=== PATIENT | male | born 1970 | race Caucasian/White ===

== ENCOUNTER → 2017-10-04 16:20 | Outpatient (CLI) | payer OTHER, SELFPAY ==
[2017-10-04 18:02] LABS: Absolute Lymphocyte Count 2.43 X10^3/ul (0.83-4.51); Absolute Neutrophil Count 2.6 X10^3/uL (2.0-7.7); Basophil# 0.03 X10^3/uL; Basophil% 0.5 % (0-1); Eosinophil# 0.25 X10^3/uL; Eosinophils% 4.4 % (0-5); Hematocrit 44.6 % (40-54); Hemoglobin 14.9 g/dl (13.0-16.5); Lymphocyte # 2.43 X10^3/ul (4.0); Lymphocyte % 42.3 % (19-41); Mean Corp Hgb Conc 33.4 g/gl (32-36); Mean Corpuscular Hgb 30.1 pg (27.0-32.0); Mean Corpuscular Volume 90.1 fL (80-94); Monocyte# 0.41 X10^3/uL; Monocyte% 7.1 % (0-10); Neutrophil # 2.61 X10^3/uL (2.7-7.7); Neutrophil % 45.5 % (47-70); Platelet Count 311 K/mm3 (150-450); RBC Distribution Width CV 12.6 % (11.6-14.6); RBC Distribution Width SD 40.8 fl (35.1-43.9); Red Blood Count 4.95 M/mm3 (4.6-6.2); White Blood Count 5.7 K/mm3 (4.4-11.0)
[2017-10-04 18:05] LABS: POSITIVE COUNT NO; POSITIVE DIFFERENTIAL NO; POSITIVE MORPHOLOGY NO
[2017-10-04 18:18] LABS: Erythrocyte Sedimentation Rate 14 mm/hr (0-15)
[2017-10-04 18:33] LABS: AST(SGOT) 24 U/L (15-37); Alanine Aminotransfer ALT/SGPT 46 U/L (16-61); Albumin, Serum 4.1 g/dL (3.2-5.0); Alkaline Phosphatase 72 U/L (45-117); Anion Gap 9 (5-15); BUN 11 mg/dL (7-18); BUN/Creat Ratio 13.1 RATIO (10-20); Calcium,Total 8.7 mg/dL (8.5-10.1); Chloride 103 mmol/L (98-107); Creatinine, Serum 0.84 mg/dL (0.70-1.30); EST Glomerular Filtration Rate 104 mL/min (>60); Est Glom Filt Rate - Afr Amer 126 mL/min (>60); Globulin 4.1 g/dL (2.2-4.2); Glucose 105 mg/dL (74-106); Potassium 3.6 mmol/L (3.5-5.1); Protein, Total 8.2 g/dL (6.4-8.2); Sodium Level 138 mmol/L (136-145); T4 Free Direct 1.23 ng/dL (0.76-1.46); Thyroid Stim Hormone (TSH) 0.85 uIU/mL (0.358-3.74)
[2017-10-05 08:50] LABS: Vitamin D,25 Hydroxy 17.5 ng/mL (19.95-100.01)
[2017-10-06 16:11] LABS: Endomysial Antibody IgA Negative (Negative)
[2017-10-07 07:17] LABS: Deamidated Gliadin IgA 9 units (0-19); Deamidated Gliadin IgG 8 units (0-19); Immunoglobulin A 299 mg/dL (90-386); t-Transglutaminase IgA <2 U/mL (0-3)
== END ==
PROVIDERS: Family Provider Family Medicine; PCP Family Medicine; Visit Provider Family Medicine
DX: E03.9 Hypothyroidism, unspecified (principal); E55.9 Vitamin D deficiency, unspecified; K58.9 Irritable bowel syndrome, unspecified
CPT/HCPCS: 36415; 80053; 82306; 82784; 83516; 84439; 84443; 85025; 85652; 86255

== ENCOUNTER → 2018-05-08 16:55 | Outpatient (CLI) | payer OTHER, SELFPAY ==
[2018-05-08 18:23] LABS: Vitamin D,25 Hydroxy 37.7 ng/mL (29.95-100.01)
== END ==
PROVIDERS: Family Provider Family Medicine; PCP Family Medicine; Visit Provider Family Medicine
DX: E55.9 Vitamin D deficiency, unspecified (principal)
CPT/HCPCS: 36415; 82306

== ENCOUNTER → 2019-03-27 | Outpatient (CLI) | payer OTHER, SELFPAY ==
[2017-08-30 11:44] VITALS: BMI 27.2
[2019-03-27 14:11] LABS: Vitamin D,25 Hydroxy 18.3 ng/mL (29.95-100.01)
[2019-03-27 14:14] LABS: T4 Free Direct 1.18 ng/dL (0.76-1.46); Thyroid Stim Hormone (TSH) 3.43 uIU/mL (0.358-3.74)
== END | disposition home or self-care (01) ==
LOC: MTLAB 12:45
PROVIDERS: Family Provider Family Medicine; PCP Family Medicine; Referring Provider Family Medicine; Visit Provider Family Medicine
DX: E03.9 Hypothyroidism, unspecified (principal); E55.9 Vitamin D deficiency, unspecified
CPT/HCPCS: 36415; 82306; 84439; 84443

== ENCOUNTER → 2019-09-17 11:39 | Outpatient (CLI) | payer OTHER, SELFPAY ==
[2017-08-30 11:44] VITALS: BMI 27.2
[2019-09-17 14:21] LABS: Vitamin D,25 Hydroxy 31.9 ng/mL (29.95-100.01)
[2019-09-17 14:33] LABS: AST(SGOT) 25 U/L (15-37); Alanine Aminotransfer ALT/SGPT 53 U/L (16-61); Albumin, Serum 4.4 g/dL (3.2-5.0); Alkaline Phosphatase 72 U/L (45-117); Anion Gap 8 (5-15); BUN 11 mg/dL (7-18); BUN/Creat Ratio 10.8 RATIO (10-20); Calcium,Total 9.9 mg/dL (8.5-10.1); Chloride 105 mmol/L (98-107); Creatinine, Serum 1.02 mg/dL (0.70-1.30); EST Glomerular Filtration Rate 83 mL/min (>60); Est Glom Filt Rate - Afr Amer 100 mL/min (>60); Globulin 4.2 g/dL (2.2-4.2); Glucose 106 mg/dL (74-106); Magnesium 2.1 mg/dL (1.6-2.6); Potassium 3.9 mmol/L (3.5-5.1); Protein, Total 8.6 g/dL (6.4-8.2); Sodium Level 139 mmol/L (136-145); Thyroid Stim Hormone (TSH) 1.84 uIU/mL (0.358-3.74)
== END ==
PROVIDERS: PCP Family Medicine; Visit Provider Nurse Practitioner Family
DX: E55.9 Vitamin D deficiency, unspecified (principal); M62.838 Other muscle spasm
CPT/HCPCS: 36415; 80053; 82306; 83735; 84443

== ENCOUNTER → 2020-03-12 | Outpatient (CLI) | payer OTHER, SELFPAY ==
[2019-10-08 15:09] VITALS: BMI 27.2
[2020-03-12 10:32] LABS: Hemoglobin 15.5 g/dL (13.0-16.5); Mean Corpuscular Hgb 30.2 pg (27.0-32.0); Mean Corpuscular Volume 91.4 fL (80-94); Platelet Count 335 K/mm3 (150-450); RBC Distribution Width CV 11.8 % (11.6-14.6); RBC Distribution Width SD 39.4 fl (35.1-43.9); Red Blood Count 5.14 M/mm3 (4.6-6.2); White Blood Count 5.5 K/mm3 (4.4-11.0)
[2020-03-12 10:37] LABS: Erythrocyte Sedimentation Rate 14 mm/hr (0-15)
[2020-03-12 10:50] LABS: Anion Gap 6 (5-15); BUN 12 mg/dL (7-18); BUN/Creat Ratio 12.1 RATIO (10-20); CRP 3.21 mg/L (0.0-3.0); Calcium,Total 8.7 mg/dL (8.5-10.1); Chloride 106 mmol/L (98-107); Cholesterol 224 mg/dL (200); Creatinine, Serum 0.99 mg/dL (0.70-1.30); EST Glomerular Filtration Rate 86 mL/min (>60); Est Glom Filt Rate - Afr Amer 104 mL/min (>60); Glucose 96 mg/dL (74-106); High Density Lipoprotein 39 mg/dL; Iron 92 ug/dL (65-175); Potassium 3.9 mmol/L (3.5-5.1); Sodium Level 138 mmol/L (136-145); Thyroid Stim Hormone (TSH) 4.58 uIU/mL (0.358-3.74); Triglycerides 170 mg/dL; Very Low Density Lipoprotein 34 mg/dL (5-40)
[2020-03-12 11:10] LABS: Vitamin B12 537 pg/mL (211-911); Vitamin D,25 Hydroxy 33.4 ng/mL
[2020-03-13 20:07] LABS: Endomysial Antibody IgA Negative (Negative); Immunoglobulin A 322 mg/dL (90-386)
[2020-03-14 01:06] LABS: ANTINUCLEAR ANTIBODIES DIRECT Negative (Negative)
[2020-03-14 01:08] LABS: Deamidated Gliadin IgA 11 units (0-19); Deamidated Gliadin IgG 5 units (0-19); SAR-COV-2 IGG ANTIBODY Negative (Negative); t-Transglutaminase IgA <2 U/mL (0-3)
== END | disposition home or self-care (01) ==
LOC: MFPLAB 09:16
PROVIDERS: PCP Family Medicine; Visit Provider Family Medicine
DX: E03.9 Hypothyroidism, unspecified (principal); E55.9 Vitamin D deficiency, unspecified; R25.3 Fasciculation; Z13.1 Encounter for screening for diabetes mellitus; Z13.220 Encounter for screening for lipoid disorders; Z83.79 Family history of other diseases of the digestive system
CPT/HCPCS: 36415; 80048; 80061; 82306; 82607; 82784; 83516; 83540; 84443; 85027; 85652; 86038; 86140; 86255; 86769

== ENCOUNTER → 2020-08-04 14:57 | Outpatient (CLI) | payer OTHER, SELFPAY ==
[2019-10-08 15:09] VITALS: BMI 27.2
--- NOTE | 2020-08-04 15:04 | RAD_ITS ---
HISTORY: toe numbness lumbago ADDITIONAL HISTORY: None provided. EXAMINATION/TECHNIQUE: XR Spine Lumbar Min 4 Views Number of images including paperwork: 5 COMPARISON: None FINDINGS: VERTEBRAE: No acute fracture. VERTEBRAL ALIGNMENT: No traumatic subluxation. DISKS AND JOINTS: Moderate disc space narrowing at L5-S1. Mild discogenic degenerative changes elsewhere in the lumbar spine. Facet arthropathy. SOFT TISSUES: Unremarkable paraspinous soft tissues. RAD/L/S Spine Min 4 Views IMPRESSION: No acute findings. Lumbar spondylosis. at 0753 Reported and signed by: Karla Prakash MD Electronically Signed: Karla Prakash MD at 7:53 EST Tel , Service support ,
[2020-08-04 17:52] LABS: Absolute Lymphocyte Count 2.16 X10^3/uL (0.83-4.51); Absolute Neutrophil Count 2.6 X10^3/uL (2.0-7.7); Basophil# 0.03 X10^3/uL; Basophil% 0.5 % (0-1); Eosinophil# 0.11 X10^3/uL; Hematocrit 46.4 % (40-54); Hemoglobin 14.9 g/dL (13.0-16.5); Lymphocyte # 2.16 X10^3/ul (4.0); Lymphocyte % 39.3 % (19-41); Mean Corp Hgb Conc 32.1 g/dL (32-36); Mean Corpuscular Hgb 29.2 pg (27.0-32.0); Mean Platelet Vol. 10.1 fl (6.2-12.0); Monocyte# 0.62 X10^3/uL; Monocyte% 11.3 % (0-10); NRBC Flagged by Analyzer 0 % (0-5); Neutrophil # 2.56 X10^3/uL (2.7-7.7); Neutrophil % 46.7 % (47-70); Platelet Count 335 K/mm3 (150-450); RBC Distribution Width CV 11.9 % (11.6-14.6); RBC Distribution Width SD 39.7 fl (35.1-43.9); White Blood Count 5.5 K/mm3 (4.4-11.0)
[2020-08-04 18:45] LABS: Erythrocyte Sedimentation Rate 5 mm/hr (0-15)
[2020-08-04 19:00] LABS: ALB/GLOB Ratio 1.1 RATIO (0.9-2.4); AST(SGOT) 25 U/L (15-37); Alanine Aminotransfer ALT/SGPT 47 U/L (16-61); Albumin, Serum 4.1 g/dL (3.2-5.0); Alkaline Phosphatase 82 U/L (45-117); Anion Gap 6 (5-15); BUN 11 mg/dL (7-18); BUN/Creat Ratio 13.8 RATIO (10-20); CPK Total, Creatine Kinase 305 U/L (39-308); CRP < 2.90 mg/L (0.0-3.0); Calcium,Total 8.9 mg/dL (8.5-10.1); Chloride 103 mmol/L (98-107); EST Glomerular Filtration Rate 110 mL/min (>60); Est Glom Filt Rate - Afr Amer 133 mL/min (>60); Ferritin 139 ng/mL (26-388); Globulin 3.8 g/dL (2.2-4.2); Glucose 77 mg/dL (74-106); Magnesium 2.3 mg/dL (1.6-2.6); Potassium 3.4 mmol/L (3.5-5.1); Protein, Total 7.9 g/dL (6.4-8.2); Sodium Level 138 mmol/L (136-145); T4 Free Direct 1.56 ng/dL (0.76-1.46); Thyroid Stim Hormone (TSH) 0.02 uIU/mL (0.358-3.74)
[2020-08-05 12:51] LABS: Vitamin B12 588 pg/mL (211-911); Vitamin D,25 Hydroxy 29.1 ng/mL
[2020-08-06 15:24] LABS: ANTINUCLEAR ANTIBODIES DIRECT Negative (Negative)
[2020-08-06 15:25] LABS: Aldolase 4.7 U/L (3.3-10.3)
== END ==
PROVIDERS: PCP Family Medicine; Referring Provider Family Medicine; Visit Provider Family Medicine
DX: M54.5 Low back pain (principal); E03.9 Hypothyroidism, unspecified; M79.10 Myalgia, unspecified site
CPT/HCPCS: 36415; 72110; 80053; 82085; 82306; 82550; 82607; 82728; 83735; 84403; 84439; 84443; 85025; 85652; 86038; 86140

== ENCOUNTER 2020-10-10 07:30 | Outpatient (RCR) | payer OTHER, SELFPAY ==
[2019-10-08 15:09] VITALS: BMI 27.2
--- NOTE | 2020-09-08 17:43 | HP.PTEVAL_ITS ---
Patient's Visit Information MARIIA BELLA is a 50 year old M referred to Physical Therapy by Dr. Yunior Rodriguez MD with a diagnosis of L/S DDD. Date of Evaluation: 09/08/20 Physical Therapist: Cain Díaz, PT, ATC - Visit Plan Frequency: 2-3x /Week Duration: 4-6 Weeks Plan: Postural edu, L/S stab ex's, Nustep, and HEP - Subjective Pt reports he has had multiple LBP episodes over the past few years. Pt reports it has happened 4 times in one year. Pt notes he doesnt really have pain right now, but notes he is looking to become independent with a safe program to aid with preventing future episodes. Pt reports when his back goes out on him, he is not able to stand upright for the better part of 3 days. Pt reports he has had L LE radiculopathy in the past but notes none this date. No sleep difficulty at this time. 0/10 pain at this time, 10/10 pain at worst - Objective Neuro: B LE sensation is WNL to light touch. B patellar reflex= 2/3. ROM: Pt is minimally limited with L/S ext. All other motions are WNL. MMT: B LE's 5/5 throughout. Repeated movements: NA. Special tests: Pos trendelenburg - Goals Goal 1:: I with HEP of core strengthening Goal Time Frame: 4-6 Weeks Goal 2:: Pt will verbally and physically display proper posture to prevent future LBP apisodes Goal Time Frame: 4-6 Weeks Goal 3:: Pt will not experience an episode of LBP for 4-6 weeks Goal Time Frame: 4-6 Weeks - Rehabilitation Potential Physical Therapy Diagnosis: Pt has intermittent LBP and L LE radiculopathy secondary to DDD Rehabilitation Potential: Good - Anticipated Interventions Patient/Client Instruction: Educate patient on: Condition, Plan of Care For the Purpose of:: To improve self management Therapeutic Exercise to Include: Strength training, Endurance training, Body mechanics, Postural training, Flexibilty training, Dynamic Lumbar Stabilization, Sumanth Exercises For the Purpose of:: To decrease pain, To increase ROM, To improve muscle performance and motor function, To improve ability to perform ADL's Thank you for the opportunity to evaluate your patient. For Medicare and Medicare HMO plans, please review the plan of care and approve it. It will need to be FAXED BACK to us at [phone] for Medicare purposes. For Medicare only, by signing this I certify the plan of care. Please let me know if there are questions or concerns regarding this plan of care. Physician Signature: Date:
--- NOTE | 2020-10-10 08:02 | HP.PTREVAL ---
Dr. Yunior Rodriguez MD, It has been my pleasure to treat MARIIA BELLA over the last 4 visits for L/S DDD. Please see the progress note below for an update on the physical therapy plan of care! Subjective: My back is stiff today, but getting better Objective/Function: Pain is 0/10 today, but feels stiff. Pt has full ROM in L/S with exception of flexion which is minimally limited. Pt is I with HEP Plan Plan: Recheck in 4 weeks to advance HEP Goals Goal 1:: I with HEP of core strengthening Goal Time Frame: 4-6 Weeks Goal Progress: Goal Met Goal 2:: Pt will verbally and physically display proper posture to prevent future LBP apisodes Goal Time Frame: 4-6 Weeks Goal Progress: Goal Met Goal 3:: Pt will not experience an episode of LBP for 4-6 weeks Goal Time Frame: 4-6 Weeks Goal Progress: Progressing Anticipated Interventions Patient/Client Instruction: Educate patient on: Condition, Plan of Care For the Purpose of:: To improve self management Therapeutic Exercise to Include: Strength training, Endurance training, Body mechanics, Postural training, Flexibilty training, Dynamic Lumbar Stabilization, Sumanth Exercises For the Purpose of:: To decrease pain, To increase ROM, To improve muscle performance and motor function, To improve ability to perform ADL's Please do not hesitate to contact me at [phone] by phone or if you have questions or concerns regarding this new plan of care! Sincerely, Cain Díaz, PT, ATC
--- NOTE | 2020-11-27 10:50 | HP.PT.NRP ---
MARIIA BELLA was seen in my office for initial evaluation on 09/08/20. The following Plan of Care was established for this patient: Initial Frequency: 2-3x /Week Initial Duration: 4-6 Weeks Patient/Client Instruction: Educate patient on: Condition, Plan of Care For the Purpose of:: To improve self management Therapeutic Exercise to Include: Strength training, Endurance training, Body mechanics, Postural training, Flexibilty training, Dynamic Lumbar Stabilization, Sumanth Exercises For the Purpose of:: To decrease pain, To increase ROM, To improve muscle performance and motor function, To improve ability to perform ADL's This patient was last seen in our office . Pertinent comments regarding their Physical therapy will appear below: Pt was treated for 4 PT visits for LBP through the date of 10/10/20. Pt has not returned through todays date and is discontinued at this time. At this point I will be discontinuing this patient from physical therapy. I would be happy to see this patient again in the future if found appropriate by the physician. Thank you! Cain Díaz, PT, ATC
== END 2020-10-10 19:00 | disposition home or self-care (01) ==
LOC: PT 07:30
PROVIDERS: PCP Family Medicine; Referring Provider Family Medicine; Visit Provider Family Medicine
DX: M51.36 Other intervertebral disc degeneration, lumbar region (principal)
CPT/HCPCS: 97110; 97161; 97164

== ENCOUNTER → 2020-11-19 17:20 | Outpatient (CLI) | payer OTHER, SELFPAY ==
[2019-10-08 15:09] VITALS: BMI 27.2
[2020-11-19 18:10] LABS: Free T3 3.1 pg/mL (2.18-3.98); T4 Free Direct 1.31 ng/dL (0.76-1.46); Thyroid Stim Hormone (TSH) 0.28 uIU/mL (0.358-3.74)
== END ==
PROVIDERS: PCP Family Medicine; Visit Provider Family Medicine
DX: E03.9 Hypothyroidism, unspecified (principal)
CPT/HCPCS: 36415; 84439; 84443; 84481

== ENCOUNTER → 2020-12-03 15:49 | Outpatient (CLI) | payer OTHER, SELFPAY ==
[2019-10-08 15:09] VITALS: BMI 27.2
--- NOTE | 2020-12-03 15:51 | US_ITS ---
HISTORY: Hypothyroidism. Palpable lump. 86 images. Findings: The right lobe of the thyroid measures 4.2 x 1.3 x 1.3 cm. The right lobe of the thyroid gland is mildly heterogeneous. No clearly defined nodules. The thyroid isthmus is homogeneous and normal at 2 mm. The left lobe of the thyroid gland measures 3.7 x 1.1 x 0.9 cm. The left lobe of thyroid gland is mildly heterogeneous. Within the inferior pole of left lobe thyroid gland there is a 4 x 5 x 2 mm nodule. The nodule is solid or oral is completely solid. It is heterogeneous but mostly hypoechoic. It is taller than wide. Its margins are smooth. It has no associated calcifications. Blood flow is present within the margin anteriorly of the nodule. It has a TI-RADS score of 5. This is highly suspicious. US/Thyroid IMPRESSION: 4 x 5 x 2 mm inferior pole left lobe thyroid gland nodule with a TI-RADS score of 5 consistent with highly suspicious. This should be followed annually for 5 years to further assess for the possibility of neoplasia. at 2212 Reported and signed by: Tim Oconnell MD Electronically Signed: Tim Oconnell MD at 22:11 EDT Tel , Service support ,
== END ==
PROVIDERS: PCP Family Medicine; Referring Provider Family Medicine; Visit Provider Family Medicine
DX: E03.9 Hypothyroidism, unspecified (principal)
CPT/HCPCS: 76536

== ENCOUNTER → 2020-12-19 16:13 | Outpatient (CLI) | payer OTHER, SELFPAY ==
[2019-10-08 15:09] VITALS: BMI 27.2
[2020-12-19 18:12] LABS: T4 Free Direct 1.32 ng/dL (0.76-1.46)
== END ==
PROVIDERS: PCP Family Medicine; Visit Provider Family Medicine
DX: E03.9 Hypothyroidism, unspecified (principal)
CPT/HCPCS: 36415; 84439; 84443

== ENCOUNTER → 2021-02-04 11:15 | Outpatient (CLI) | payer OTHER, SELFPAY ==
[2019-10-08 15:09] VITALS: BMI 27.2
[2021-02-04 12:54] LABS: Vitamin D,25 Hydroxy 39.5 ng/mL
[2021-02-04 13:04] LABS: Thyroid Stim Hormone (TSH) 0.59 uIU/mL (0.358-3.74)
[2021-02-07 20:28] LABS: Vitamin B1, Thiamine 159.7 nmol/L (66.5-200.0)
== END ==
PROVIDERS: PCP Family Medicine; Referring Provider Family Medicine; Visit Provider Family Medicine
DX: E55.9 Vitamin D deficiency, unspecified (principal); E03.9 Hypothyroidism, unspecified
CPT/HCPCS: 36415; 82306; 84207; 84425; 84439; 84443; 84481

== ENCOUNTER → 2021-04-10 10:25 | Outpatient (CLI) | payer OTHER, SELFPAY ==
[2021-04-07 10:52] VITALS: BMI 29.3
[2021-04-10 13:22] LABS: ALB/GLOB Ratio 1.1 RATIO (0.9-2.4); AST(SGOT) 24 U/L (15-37); Alanine Aminotransfer ALT/SGPT 38 U/L (16-61); Albumin, Serum 4.2 g/dL (3.2-5.0); Alkaline Phosphatase 68 U/L (45-117); Anion Gap 5 (5-15); BUN 13 mg/dL (7-18); BUN/Creat Ratio 15.3 RATIO (10-20); Calcium,Total 9.1 mg/dL (8.5-10.1); Chloride 106 mmol/L (98-107); Creatinine, Serum 0.85 mg/dL (0.70-1.30); EST Glomerular Filtration Rate 102 mL/min (>60); Est Glom Filt Rate - Afr Amer 123 mL/min (>60); Globulin 3.8 g/dL (2.2-4.2); Glucose 83 mg/dL (74-106); Potassium 4.1 mmol/L (3.5-5.1); Sodium Level 137 mmol/L (136-145)
== END ==
PROVIDERS: PCP Family Medicine; Referring Provider Psychiatry & Neurology Neurology; Visit Provider Psychiatry & Neurology Neurology
DX: G62.9 Polyneuropathy, unspecified (principal)
CPT/HCPCS: 36415; 80053; 82746

== ENCOUNTER → 2021-05-11 10:00 | Outpatient (CLI) | payer OTHER, SELFPAY ==
[2021-04-07 10:52] VITALS: BMI 29.3
== END ==
PROVIDERS: PCP Family Medicine; Referring Provider Psychiatry & Neurology Neurology; Visit Provider Psychiatry & Neurology Neurology
DX: G47.30 Sleep apnea, unspecified (principal)
CPT/HCPCS: 95806

== ENCOUNTER → 2021-06-09 06:30 | Outpatient (CLI) | payer OTHER, SELFPAY | PROVIDERS: PCP Family Medicine; Visit Provider Psychiatry & Neurology Neurology | DX: Z46.89 Encounter for fitting and adjustment of other specified devices (principal) ==

== ENCOUNTER → 2021-06-10 12:15 | Outpatient (CLI) | payer OTHER, SELFPAY | PROVIDERS: PCP Family Medicine; Visit Provider Psychiatry & Neurology Neurology | DX: R69 Illness, unspecified (principal) ==

== ENCOUNTER → 2021-07-21 16:12 | Outpatient (CLI) | payer OTHER, SELFPAY ==
--- NOTE | 2021-07-21 16:18 | RAD_ITS ---
STUDY: X-RAY - PELVIS AND LEFT HIP REASON FOR EXAM: Male, 51 years old. Pain TECHNIQUE: 4 views of the pelvis and hip. COMPARISON: None. FINDINGS: There is a non-specific bowel gas pattern. Normal visualized soft tissue structures. Normal bilateral iliac wings, sacroiliac joints and visualized sacrum. Normal bilateral superior and inferior pubic rami. Normal pubic symphysis. Normal bilateral ischial tuberosities. Normal visualized femoral head. Normal acetabulum. Normal hip joint. RAD/HIP, UNI W/ Pelvis 2-3 Views IMPRESSION: Normal x-ray examination of the pelvis and hip. Electronically Signed: Denis Mixon MD at 17:22 EST , Service support ,
[2021-07-21 18:28] LABS: Free T3 2.9 pg/mL (2.18-3.98); T4 Free Direct 1.16 ng/dL (0.76-1.46); Thyroid Stim Hormone (TSH) 0.85 uIU/mL (0.358-3.74)
== END ==
PROVIDERS: PCP Family Medicine; Referring Provider Psychiatry & Neurology Neurology; Visit Provider Psychiatry & Neurology Neurology
DX: E03.9 Hypothyroidism, unspecified (principal); R52 Pain, unspecified
CPT/HCPCS: 36415; 73502; 84439; 84443; 84481

== ENCOUNTER 2021-09-19 07:01 | Outpatient (CLI) | payer OTHER, SELFPAY ==
[2021-09-19 08:53] LABS: Anion Gap 7 (5-15); BUN 13 mg/dL (7-18); BUN/Creat Ratio 15.1 RATIO (10-20); Calcium,Total 9.3 mg/dL (8.5-10.1); Chloride 104 mmol/L (98-107); Cholesterol 154 mg/dL (200); Creatinine, Serum 0.86 mg/dL (0.70-1.30); EST Glomerular Filtration Rate 100 mL/min (>60); Est Glom Filt Rate - Afr Amer 121 mL/min (>60); Free T3 2.7 pg/mL (2.18-3.98); Glucose 81 mg/dL (74-106); High Density Lipoprotein 53 mg/dL; Potassium 3.9 mmol/L (3.5-5.1); Sodium Level 140 mmol/L (136-145); T4 Free Direct 1.47 ng/dL (0.76-1.46); Thyroid Stim Hormone (TSH) 0.53 uIU/mL (0.358-3.74); Triglycerides 53 mg/dL; Very Low Density Lipoprotein 11 mg/dL (5-40)
[2021-09-21 08:45] LABS: Vitamin D,25 Hydroxy 41.3 ng/mL
== END 2021-09-19 23:59 | disposition home or self-care (01) ==
LOC: LAB 07:04
PROVIDERS: PCP Family Medicine; Visit Provider Family Medicine
DX: Z00.00 Encounter for general adult medical examination without abnormal findings (principal); E03.9 Hypothyroidism, unspecified; E55.9 Vitamin D deficiency, unspecified
CPT/HCPCS: 36415; 80048; 80061; 82306; 84439; 84443; 84481

== ENCOUNTER → 2021-12-28 | Outpatient (CLI) | payer OTHER, SELFPAY | END | disposition home or self-care (01) | LOC: LABSPEC 12-29 10:26 | PROVIDERS: PCP Family Medicine; Visit Provider Family Medicine | DX: R35.0 Frequency of micturition (principal) | CPT/HCPCS: 87086 ==

== ENCOUNTER → 2022-01-04 | Outpatient (CLI) | payer OTHER, SELFPAY ==
[2022-01-04 18:30] LABS: T4 Free Direct 1.13 ng/dL (0.76-1.46); Thyroid Stim Hormone (TSH) 0.94 uIU/mL (0.358-3.74)
== END | disposition home or self-care (01) ==
LOC: MTLAB 14:50
PROVIDERS: PCP Family Medicine; Referring Provider Family Medicine; Visit Provider Family Medicine
DX: E03.9 Hypothyroidism, unspecified (principal); R35.0 Frequency of micturition
CPT/HCPCS: 36415; 84153; 84439; 84443; 87086; G0103

== ENCOUNTER → 2022-01-05 | Outpatient (CLI) | payer OTHER, SELFPAY | END | disposition home or self-care (01) | LOC: SL 12:14 | PROVIDERS: PCP Family Medicine; Referring Provider Nurse Practitioner Acute Care; Visit Provider Nurse Practitioner Acute Care | DX: G47.33 Obstructive sleep apnea (adult) (pediatric) (principal) | CPT/HCPCS: 95806 ==

== ENCOUNTER → 2022-02-05 | Outpatient (CLI) | payer OTHER, SELFPAY ==
[2022-02-05 12:39] LABS: Hematocrit 43.9 % (40-54); Hemoglobin 14.7 g/dL (13.0-16.5); Mean Corp Hgb Conc 33.5 g/dL (32-36); Mean Corpuscular Hgb 30.9 pg (27.0-32.0); Mean Corpuscular Volume 92.4 fL (80-94); Mean Platelet Vol. 9.6 fl (6.2-12.0); Platelet Count 315 K/mm3 (150-450); RBC Distribution Width CV 12.7 % (11.6-14.6); RBC Distribution Width SD 43.4 fl (35.1-43.9); Red Blood Count 4.75 M/mm3 (4.6-6.2); White Blood Count 5.8 K/mm3 (4.4-11.0)
[2022-02-05 13:08] LABS: Anion Gap 4 (5-15); BUN 15 mg/dL (7-18); BUN/Creat Ratio 16.5 RATIO (10-20); Calcium,Total 9.4 mg/dL (8.5-10.1); Chloride 104 mmol/L (98-107); Creatinine, Serum 0.91 mg/dL (0.70-1.30); EST Glomerular Filtration Rate 94 mL/min (>60); Est Glom Filt Rate - Afr Amer 114 mL/min (>60); Glucose 86 mg/dL (74-106); Magnesium 1.9 mg/dL (1.6-2.6); Sodium Level 139 mmol/L (136-145); T4 Free Direct 1.05 ng/dL (0.76-1.46); Thyroid Stim Hormone (TSH) 1.27 uIU/mL (0.358-3.74)
== END | disposition home or self-care (01) ==
LOC: LAB 12:08
PROVIDERS: PCP Family Medicine; Referring Provider Family Medicine; Visit Provider Family Medicine
DX: I49.9 Cardiac arrhythmia, unspecified (principal)
CPT/HCPCS: 36415; 80048; 83735; 84439; 84443; 85027

== ENCOUNTER → 2022-03-04 | Outpatient (CLI) | payer OTHER, SELFPAY ==
--- NOTE | 2022-03-04 15:59 | EKG12_ITS ---
Test Reason : PRE OP Blood Pressure : / mmHG Vent. Rate : 079 BPM Atrial Rate : 079 BPM P-R Int : 166 ms QRS Dur : 080 ms QT Int : 348 ms P-R-T Axes : 068 009 053 degrees QTc Int : 399 ms Normal sinus rhythm Inferior infarct , age undetermined /CANNOT BE EXCLUDED Abnormal ECG Confirmed by DEMI MENCHACA, BRITTNEY ([id number]), assignment editor LUIS ANGEL PHILLIPS ([id number]) on 03/05/2022 9:34:08 AM Referred By: Yosef Ibrahim Confirmed By:BRITTNEY SIMMS MD
== END | disposition home or self-care (01) ==
LOC: PSN 15:57
PROVIDERS: PCP Family Medicine; Referring Provider Otolaryngology; Visit Provider Otolaryngology
DX: Z01.810 Encounter for preprocedural cardiovascular examination (principal)
CPT/HCPCS: 93005

== ENCOUNTER → 2022-03-08 | Outpatient (CLI) | payer OTHER, SELFPAY ==
--- NOTE | 2022-03-08 13:15 | SEP_PTH ---
PATIENT: MARIIA BELLA [facility] U#:[id number] AGE/SX: 52/M ROOM: RE03/08/[address]: Dr. Yosef Ibrahim MD : 1970 BED: DIS: 03/08/2022 SPEC #: [id number] RECD: 03/09/22 14:55 STATUS: JULI REJannette #: [id number] VALDO: 03/08/22 13:[address]: Yosef Ibrahim DEPT: SURGICAL PATHOLOGY RECD BY: Vicente Serna ENTERED: 03/10/22 09:35 SP TYPE: SEPTUM OTHR DR: Dr. Tee Rodriguez MD [facility] Tissues: Nasal septum, NOS Procedures: Decalcification bone/plaque Surgery Specimen Level III HEADER OPERATION: Septoplasty and bilateral submucosal resection of inferior turbinate PRE-OP DIAGNOSIS: Nasal congestion, hypertrophy of nasal turbinates, deviation of nasal turbinates TISSUE SUBMITTED: Nasal septum MICROSCOPIC DIAGNOSIS Nasal septum: Fragments of bone and cartilage, clinically deviated nasal septum. LEE ANN:risa 03/12/2022 MICROSCOPIC DESCRIPTION Slides are reviewed. GROSS DESCRIPTION Received in fixative is one container labeled with the patient's name and designated nasal septum. The specimen consists of multiple irregular fragments of bone and cartilage that in aggregate measure 4 x 3 x 0.4 cm. Large amount of gel-like material is also present in the container. Fragments of bone and cartilage are submitted in entirety after decalcification in two cassettes. / LEE ANN:risa 03/10/2022 TC:5 CPT: 71401, 99594
== END | disposition home or self-care (01) ==
LOC: LABSPEC 03-10 09:57
PROVIDERS: PCP Family Medicine; Visit Provider Otolaryngology
DX: J34.3 Hypertrophy of nasal turbinates (principal); J34.2 Deviated nasal septum
CPT/HCPCS: 88304; 88311

== ENCOUNTER → 2022-12-03 | Outpatient (CLI) | payer OTHER, SELFPAY ==
[2022-12-03 10:45] LABS: Anion Gap 5 (5-15); BUN 16 mg/dL (7-18); BUN/Creat Ratio 19.8 RATIO (10-20); Calcium,Total 9.2 mg/dL (8.5-10.1); Chloride 107 mmol/L (98-107); Cholesterol 226 mg/dL (200); Creatinine, Serum 0.81 mg/dL (0.70-1.30); EST Glomerular Filtration Rate 107 mL/min (>60); Est Glom Filt Rate - Afr Amer 130 mL/min (>60); Free T3 2.7 pg/mL (2.18-3.98); Glucose 90 mg/dL (74-106); High Density Lipoprotein 47 mg/dL; PSA,Total - Annual Screen 0.47 ng/mL (0.00-4.00); Potassium 3.9 mmol/L (3.5-5.1); Sodium Level 140 mmol/L (136-145); T4 Free Direct 1.08 ng/dL (0.76-1.46); Thyroid Stim Hormone (TSH) 1.95 uIU/mL (0.358-3.74); Triglycerides 185 mg/dL; Very Low Density Lipoprotein 37 mg/dL (5-40)
== END | disposition home or self-care (01) ==
LOC: MFPLAB 08:39
PROVIDERS: PCP Family Medicine; Referring Provider Family Medicine; Visit Provider Family Medicine
DX: I49.9 Cardiac arrhythmia, unspecified (principal); E03.9 Hypothyroidism, unspecified; Z13.220 Encounter for screening for lipoid disorders; Z12.5 Encounter for screening for malignant neoplasm of prostate
CPT/HCPCS: 36415; 80048; 80061; 84153; 84439; 84443; 84481; G0103

== ENCOUNTER → 2023-01-11 | Outpatient (CLI) | payer OTHER, SELFPAY | END | disposition home or self-care (01) | PROVIDERS: PCP Family Medicine; Referring Provider Internal Medicine Critical Care Medicine; Visit Provider Internal Medicine Critical Care Medicine | DX: G47.33 Obstructive sleep apnea (adult) (pediatric) (principal) | CPT/HCPCS: 95806 ==

== ENCOUNTER → 2023-01-21 | Outpatient (CLI) | payer OTHER, SELFPAY ==
[2023-01-21 18:11] LABS: T4 Free Direct 0.71 ng/dL (0.76-1.46)
== END | disposition home or self-care (01) ==
LOC: MFPLAB 15:12
PROVIDERS: PCP Family Medicine; Visit Provider Family Medicine
DX: E03.9 Hypothyroidism, unspecified (principal)
CPT/HCPCS: 36415; 84439; 84443; 84481

== ENCOUNTER 2023-02-09 15:00 | Outpatient (RCR) | payer OTHER, SELFPAY ==
--- NOTE | 2023-02-03 07:48 | HP.OTEVAL ---
Patient's Visit Information MARIIA BELLA is a 52 year old M, referred to Occupational Therapy by Dr. Yunior Rodriguez MD, with a diagnosis of left thumb pain. Date of Evaluation: 02/02/23 Occupational Therapist: Carley Flores, OTR/Selene, CHT - Subjective This 52 year old male was seen for OT eval with dx of left thumb pain. pt states about a year ago he went to stop a bundle of mail from falling, trying to catch it with right left hand and noted thumb pain following. pt states he went next day to a quick clinic had x rays and was told no fx was found. pt states he has noticed increase soreness and limited ROM of left thumb. pt would like to have more ROM and return to his PLOF. - Pain left thumb 2 Pain Intensity Range: 2, 3 - ROM CMC: left 5* left 5* MP: left 50* left 65 IP: left 60 left 70* Radial Abduction: left 45 right 35 Opposition: Kapandji opposition scale right 10+ left 8 ROM Comments: left thumb demo with a decrease in ROM - Strength Military Equipment Specialist: left 85# left 110# Lateral Pinch: left 18# right 22# Tripod Pinch: left 18# right 18# Strength Comments: pt demo with a decrease in left hospital secretary strength - Sensation Sensation Comments: denies - Quick DASH-Disab of Arm,Shoulder& Hand Quick DASH Score: 11.6650 - Goals Goal:ROM equal to unaffected hand: Yes Goal:Military Equipment Specialist/Pinch strength at least 75% of unaffected hand: Yes Goal:No pain with affected hand use: Yes Goal:Full use of affected hand in daily activities including: Yes - Rehabilitation General Assessment: pt is demo with a decrease in left thumb ROM since injury. this limits pt with his IND with ADLs and IADls. also demo with a decrease in left hospital secretary and pinch strength. pt would benefit from skilled OT services 2-3 visits to ensure understanding of a good HEP for ROM and thumb instability. Rehabilitation Potential: Good - Anticipated Interventions A/AAROM/PROM, Strengthening, Modalities, Joint Protection/Energy Conservation, Ergonomic Education, Education re Diagnosis, Manual Lymph Drainage, Home Program - Visit Plan TEXT: Thank you for the opportunity to evaluate your patient. For Medicare and Medicare HMO plans, please review the plan of care and approve it. It will need to be FAXED BACK to us at [phone] for Medicare purposes. Please let me know if there are questions or concerns regarding this plan of care. Physician Signature: Date:
--- NOTE | 2023-04-21 10:28 | HP.OT.NRP ---
Patient Information Patient Information: MARIIA BELLA was seen in my office for initial evaluation on 02/02/23. The following Plan of Care was established for this patient: POC Established Plan: pt to call if he needs more therapy Anticipated Interventions Anticipated Interventions: A/AAROM/PROM, Strengthening, Modalities, Joint Protection/Energy Conservation, Ergonomic Education, Education re Diagnosis, Manual Lymph Drainage and Home Program Last Seen Last Seen: This patient was last seen in our office 02/09/23. Pertinent comments regarding their Occupational therapy will appear below: pt was seen for 2 OT session at last apt pt made great gains in ROM. pt was given HEP and was to call in two weeks if he felt he needed to return to therapy- At this time no further apts. are schedule. Pt is d/c. At this point I will be discontinuing this patient from occupational therapy. I would be happy to see this patient again in the future if found appropriate by the physician. Thank you! Carley Flores, OTR/L, CHT
== END 2023-02-09 19:00 | disposition home or self-care (01) ==
LOC: OT 15:00
PROVIDERS: PCP Family Medicine; Referring Provider Family Medicine; Visit Provider Family Medicine
DX: M79.645 Pain in left finger(s) (principal)
CPT/HCPCS: 97140; 97165; 97166

== ENCOUNTER → 2023-03-30 | Outpatient (CLI) | payer OTHER, SELFPAY ==
[2023-03-30 15:48] LABS: Free T3 2.3 pg/mL (2.18-3.98); T4 Free Direct 0.96 ng/dL (0.76-1.46)
== END | disposition home or self-care (01) ==
LOC: MFPLAB 14:00
PROVIDERS: PCP Family Medicine; Visit Provider Family Medicine
DX: E03.9 Hypothyroidism, unspecified (principal)
CPT/HCPCS: 36415; 84439; 84443; 84481

== ENCOUNTER → 2023-04-07 | Outpatient (CLI) | payer OTHER, SELFPAY ==
[2023-04-07 17:55] LABS: Absolute Lymphocyte Count 2.33 X10^3/uL (0.83-4.51); Absolute Neutrophil Count 3.6 X10^3/uL (2.0-7.7); Basophil# 0.05 X10^3/uL; Basophil% 0.8 % (0-1); Hematocrit 44.8 % (40-54); Hemoglobin 14.6 g/dL (13.0-16.5); Lymphocyte # 2.33 X10^3/ul (0.83-4.51); Mean Corp Hgb Conc 32.6 g/dL (32-36); Mean Corpuscular Hgb 30.7 pg (27.0-32.0); Mean Corpuscular Volume 94.1 fL (80-94); Mean Platelet Vol. 10.3 fl (6.2-12.0); Monocyte# 0.51 X10^3/uL; Monocyte% 7.7 % (0-10); NRBC Flagged by Analyzer 0 % (0-5); Neutrophil # 3.55 X10^3/uL (2.7-7.7); Neutrophil % 53.2 % (47-70); Platelet Count 326 K/mm3 (150-450); RBC Distribution Width CV 12.4 % (11.6-14.6); RBC Distribution Width SD 43.5 fl (35.1-43.9); Red Blood Count 4.76 M/mm3 (4.6-6.2); White Blood Count 6.7 K/mm3 (4.4-11.0)
[2023-04-07 18:07] LABS: AST(SGOT) 21 U/L (15-37); Alanine Aminotransfer ALT/SGPT 30 U/L (16-61); Albumin, Serum 3.9 g/dL (3.2-5.0); Alkaline Phosphatase 62 U/L (45-117); Anion Gap 7 (5-15); BUN 15 mg/dL (7-18); BUN/Creat Ratio 15.7 RATIO (10-20); CRP < 2.90 mg/L (0.0-3.0); Calcium,Total 8.8 mg/dL (8.5-10.1); Chloride 106 mmol/L (98-107); Creatinine, Serum 0.96 mg/dL (0.70-1.30); EST Glomerular Filtration Rate 88 mL/min (>60); Est Glom Filt Rate - Afr Amer 106 mL/min (>60); Ferritin 86 ng/mL (26-388); Globulin 3.8 g/dL (2.2-4.2); Glucose 95 mg/dL (74-106); Iron 93 ug/dL (65-175); Potassium 3.8 mmol/L (3.5-5.1); Protein, Total 7.7 g/dL (6.4-8.2); Rheumatoid Factor < 10.0 IU/mL (<15); Sodium Level 140 mmol/L (136-145)
[2023-04-07 18:15] LABS: Vitamin B12 742 pg/mL (211-911); Vitamin D,25 Hydroxy 40.4 ng/mL
[2023-04-07 18:22] LABS: Erythrocyte Sedimentation Rate 7 mm/hr (0-20)
[2023-04-09 08:12] LABS: Lyme Scn Total Ab w/Rflx Negative (Negative); Thyroid Peroxidase AB 24 IU/mL (0-34)
[2023-04-11 14:08] LABS: ANTINUCLEAR ANTIBODIES DIRECT Negative (Negative)
== END | disposition home or self-care (01) ==
LOC: MFPLAB 16:08
PROVIDERS: PCP Family Medicine; Visit Provider Family Medicine
DX: M25.50 Pain in unspecified joint (principal); R53.83 Other fatigue
CPT/HCPCS: 80053; 82306; 82607; 82728; 83540; 84403; 84550; 85025; 85652; 86038; 86140; 86376; 86431; 86618

== ENCOUNTER → 2023-06-27 | Outpatient (CLI) | payer OTHER, SELFPAY ==
[2023-06-27 17:06] LABS: Free T3 3.1 pg/mL (2.18-3.98); T4 Free Direct 1.31 ng/dL (0.76-1.46)
== END | disposition home or self-care (01) ==
LOC: MFPLAB 11:23
PROVIDERS: PCP Family Medicine; Visit Provider Family Medicine
DX: E03.9 Hypothyroidism, unspecified (principal)
CPT/HCPCS: 36415; 84439; 84443; 84481

== ENCOUNTER → 2024-01-31 | Outpatient (CLI) | payer OTHER, SELFPAY ==
[2024-01-31 12:38] LABS: AST(SGOT) 22 U/L (15-37); Alanine Aminotransfer ALT/SGPT 35 U/L (16-61); Alkaline Phosphatase 71 U/L (45-117); Anion Gap 5 (5-15); BUN 15 mg/dL (7-18); BUN/Creat Ratio 16.5 RATIO (10-20); Calcium,Total 9.3 mg/dL (8.5-10.1); Chloride 107 mmol/L (98-107); Cholesterol 235 mg/dL (200); Creatinine, Serum 0.91 mg/dL (0.70-1.30); EST Glomerular Filtration Rate 93 mL/min (>60); Est Glom Filt Rate - Afr Amer 113 mL/min (>60); Glucose 95 mg/dL (74-106); High Density Lipoprotein 46 mg/dL; PSA,Total - Annual Screen 0.57 ng/mL (0.00-4.00); Potassium 4.3 mmol/L (3.5-5.1); Sodium Level 138 mmol/L (136-145); T4 Free Direct 1.15 ng/dL (0.76-1.46); Thyroid Stim Hormone (TSH) 0.16 uIU/mL (0.358-3.74); Triglycerides 151 mg/dL; Very Low Density Lipoprotein 30 mg/dL (5-40)
== END | disposition home or self-care (01) ==
LOC: LAB.FUTURE 09:58
PROVIDERS: PCP Family Medicine; Visit Provider Family Medicine
DX: Z12.5 Encounter for screening for malignant neoplasm of prostate (principal); E78.2 Mixed hyperlipidemia; E03.9 Hypothyroidism, unspecified
CPT/HCPCS: 36415; 80053; 80061; 84153; 84439; 84443; G0103

== ENCOUNTER → 2024-03-27 | Outpatient (CLI) | payer OTHER, SELFPAY ==
[2024-03-27 13:07] LABS: T4 Free Direct 1.34 ng/dL (0.76-1.46)
[2024-03-28 08:12] LABS: Thyroid Peroxidase AB 18 IU/mL (0-34)
== END | disposition home or self-care (01) ==
LOC: MFPLAB 10:38
PROVIDERS: PCP Family Medicine; Visit Provider Family Medicine
DX: E03.9 Hypothyroidism, unspecified (principal)
CPT/HCPCS: 36415; 84439; 84443; 84481; 86376

== ENCOUNTER → 2024-07-10 | Outpatient (CLI) | payer OTHER, SELFPAY ==
[2024-07-10 18:13] LABS: T4 Free Direct 1.16 ng/dL (0.76-1.46); Thyroid Stim Hormone (TSH) 0.195 uIU/mL (0.358-3.740)
== END | disposition home or self-care (01) ==
PROVIDERS: PCP Family Medicine; Visit Provider Family Medicine
DX: E03.9 Hypothyroidism, unspecified (principal)
CPT/HCPCS: 36415; 84439; 84443

== ENCOUNTER → 2024-08-06 | Outpatient (CLI) | payer OTHER, SELFPAY ==
[2024-08-06 19:06] LABS: Free T3 2.4 pg/mL (2.18-3.98); T4 Free Direct 0.98 ng/dL (0.76-1.46); T4 Total, Thyroxin 9.6 ug/dL (4.5-12.1); Thyroid Stim Hormone (TSH) 0.617 uIU/mL (0.358-3.740)
== END | disposition home or self-care (01) ==
LOC: MTLAB 16:07
PROVIDERS: PCP Family Medicine; Referring Provider Family Medicine; Visit Provider Family Medicine
DX: E03.9 Hypothyroidism, unspecified (principal)
CPT/HCPCS: 36415; 84436; 84439; 84443; 84481

== ENCOUNTER → 2024-09-19 | Outpatient (CLI) | payer OTHER, SELFPAY | END | disposition home or self-care (01) | LOC: MTLAB 09:48 | PROVIDERS: PCP Family Medicine; Referring Provider Physician Assistant; Visit Provider Physician Assistant | DX: E03.8 Other specified hypothyroidism (principal) | CPT/HCPCS: 36415; 84443 ==

== ENCOUNTER → 2024-11-07 | Outpatient (CLI) | payer OTHER, SELFPAY | END | disposition home or self-care (01) | LOC: MTLAB 10:15 | PROVIDERS: PCP Family Medicine; Referring Provider Physician Assistant; Visit Provider Physician Assistant | DX: E03.8 Other specified hypothyroidism (principal) | CPT/HCPCS: 36415; 84443 ==

== ENCOUNTER → 2025-02-28 | Outpatient (CLI) | payer OTHER, SELFPAY ==
[2025-02-28 15:39] LABS: Hematocrit 46.5 % (40-54); Hemoglobin 15.4 g/dL (13.0-16.5); Mean Corp Hgb Conc 33.1 g/dL (32-36); Mean Corpuscular Volume 92.3 fL (80-94); Mean Platelet Vol. 9.9 fl (6.2-12.0); Platelet Count 379 K/mm3 (150-450); RBC Distribution Width CV 12.3 % (11.6-14.6); RBC Distribution Width SD 41.6 fl (35.1-43.9); Red Blood Count 5.04 M/mm3 (4.6-6.2); White Blood Count 5.2 K/mm3 (4.4-11.0)
[2025-02-28 16:30] LABS: AST(SGOT) 24 U/L (<=37); Alanine Aminotransfer ALT/SGPT 20 U/L (<=46); Albumin, Serum 4.5 g/dL (3.5-5.0); Alkaline Phosphatase 72 U/L (40-129); Anion Gap 11 (5-15); BUN 12 mg/dL (4-19); BUN/Creat Ratio 13.1 RATIO (10-20); Calcium,Total 9.5 mg/dL (7.6-11.0); Carbon Dioxide 24.9 mmol/L (21.0-32.0); Chloride 104 mmol/L (98-108); Cholesterol 218 mg/dL (<=200); Globulin 3.1 g/dL (2.2-4.2); Glucose 95 mg/dL (70-99); Low Density Lipoprotein Calc. 149 mg/dL; Potassium 4.4 mmol/L (3.3-5.1); Triglycerides 108 mg/dL; Very Low Density Lipoprotein 22 mg/dL (5-40); cholesterol:hdl ratio screen 4.61
[2025-02-28 16:32] LABS: PSA,Total - Annual Screen 0.49 ng/mL (0.02-4.00); Vitamin D,25 Hydroxy 35.2 ng/mL (30-100)
== END | disposition home or self-care (01) ==
LOC: MTLAB 11:26
PROVIDERS: PCP Family Medicine; Referring Provider Family Medicine; Visit Provider Family Medicine
DX: Z00.00 Encounter for general adult medical examination without abnormal findings (principal); Z13.1 Encounter for screening for diabetes mellitus; E03.9 Hypothyroidism, unspecified; G47.33 Obstructive sleep apnea (adult) (pediatric); Z12.5 Encounter for screening for malignant neoplasm of prostate
CPT/HCPCS: 36415; 80053; 80061; 82306; 84153; 84439; 84443; 85027; G0103

== ENCOUNTER → 2025-03-25 | Outpatient (CLI) | payer OTHER, SELFPAY ==
[2025-03-25 16:14] LABS: AST(SGOT) 31 U/L (<=37); Alanine Aminotransfer ALT/SGPT 25 U/L (<=46); Albumin, Serum 4.6 g/dL (3.5-5.0); Alkaline Phosphatase 72 U/L (40-129); Anion Gap 10 (5-15); BUN 12 mg/dL (4-19); BUN/Creat Ratio 13.4 RATIO (10-20); Calcium,Total 9.7 mg/dL (7.6-11.0); Carbon Dioxide 27.6 mmol/L (21.0-32.0); Chloride 103 mmol/L (98-108); Globulin 2.9 g/dL (2.2-4.2); Glucose 93 mg/dL (70-99); Potassium 4.4 mmol/L (3.3-5.1)
== END | disposition home or self-care (01) ==
LOC: MTLAB 11:35
PROVIDERS: PCP Family Medicine; Referring Provider Physician Assistant; Visit Provider Physician Assistant
DX: E03.8 Other specified hypothyroidism (principal); E04.1 Nontoxic single thyroid nodule
CPT/HCPCS: 36415; 80053; 84443

== ENCOUNTER → 2025-03-26 | Outpatient (CLI) | payer SELFPAY ==
--- NOTE | 2025-03-26 14:48 | CT_ITS ---
PROCEDURE: LIMITED CHEST CT CARDIAC ONLY 03/26/2025 REASON FOR EXAM: HIGH LIPID PANEL TECHNIQUE: LIMITED CHEST CT CARDIAC ONLY CONTRAST: None One or more dose reduction techniques were used (e.g., Automated exposure control, adjustment of the mA and/or kV according to patient size, use of iterative reconstruction technique). RADIATION DOSE SUMMARY: CTDlvol: 12.19 mGy DLP: 243.79 mGycm COMPARISON: None FINDINGS: No coronary artery calcification. The lungs are clear. The heart is nonenlarged. CT/Limited Chest CT Cardiac Only IMPRESSION: No coronary artery calcification. Reading Location: [id number]
--- NOTE | 2025-03-27 07:23 | CA.SCORE ---
Calcium Scoring Date of Study:: 03/26/25 Indications Indications: Hyperlipidemia Coronary Calcium Scoring: High-resolution Computed Tomographic imaging of the chest was performed on [03/26/2025], with particular attention paid to the coronary arteries. Images from the examination were analyzed for the presence and extent of coronary artery calcification , using coronary calcium quantification software. The patient tolerated the procedure well and there were no complications. The results of the coronary calcification analysis are provided below. Findings Coronary Artery Left Main (LM): 0 Left Anterior Descending (LAD): 0 Left Circumflex (LCX): 0 Right Coronary Artery (RCA): 0 Total Agatston Score: 0 Percentile Rankin percentile Calcium Scoring Interpretation: Different methods to categorize the overall amount of coronary plaque. Overall amount CAC SIS Visual of coronary plaque P1 Mild -100 <2 1-2 vessels with mild amount of plaque P2 Moderate 101-300 3-4 1-2 vessels with moderate amount, 3 vessels with mild amount of plaque P3 Severe 301-999 5-7 3 vessels with moderate amount, 1 vessel with severe amount of plaque P4 Extensive >1000 >8 2-3 vessels with severe amount of plaque Conclusion: No atherosclerotic plaquing noted
== END | disposition home or self-care (01) ==
LOC: CT 14:47
PROVIDERS: PCP Family Medicine; Referring Provider Family Medicine; Visit Provider Family Medicine
DX: E78.2 Mixed hyperlipidemia (principal)
CPT/HCPCS: 75571; 76380

== ENCOUNTER → 2025-04-04 | Outpatient (CLI) | payer OTHER, SELFPAY ==
--- NOTE | 2025-04-04 09:41 | RAD_ITS ---
PROCEDURE: ABD INC DECUB AND/OR ERECT 04/04/2025 REASON FOR EXAM: ABD PAIN TECHNIQUE: ABD INC DECUB AND/OR ERECT COMPARISON: None. FINDINGS: Moderate amount of fecal residue in the large bowels. Normal visualized lung bases. There is an unremarkable bowel gas pattern. There is no demonstrated free abdominal air. Normal visualized liver. Normal visualized spleen. Normal visualized kidneys. The soft tissue structures of the pelvis are unremarkable. Normal visualized osseous structures. RAD/Abd Inc Decub and/or Erect IMPRESSION: Moderate amount of fecal residue in the large bowels. Reading [facility]
--- NOTE | 2025-04-04 09:41 | RAD_ITS ---
PROCEDURE: ABD INC DECUB AND/OR ERECT 04/04/2025 REASON FOR EXAM: ABD PAIN TECHNIQUE: ABD INC DECUB AND/OR ERECT COMPARISON: None. FINDINGS: Moderate amount of fecal residue in the large bowels. Normal visualized lung bases. There is an unremarkable bowel gas pattern. There is no demonstrated free abdominal air. Normal visualized liver. Normal visualized spleen. Normal visualized kidneys. The soft tissue structures of the pelvis are unremarkable. Normal visualized osseous structures. RAD/Abd Inc Decub and/or Erect IMPRESSION: Moderate amount of fecal residue in the large bowels. Reading Location[facility]
--- OUTSIDE RECORDS SUMMARY | 2025-04-04 11:13 | XMS RPT_ITS | CCD ---
Author Organization [facility] Care Team Providers Care Head Animal Trainer Name Role Phone Dossi BRYCECaro Elise Unavailable Dr. Yunior Rodriguez Primary Care Provider Dr. Yunior Rodriguez Referring Provider Dr. Jamel Guzman Attending Provider Dr. Bubba Moreira Attending Provider Dami IZQUIERDO NP-C Mayela Attending Provider Dr. Yunior Rodriguez Primary Care Provider Dr. Yunior Rodriguez Referring Provider Dr. Yunior Rodriguez Primary Care Provider Dr. Yunior Rodriguez Referring Provider Dr. Yunior Rodriguez Primary Care Provider [phone] Dr. Yunior Rodriguez Referring Provider Dr. Bubba Moreira Attending Provider Dami IZQUIERDO RESEARCH PROGRAMMER-C Mayela Attending Provider [phone] Dr. Yunior Rodriguez Primary Care Provider Dr. Yunior Rodriguez Referring Provider Dr. Yunior Rodriguez Referring Provider Dami IZQUIERDO RESEARCH PROGRAMMER-C Mayela Attending Provider Dr. Tee Rodriguez MD Primary Care Provider Dr. Tee Rodriguez MD Attending Provider [phone] Dr. Tee Rodriguez MD Referring Provider Karen Torres Attending Provider Juan Antonio PA, Karen Referring Provider [phone] Jennifer MENCHACA, Dr. Oliveira Primary Care Provider Karen Torres Attending Provider Juan Antonio PA, Karen Referring Provider Jennifer MENCHACA, Dr. Oliveira Attending Provider [phone] Jennifer MENCHACA, Dr. Oliveira Referring Provider Jennifer MENCHACA, Dr. Oliveira Primary Care Provider Dami RESEARCH PROGRAMMER-C, Mayela Attending Provider Juan Antonio LOZANO, Karen Attending Provider Juan Antonio LOZANO, Karen Referring Provider Jennifer MENCHACA, Dr. Oliveira Other Provider Tyree MENCHACA, Dr. Craft Attending Provider Tee Rodriguez Referring Unavailable Ranney, Christopher Primary Care Unavailable Mayela Lomax Attending Unavailable Ranney, Christopher Primary Care Unavailable Ranney, Christopher Referring Unavailable Ranney, Christopher Consulting Unavailable Venancio Clements Attending Unavailable Romano, Karen Attending Unavailable Ranney, Christopher Primary Care Unavailable Romano, Karen Referring Unavailable Ranney, Christopher Referring Unavailable Ranney, Christopher Attending Unavailable Ranney, Christopher Primary Care Unavailable Romano, Karen Attending Unavailable Ranney, Christopher Primary Care Unavailable Romano, Karen Referring Unavailable Ranney, Christopher Referring Unavailable Ranney, Christopher Attending Unavailable Ranney, Christopher Primary Care Unavailable Ranney, Christopher Primary Care Unavailable Mickey Pond Attending Unavailable Romano, Karen Referring Unavailable Romano, Karen Attending Unavailable Ranney, Christopher Primary Care Unavailable Ranney, Christopher Referring Unavailable Ranney, Christopher Attending Unavailable Ranney, Christopher Primary Care Unavailable Allergies Allergy Classification Reported Allergen(s) Allergy Type Date of Onset Reaction(s) Facility (2 sources) AMOXICILLAN drug allergy 06-28-2016 Rash [facility] Work Phone: (15 sources) Amoxicillin Drug Allergy 10-08-2021 Rash [facility] (1 source) Amoxicillin Drug Allergy 03-22-2025 [facility] Repository Medications Current Medications Medication Drug Class(es) Dates Sig (Normalized) Sig (Original) Bilateral wrist splints for carpal tunnel syndrome (15 sources) Start: 07-21-2021 Bilateral wrist splints for carpal tunnel syndrome Active 0 .Route .MEDSUPPLY 2 July 21, 2021 4:47pm As directed Start: 07-21-2021 Bilateral wris t splints for carpal tunnel syndrome Active 0 .Route .MEDSUPPLY 2 0 July 21, 2021 1:00am bilateral carpal tunnel syndrome As directed Start: 07-21-2021 Bilateral wris t splints for carpal tunnel syndrome Active 0 .Route .MEDSUPPLY 2 July 21, 2021 1:00am As directed cholecalciferol 0.05 mg oral capsule (20 sources) Vitamin D Start: 04-07-2021 take 1 capsule by mouth once daily Cholecalciferol (Vitamin D3) 50 mcg (2,000 unit) capsule Active 2000 U PO DAILY April 07, 2021 12:00am Start: 10-08-2019 End: 04-07-2021 take 1 capsule by mouth once daily cholecalciferol (vitamin D3) 4,000 unit capsule Discontinued 4000 UNIT PO DAILY October 08, 2019 4:08pm April 07, 2021 10:54am Oral appliance (15 sources) Start: 07-15-2021 Oral appliance Active 0 .ROUTE .MEDSUPPLY 1 July 15, 2021 3:53pm As directed Start: 07-15-2021 Oral appliance Active 0 .ROUTE .MEDSUPPLY 1 0 July 15, 2021 1:00am Obstructive sleep apnea syndrome Obstructive sleep apnea (adult) (pediatric) As directed Start: 07-15-2021 Oral appliance Active 0 .ROUTE .MEDSUPPLY 1 July 15, 2021 1:00am As directed levothyroxine sodium 0.137 mg oral tablet (20 sources) l-Thyroxine Start: 04-07-2021 take 1 tablet by mouth once daily Levothyroxine 137 mcg tablet Active 137 ug PO DAILY April 07, 2021 12:00am Start: 10-08-2019 End: 04-07-2021 take 1 capsule by mouth once daily Levothyroxine 50 mcg capsule Discontinued 50 ug PO DAILY October 08, 2019 1:00am April 07, 2021 10:54am Start: 06-28-2016 SYNTHROID 175 MG 1 every day SYNTHROID 175 MG Caro Snider DC Completed/Discontinued Medications Medication Drug Class(es) Dates Sig (Normalized) Sig (Original) azelastine hydrochloride 0.137 mg/actuat / fluticasone propionate 0.05 mg/actuat metered dose nasal spray (15 sources) Corticosteroid, Histamine-1 Receptor Antagonist Start: 11-20-2021 End: 03-24-2022 Azelastine-Fluticas one 137-50 mcg/spray spray,non-aerosol Discontinued 1 NMA INTRANASAL TWICE A DAY 18 02November 20, 2021 12:00am March 24, 2022 8:14am Sleep apnea Obstructive sleep apnea (adult) (pediatric) administer into each nostril Start: 11-20-2021 End: 03-24-2022 take 1 spray(s) nasal route twice daily Azelastine-Fluticasone Discontinued 1 SPRAY INTRANASAL TWICE A DAY November 20, 2021 12:00am March 24, 2022 8:14am administer into each nostril benzonatate 200 mg oral capsule (19 sources) Non-narcotic Antitussive Start: 09-19-2023 End: 12-01-2023 take 1 capsule by mouth three times daily as needed for cough Benzonatate 200 mg capsule Discontinued 200 mg PO THREE TIMES A DAY as needed for cough 20 0 September 19, 2023 1:00am December 01, 2023 12:57pm Start: 10-08-2019 End: 04-07-2021 take 1 capsule by mouth three times daily as needed for cough Benzonatate 200 mg capsule Discontinued 200 mg PO THREE TIMES A DAY as needed for cough 20 0 October 08, 2019 1:00am April 07, 2021 10:54am cholecalciferol (vitamin D3) 4,000 unit capsule (5 sources) Start: 10-08-2019 End: 04-07-2021 take 1 capsule by mouth once daily cholecalciferol (vitamin D3) 4,000 unit capsule Discontinued 4000 UNIT PO DAILY October 08, 2019 1:00am April 07, 2021 10:54am Cholecalciferol (Vitamin D3) 4,000 unit capsule (4 sources) Start: 10-08-2019 End: 04-07-2021 take 1 capsule by mouth once daily Cholecalciferol (Vitamin D3) 4,000 unit capsule Discontinued 4000 U PO DAILY October 08, 2019 1:00am April 07, 2021 10:54am dexamethasone 6 mg oral tablet (9 sources) Corticosteroid Start: 07-08-2022 End: 02-04-2023 take 1 tablet by mouth once daily Dexamethasone 6 mg tablet Discontinued 6 mg PO DAILY 5 July 08, 2022 1:00am February 04, 2023 10:04am flurbiprofen 100 mg oral tablet (15 sources) Nonsteroidal Anti-inflammatory Drug Start: 07-21-2021 End: 02-04-2023 take 1 tablet by mouth three times daily as needed for pain Flurbiprofen 100 mg tablet Discontinued 100 mg PO THREE TIMES A DAY as needed for pain 90 3 July 21, 2021 1:00am February 04, 2023 10:04am methylPREDNISolone 4 mg oral tablet (4 sources) Corticosteroid Start: 09-19-2023 End: 12-01-2023 take 1 tablet by mouth once Methylprednisolone (Medrol (Bunny)) 4 mg tablets,dose pack Discontinued 0 PO per package directions September 19, 2023 1:00am December 01, 2023 12:57pm PO PER PKG DIR Problems Active Problems Problem Classification Problem Date Documented Da te Episodic/Chronic Disorders of lipid metabolism (1 source) Mixed hyperlipidemia; Translations: [Mixed hyperlipidemia] Onset: 03-27-2025 Chronic Immunizations and screening for infectious disease (9 sources) Contact with and (suspected) exposure to other viral communicable diseases; Translations: [Contact with or suspected exposure to other viral communicable disease] 11-24-2022 Episodic Malaise and fatigue (15 sources) Fatigue; Translations: [Other fatigue] 07-21-2021 Episodic Other bone disease and musculoskeletal deformities (20 sources) Segmental and somatic dysfunction; Translations: [Segmental and somatic dysfunction of lumbar region] Onset: 06-28-2016 06-28-2016 Episodic Other connective tissue disease (15 sources) Hand pain; Translations: [Pain in right hand] 07-21-2021 Episodic Other nervous system disorders (15 sources) Polyneuropathy; Translations: [Polyneuropathy, unspecified] 04-07-2021 Chronic Other nervous system disorders (4 sources) Polyneuropathy, unspecified; Translations: [Unspecified hereditary and idiopathic peripheral neuropathy] Chronic Other non-traumatic joint disorders (15 sources) Hip pain; Translations: [Pain in left hip] 07-21-2021 Episodic Other screening for suspected conditions (not mental disorders or infectious disease) (1 source) Encounter for screening for diabetes mellitus; Translations: [Encounter for screening for diabetes mellitus] Onset: 03-06-2025 Episodic Other upper respiratory disease (15 sources) Rhinitis medicamentosa; Translations: [Chronic rhinitis] 11-24-2022 Chronic Other upper respiratory disease (11 sources) Chronic rhinitis; Translations: [Chronic rhinitis] Chronic Other upper respiratory disease (15 sources) Deviated nasal septum; Translations: [Deviated nasal septum] 11-24-2022 Episodic Comment on above: Repaired February 2022 Other upper respiratory disease (6 sources) Deviated nasal septum; Translations: [Deviated nasal septum] Episodic Other upper respiratory infections (10 sources) Upper respiratory infection; Translations: [Acute upper respiratory infection, unspecified] 12-01-2023 Episodic Residual codes; unclassified (16 sources) Sleep apnea; Translations: [Sleep apnea, unspecified] 07-16-2021 Chronic Residual codes; unclassified (19 sources) Sleep apnea, unspecified; Translations: [Unspecified sleep apnea] Chronic Thyroid disorders (2 sources) Other specified hypothyroidism; Translations: [Hypothyroidism, unspecified] Onset: 09-07-2024 Chronic Viral infection (15 sources) Disease caused by 2019-nCoV; Translations: [COVID-19] 11-24-2022 Episodic Past or Other Problems Problem Classification Problem Date Documented Da te Episodic/Chronic Other bone disease and musculoskeletal deformities (3 sources) Pelvic somatic dysfunction; Translations: [Segmental and somatic dysfunction] Onset: 06-28-2016 06-28-2016 Episodic Results Test Name Value Interpretation Reference Range Facility Coronary Angiography CTon Coronary Angiography CT [facility] Imaging Services [address] [place] [address] 03/27/25 0723 MR#: [id number] Acct: [id number] Name: ROGERGONZALESMARIIA RASHAWN Rep #: [id number] : 1970 55 From: Venancio Clements MD PCP: Dr. Tee Rodriguez MD Status:REG CLI Y Location: CT Calcium Scoring Date of Study:: 03/26/25 Indications Indications: Hyperlipidemia Coronary Calcium Scoring: High-resolution Computed Tomographic imaging of the chest was performed on [03/26/2025], with particular attention paid to the coronary arteries. Images from the examination were analyzed for the presence and extent of coronary artery calcification , using coronary calcium quantification software. The patient tolerated the procedure well and there were no complications. The results of the coronary calcification analysis are provided below. Findings Coronary Artery Left Main (LM): 0 Left Anterior Descending (LAD): 0 Left Circumflex (LCX): 0 Right Coronary Artery (RCA): 0 Total Agatston Score: 0 Percentile Rankin percentile Calcium Scoring Interpretation: Different methods to categorize the overall amount of coronary plaque. Overall amount CAC SIS Visual of coronary plaque P1 Mild -100 <2 1-2 vessels with mild amount of plaque P2 Moderate 101-300 3-4 1-2 vessels with moderate amount, 3 vessels with mild amount of plaque P3 Severe 301-999 5-7 3 vessels with moderate amount, 1 vessel with severe amount of plaque P4 Extensive >1000 >8 2-3 vessels with severe amount of plaque Conclusion: No atherosclerotic plaquing noted 03/27/25 0724 Date Venancio Clements MD Cosigner Signature (if applicable): Date CC: Dr. Tee Rodriguez MD; Dr. Venancio Clements MD Signed Normal [facility] Limited Chest CT Cardiac Onl yon 03-26-[address] Cardiac Only [facility] Imaging Services [address] [place] [id number] Cardiac Only MR#: [id number] Acct: [id number] Name: MARIIA LEVINE Rep #: [id number] : 1970 M 55 From: Nirmal small MD PCP: Dr. Tee Rodriguez MD Status: REG CLI Study: Limited Chest CT Cardiac Only Date of Exam: Exam# [id number] Ordering Dr: Tee Rodriguez PROCEDURE: LIMITED CHEST CT CARDIAC ONLY 03/26/2025 REASON FOR EXAM: HIGH LIPID PANEL TECHNIQUE: LIMITED CHEST CT CARDIAC ONLY CONTRAST: None One or more dose reduction techniques were used (e.g., Automated exposure control, adjustment of the mA and/or kV according to patient size, use of iterative reconstruction technique). RADIATION DOSE SUMMARY: CTDlvol: 12.19 mGy DLP: 243.79 mGycm COMPARISON: None FINDINGS: No coronary artery calcification. The lungs are clear. The heart is nonenlarged. CT/Limited Chest CT Cardiac Only IMPRESSION: No coronary artery calcification. Reading Location: [id number] CC: Dr. Tee Rodriguez MD [employer] Cutter: Signed Normal [facility] Anion gap in Serum or Plasma Ordered By: Karen Romano on 03-25-2025 Anion gap [Moles/Vol] 10 mmol/L 5-15 [facility] BUN/creatinine ratioOrdered By: Karen Romano on 03-25-2025 Urea nitrogen/Creatinine [Mass ratio] 13.4 mg/mg 10-20 [facility] Bilirubin, totalOrdered By: Karen Romano on 03-25-2025 Bilirubin [Mass/Vol] 0.51 mg/dL 0.00-1.30 [facility] Carbon dioxide, total [Moles /volume] in Central venous bloodOrdered By: Karen Romano on 03-25-2025 CO2 [Moles/Vol] 27.6 mmol/L 21.0-32.0 [facility] Chloride assayOrdered By: Rafy Romano on 03-25-2025 Chloride [Moles/Vol] 103 mmol/L 98-108 [facility] Comprehensive Metabolic Prof ilon 03-25-2025 Albumin [Mass/Vol] 4.6 g/dL Normal 3.5-5.0 [facility] Comment on above: Performed By: #### L 506.0400, L500.4100, L500.4050, L501.9910, L501.9520 #### [facility] [address] [place], [address] Albumin/Globulin [Mass ratio] 1.6 {ratio} Normal 0.9-2.4 [facility] Comment on above: Performed By: #### L 506.0400, L500.4100, L500.4050, L501.9910, L501.9520 #### [facility] [address] [place], [address] ALK PHOS 72 U/L Normal 40-129 [facility] Comment on above: Performed By: #### L 506.0400, L500.4100, L500.4050, L501.9910, L501.9520 #### [facility] [address] [place], [address] ALT [Catalytic activity/Vol] 25 U/L Normal <=46 [facility] Comment on above: Performed By: #### L 506.0400, L500.4100, L500.4050, L501.9910, L501.9520 #### [facility] [address] [place], [address] AST [Catalytic activity/Vol] 31 U/L Normal <=37 [facility] Comment on above: Performed By: #### L 506.0400, L500.4100, L500.4050, L501.9910, L501.9520 #### [facility] [address] [place], [address] Bilirubin [Mass/Vol] 0.51 mg/dL Normal 0.00-1.30 [facility] Comment on above: Performed By: #### L 506.0400, L500.4100, L500.4050, L501.9910, L501.9520 #### [facility] [address] [place], [address] BUN/CRE 13.4 RATIO Normal 10-20 [facility] Comment on above: Performed By: #### L 506.0400, L500.4100, L500.4050, L501.9910, L501.9520 #### [facility] [address] [place], [address] Calcium [Mass/Vol] 9.7 mg/dL Normal 7.6-11.0 [facility] Comment on above: Performed By: #### L 506.0400, L500.4100, L500.4050, L501.9910, L501.9520 #### [facility] [address] [place], [address] Chloride [Moles/Vol] 103 mmol/L Normal 98-108 [facility] Comment on above: Performed By: #### L 506.0400, L500.4100, L500.4050, L501.9910, L501.9520 #### [facility] [address] [place], [address] CO2 [Moles/Vol] 27.6 mmol/L Normal 21.0-32.0 [facility] Comment on above: Performed By: #### L 506.0400, L500.4100, L500.4050, L501.9910, L501.9520 #### [facility] [address] [place], [address] Creatinine [Mass/Vol] 0.92 mg/dL Normal 0.70-1.20 [facility] Comment on above: Performed By: #### L 506.0400, L500.4100, L500.4050, L501.9910, L501.9520 #### [facility] [address] [place], [address] GAP 10 Normal 5-15 [facility] Comment on above: Performed By: #### L 506.0400, L500.4100, L500.4050, L501.9910, L501.9520 #### [facility] [address] [place], [address] GFR/1.73 sq M.predicted among non-blacks MDRD (S/P/Bld) [Vol rate/Area] 99 mL/min/{1.73_m2} Normal >60 [facility] Comment on above: Result Comment: mL/m in/1.73m2 CKD-EPI Creatinine Equation (2020) Performed By: #### L 506.0400, L500.4100, L500.4050, L501.9910, L501.9520 #### [facility] [address] [place], [address] Globulin (S) [Mass/Vol] 2.9 g/dL Normal 2.2-4.2 [facility] Comment on above: Performed By: #### L 506.0400, L500.4100, L500.4050, L501.9910, L501.9520 #### [facility] [address] [place], [address] Glucose [Mass/Vol] 93 mg/dL Normal 70-99 [facility] Comment on above: Performed By: #### L 506.0400, L500.4100, L500.4050, L501.9910, L501.9520 #### [facility] [address] [place], [address] Potassium [Moles/Vol] 4.4 mmol/L Normal 3.3-5.1 [facility] Comment on above: Performed By: #### L 506.0400, L500.4100, L500.4050, L501.9910, L501.9520 #### [facility] [address] [place], [address] Sodium [Moles/Vol] 140 mmol/L Normal 133-145 [facility] Comment on above: Performed By: #### L 506.0400, L500.4100, L500.4050, L501.9910, L501.9520 #### [facility] [address] [place], [address] T PROT 7.5 g/dL Normal 5.9-8.4 [facility] Comment on above: Performed By: #### L 506.0400, L500.4100, L500.4050, L501.9910, L501.9520 #### [facility] [address] [place], [address] Urea nitrogen [Mass/Vol] 12 mg/dL Normal 4-19 [facility] Comment on above: Performed By: #### L 506.0400, L500.4100, L500.4050, L501.9910, L501.9520 #### [facility] [address] [place], [address] Glomerular filtration rate ( GFR) estimation/1.73 sq m using serum, plasma, or whole bOrdered By: Karen Romano on 03-25-2025 GFR/1.73 sq M.predicted among non-blacks MDRD (S/P/Bld) [Vol rate/Area] 99 mL/min/{1.73_m2} >60 [facility] Comment on above: mL/min/1.73m2 CKD-EP I Creatinine Equation (2020) Laboratory - Chemistry and C hemistry - challengeOrdered By: Karen Romano on 03-25-2025 AST [Catalytic activity/Vol] 31 U/L <38 [facility] Potassium measurement (mass/ volume)Ordered By: Karen Romano on 03-25-2025 Potassium (Unsp spec) [Mass/Vol] 4.4 mmol/L 3.3-5.1 [facility] Serum creatinine measurement (mass/volume)Ordered By: Karen Romano on 03-25-2025 Creatinine [Mass/Vol] 0.92 mg/dL 0.70-1.20 [facility] Serum globulin measurementOr dered By: Karen Romano on 03-25-2025 Globulin (S) [Mass/Vol] 2.9 g/dL 2.2-4.2 [facility] Serum glucose measurement (m ass/volume)Ordered By: Karen Romano on 03-25-2025 Glucose [Mass/Vol] 93 mg/dL 70-99 [facility] Serum or plasma alanine mccracken otransferase (ALT) measurementOrdered By: Karen Romano on 03-25-2025 ALT [Catalytic activity/Vol] 25 U/L <47 [facility] Serum or plasma albumin beatriz urement (mass/volume)Ordered By: Karen Romano on 03-25-2025 Albumin [Mass/Vol] 4.6 g/dL 3.5-5.0 [facility] Serum or plasma albumin/glob ulin mass ratioOrdered By: Karen Romano on 03-25-2025 Albumin/Globulin [Mass ratio] 1.6 {ratio} 0.9-2.4 [facility] Serum or plasma alkaline naya sphatase measurementOrdered By: Karen Romano on 03-25-2025 ALP [Catalytic activity/Vol] 72 U/L 40-129 [facility] Serum or plasma calcium beatriz urement (mass/volume)Ordered By: Karen Romano on 03-25-2025 Calcium [Mass/Vol] 9.7 mg/dL 7.6-11.0 [facility] Serum or plasma urea nitroge n measurement (mass/volume)Ordered By: Karen Romano on 03-25-2025 Urea nitrogen [Mass/Vol] 12 mg/dL 4-19 [facility] Sodium levelOrdered By: Karen Romano on 03-25-2025 Sodium [Moles/Vol] 140 mmol/L 133-145 [facility] TSH DL <= 0.005 mIU/L QnOrde red By: Karen Romano on 03-25-2025 TSH Qn 4.650 uIU/mL High 0.300-4.200 [facility] Thyroid Stim Hormone (TSH)on 03-25-2025 TSH 4.650 uIU/mL High 0.300-4.200 [facility] Comment on above: Performed By: #### L 506.1070, L500.4150, L500.4050, L501.9910, L501.9520 #### [facility] [address] [place], [address] Total proteinOrdered By: Oliver Romano on 03-25-2025 Protein [Mass/Vol] 7.5 g/dL 5.9-8.4 [facility] Pulmonary Visit Reporton Pulmonary Visit Report [facility] [place] [address] [place] [address] OFFICE VISIT Date of Service: 03/22/25 MR#: [id number] Acct: [id number] Name: MARIIA LEVINE Rep #: [id number] : 1970 Provider: NICOLASA Lomax Age/Sex: 55/M Location: [facility] Status: Signed Assessment and Plan Assessment and Plan (1) Sleep apnea: Status: Chronic Qualifiers: Sleep apnea type: obstructive Qualified Code(s): G47.33 - Obstructive sleep apnea (adult) (pediatric) Plan: He is using and benefiting from Pap therapy. Encourage better compliance. No indication for titration study at this time. Contact the office for any new or worsening symptoms in the meantime. Follow-up in 1 year. Plan Details Additional Comments: This note was generated with Joy[employer] dictation software. It may contain incorrect words, spelling, and punctuation that were not noted in checking the note before signing. Follow Up: 1 Year HPI 1 Y FU Chief Complaint: Routine follow-up HPI Comments Details: This patient presents to the office today for routine follow-up of his obstructive sleep apnea. He is ambulatory. He is recently been seen in the ED or urgent care for any respiratory illness. Has not required any antibiotics or prednisone for any breathing. He denies any difficulty with shortness of breath. He denies any cough, sputum production or hemoptysis. He denies any wheezing, chest tightness, chest pain or palpitations. He denies any fever, chills or body aches. He wakes up feeling rested refreshed. He is not requiring naps. He does not nod off to sleep unintentionally. He is not having excessive nocturia. His nasal congestion prevents him from being compliant some nights. He is being treated for allergies by ENT. Compliance report for the past 30 days shows 83% compliance with average use of 5 hours and 39 minutes per night. Current setting is AutoPap 5-15 cmH2O pressure typically being utilized at 5.7- 8.2 cm of water. Residual AHI of 0.5 events per hour. Leaks do not appear to be problematic. Intake Vital Signs 03/22/24 07:41 03/22/25 09:07 Height 6 ft 4 in 6 ft 4 in Weight: 242 lb BMI 29.4 BP 110/78 Blood Pressure Location Lt brachial Position Sitting Respiration 18 Pulse 78 Pulse Source Monitor Temp 97.6 F L Temperature Source Temporal Artery Pulse Oximetry (%) 95 Oxygen Delivery Method room air Intake Visit Reasons: 1 Y FU Chief Complaint: BA, ST, fatigue, chest congestion Bead Supervisor Required: No DME Vendor: [employer] Accompanied by: Self Allergies amoxicillin Allergy (Mild, Verified 03/22/25 13:11) Rash Medications ???Medication ???Instructions ???Recorded ???Confirmed ???Type cholecalciferol (vitamin D3) 50 2,000 unit PO DAILY 04/07/2103/22 History mcg (2,000 unit) capsule levothyroxine 137 mcg tablet 137 mcg PO DAILY 04/07/21 03/22/25 History Oral appliance #1 ea 07/15/21 03/22/25 Rx Bilateral wrist splints for carpal #2 ea 07/21/21 03/22/25 Rx tunnel syndrome PFSH Medical History Contact with and (suspected) exposure to other viral communicable diseases Rhinitis medicamentosa Neuropathy Back pain Neck pain Hypothyroid Hay fever Surgical History Deviated septum Family History Grandfather Colon cancer Grandfather Myocardial infarction Mother Thyroid disorder Autoimmune disorder Sister Thyroid disorder Autoimmune disorder Social History Smoking Status: Never smoker alcohol intake: never substance use type: does not use what type of physical activity do you participate in: running Review of Systems Resp Respiratory: Yes as per HPI Exam Const Constitutional: Positive conversant, cooperative, in no acute respiratory distress, healthy appearing, well developed, well nourished and good hygiene Head Head: Yes normocephalic, Yes atraumatic and No cyanosis of lips/distal nose Eyes Eye: Positive clear conjunctiva; Negative nystagmus Ears Ear: Positive hearing normal and external ears normal Nose Nose: Yes external nose normal Mouth Mouth: Positive oral mucosae normal Neck Neck: Positive normal visual inspection, full ROM and trachea midline Chest Wall Chest: Positive normal inspection of the chest and symmetric chest movement; Negative increased A/P diameter Resp lung sounds: Positive clear to auscultation, good air exchange, normal expiratory time and normal respiratory effort; Negative diminished lung sounds, wheezes, rhonchi or rales Cardio Cardiac: Positive regular rat (more content not included)... Normal [facility] Anion gap in Serum or Plasma Ordered By: Tee Rodriguez on 02-28-2025 Anion gap [Moles/Vol] 11 mmol/L 5-15 [facility] BUN/creatinine ratioOrdered By: Tee Rodriguez on 02-28-2025 Urea nitrogen/Creatinine [Mass ratio] 13.1 mg/mg 10-20 [facility] Bilirubin, totalOrdered By: Tee Rodriguez on 02-28-2025 Bilirubin [Mass/Vol] 0.50 mg/dL 0.00-1.30 [facility] CBC-Complete Blood Cnt No Di ffon 02-28-2025 Erythrocyte distribution width (RBC) [Ratio] 12.3 % Normal 11.6-14.6 [facility] Comment on above: Order Comment: PER I NTERFAUTE COMMENT-GLU Order Date: 02/28/25 Order Info: 0786-1 - CMP Order Info: [id number] - LIPID Order Info: 3016-3 - TSH Order Info: 2857-1 - PSA Order Info: 3024-7 - T4F Performed By: #### L 506.0400, L500.4100, L500.4050, L501.9910, L501.9520 #### [facility] [place], [address] Hematocrit (Bld) [Volume fraction] 46.5 % Normal 40-54 [facility] Comment on above: Order Comment: PER I NTERALLEN COMMENT-GLU Order Date: 02/28/25 Order Info: 785- - CMP Order Info: [id number] - LIPID Order Info: 3015-10 - TSH Order Info: 2856-08 - PSA Order Info: 7 - T4F Performed By: #### L 506.0400, L500.4100, L500.4050, L501.9910, L501.9520 #### [facility] [address] [place], [address] Hemoglobin (Bld) [Mass/Vol] 15.4 g/dL Normal 13.0-16.5 [facility] Comment on above: Order Comment: PER I NTERFAUTE COMMENT-GLU Order Date: 02/28/25 Order Info: 785-08 - CMP Order Info: - LIPID Order Info: 3015-10 - TSH Order Info: 2856-08 - PSA Order Info: 7 - T4F Performed By: #### L 506.0400, L500.4100, L500.4050, L501.9910, L501.9520 #### [facility] [address] [place], [address] MCH (RBC) [Entitic mass] 30.6 pg Normal 27.0-32.0 [facility] Comment on above: Order Comment: PER I NTERALLEN COMMENT-GLU Order Date: 02/28/25 Order Info: 785-08 - CMP Order Info: - LIPID Order Info: 3015-10 - TSH Order Info: 2856-08 - PSA Order Info: 3027 - T4F Performed By: #### L 506.0400, L500.4100, L500.4050, L501.9910, L501.9520 #### [facility] [address] [place], [address] MCHC (RBC) [Mass/Vol] 33.1 g/dL Normal 32-36 [facility] Comment on above: Order Comment: PER Noman RUSSO COMMENT-GLU Order Date: 02/28/25 Order Info: 785- - CMP Order Info: - LIPID Order Info: 3015-10 - TSH Order Info: 1 - PSA Order Info: 3024-7 - T4F Performed By: #### L 506.0400, L500.4100, L500.4050, L501.9910, L501.9520 #### [facility] [address] [place], [address] MCV (RBC) [Entitic vol] 92.3 fL Normal 80-94 [facility] Comment on above: Order Comment: CHAITANYA RUSSO COMMENT-GLU Order Date: 02/28/25 Order Info: 785-08 - CMP Order Info: - LIPID Order Info: 3015-10 - TSH Order Info: 2856-08 - PSA Order Info: 3024-7 - T4F Performed By: #### L 506.0400, L500.4100, L500.4050, L501.9910, L501.9520 #### [facility] [address] [place], [address] Platelet mean volume (Bld) [Entitic vol] 9.9 fL Normal 6.2-12.0 [facility] Comment on above: Order Comment: CHAITANYA RUSSO COMMENT-GLU Order Date: 02/28/25 Order Info: 785-08 - CMP Order Info: - LIPID Order Info: 3015-10 - TSH Order Info: 1 - PSA Order Info: 3024-7 - T4F Performed By: #### L 506.0400, L500.4100, L500.4050, L501.9910, L501.9520 #### [facility] [address] [place], [address] Platelets (Bld) [#/Vol] 379 10*3/uL Normal 150-450 [facility] Comment on above: Order Comment: PER I HOLLYERALLEN COMMENT-GLU Order Date: 02/28/25 Order Info: 785-08 - CMP Order Info: - LIPID Order Info: 3 - TSH Order Info: 1 - PSA Order Info: 3024-7 - T4F Performed By: #### L 506.0400, L500.4100, L500.4050, L501.9910, L501.9520 #### [facility] [address] [place], [address] RBC (Bld) [#/Vol] 5.04 10*6/uL Normal 4.6-6.2 [facility] Comment on above: Order Comment: PER I HOLLYERALLEN COMMENT-GLU Order Date: 02/28/25 Order Info: 785-08 - CMP Order Info: - LIPID Order Info: 3015-10 - TSH Order Info: 2856-08 - PSA Order Info: 3024-7 - T4F Performed By: #### L 506.0400, L500.4100, L500.4050, L501.9910, L501.9520 #### [facility] [address] [place], [address] RDW SD 41.6 fl Normal 35.1-43.9 [facility] Comment on above: Order Comment: PER I HOLLYERALLEN COMMENT-GLU Order Date: 02/28/25 Order Info: 785-08 - CMP Order Info: - LIPID Order Info: 3 - TSH Order Info: 1 - PSA Order Info: 3024-7 - T4F Performed By: #### L 506.0400, L500.4100, L500.4050, L501.9910, L501.9520 #### [facility] [address] [place], [address] WBC (Bld) [#/Vol] 5.2 10*3/uL Normal 4.4-11.0 [facility] Comment on above: Order Comment: PER I NTERFACE COMMENT-GLU Order Date: 02/28/25 Order Info: 0786 - CMP Order Info: [id number] - LIPID Order Info: 3015-10 - TSH Order Info: 2856-08 - PSA Order Info: 7 - T4F Performed By: #### L 506.0400, L500.4100, L500.4050, L501.9910, L501.9520 #### [facility] [address] [place], [address] Calculated very low density lipoprotein (VLDL) cholesterol measurementOrdered By: Tee Rodriguez on 02-28-2025 Calculated very low density lipoprotein (VLDL) cholesterol measurement 22 mg/dL 5-40 [facility] Carbon dioxide, total [Moles /volume] in Central venous bloodOrdered By: Tee Rodriguez on 02-28-2025 CO2 [Moles/Vol] 24.9 mmol/L 21.0-32.0 [facility] Chloride assayOrdered By: Dar Rodriguez on 02-28-2025 Chloride [Moles/Vol] 104 mmol/L 98-108 [facility] Comprehensive Metabolic Prof ilon 02-28-2025 Albumin [Mass/Vol] 4.5 g/dL Normal 3.5-5.0 [facility] Comment on above: Order Comment: CHAITANYA RUSSO COMMENT-GLU Order Date: 02/28/25 Order Info: 0786- - CMP Order Info: 93497-2 - LIPID Order Info: 3015-10 - TSH Order Info: 2856-08 - PSA Order Info: 3024-02 - T4F Performed By: #### L 506.0400, L500.4100, L500.4050, L501.9910, L501.9520 #### [facility] [address] [place], [address] Albumin/Globulin [Mass ratio] 1.4 {ratio} Normal 0.9-2.4 [facility] Comment on above: Order Comment: PER Noman BARRERAERALLEN COMMENT-GLU Order Date: 02/28/25 Order Info: 07 - CMP Order Info: - LIPID Order Info: 3015-10 - TSH Order Info: 2856-08 - PSA Order Info: 7 - T4F Performed By: #### L 506.0400, L500.4100, L500.4050, L501.9910, L501.9520 #### [facility] [address] [place], [address] ALK PHOS 72 U/L Normal 40-129 [facility] Comment on above: Order Comment: PER I HOLLYERALLEN COMMENT-GLU Order Date: 02/28/25 Order Info: 785-08 - CMP Order Info: - LIPID Order Info: 3015-10 - TSH Order Info: 2856-08 - PSA Order Info: 7 - T4F Performed By: #### L 506.0400, L500.4100, L500.4050, L501.9910, L501.9520 #### [facility] [address] [place], [address] ALT [Catalytic activity/Vol] 20 U/L Normal <=46 [facility] Comment on above: Order Comment: PER Noman RUSSO COMMENT-GLU Order Date: 02/28/25 Order Info: 785-08 - CMP Order Info: - LIPID Order Info: 3015-10 - TSH Order Info: 2856-08 - PSA Order Info: 7 - T4F Performed By: #### L 506.0400, L500.4100, L500.4050, L501.9910, L501.9520 #### [facility] [address] [place], [address] AST [Catalytic activity/Vol] 24 U/L Normal <=37 [facility] Comment on above: Order Comment: PER Noman BARRERAERALLEN COMMENT-GLU Order Date: 02/28/25 Order Info: 785-08 - CMP Order Info: - LIPID Order Info: 3015-10 - TSH Order Info: 2856-08 - PSA Order Info: 3024-7 - T4F Performed By: #### L 506.0400, L500.4100, L500.4050, L501.9910, L501.9520 #### [facility] [address] [place], [place], [address] Bilirubin [Mass/Vol] 0.50 mg/dL Normal 0.00-1.30 [facility] Comment on above: Order Comment: PER I HOLLYERALLEN COMMENT-GLU Order Date: 02/28/25 Order Info: 785-1 - CMP Order Info: - LIPID Order Info: 3 - TSH Order Info: 2856-08 - PSA Order Info: 7 - T4F Performed By: #### L 506.0400, L500.4100, L500.4050, L501.9910, L501.9520 #### [facility] [address] [place], [place], [id number] BUN/CRE 13.1 RATIO Normal 10-20 [facility] Comment on above: Order Comment: PER I HOLLYERALLEN COMMENT-GLU Order Date: 02/28/25 Order Info: 785-08 - CMP Order Info: - LIPID Order Info: 3015-10 - TSH Order Info: 2856-08 - PSA Order Info: 7 - T4F Performed By: #### L 506.0400, L500.4100, L500.4050, L501.9910, L501.9520 #### [facility] [address] [place], [place], [address] Calcium [Mass/Vol] 9.5 mg/dL Normal 7.6-11.0 [facility] Comment on above: Order Comment: PER I HOLLYERALLEN COMMENT-GLU Order Date: 02/28/25 Order Info: 785-08 - CMP Order Info: 94317-0 - LIPID Order Info: 3 - TSH Order Info: 2856-08 - PSA Order Info: 30247 - T4F Performed By: #### L 506.0400, L500.4100, L500.4050, L501.9910, L501.9520 #### [facility] [address] [place], [address] Chloride [Moles/Vol] 104 mmol/L Normal 98-108 [facility] Comment on above: Order Comment: PER I HOLLYERALLEN COMMENT-GLU Order Date: 02/28/25 Order Info: 785-1 - CMP Order Info: 71256-0 - LIPID Order Info: 301-3 - TSH Order Info: 28502-26 - PSA Order Info: 3024-7 - T4F Performed By: #### L 506.0400, L500.4100, L500.4050, L501.9910, L501.9520 #### [facility] [address] [place], [place], [id number] [phone] CO2 [Moles/Vol] 24.9 mmol/L Normal 21.0-32.0 [facility] Comment on above: Order Comment: PER Noman RUSSO COMMENT-GLU Order Date: 02/28/25 Order Info: 785-08 - CMP Order Info: 88535-5 - LIPID Order Info: 3 - TSH Order Info: 2856-08 - PSA Order Info: 3024-7 - T4F Performed By: #### L 506.0400, L500.4100, L500.4050, L501.9910, L501.9520 #### [facility] [address] [place], [place], [id number] [phone] Creatinine [Mass/Vol] 0.88 mg/dL Normal 0.70-1.20 [facility] Comment on above: Order Comment: PER I NTERALLEN COMMENT-GLU Order Date: 02/28/25 Order Info: 785- - CMP Order Info: 04017-9 - LIPID Order Info: 3 - TSH Order Info: 28571 - PSA Order Info: 3024-7 - T4F Performed By: #### L 506.0400, L500.4100, L500.4050, L501.9910, L501.9520 #### [facility] [address] [place], [place], [id number] GAP 11 Normal 5-15 [facility] Comment on above: Order Comment: CHAITANYA RUSSO COMMENT-GLU Order Date: 02/28/25 Order Info: 785-08 - CMP Order Info: - LIPID Order Info: 3015-10 - TSH Order Info: 2856-08 - PSA Order Info: 3024-02 - T4F Performed By: #### L 506.0400, L500.4100, L500.4050, L501.9910, L501.9520 #### [facility] [address] [place], [address] GFR/1.73 sq M.predicted among non-blacks MDRD (S/P/Bld) [Vol rate/Area] 103 mL/min/{1.73_m2} Normal >60 [facility] Comment on above: Order Comment: CHAITANYA RUSSO COMMENT-GLU Order Date: 02/28/25 Order Info: 785-08 - CMP Order Info: - LIPID Order Info: 3015-10 - TSH Order Info: 2856-08 - PSA Order Info: 3024-02 - T4F Result Comment: mL/m in/1.73m2 CKD-EPI Creatinine Equation (2020) Performed By: #### L 506.0400, L500.4100, L500.4050, L501.9910, L501.9520 #### [facility] [address] [place], [place], [id number] Globulin (S) [Mass/Vol] 3.1 g/dL Normal 2.2-4.2 [facility] Comment on above: Order Comment: CHAITANYA RUSSO COMMENT-GLU Order Date: 02/28/25 Order Info: 785-08 - CMP Order Info: - LIPID Order Info: 3015-10 - TSH Order Info: 2856-08 - PSA Order Info: 3024-02 - T4F Performed By: #### L 506.0400, L500.4100, L500.4050, L501.9910, L501.9520 #### [facility] [address] [place], [address] Glucose [Mass/Vol] 95 mg/dL Normal 70-99 [facility] Comment on above: Order Comment: PER I HOLLYERALLEN COMMENT-GLU Order Date: 02/28/25 Order Info: 785-1 - CMP Order Info: 26611-4 - LIPID Order Info: 3015-3 - TSH Order Info: 2856-08 - PSA Order Info: 3024-7 - T4F Performed By: #### L 506.0400, L500.4100, L500.4050, L501.9910, L501.9520 #### [facility] [address] [place], [address] Potassium [Moles/Vol] 4.4 mmol/L Normal 3.3-5.1 [facility] Comment on above: Order Comment: PER Noman RUSSO COMMENT-GLU Order Date: 02/28/25 Order Info: 785-08 - CMP Order Info: - LIPID Order Info: 3 - TSH Order Info: 2856-08 - PSA Order Info: 3024-7 - T4F Performed By: #### L 506.0400, L500.4100, L500.4050, L501.9910, L501.9520 #### [facility] [address] [place], [address] Sodium [Moles/Vol] 140 mmol/L Normal 133-145 [facility] Comment on above: Order Comment: PER Noman BARRERAERALLEN COMMENT-GLU Order Date: 02/28/25 Order Info: 785-08 - CMP Order Info: [id number] - LIPID Order Info: 3 - TSH Order Info: 2851 - PSA Order Info: 3024-7 - T4F Performed By: #### L 506.0400, L500.4100, L500.4050, L501.9910, L501.9520 #### [facility] [address] [place], [place], [id number] T PROT 7.6 g/dL Normal 5.9-8.4 [facility] Comment on above: Order Comment: PER Noman BARRERAERALLEN COMMENT-GLU Order Date: 02/28/25 Order Info: 0786-1 - CMP Order Info: 34625-4 - LIPID Order Info: 3 - TSH Order Info: 2856-08 - PSA Order Info: 3023-7 - T4F Performed By: #### L 506.0400, L500.4100, L500.4050, L501.9910, L501.9520 #### [facility] [address] [place], [address] Urea nitrogen [Mass/Vol] 12 mg/dL Normal 4-19 [facility] Comment on above: Order Comment: CHAITANYA RUSSO COMMENT-GLU Order Date: 02/28/25 Order Info: 0786 - CMP Order Info: 73427-9 - LIPID Order Info: 3015-10 - TSH Order Info: 2856-08 - PSA Order Info: 7 - T4F Performed By: #### L 506.0400, L500.4100, L500.4050, L501.9910, L501.9520 #### [facility] [address] [place], [place], [id number] Erythrocyte distribution wid th ratioOrdered By: Tee Rodriguez on 02-28-2025 Erythrocyte distribution width (RBC) [Ratio] 12.3 % 11.6-14.6 [facility] Erythrocyte distribution wid th standard deviationOrdered By: Tee Rodriguez on 02-28-2025 Erythrocyte distribution width (RBC) [Ratio] 41.6 fl 35.1-43.9 [facility] Glomerular filtration rate ( GFR) estimation/1.73 sq m using serum, plasma, or whole bOrdered By: Tee Rodriguez on 02-28-2025 GFR/1.73 sq M.predicted among non-blacks MDRD (S/P/Bld) [Vol rate/Area] 103 mL/min/{1.73_m2} >60 [facility] Comment on above: mL/min/1.73m2 CKD-EP I Creatinine Equation (2020) Hematocrit Auto (Bld) [Volum e fraction]Ordered By: Tee Rodriguez on 02-28-2025 Hematocrit (Bld) [Volume fraction] 46.5 % 40-54 [facility] Hemoglobin measurementOrdere d By: Tee Rodriguez on 02-28-2025 Hemoglobin (Bld) [Mass/Vol] 15.4 g/dL 13.0-16.5 [facility] LDL calc ser/plasOrdered By: Tee Rodriguez on 02-28-2025 Cholesterol in LDL [Mass/Vol] 149 mg/dL [facility] Comment on above: Eeslqftpgu=806-179 m g/dL & Higher Anin=415 mg/dL or greater Laboratory - Chemistry and C hemistry - challengeOrdered By: Tee Rodriguez on 02-28-2025 AST [Catalytic activity/Vol] 24 U/L <38 [facility] Lipid Profileon 02-28-2025 CHOL:HDL 4.61 Normal [facility] Comment on above: Order Comment: CHAITANYA RUSSO COMMENT-GLU Order Date: 02/28/25 Order Info: 0786-1 - CMP Order Info: 63073-6 - LIPID Order Info: 3015-10 - TSH Order Info: 28502-26 - PSA Order Info: 302-7 - T4F Performed By: #### L 506.0400, L500.4100, L500.4050, L501.9910, L501.9520 #### [facility] [address] [place] [address], [id number] Cholesterol [Mass/Vol] 218 mg/dL High <=200 [facility] Comment on above: Order Comment: PER I NTERFACE COMMENT-GLU Order Date: 02/28/25 Order Info: 0786-1 - CMP Order Info: 31875-2 - LIPID Order Info: 3013 - TSH Order Info: 2851 - PSA Order Info: 3023-7 - T4F Result Comment: Chol esterol level, Desirable <200 mg/dL Borderline high cholesterol 200-239 mg/dL High cholesterol >=240 mg/dL Recommendations of the NCEP Adult Treatment Panel for the following risk-cutoff thresholds for the [place] population. Performed By: #### L 506.0400, L500.4100, L500.4050, L501.9910, L501.9520 #### [facility] [address] [place], [address] Cholesterol in HDL [Mass/Vol] 47 mg/dL Normal [facility] Comment on above: Order Comment: PER Noman RUSSO COMMENT-GLU Order Date: 02/28/25 Order Info: 0786 - CMP Order Info: - LIPID Order Info: 3015-10 - TSH Order Info: 2856-08 - PSA Order Info: 3024-02 T4 Result Comment: Chloé onal Cholesterol Education Program (NCEP) guidelines: <40 mg/dL: Low HDL-cholesterol (major risk factor for CHD) >= 60 mg/dL: High HDL-cholesterol (negative risk factor for CHD) HDL-cholesterol is affected by a number of factors, e.g. smoking, exercise, hormones, sex and age. Performed By: #### L 506.0400, L500.4100, L500.4050, L501.9910, L501.9520 #### [facility] [address] [place], [address] Cholesterol in LDL [Mass/Vol] 149 mg/dL Normal [facility] Comment on above: Order Comment: CHAITANYA RUSSO COMMENT-GLU Order Date: 02/28/25 Order Info: 0786 - CMP Order Info: - LIPID Order Info: 3 - TSH Order Info: 2856-08 - PSA Order Info: 3024-02 T4F Result Comment: Bord pjdymx=123-991 mg/dL Higher Tkte=429 mg/dL or greater Performed By: #### L 506.0400, L500.4100, L500.4050, L501.9910, L501.9520 #### [facility] [address] [place], [address] Cholesterol in VLDL [Mass/Vol] 22 mg/dL Normal 5-40 [facility] Comment on above: Order Comment: CHAITANYA RUSSO COMMENT-GLU Order Date: 02/28/25 Order Info: 785-08 - CMP Order Info: - LIPID Order Info: 3015-10 - TSH Order Info: 2856-08 - PSA Order Info: 7 - T4F Performed By: #### L 506.0400, L500.4100, L500.4050, L501.9910, L501.9520 #### [facility] [address] [place], [address] Triglyceride [Mass/Vol] 108 mg/dL Normal [facility] Comment on above: Order Comment: CHAITANYA RUSSO COMMENT-GLU Order Date: 02/28/25 Order Info: 785-08 - CMP Order Info: - LIPID Order Info: 3015-10 - TSH Order Info: 2856-08 - PSA Order Info: 7 - T4F Result Comment: The drugs N-Acetylcysteine and Metamizole may falsely depress this assay. Normal range: <150 mg/dL Borderline High: 150-199 mg/dL High: 200-499 mg/dL Very High: >500 mg/dL Performed By: #### L 506.0400, L500.4100, L500.4050, L501.9910, L501.9520 #### [facility] [address] [place], [place], [id number] MCV (mean corpuscular volume ) determinationOrdered By: Tee Rodriguez on 02-28-2025 MCV (RBC) [Entitic vol] 92.3 fL 80-94 [facility] Mean corpuscular hemoglobin (MCH) determinationOrdered By: Tee Rodriguez on 02-28-2025 MCH (RBC) [Entitic mass] 30.6 pg 27.0-32.0 [facility] Mean corpuscular hemoglobin concentration (MCHC) determinationOrdered By: Tee Rodriguez on 02-28-2025 MCHC (RBC) [Mass/Vol] 33.1 g/dL 32-36 [facility] Mean platelet volume determi nationOrdered By: Tee Rodriguez on 02-28-2025 Platelet mean volume (Bld) [Entitic vol] 9.9 fL 6.2-12.0 [facility] PSA,Total - Annual Screenon 02-28-2025 PSA,TOT SCREEN 0.49 ng/mL Normal 0.02-4.00 [facility] Comment on above: Order Comment: PER I NTERFACE COMMENT-GLU Order Date: 02/28/25 Order Info: 0786-1 - CMP Order Info: 70162-5 - LIPID Order Info: 3016-3 - TSH Order Info: 2857-1 - PSA Order Info: 3024-7 - T4F Result Comment: This test was performed using the [employer] tPSA method. Measured values of a patient??sample can vary depending on the testing procedure used. PSA values determined on patient samples by different testing procedures cannot be used interchangeably. If there is a change in PSA assays while monitoring therapy, sequential testing should be performed to confirm baseline values. Performed By: #### L 506.0400, L500.4100, L500.4050, L501.9910, L501.9520 #### [facility] [address] [place], [address] Platelet countOrdered By: Dar Rodriguez on 02-28-2025 Platelets (Bld) [#/Vol] 379 10*3/uL 150-450 [facility] Potassium measurement (mass/ volume)Ordered By: Tee Rodriguez on 02-28-2025 Potassium (Unsp spec) [Mass/Vol] 4.4 mmol/L 3.3-5.1 [facility] RBC Auto (Bld) [#/Vol]Ordere d By: Tee Rodriguez on 02-28-2025 RBC (Bld) [#/Vol] 5.04 10*6/uL 4.6-6.2 [facility] Screening total cholesterol/ high density lipoprotein (HDL) cholesterol ratioOrdered By: Tee Rodriguez on 02-28-2025 Cholesterol.total/Mary sterol in HDL [Mass ratio] 4.61 {ratio} [facility] Serum creatinine measurement (mass/volume)Ordered By: Tee Rodriguez on 02-28-2025 Creatinine [Mass/Vol] 0.88 mg/dL 0.70-1.20 [facility] Serum globulin measurementOr dered By: Tee Rodriguez on 02-28-2025 Globulin (S) [Mass/Vol] 3.1 g/dL 2.2-4.2 [facility] Serum glucose measurement (m ass/volume)Ordered By: Tee Rodriguez on 02-28-2025 Glucose [Mass/Vol] 95 mg/dL 70-99 [facility] Serum or plasma alanine mccracken otransferase (ALT) measurementOrdered By: Tee Rodriguez on 02-28-2025 ALT [Catalytic activity/Vol] 20 U/L <47 [facility] Serum or plasma albumin beatriz urement (mass/volume)Ordered By: Tee Rodriguez on 02-28-2025 Albumin [Mass/Vol] 4.5 g/dL 3.5-5.0 [facility] Serum or plasma albumin/glob ulin mass ratioOrdered By: Tee Rodriguez on 02-28-2025 Albumin/Globulin [Mass ratio] 1.4 {ratio} 0.9-2.4 [facility] Serum or plasma alkaline naya sphatase measurementOrdered By: Tee Rodriguez on 02-28-2025 ALP [Catalytic activity/Vol] 72 U/L 40-129 [facility] Serum or plasma calcium beatriz urement (mass/volume)Ordered By: Tee Rodriguez on 02-28-2025 Calcium [Mass/Vol] 9.5 mg/dL 7.6-11.0 [facility] Serum or plasma cholesterol in HDL measurement (mass/volume)Ordered By: Tee Rodriguez on 02-28-2025 Cholesterol in HDL [Mass/Vol] 47 mg/dL >40 [facility] Comment on above: National Cholesterol Education Program (NCEP) guidelines:<40 mg/dL: Low HDL-cholesterol (major risk factor for CHD)>= 60 mg/dL: High HDL-cholesterol (negative risk factor for CHD)HDL-cholesterol is affected by a number of factors, e.g. smoking, exercise, hormones, sex and age. Serum or plasma cholesterol measurement (mass/volume)Ordered By: Tee Rodriguez on 02-28-2025 Cholesterol [Mass/Vol] 218 mg/dL High <201 [facility] Comment on above: Cholesterol level, D esirable <200 mg/dLBorderline high cholesterol 200-239 mg/dLHigh cholesterol >=240 mg/dLRecommendations of the NCEP Adult Treatment Panel for the following risk-cutoff thresholds for the [place] population. Serum or plasma urea nitroge n measurement (mass/volume)Ordered By: Tee Rodriguez on 02-28-2025 Urea nitrogen [Mass/Vol] 12 mg/dL 4-19 [facility] Sodium levelOrdered By: Jose G Rodriguez on 02-28-2025 Sodium [Moles/Vol] 140 mmol/L 133-145 [facility] T4 Free Directon 02-28-2025 T4 FREE DIRECT 1.30 ng/dL Normal 0.76-1.46 [facility] Comment on above: Order Comment: CHAITANYA RUSSO COMMENT-GLU Order Date: 02/28/25 Order Info: [id number] - CMP Order Info: [id number] - LIPID Order Info: [id number] - TSH Order Info: [id number] - PSA Order Info: [id number] - T4F Performed By: #### L 506.0400, L500.4100, L500.4050, L501.9910, L501.9520 #### [facility] [place], [address] T4 freeOrdered By: Danny Rodriguez on 02-28-2025 Free T4 [Mass/Vol] 1.30 ng/dL 0.76-1.46 [facility] TSH DL <= 0.005 mIU/L QnOrde red By: Tee Rodriguez on 02-28-2025 TSH Qn 1.960 uIU/mL 0.300-4.200 [facility] Thyroid Stim Hormone (TSH)on 02-28-2025 TSH 1.960 uIU/mL Normal 0.300-4.200 [facility] Comment on above: Order Comment: CHAITANYA RUSSO COMMENT-GLU Order Date: 02/28/25 Order Info: [id number] - CMP Order Info: [id number] - LIPID Order Info: [id number] - TSH Order Info: [id number] - PSA Order Info: [id number] - T4F Performed By: #### L 506.0400, L500.4100, L500.4050, L501.9910, L501.9520 #### [facility] [address] [place], [address] Total proteinOrdered By: Maricruz Rodriguez on 02-28-2025 Protein [Mass/Vol] 7.6 g/dL 5.9-8.4 [facility] Triglycerides measurementOrd ered By: Tee Rodriguez on 02-28-2025 Triglyceride [Mass/Vol] 108 mg/dL <199 [facility] Comment on above: The drugs N-Acetylcy steine and Metamizole may falsely depress this assay. Normal range: <150 mg/dLBorderline High: 150-199 mg/dLHigh: 200-499 mg/dLVery High: >500 mg/dL Vitamin D,25 Hydroxyon 02-28 Vitamin D 25-OH 35.2 ng/mL Normal 30-100 [facility] Comment on above: Order Comment: CHAITANYA RUSSO COMMENT-GLU Order Date: 02/28/25 Order Info: 07 - CMP Order Info: [id number] - LIPID Order Info: [id number] - TSH Order Info: [id number] - PSA Order Info: [id number] - T4F Result Comment: Isabel min D Status Deficiency: <20 ng/mL (50nmol/L) Insufficiency: 20-30 ng/mL (50-75 nmol/L) Sufficiency: 30-100 ng/mL (75-250 nmol/L) Toxicity: >100 ng/mL (>250 nmol/L) Performed By: #### L 506.1001 #### [facility] [address] [place], [address] White blood cell (WBC) count Ordered By: Tee Rodriguez on 02-28-2025 WBC (Bld) [#/Vol] 5.2 10*3/uL 4.4-11.0 [facility] TSH DL <= 0.005 mIU/L QnOrde red By: Karen Romano on 11-07-2024 Thyroid Stimulating Hormone (TSH) 2.440 uIU/mL 0.300-4.200 [facility] TSH Qn 2.440 uIU/mL 0.300-4.200 [facility] Thyroid Stim Hormone (TSH)on 11-07-2024 TSH 2.440 uIU/mL Normal 0.300-4.200 [facility] Comment on above: Performed By: #### L 501.9520 #### [facility] [address] [place], [address] TSH QnOrdered By: Karen weaver on 09-19-2024 Thyroid Stimulating Hormone (TSH) 1.640 uIU/mL 0.358-3.740 [facility] Thyroid Stim Hormone (TSH)on 09-19-2024 TSH 1.640 uIU/mL Normal 0.358-3.740 [facility] Comment on above: Performed By: #### L 506.0400, L500.4100, L500.4050, L501.9910, L501.9520 #### [facility] [address] [place], [place], [id number] Direct serum free thyroxine (FT4) measurementOrdered By: Tee Rodriguez on 08-06-2024 Free T4 [Mass/Vol] 0.98 ng/dL 0.76-1.46 [facility] Free T3on 08-06-2024 Free T3 [Mass/Vol] 2.4 pg/mL Normal 2.18-3.98 [facility] Comment on above: Order Comment: CHAITANYA RUSSO COMMENT-GLU Order Date: 02/28/25 Order Info: [id number] - CMP Order Info: [id number] - LIPID Order Info: [id number] - TSH Order Info: [id number] - PSA Order Info: [id number] - T4F Performed By: #### L 506.0400, L500.4100, L500.4050, L501.9910, L501.9520 #### [facility] [address] [place], [place], [id number] Free M8Pamydxn By: Danny Rodriguez on 08-06-2024 Free Triiodothyronine (T3) pg/dL 2.4 pg/mL 2.18-3.98 [facility] Serum or plasma thyroxine (T 4) measurement (mass/volume)Ordered By: Tee Rodriguez on 08-06-2024 T4 [Mass/Vol] 9.6 ug/dL 4.5-12.1 [facility] T4 Free Directon 08-06-2024 T4 FREE DIRECT 0.98 ng/dL Normal 0.76-1.46 [facility] Comment on above: Order Comment: CHAITANYA RUSSO COMMENT-GLU Order Date: 02/28/25 Order Info: [id number] - CMP Order Info: [id number] - LIPID Order Info: [id number] - TSH Order Info: [id number] - PSA Order Info: 7 - T4F Performed By: #### L 506.0400, L500.4100, L500.4050, L501.9910, L501.9520 #### [facility] [address] [place], [place], [id number] T4 Total, Thyroxinon 024 T4 [Mass/Vol] 9.6 ug/dL Normal 4.5-12.1 [facility] Comment on above: Order Comment: CHAITANYA RUSSO COMMENT-GLU Order Date: 02/28/25 Order Info: [id number] - CMP Order Info: [id number] - LIPID Order Info: [id number] - TSH Order Info: 1 - PSA Order Info: [id number] - T4F Performed By: #### L 506.0400, L500.4100, L500.4050, L501.9910, L501.9520 #### [facility] [address] [place], [address] TSH QnOrdered By: Yunior Rodriguez on 08-06-2024 Thyroid Stimulating Hormone (TSH) 0.617 uIU/mL 0.358-3.740 [facility] Thyroid Stim Hormone (TSH)on 08-06-2024 TSH 0.617 uIU/mL Normal 0.358-3.740 [facility] Comment on above: Order Comment: PER Noman BARRERAERALLEN COMMENT-GLU Order Date: 02/28/25 Order Info: [id number] - CMP Order Info: - LIPID Order Info: 3 - TSH Order Info: [id number] - PSA Order Info: [id number] - T4F Performed By: #### L 506.0400, [id number], L500.4050, L501.9910, L501.9520 #### [facility] [address] [facility] [place], [place], [id number] T4 Free Directon 07-10-2024 T4 FREE DIRECT 1.16 ng/dL Normal 0.76-1.46 [facility] Comment on above: Order Comment: PER Noman RUSSO COMMENT-GLU Order Date: 02/28/25 Order Info: [id number] - CMP Order Info: - LIPID Order Info: 3 - TSH Order Info: [id number] - PSA Order Info: [id number] - T4F Performed By: #### L 506.0400, L500.4100, L500.4050, L501.9910, L501.9520 #### [facility] [address] [facility] [place], [place], [id number] Thyroid Stim Hormone (TSH)on 07-10-2024 TSH 0.195 uIU/mL Low 0.358-3.740 [facility] Comment on above: Order Comment: PER Noman RUSSO COMMENT-GLU Order Date: 02/28/25 Order Info: [id number] - CMP Order Info: - LIPID Order Info: [id number] - TSH Order Info: [id number] - PSA Order Info: [id number] - T4F Performed By: #### L 506.0400, L500.4100, L500.4050, L501.9910, L501.9520 #### [facility] [address] [place], [address] Laboratory - Chemistry and C hemistry - challengeOrdered By: Yunior Rodriguez on 06-27-2023 Free T4 [Mass/Vol] 1.31 ng/dL 0.76-1.46 [facility] No Panel InformationOrdered By: Yunior Rodriguez on 06-27-2023 Free Triiodothyronine (T3) pg/dL 3.1 pg/mL 2.18-3.98 [facility] Thyroid Stimulating Hormone (TSH) 0.60 uIU/mL 0.358-3.74 [facility] Absolute lymphocyte countOrd ered By: Yunior Rodriguez on 04-07-2023 Lymphocytes Auto (Unsp spec) [#/Vol] 2.33 10*3/uL 0.83-4.51 [facility] Basophil percentageOrdered B y: Yunior Rodriguez on 04-07-2023 Basophils/100 WBC (Bld) 0.8 % 0-1 [facility] Bilirubin [Mass/Vol] 0.50 mg/dL 0.20-1.00 [facility] Comment on above: For patients on eltr ombopag therapy, use of Dimension [place] TBIL is not recommended. Chloride [Moles/Vol] 106 mmol/L 98-107 [facility] Eosinophils/100 WBC (Bld) 3.0 % 0-5 [facility] Glucose [Mass/Vol] 95 mg/dL 74-106 [facility] Neutrophils (Bld) [#/Vol] 3.6 10*3/uL 2.0-7.7 [facility] Neutrophils/100 WBC (Bld) 53.2 % 47-70 [facility] Potassium [Moles/Vol] 3.8 mmol/L 3.5-5.1 [facility] Protein [Mass/Vol] 7.7 g/dL 6.4-8.2 [facility] Sodium [Moles/Vol] 140 mmol/L 136-145 [facility] Testosterone [Mass/Vol] 285.14 ng/dL [facility] Comment on above: CENTRAL 90% REFERENC E RANGES MALE AGE <50 197.44 - 669.58 ng/dL MALE AGE > or = 50 187.72 - 684.19 ng/dL FEMALE AGE <50 8.38 - 35.01 ng/dL FEMALE AGE > or = 50 <7.00 - 35.92 ng/dL Effective as of 03/24/21 WBC (Bld) [#/Vol] 6.7 10*3/uL 4.4-11.0 [facility] Blood erythrocytes count (nu mber/volume)Ordered By: Yunior Rodriguez on 04-07-2023 RBC (Bld) [#/Vol] 4.76 10*6/uL 4.6-6.2 [facility] Blood hemoglobin measurement (mass/volume)Ordered By: Yunior Rodriguez on 04-07-2023 Hemoglobin (Bld) [Mass/Vol] 14.6 g/dL 13.0-16.5 [facility] Blood lymphocytes/100 leukoc ytesOrdered By: Yunior Rodriguez on 04-07-2023 Lymphocytes/100 WBC (Bld) 35.0 % 19-41 [facility] Blood monocytes/100 leukocyt esOrdered By: Yunior Rodriguez on 04-07-2023 Monocytes/100 WBC (Bld) 7.7 % 0-10 [facility] Blood platelet mean volumeOr dered By: Yunior Rodriguez on 04-07-2023 Platelet mean volume (Bld) [Entitic vol] 10.3 fL 6.2-12.0 [facility] Determination of erythrocyte mean corpuscular volume (MCV)Ordered By: Yunior Rodriguez on 04-07-2023 MCV (RBC) [Entitic vol] 94.1 fL 80-94 [facility] Erythrocyte sedimentation ra teOrdered By: Yunior Rodriguez on 04-07-2023 ESR (Bld) [Velocity] 7 mm/h 0-20 [facility] Hematocrit Auto (Bld) [Volum e fraction]Ordered By: Yunior Rodriguez on 04-07-2023 Hematocrit (Bld) [Volume fraction] 44.8 % 40-54 [facility] Iron measurement (mass/mass) Ordered By: Yunior Rodriguez on 08-10-2023 Iron (Unsp spec) [Mass/Mass] 93 ug/dL 65-175 [facility] - Chemistry and C hemistry - challengeOrdered By: Yunior Rodriguez on 04-07-2023 ALP [Catalytic activity/Vol] 62 U/L 45-117 [facility] ALT [Catalytic activity/Vol] 30 U/L 16-61 [facility] CO2 [Moles/Vol] 27.0 mmol/L 21.0-32.0 [facility] Cobalamin (Vitamin B12) [Mass/Vol] 742 pg/mL 211-911 [facility] Globulin (S) [Mass/Vol] 3.8 g/dL 2.2-4.2 [facility] Urea nitrogen/Creatinine [Mass ratio] 15.7 mg/mg 10-20 [facility] - Hematology and Cell countsOrdered By: Yunior Rodriguez on 04-07-2023 Erythrocyte distribution width (RBC) [Entitic vol] 43.5 fL 35.1-43.9 [facility] Erythrocyte distribution width (RBC) [Ratio] 12.4 % 11.6-14.6 [facility] Immature granulocytes/100 WBC (Bld) 0.300 % 0.0-0.9 [facility] Comment on above: IG% - Immature Granu locytes (promyelocytes, myelocytes and metamyelocytes) > 1% indicates that a LEFT SHIFT is Present. MCH (RBC) [Entitic mass] 30.7 pg 27.0-32.0 [facility] Nucleated RBC/100 WBC (Bld) [Ratio] 0 % 0-5 [facility] MCHC Auto (RBC) [Mass/Vol]Or dered By: Yunior Rodriguez on 04-07-2023 MCHC (RBC) [Mass/Vol] 32.6 g/dL 32-36 [facility] No Panel InformationOrdered By: Yunior Rodriguez on 04-07-2023 Anti-Nuclear Antibody Screen Negative Negative [facility] Comment on above: Performed at: [address] [id number] Director: Isaac Rubin PhD, Phone: [phone] Estimated GFR (MDRD) Amer 106 mL/min >60 [facility] Comment on above: GFR Calc Estimated GFR (MDRD) Non-Af Amer 88 mL/min >60 [facility] Comment on above: Non- GFR Calc Vitamin D 25-Hydroxy 40.4 ng/mL [facility] Comment on above: Vitamin D 25(OH) Sta tus Range Deficiency <20 ng/mL (50nmol/L) Insufficiency 20 - 30 ng/mL (50 - 75 nmol/L) Sufficiency 30 - 100 ng/mL (75 - 250 nmol/L) Toxicity >100 ng/mL (>250 nmol/L) Platelets bldOrdered By: Maricruz mannmazin Jennifer on 04-07-2023 Platelets (Bld) [#/Vol] 326 10*3/uL 150-450 [facility] Serum or plasma C reactive p rotein measurement (mass/volume)Ordered By: Yunior Rodriguez on 04-07-2023 CRP [Mass/Vol] mg/L 0.0-3.0 [facility] Comment on above: C-Reactive Protein ( CRP) provides useful information for thediagnosis, therapy and monitoring of inflammatory processesand associated diseases. For the evaluation of Relative Riskfor Cardiovascular Disease, a High Sensitivity CRP (HSCRP)should be ordered. Serum or plasma albumin beatriz urement (mass/volume)Ordered By: Yunior Rodriguez on 04-07-2023 Albumin [Mass/Vol] 3.9 g/dL 3.2-5.0 [facility] Serum or plasma albumin/glob ulin mass ratioOrdered By: Yunior Rodriguez on 04-07-2023 Albumin/Globulin [Mass ratio] 1.0 {ratio} 0.9-2.4 [facility] Serum or plasma calcium beatriz urement (mass/volume)Ordered By: Yunior Rodriguez on 04-07-2023 Calcium [Mass/Vol] 8.8 mg/dL 8.5-10.1 [facility] Serum or plasma creatinine m easurement (mass/volume)Ordered By: Yunior Rodriguez on 04-07-2023 Creatinine [Mass/Vol] 0.96 mg/dL 0.70-1.30 [facility] Comment on above: The validity of the calculated GFR & GFRAA in patients over 70 years has not been determined. Clinical correlation is essential. Serum or plasma ferritin tamara surement (mass/volume)Ordered By: Yunior Rodriguez on 04-07-2023 Ferritin [Mass/Vol] 86 ng/mL 26-388 [facility] Serum or plasma thyroperoxid ase antibody assay (units/volume)Ordered By: Yunior Rodriguez on 04-07-2023 TPO Ab Qn 24 [IU]/mL 0-34 [facility] Comment on above: Performed at: [place] [id number] Director: Isaac Rubin PhD, Phone: [phone] Serum or plasma urea nitroge n measurement (mass/volume)Ordered By: Yunior Rodriguez on 04-07-2023 Urea nitrogen [Mass/Vol] 15 mg/dL 7-18 [facility] Serum or plasma uric acid me asurement (mass/volume)Ordered By: Yunior Rodriguez on 04-07-2023 Urate [Mass/Vol] 6.0 mg/dL 3.5-7.2 [facility] Comment on above: The drugs N-Acetylcy steine and Metamizole may falsely depress this assay. Serum rheumatoid factor dete ctionOrdered By: Yunior Rodriguez on 04-07-2023 Rheumatoid factor Ql (S) < 10.0 IU/mL <15 [facility] Thin prep Papanicolaou smear with manual screeningOrdered By: Yunior Rodriguez on 04-07-2023 Thin prep Papanicolaou smear with manual screening 21 U/L 15-37 [facility] Thin prep Papanicolaou smear with manual screening 7 5-15 [facility] Thin prep Papanicolaou smear with manual screening Negative Negative [facility] Comment on above: Lyme antibodies not detected. Reflex testing is notindicated.No laboratory evidence of infection with B. burgdorferi(Lyme disease). Negative results may occur in patientsrecently infected (less than or equal to 14 days) with B.burgdorferi. If recent infection is suspected, repeattesting on a new sample collected in 7 to 14 days isrecommended. Laboratory - Chemistry and C hemistry - challengeOrdered By: Yunior Rodriguez on 03-30-2023 Free T4 [Mass/Vol] 0.96 ng/dL 0.76-1.46 [facility] No Panel InformationOrdered By: Yunior Rodriguez on 03-30-2023 Free Triiodothyronine (T3) pg/dL 2.3 pg/mL 2.18-3.98 [facility] Thyroid Stimulating Hormone (TSH) 21.30 uIU/mL 0.358-3.74 [facility] - Chemistry and C hemistry - challengeOrdered By: Yunior Rodriguez on 01-21-2023 Free T4 [Mass/Vol] 0.71 ng/dL 0.76-1.46 [facility] No Panel InformationOrdered By: Yunior Rodriguez on 01-21-2023 Free Triiodothyronine (T3) pg/dL 2.0 pg/mL 2.18-3.98 [facility] Thyroid Stimulating Hormone (TSH) 34.20 uIU/mL 0.358-3.74 [facility] Basophil percentageOrdered B y: Dr. Rodriguez on 12-03-2022 Chloride [Moles/Vol] 107 mmol/L 98-107 [facility] Cholesterol [Mass/Vol] 226 mg/dL <200 [facility] Comment on above: <200 mg/dL Desirable 200-240 mg/dL Borderline >240 mg/dL High Risk Glucose [Mass/Vol] 90 mg/dL 74-106 [facility] Potassium [Moles/Vol] 3.9 mmol/L 3.5-5.1 [facility] Sodium [Moles/Vol] 140 mmol/L 136-145 [facility] Triglyceride [Mass/Vol] 185 mg/dL <199 [facility] Comment on above: The drugs N-Acetylcy steine and Metamizole may falsely depress this assay.Serum Triglycerides Reference Interval Normal <150 mg/dL Borderline high 150 - 199 mg/dL High 200 - 499 mg/dL Very High > or = 500 mg/dL Laboratory - Chemistry and C hemistry - challengeOrdered By: Dr. Rodriguez on 12-03-2022 CO2 [Moles/Vol] 28.0 mmol/L 21.0-32.0 [facility] Free T4 [Mass/Vol] 1.08 ng/dL 0.76-1.46 [facility] Urea nitrogen/Creatinine [Mass ratio] 19.8 mg/mg 10-20 [facility] No Panel InformationOrdered By: Dr. Rodriguez on 12-03-2022 Estimated GFR (MDRD) Amer 130 mL/min >60 [facility] Comment on above: GFR Calc Estimated GFR (MDRD) Non-Af Amer 107 mL/min >60 [facility] Comment on above: Non- GFR Calc Free Triiodothyronine (T3) pg/dL 2.7 pg/mL 2.18-3.98 [facility] Prostate Specific Antigen Screen 0.47 ng/mL 0.00-4.00 [facility] Comment on above: This test was perfor med using the TPSA assay method for [employer] chemistry system. Values obtained with differentassay methods cannot be used interchangably.When changing PSA assays in the course of monitoring apatient, additional sequential testing should be carriedout to confirm baseline values. Thyroid Stimulating Hormone (TSH) 1.95 uIU/mL 0.358-3.74 [facility] Serum or plasma calcium beatriz urement (mass/volume)Ordered By: Dr. Rodriguez on 12-03-2022 Calcium [Mass/Vol] 9.2 mg/dL 8.5-10.1 [facility] Serum or plasma cholesterol in HDL measurement (mass/volume)Ordered By: Dr. Rodriguez on 12-03-2022 Cholesterol in HDL [Mass/Vol] 47 mg/dL >40 [facility] Comment on above: The drugs N-Acetylcy steine and Metamizole may falsely depress this assay. Reference Range HDL <40 mg/dL Low HDL Cholesterol HDL >or= 60 mg/dL High HDL Cholesterol Serum or plasma cholesterol in VLDL measurement (mass/volume)Ordered By: Dr. Rodriguez on 12-03-2022 Cholesterol in VLDL [Mass/Vol] 37 mg/dL 5-40 [facility] Serum or plasma creatinine m easurement (mass/volume)Ordered By: Dr. Rodriguez on 12-03-2022 Creatinine [Mass/Vol] 0.81 mg/dL 0.70-1.30 [facility] Comment on above: The validity of the calculated GFR & GFRAA in patients over 70 years has not been determined. Clinical correlation is essential. Serum or plasma low density lipoprotein (LDL) cholesterol measurement (mass/volume)Ordered By: Dr. Rodriguez on 12-03-2022 Cholesterol in LDL [Mass/Vol] 142 mg/dL 0-130 [facility] Serum or plasma urea nitroge n measurement (mass/volume)Ordered By: Dr. Rodriguez on 12-03-2022 Urea nitrogen [Mass/Vol] 16 mg/dL 7-18 [facility] Thin prep Papanicolaou smear with manual screeningOrdered By: Dr. Rodriguez on 12-03-2022 Thin prep Papanicolaou smear with manual screening 5 5-15 [facility] Basophil percentageon 2021 Chloride [Moles/Vol] 104 mmol/L 98-107 [facility] Work Phone: Glucose [Mass/Vol] 86 mg/dL 74-106 [facility] Work Phone: Potassium [Moles/Vol] 4.0 mmol/L 3.5-5.1 [facility] Work Phone: Sodium [Moles/Vol] 139 mmol/L 136-145 [facility] Work Phone: WBC (Bld) [#/Vol] 5.8 10*3/uL 4.4-11.0 [facility] Work Phone: Blood erythrocytes count (nu mber/volume)on 02-05-2022 RBC (Bld) [#/Vol] 4.75 10*6/uL 4.6-6.2 [facility] Work Phone: Blood hemoglobin measurement (mass/volume)on 02-05-2022 Hemoglobin (Bld) [Mass/Vol] 14.7 g/dL 13.0-16.5 [facility] Work Phone: Blood platelet mean volumeon 02-05-2022 Platelet mean volume (Bld) [Entitic vol] 9.6 fL 6.2-12.0 [facility] Work Phone: Determination of erythrocyte mean corpuscular volume (MCV)on 02-05-2022 MCV (RBC) [Entitic vol] 92.4 fL 80-94 [facility] Work Phone: Hematocrit Auto (Bld) [Volum e fraction]on 02-05-2022 Hematocrit (Bld) [Volume fraction] 43.9 % 40-54 [facility] Work Phone: Laboratory - Chemistry and C hemistry - challengeon 02-05-2022 CO2 [Moles/Vol] 31.0 mmol/L 21.0-32.0 [facility] Work Phone: Free T4 [Mass/Vol] 1.05 ng/dL 0.76-1.46 [facility] Work Phone: Magnesium [Mass/Vol] 1.9 mg/dL 1.6-2.[address] [facility] [address] [facility] Work Phone: Urea nitrogen/Creatinine [Mass ratio] 16.5 mg/mg 10-20 [facility] Work Phone: Laboratory - Hematology and Cell countson 02-05-2022 Erythrocyte distribution width (RBC) [Entitic vol] 43.4 fL 35.1-43.9 [facility] Work Phone: Erythrocyte distribution width (RBC) [Ratio] 12.7 % 11.6-14.6 [facility] Work Phone: MCH (RBC) [Entitic mass] 30.9 pg 27.0-32.0 [facility] Work Phone: MCHC Auto (RBC) [Mass/Vol]on 02-05-2022 MCHC (RBC) [Mass/Vol] 33.5 g/dL 32-36 [facility] Work Phone: No Panel Informationon 02-05 Estimated GFR (MDRD) Amer 114 mL/min >60 [facility] Work Phone: Comment on above: GFR Calc Estimated GFR (MDRD) Non-Af Amer 94 mL/min >60 [facility] Work Phone: Comment on above: Non- GFR Calc Thyroid Stimulating Hormone (TSH) 1.27 uIU/mL 0.358-3.74 [facility] Work Phone: Platelets bldon 02-05-2022 Platelets (Bld) [#/Vol] 315 10*3/uL 150-450 [facility] Work Phone: Serum or plasma calcium beatriz urement (mass/volume)on 02-05-2022 Calcium [Mass/Vol] 9.4 mg/dL 8.5-10.1 [facility] Work Phone: Serum or plasma creatinine m easurement (mass/volume)on 02-05-2022 Creatinine [Mass/Vol] 0.91 mg/dL 0.70-1.30 [facility] Work Phone: Comment on above: The validity of the calculated GFR & GFRAA in patients over 70 years has not been determined. Clinical correlation is essential. Serum or plasma urea nitroge n measurement (mass/volume)on 02-05-2022 Urea nitrogen [Mass/Vol] 15 mg/dL 7-18 [facility] Work Phone: Thin prep Papanicolaou smear with manual screeningon 02-05-2022 Thin prep Papanicolaou smear with manual screening 4 5-15 [facility] Work Phone: Culture, urineon 01-04-2022 Bacteria identified Cx Nom (U) Culture exhibits no growth. [facility] Work Phone: Laboratory - Chemistry and C hemistry - challengeon 01-04-2022 Free T4 [Mass/Vol] 1.13 ng/dL 0.76-1.46 [facility] Work Phone: No Panel Informationon 01-04 Prostate Specific Antigen Screen 0.40 ng/mL 0.00-4.00 [facility] Work Phone: Comment on above: This test was perfor med using the TPSA assay method for [facility]. Values obtained with differentassay methods cannot be used interchangably.When changing PSA assays in the course of monitoring apatient, additional sequential testing should be carriedout to confirm baseline values. Thyroid Stimulating Hormone (TSH) 0.94 uIU/mL 0.358-3.74 [facility] Work Phone: Culture, urineon 12-28-2021 Bacteria identified Cx Nom (U) Culture exhibits no growth. [facility] Work Phone: Basophil percentageon 2021 Chloride [Moles/Vol] 104 mmol/L 98-107 [facility] Work Phone: Cholesterol [Mass/Vol] 154 mg/dL <200 [facility] Work Phone: Comment on above: <200 mg/dL Desirable 200-240 mg/dL Borderline >240 mg/dL High Risk Glucose [Mass/Vol] 81 mg/dL 74-106 [facility] Work Phone: Potassium [Moles/Vol] 3.9 mmol/L 3.5-5.1 [facility] Work Phone: Sodium [Moles/Vol] 140 mmol/L 136-145 [facility] Work Phone: Triglyceride [Mass/Vol] 53 mg/dL [facility] Work Phone: Comment on above: The drugs N-Acetylcy steine and Metamizole may falsely depress this assay.Serum Triglycerides Reference Interval Normal <150 mg/dL Borderline high 150 - 199 mg/dL High 200 - 499 mg/dL Very High > or = 500 mg/dL Laboratory - Chemistry and C hemistry - challengeon 09-19-2021 CO2 [Moles/Vol] 29.0 mmol/L 21.0-32.0 [facility] Work Phone: Free T4 [Mass/Vol] 1.47 ng/dL 0.76-1.46 [facility] Work Phone: Urea nitrogen/Creatinine [Mass ratio] 15.1 mg/mg 10-20 [facility] Work Phone: No Panel Informationon 09-19 Estimated GFR (MDRD) Amer 121 mL/min >60 [facility] Work Phone: Comment on above: GFR Calc Estimated GFR (MDRD) Non-Af Amer 100 mL/min >60 [facility] Work Phone: Comment on above: Non- GFR Calc Free Triiodothyronine (T3) pg/dL 2.7 pg/mL 2.18-3.98 [facility] Work Phone: Thyroid Stimulating Hormone (TSH) 0.53 uIU/mL 0.358-3.74 [facility] Work Phone: Vitamin D 25-Hydroxy 41.3 ng/mL [facility] Work Phone: Comment on above: Vitamin D 25(OH) Sta tus Range Deficiency <20 ng/mL (50nmol/L) Insufficiency 20 - 30 ng/mL (50 - 75 nmol/L) Sufficiency 30 - 100 ng/mL (75 - 250 nmol/L) Toxicity >100 ng/mL (>250 nmol/L) Serum or plasma calcium beatriz urement (mass/volume)on 09-19-2021 Calcium [Mass/Vol] 9.3 mg/dL 8.5-10.1 [facility] Work Phone: Serum or plasma cholesterol in HDL measurement (mass/volume)on 09-19-2021 Cholesterol in HDL [Mass/Vol] 53 mg/dL [facility] Work Phone: Comment on above: The drugs N-Acetylcy steine and Metamizole may falsely depress this assay. Reference Range HDL <40 mg/dL Low HDL Cholesterol HDL >or= 60 mg/dL High HDL Cholesterol Serum or plasma cholesterol in VLDL measurement (mass/volume)on 09-19-2021 Cholesterol in VLDL [Mass/Vol] 11 mg/dL 5-40 [facility] Work Phone: Serum or plasma creatinine m easurement (mass/volume)on 09-19-2021 Creatinine [Mass/Vol] 0.86 mg/dL 0.70-1.30 [facility] Work Phone: Comment on above: The validity of the calculated GFR & GFRAA in patients over 70 years has not been determined. Clinical correlation is essential. Serum or plasma low density lipoprotein (LDL) cholesterol measurement (mass/volume)on 09-19-2021 Cholesterol in LDL [Mass/Vol] 90 mg/dL 0-130 [facility] Work Phone: Serum or plasma urea nitroge n measurement (mass/volume)on 09-19-2021 Urea nitrogen [Mass/Vol] 13 mg/dL 7-18 [facility] Work Phone: Thin prep Papanicolaou smear with manual screeningon 09-19-2021 Thin prep Papanicolaou smear with manual screening 7 5-15 [facility] Work Phone: CNOVon 2021 CNOV Office Visit (NENMMN ) KEYANA LEVINE ([id number]) 1970 M Date Time Provider Department 02/12/21 1:00 PM FERNANDA MCLAUGHLIN NENMMN During your visit today, we recorded the following information about you: Pulse Blood pressure Weight Height 80/minute 124/90 108 kg 1.93 m Fernanda Mclaughlin MD 02/22/2021 6:10 PM Signed [facility] New Patient Visit Note Consultation requested by Darwin Pond MD for an opinion regarding numbness affecting hands and feet. My final recommendations will be communicated back to the requesting physician by way of shared Medical record or letter to requesting physician via US mail. History of Present Illness: Mr. Levine is a pleasant 51 year old right-handed male with a history of hypothyroidism (Ap's autoimmune), vitamin D deficiency, chronic intermittent low back pain presenting for evaluation of symptoms including numbness of the bilateral 5th digits and well as 5th digits of both feet. August 2019: started having leg twitches described as feeling of something moving intermittently underneath the skin in his legs (proximally and distally). No jerking or visualization of anything twitching/ moving by himself or his spouse, however. He saw his PCP for this issue who thought it might have been related to his thyroid. Patient also recalls that he was drinking 3-4 energy drinks daily at that time. He stopped drinking caffeine, had change in dose of levothyroxine from 150mcg to 137mcg. Twitching then went away in Sep 2019. He notes that he was in his usual state of health between Sep and 6 months ago when he started noticing numbness affecting the lateral aspect of the 5th digits in both feet. He also recalls one night of burning pain localized to this area that kept him awake all night. Within the last couple months he has noticed intermittent numbness affecting both pinky fingers. He reports that in the past year was found to have degenerative disc in his lumbar spine via X-Ray lumbar spine imaging as ordered through his PCP (?L5-S1 level) He reports low back pain X 10 years. No radicular symptoms. Frequency of pain has increased over time. (now once every couple months - lasts a couple days then self-resolves. Had X-ray imaging locally that reportedly showed degenerative disc. He states that he had a bout of PT following an episode of back pain triggered after lifting a heavy trash can in October of 2020. Family: Celiac's on maternal side. Mother with Ap's. No known family history of neuropathy. The patient denies noticing any recent muscle bulk loss. There is no muscle pain, no cramps or muscle twitching. A history suggestive of myotonia/difficulty with muscle relaxation after contraction is not present. There is no clear fatigable weakness- the patient does not believe that weakness is generally worse at the end of the day. The patient is able to brush his hair and teeth without difficulty. He is easily able to button shirts and use zips. There is no apparent hand clumsiness/ dropping of grasped objects. He is able to arise from the seated position without the use of his arms. The patient is able to go up steps in a staircase without difficulty. He does not need the use of an assistive device for gait. Imbalance/unsteadines s is not present. Falls are nonexistent He denies symptoms suggestive of oculobulbar weakness including diplopia, ptosis, dysarthria/dysphonia, impaired mastication, facial weakness/droop. There are no neuromuscular respiratory weakness symptoms. He endorses occasionally choking on food, perhaps once per week usually when rushing or attempting to talk while eating. This has been an issue for a couple years now, not worsening / progressing recently The patient does not report symptoms referable to autonomic dysfunction including impaired sweating, heat or cold intolerance, excessive mucosal dryness, gastroparetic early satiety, postprandial abdominal bloating, constipation, bowel or bladder dyscontrol, or syncope/presyncope/or thostatic intolerance. The patient does not report any other symptoms referrable to neurological focality or neuromuscular deficits. The patient has not noticed any recent skin rashes nor does he report any constitutional symptoms like fever, night sweats, anorexia or unintentional weight loss. PAST MEDICAL HISTORY: Hypothyroidism (Ap's autoimmune), vitamin D deficiency, chronic intermittent low back pain PAST SURGICAL HISTORY: Denies any past surgeries Medications: Current Outpatient Medications Medication Sig - SYNTHROID 137 mcg tablet Take 1 tablet by mouth once daily. - Cholecalciferol, Vitamin D3, 50 mcg (2,000 unit) cap Take 1 capsule by mouth once daily. No current facility-administered medications fo (more content not included)... Normal [facility] Celiac Scr w Reflexon 2020 IgA [Mass/Vol] 306 mg/dL Normal 70-400 [facility] Comment on above: Performed By: #### H BA1C, IFESC, MMA, B12, KLFRS, CELSCR, EVIT, B1WB, HREMOP #### [facility] [address] [address] #### VITB6 #### [facility] [address] [place], [place] [id number] Interpretation No serologic evidenc e of celiac disease. Normal No serologic evidence of celiac disease. [facility] Comment on above: Performed By: #### H BA1C, IFESC, MMA, B12, KLFRS, CELSCR, EVIT, B1WB, HREMOP #### [facility] [address] [address] #### VITB6 #### [facility] [address] [place] [address] Transglutaminase IgA 14 Units Normal <20 [facility] Comment on above: Result Comment: Nega tive : < 20 Units Weak Positive : 20 - 30 Units Moderate Pos to Strong Pos: >30 Units The following results were obtained with the [employer] Lite h-tTG IgA KATELYN. h-tTG IgA values obtained with different manufacturers' assay methods may not be used interchangeably. The magnitude of the reported IgA levels cannot be correlated to an endpoint titer. Performed By: #### H BA1C, IFESC, MMA, B12, KLFRS, CELSCR, EVIT, B1WB, HREMOP #### [place] [phone] #### VITB6 #### [address] [address] Hemoglobin A1con 2021 Glucose [Mass/Vol] 114 mg/dL Normal [facility] Comment on above: Result Comment: eAG: (Estimated average glucose) is a calculated value from HgbA1c and is security systems sales representative of the average blood glucose level in the last 2-3 month period. Performed By: #### H BA1C, IFESC, MMA, B12, KLFRS, CELSCR, EVIT, B1WB, HREMOP #### [place] [phone] #### VITB6 #### [address] [address] HbA1c (Bld) [Mass fraction] 5.6 % Normal 4.3-5.6 [facility] Comment on above: Result Comment: Amer ican Diabetes Association guidelines indicate that patients with HgbA1c in the range 5.7-6.4% are at increased risk for development of diabetes, and intervention by lifestyle modification may be beneficial. HgbA1c greater or equal to 6.5% is considered diagnostic of diabetes. Performed By: #### H BA1C, IFESC, MMA, B12, KLFRS, CELSCR, EVIT, B1WB, HREMOP #### [place] [address] #### VITB6 #### [facility] [address] [place] [address] Hepatitis Remote Panelon HBsAg Negative Normal Negative [facility] Comment on above: Performed By: #### H BA1C, IFESC, MMA, B12, KLFRS, CELSCR, EVIT, B1WB, HREMOP #### [place] [phone] #### VITB6 #### [facility] [place] [phone] Hep B Core Ab,Total Negative Normal Negative [facility] Comment on above: Performed By: #### H BA1C, IFESC, MMA, B12, KLFRS, CELSCR, EVIT, B1WB, HREMOP #### [place] [phone] #### VITB6 #### [facility] [place] [phone] Hepatitis C Ab IA Negative Normal Negative [facility] Comment on above: Performed By: #### H BA1C, IFESC, MMA, B12, KLFRS, CELSCR, EVIT, B1WB, HREMOP #### [place] [phone] #### VITB6 #### [facility] [address] [phone] HepB Surface Ab,Qual Positive Critically abnormal Negative [facility] Comment on above: Result Comment: Thes e results are consistent with previous exposure and/or immunity to the hepatitis B virus antigen. Performed By: #### H BA1C, IFESC, MMA, B12, KLFRS, CELSCR, EVIT, B1WB, HREMOP #### [place] [phone] #### VITB6 #### [address] [address] AYLA Screen, Serumon 02-13-20 21 MPA Result No M protein is identified. Normal No M protein is identified. [facility] Comment on above: Performed By: #### H BA1C, IFESC, MMA, B12, KLFRS, CELSCR, EVIT, B1WB, HREMOP #### [place] [phone] #### VITB6 #### [address] [address] Staff Review Reviewed by Sam Harding MD PhD ([id number]) Normal [facility] Comment on above: Performed By: #### H BA1C, IFESC, MMA, B12, KLFRS, CELSCR, EVIT, B1WB, HREMOP #### [place] [phone] #### VITB6 #### [address] [address] [place],Free,Seron 2020 K/L Ratio, Serum 0.99 Normal 0.26-1.65 [facility] Comment on above: Performed By: #### H BA1C, IFESC, MMA, B12, KLFRS, CELSCR, EVIT, B1WB, HREMOP #### [place] [phone] #### VITB6 #### [address] [address] [place], Free, Serum 13.5 mg/L Normal 3.30-19.40 [facility] Comment on above: Result Comment: Test performed by an immunoturbidimetric assay on [employer] instrument from [facility]. Immunoglobulin free light chain assay results should be interpreted in conjunction with other tests and in correlation with clinical picture. Performed By: #### H BA1C, IFESC, MMA, B12, KLFRS, CELSCR, EVIT, B1WB, HREMOP #### [facility] [address] [address] #### VITB6 #### [facility] [address] [place] [address] Lambda, Free, Serum 13.7 mg/L Normal 5.7-26.3 [facility] Comment on above: Result Comment: Test performed by an immunoturbidimetric assay on [employer] instrument from [facility]. Immunoglobulin free light chain assay results should be interpreted in conjunction with other tests and in correlation with clinical picture. Performed By: #### H BA1C, IFESC, MMA, B12, KLFRS, CELSCR, EVIT, B1WB, HREMOP #### [facility] [address] [address] #### VITB6 #### [facility] [address] [place] [address] Methylmalonic Acidon 021 Methylmalonic Acid 206 nmol/L Normal 79-376 [facility] Comment on above: Result Comment: This test was developed and its performance characteristics determined by [facility] [place] ([facility]). It has not been cleared or approved by the FDA. [facility] is regulated under CLIA as qualified to perform high complexity testing. This test is used for clinical purposes. It should not be regarded as investigational or for research. Performed By: #### H BA1C, IFESC, MMA, B12, KLFRS, CELSCR, EVIT, B1WB, HREMOP ####[facility] [address] [place], [place] [phone]#### VITB6 ####[facility] [address] [place], [place] [phone] Vitamin B1, Whole Blon 02-12 Vitamin B1 (TDP), WB 225.6 nmol/L High 84.0-213.0 [facility] Comment on above: Result Comment: This assay measures the concentration of thiamine diphosphate (TDP), the primary active form of vitamin B1. Approximately 90 percent of vitamin B1 present in whole blood is TDP. Thiamine and thiamine monophosphate, which comprise the remaining 10 percent, are not measured. This test was developed and its performance characteristics determined by [facility] [place] ([facility]). It has not been cleared or approved by the FDA. [facility] is regulated under CLIA as qualified to perform high complexity testing. This test is used for clinical purposes. It should not be regarded as investigational or for research. Performed By: #### H BA1C, IFESC, MMA, B12, KLFRS, CELSCR, EVIT, B1WB, HREMOP #### [place] [phone] #### VITB6 #### [address] [address] Vitamin B12on 2021 Cobalamin (Vitamin B12) [Mass/Vol] 791 pg/mL Normal 232-1245 [facility] Comment on above: Performed By: #### H BA1C, IFESC, MMA, B12, KLFRS, CELSCR, EVIT, B1WB, HREMOP #### [place] [phone] #### VITB6 #### [address] [address] Vitamin B6 Plasmaon 02-13-20 21 Vitamin B6 Plasma 445.8 nmol/L High 20.0-125.0 [facility] Comment on above: Result Comment: (NOT E) INTERPRETIVE INFORMATION: Vitamin B6 (Pyridoxal 5-Phosphate) Pyridoxal 5'-phosphate measured in a specimen collected following an 8-hour or overnight fast accurately indicates vitamin B6 nutritional status. Non-fasting specimen concentration reflects recent vitamin intake. This test was developed and its performance characteristics determined by [employer]. It has not been cleared or approved by the US Food and Drug Administration. This test was performed in a CLIA certified laboratory and is intended for clinical purposes. Performed By: [facility] [address] [place] [address] Barrel Burner: Zhanna Mcnair MD Performed By: #### H BA1C, IFESC, MMA, B12, KLFRS, CELSCR, EVIT, B1WB, HREMOP ####[facility] [address] [place], [place] [phone]#### VITB6 ####[facility] [address] [place], [place] [phone] Vitamin Felix 2021 Vitamin E-alpha 12.1 mg/L Normal 6.0-23.0 [facility] Comment on above: Performed By: #### H BA1C, IFESC, MMA, B12, KLFRS, CELSCR, EVIT, B1WB, HREMOP #### [facility] [address] [phone] #### VITB6 #### [address] [address] Vitamin E-gamma 1.5 mg/L Normal 0.3-3.2 [facility] Comment on above: Result Comment: This test was developed and its performance characteristics determined by [facility] [place] ( [facility]). It has not been cleared or approved by the FDA. [facility] is regulated under CLIA as qualified to perform high complexity testing. This test is used for clinical purposes. It should not be regarded as investigational or for research. Performed By: #### H BA1C, IFESC, MMA, B12, KLFRS, CELSCR, EVIT, B1WB, HREMOP #### [facility] [address] [address] #### VITB6 #### [facility] [address] [place] [address] Office Visit: Spine Visit- R sided low back liliana non 03-28-2017 Documentation of current medications (procedure) Done Invalid Interpretation Code [facility] Work Phone: Protein mass conc Done [facility] Work Phone: Office Visit: Spine Visiton 06-28-2016 Tobacco smoking status NHIS Never [facility] Work Phone: Tobacco smoking status NHIS Never smoker [facility] Work Phone: Tobacco use [facility] Never smoker Invalid Interpretation Code [facility] Work Phone: Culture, urine Bacteria identified Cx Nom (U) Culture exhibits no growth. [facility] Work Phone: Vital Signs Date Time Vital Sign Value Performing Clinician Faci lity 03-22-2025 09:07-0400 Body mass index (BMI) [Ratio] 29.4 kg/m2 Dr. Tee Rodriguez MD Work Phone: [facility] 03-22-2025 09:07-0400 Body temperature 97.6 [degF] Dr. Tee Rodriguez MD Work Phone: [facility] 03-22-2025 09:07-0400 Body weight 109.[address] Tee Rodriguez MD Work Phone: [facility] 03-22-2025 09:07-0400 Diastolic blood pressure 78 mm[Hg] Dr. Tee Rodriguez MD Work Phone: [facility] 03-22-2025 09:07-0400 Heart rate 78 /min Dr. Tee Rodriguez MD Work Phone: [facility] 03-22-2025 09:07-0400 Respiratory rate 18 /min Dr. Tee Rodriguez MD Work Phone: [facility] 03-22-2025 09:07-0400 SaO2% (BldA) [Mass fraction] 95 % Dr. Tee Rodriguez MD Work Phone: [facility] 03-22-2025 09:07-0400 Systolic blood pressure 110 mm[Hg] Dr. Tee Rodriguez MD Work Phone: [facility] 03-17-2023 07:51-0400 Body height 193.[address] Yunior Rodriguez Work Phone: 3(494)[phone] [place] [address] 03-17-2023 07:51-0400 Body mass index (BMI) [Ratio] 27 kg/m2 Dr. Yunior Rodriguez Work Phone: 2(858)287-457062 [place] [address] 03-17-2023 07:51-0400 Body temperature 97.5 [degF] Dr. Yunior Rodriguez Work Phone: 8(756)[phone] [place] [address] 03-17-2023 07:51-0400 Body weight 100.[address] Yunior Rodriguez Work Phone: 2(768)562-834962 [place] [address] 03-17-2023 07:51-0400 Diastolic blood pressure 83 mm[Hg] Dr. Yunior Rodriguez Work Phone: 8(928)825-184462 [place] [address] 03-17-2023 07:51-0400 Heart rate 70 /min Dr. Yunior Rodriguez Work Phone: 3(747)009-355462 [place] [address] 03-17-2023 07:51-0400 Respiratory rate 18 /min Dr. Yunior Rodriguez Work Phone: 6(455)026-537462 [place] [address] 03-17-2023 07:51-0400 SaO2% (BldA) [Mass fraction] 98 % Dr. Yunior Rodriguez Work Phone: 6(275)374-737862 [place] [address] 03-17-2023 07:51-0400 Systolic blood pressure 117 mm[Hg] Dr. Yunior Rodriguez Work Phone: 6(938)819-512162 [place] [address] 02-04-2023 09:26-0400 Body height 193.[address] Yunior Rodriguez Work Phone: 1(374)052-734462 [place] [address] 02-04-2023 09:26-0400 Body mass index (BMI) [Ratio] 27.3 kg/m2 Dr. Yunior Rodriguez Work Phone: 7(978)050-350862 [place] [address] 02-04-2023 09:26-0400 Body temperature 98.4 [degF] Dr. Yunior Rodriguez Work Phone: [facility] 02-04-2023 09:26-0400 Body weight 102.[address] Yunior Rodriguez Work Phone: [facility] 02-04-2023 09:26-0400 Diastolic blood pressure 80 mm[Hg] Dr. Yunior Rodriguez Work Phone: [facility] 02-04-2023 09:26-0400 Heart rate 69 /min Dr. Yunior Rodriguez Work Phone: [facility] 02-04-2023 09:26-0400 Respiratory rate 18 /min Dr. Yunior Rodriguez Work Phone: [facility] 02-04-2023 09:26-0400 SaO2% (BldA) [Mass fraction] 96 % Dr. Yunior Rodriguez Work Phone: [facility] 02-04-2023 09:26-0400 Systolic blood pressure 122 mm[Hg] Dr. Yunior Rodriguez Work Phone: [facility] 11-24-2022 10:47-0400 Body height 193.[address] Yunior Rodriguez Work Phone: [facility] 11-24-2022 10:40-0400 Body mass index (BMI) [Ratio] 27.2 kg/m2 Dr. Yunior Rodriguez Work Phone: [facility] 11-24-2022 10:40-0400 Body temperature 97.6 [degF] Dr. Yunior Rodriguez Work Phone: [facility] 11-24-2022 10:40-0400 Body weight 101.[address] Yunior Rodriguez Work Phone: [facility] 11-24-2022 10:40-0400 Diastolic blood pressure 87 mm[Hg] Dr. Yunior Rodriguez Work Phone: [facility] 11-24-2022 10:40-0400 Heart rate 80 /min Dr. Yunior Rodriguez Work Phone: [facility] 11-24-2022 10:40-0400 Respiratory rate 18 /min Dr. Yunior Rodriguez Work Phone: [facility] 11-24-2022 10:40-0400 SaO2% (BldA) [Mass fraction] 98 % Dr. Yunior Rodriguez Work Phone: [facility] 11-24-2022 10:40-0400 Systolic blood pressure 133 mm[Hg] Dr. Yunior Rodriguez Work Phone: [facility] 11-20-2021 14:13-0400 Body height 193.[address] Yunior Rodriguez Work Phone: [facility] Work Phone: 11-20-2021 14:13-0400 Body mass index (BMI) [Ratio] 25.7 kg/m2 Dr. Yunior Rodriguez Work Phone: [facility] Work Phone: 11-20-2021 14:13-0400 Body temperature 97.7 [degF] Dr. Yunior Rodriguez Work Phone: [facility] Work Phone: 11-20-2021 14:13-0400 Body weight 95.[address] Yunior Rodriguez Work Phone: [facility] Work Phone: 11-20-2021 14:13-0400 Diastolic blood pressure 79 mm[Hg] Dr. Yunior Rodriguez Work Phone: [facility] Work Phone: 11-20-2021 14:13-0400 Heart rate 65 /min Dr. Yunior Rodriguez Work Phone: [facility] Work Phone: 11-20-2021 14:13-0400 Respiratory rate 18 /min Dr. Yunior Rodriguez Work Phone: [facility] Work Phone: 11-20-2021 14:13-0400 SaO2% (BldA) [Mass fraction] 97 % Dr. Yunior Rodriguez Work Phone: [facility] Work Phone: 11-20-2021 14:13-0400 Systolic blood pressure 108 mm[Hg] Dr. Yunior Rodriguez Work Phone: [facility] Work Phone: 11-20-2021 14:13-0400 Body height 193.[address] Yunior Rodriguez Work Phone: [facility] Work Phone: 11-20-2021 14:13-0400 Body mass index (BMI) [Ratio] 25.7 kg/m2 Dr. Yunior Rodriguez Work Phone: [facility] Work Phone: 11-20-2021 14:13-0400 Body temperature 97.7 [degF] Dr. Yunior Rodriguez Work Phone: [facility] Work Phone: 11-20-2021 14:13-0400 Body weight 95.[address] Yunior Rodriguez Work Phone: [facility] Work Phone: 11-20-2021 14:13-0400 Diastolic blood pressure 79 mm[Hg] Dr. Yunior Rodriguez Work Phone: [facility] Work Phone: 11-20-2021 14:13-0400 Heart rate 65 /min Dr. Yunior Rodriguez Work Phone: [facility] Work Phone: 11-20-2021 14:13-0400 Respiratory rate 18 /min Dr. Yunior Rodriguez Work Phone: [facility] Work Phone: 11-20-2021 14:13-0400 SaO2% (BldA) [Mass fraction] 97 % Dr. Yunior Rodriguez Work Phone: [facility] Work Phone: 11-20-2021 14:13-0400 Systolic blood pressure 108 mm[Hg] Dr. Yunior Rodriguez Work Phone: [facility] Work Phone: 10-20-2021 12:54-0500 Body mass index (BMI) [Ratio] 26.2 kg/m2 Dr. Yunior Rodriguez Work Phone: [facility] Work Phone: 10-20-2021 12:54-0500 Body temperature 97.3 [degF] Dr. Yunior Rodriguez Work Phone: [facility] Work Phone: 10-20-2021 12:54-0500 Body weight 97.[address] Yunior Rodriguez Work Phone: [facility] Work Phone: 10-20-2021 12:54-0500 Diastolic blood pressure 81 mm[Hg] Dr. Yunior Rodriguez Work Phone: [facility] Work Phone: 10-20-2021 12:54-0500 Heart rate 76 /min Dr. Yunior Rodriguez Work Phone: [facility] Work Phone: 10-20-2021 12:54-0500 Respiratory rate 16 /min Dr. Yunior Rodriguez Work Phone: [facility] Work Phone: 10-20-2021 12:54-0500 SaO2% (BldA) [Mass fraction] 98 % Dr. Ynuior Rodriguez Work Phone: [facility] Work Phone: 10-20-2021 12:54-0500 Systolic blood pressure 113 mm[Hg] Dr. Yunior Rodriguez Work Phone: [facility] Work Phone: 10-08-2021 14:04-0500 Diastolic blood pressure 86 mm[Hg] Dr. Yunior Rodriguez Work Phone: [facility] Work Phone: 10-08-2021 14:04-0500 Heart rate 84 /min Dr. Yunior Rodriguez Work Phone: [facility] Work Phone: 10-08-2021 14:04-0500 SaO2% (BldA) [Mass fraction] 95 % Dr. Yunior Rodriguez Work Phone: [facility] Work Phone: 10-08-2021 14:04-0500 Systolic blood pressure 128 mm[Hg] Dr. Yunior Rodriguez Work Phone: [facility] Work Phone: 10-08-2019 14:09-0500 Body mass index (BMI) [Ratio] 27.2 kg/m2 Dr. Yunior Rodriguez Work Phone: [facility] Work Phone: 06-28-2016 16:24-0400 BMI (Body Mass Index) 28.74 kg/m2 Caroaron Snider DC [facility] Work Phone: 06-28-2016 16:24-0400 BP Diastolic 45 mm[Hg] Caro Dossi DC [facility] Work Phone: 06-28-2016 16:24-0400 BP Systolic 125 mm[Hg] Caro Dossi DC [facility] Work Phone: 06-28-2016 16:24-0400 Weight 104.33 kg Caro Dossi DC [facility] Work Phone: 06-28-2016 16:19-0400 Height 190.5 cm Caro Dossi DC [facility] Work Phone: Encounters Encounter Date Encounter Type Care Provider Facility Start: 03-27-2025 ambulatory Tee Young lity:[facility] Start: 03-27-2025 Non-patient / Non-visit Dr. Venancio Clements MD -[facility] Start: 03-26-[address] Tee Rodriguez MD -[facility] Work Phone: Start: 03-26-2025 ambulatory Tee Young lity:[facility] Start: 03-25-2025 End: 03-25-[address] Tee Rodriguez MD Work Phone: -[facility] Start: 03-25-2025 End: 03-25-2025 Patient encounter procedure Karen LOZANO -[facility] Work Phone: Start: 03-25-2025 End: 03-25-2025 ambulatory Karen Romano Facility:[facility] Start: 03-22-2025 End: 03-22-2025 Patient encounter procedure Mayela BALDWIN -[facility] Work Phone: Start: 03-22-2025 End: 03-22-[address] Tee Rodriguez MD Work Phone: -[facility] Start: 02-28-2025 End: 02-28-[address] Tee Rodriguez MD Work Phone: -[facility] Start: 02-28-2025 End: 02-28-[address] Tee Rodriguez MD -[facility] Work Phone: Start: 02-28-2025 End: 02-28-2025 ambulatory Tee Rodriguez Facility:[facility] Start: 11-07-2024 End: 11-07-[address] Tee Rodriguez MD Work Phone: [facility] Work Phone: Start: 11-07-2024 End: 11-07-2024 Patient encounter procedure Karen LOZANO -[facility], [facility] Work Phone: Start: 11-07-2024 End: 11-07-2024 ambulatory Karen Romano Facility:[facility] Start: 09-19-2024 End: 09-19-2024 Patient encounter procedure Karen Romano [place] -[place] Work Phone: Start: 09-19-2024 End: 09-19-2024 ambulatory Karen Romano Facility:[facility] Start: 08-06-2024 End: 08-06-[address] Tee Rodriguez MD -[place] Work Phone: Start: 08-06-2024 End: 08-06-2024 ambulatory Tee Rodriguez Facility:[facility] Start: 07-10-2024 End: 07-10-2024 ambulatory Tee Rodriguez Facility:[facility] Start: 06-27-2023 End: 06-27-[address] Yunior Rodriguez Work Phone: [facility] Work Phone: Start: 06-27-2023 End: 06-27-[address] Yunior Rodriguez Work Phone: [facility] Start: 04-07-2023 End: 04-07-[address] Yunior Rodriguez Work Phone: [facility] Work Phone: Start: 04-07-2023 End: 04-07-[address] Yunior Rodriguez Work Phone: [facility] Start: 03-30-2023 End: 03-30-[address] Yunior Rodriguez Work Phone: [facility] Work Phone: Start: 03-30-2023 End: 03-30-[address] Yunior Rodriguez Work Phone: [facility] Start: 03-17-2023 End: 03-17-[address] [facility] Work Phone: Start: 02-09-[address] Mayco Rodriguez Work Phone: [facility] Work Phone: Start: 02-04-2023 End: 02-04-[address] [facility] Work Phone: Start: 01-21-2023 End: 01-21-[address] Yunior Rodriguez Work Phone: [facility] Work Phone: Start: 01-21-2023 End: 01-21-[address] Yunior Rodriguez Work Phone: [facility] Start: 01-11-2023 End: 01-11-[address] Yunior Rodriguez Work Phone: [facility] Work Phone: Start: 12-03-2022 End: 12-03-[address] Yunior Rodriguez Work Phone: [facility] Work Phone: Start: 12-03-2022 End: 12-03-[address] Yunior Rodriguez Work Phone: [facility] Start: 11-24-2022 End: 11-24-[address] [facility] Start: 03-04-2022 End: 03-04-[address] Yunior Rodriguez Work Phone: [facility]/Neurology Start: 02-05-2022 End: 02-05-[address] Yunior Rodriguez Work Phone: [facility] Start: 01-05-2022 End: 01-05-[address] Yunior Rodriguez Work Phone: [facility] Start: 01-04-2022 End: 01-04-[address] [facility] Start: 12-28-2021 End: 12-28-[address] [facility] Start: 11-20-2021 End: 11-20-[address] [facility] Start: 10-20-2021 End: 10-20-[address] [facility] Start: 10-08-2021 End: 10-08-[address] Yunior Rodriguez Work Phone: [facility] Neurology Start: 09-30-2021 End: 09-30-[address] Yunior Rodriguez Work Phone: [facility], [facility] Start: 09-19-2021 End: 09-19-[address] Yunior Rodriguez Work Phone: [facility] Procedures Date Procedure Procedure Detail Performing Clinician Start: 03-26-2025 CT angiography of coronary arteries Dr. Tee Rodriguez MD Work Phone: Start: 02-28-2025 Prostate specific an tigen measurement Dr. Tee Rodriguez MD Work Phone: Comment on above: This test was perfor med using the [employer] tPSA method. Measured values of a patient sample can vary depending on the testing procedure used. PSA values determined on patient samples by different testing procedures cannot be used interchangeably. If there is a change in PSA assays while monitoring therapy, sequential testing should be performed to confirm baseline values. Start: 02-28-2025 Vitamin D, 25-hydrox y measurement Dr. Tee Rodriguez MD Work Phone: Comment on above: Vitamin D StatusDefi ciency: <20 ng/mL (50nmol/L)Insufficiency: 20-30 ng/mL (50-75 nmol/L)Sufficiency: 30-100 ng/mL (75-250 nmol/L)Toxicity: >100 ng/mL (>250 nmol/L) Start: 01-04-[address] Mayco Rodriguez Work Phone: Start: 12-28-[address] Mayco Rodriguez Work Phone: Start: 03-28-2017 End: 03-28-2017 Chiropract manj 1-2 regions Caro Olivares Dossi DC Work Phone: Start: 03-28-2017 End: 03-28-2017 Mechanical traction therapy Caro Olivares Dossi DC Work Phone: Start: 06-28-2016 End: 06-28-2016 Chiropract manj 1-2 regions Caro Olivares Dossi DC Work Phone: Urine culture Dr. Yunior Rodriguez Work Phone: Plan of Treatment Date Care Activity Detail Author Start: 11-20-2021 Patient referral [facility] Work Phone: Start: 03-28-2017 End: 03-28-2017 Appointment [facility] Work Phone: Patient referral [facility] Work Phone: Polysomnography [facility] Payers Date Payer Category Payer Self-pay 0 2024 Self-pay [id number] 2013 Unknown [id number] Unknown [id number] 2.16.8 [id number] Unknown [id number] 2.16.8 [id number] Unknown [id number] 2.16.8 [id number] Unknown [id number] 2.16.8 [id number] Unknown [id number] 2.16.8 [id number] Unknown [id number] 2.16.8 [id number] Unknown [id number] 2.16.8 [id number] Unknown [id number] 2.16.8 [id number] Unknown [id number] 2.16.8 [id number] Social History Date Type Detail Facility Start: 11-20-2021 End: 03-17-2023 Tobacco smoking status NHIS Unknown if ever smoked [facility] Start: 1970 Sex Assigned At Male [facility] Start: 12-01-2023 Tobacco smoking stat us MIIS Never smoked tobacco (finding) [facility] Start: 11-16-2024 Sex Male (finding) [facility] Goals Date Patient Goal Desired Activity /State Clinical Notes 2021 to 03-22-2025 Note Date & Type Note Facility 03-22-2025 Evaluation note Diagnosis Onset Date Resolution Sleep apnea chronic March 22 1:03pm [facility] Work Phone: 1(648) 679-637210-22-2021 NoteHNO ID: [id number] Author: Fernanda Mclaughlin MD Service: ? Author Type: Physician Type: Progress Notes Filed: 06/21/2021 3:56 PM Note Text: ESTABLISHED PATIENT DISTANCE HEALTH VISIT (COVID-19 pandemic-related contingency encounter format)- Encounter completed via virtual visit (audio and video) using [employer]-based Zoom software* *(special provision to allow the use of this under the current pandemic circumstances per [place] Department of Health and Human Services- [email or web address]/[email or web address]/[email or web address]) Provider location during distance health encounter: [facility] Patient location during distance health encounter: Home Date of last clinic visit : 2021 (seen with neuromuscular medicine fellow at the time Dr. 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 Consequently, he describes attenuation of previously elaborated foot and hand (mostly D5 B/L) numbness and paresthesia, estimating average symptoms intensity now 6/10, also with continued resolution of muscle twitching. When asked about the current status of chronic lower back pain, he says that this has remained largely unchanged (says he sees a chiropractor every other week or so, but agrees with my recommendations to avoid cracking or similar manipulations). He was diagnosed with obstructive sleep apnea last month and has been placed on CPAP which was started about 8 days ago (also believing that this has been somewhat helpful for his symptoms). He was able to confirm previous vaccination for hepatitis B to explain the positive hepatitis B surface antibody results obtained in the lab work we ordered (results detailed below). Objective: (what is observable/audible via web cam AND pantera, if applicable) Appears to be with normal mood and affect; facies and facial movements symmetrical, EOMs appear intact and conjugate, no observable ptosis. Speech and voice WNL. Interval studies review: Component Latest Ref Rng AND Units 2021 Hep B Core Ab, Total Negative Negative Hep C Antibody IA Negative Negative Hep B Surface Ag Negative Negative Hep B Surface Ab, Qual Negative Positive (A) IgA 70 - 400 mg/dL 306 Transglutaminase Ab, IgA <20 Units 14 Interpretation (Celiac Screen) No serologic evidence of celiac disease. No serologic evidence of celiac disease. [place] Free, Serum 3.30 - 19.40 mg/L 13.5 Lambda Free, Serum 5.7 - 26.3 mg/L 13.7 K/L Ratio, Serum 0.26 - 1.65 0.99 Vitamin E-alpha 6.0 - 23.0 mg/L 12.1 Vitamin E-gamma 0.3 - 3.2 mg/L 1.5 MPA Result No M protein is identified. No M protein is identified. Staff Review ([facility]) Reviewed by Bibiana Harding MD PhD ([id number]) Hemoglobin A1C 4.3 - 5.6 % 5.6 Estimated Average Glucose mg/dL 114 Vitamin B1 (TDP), Whole Blood 84.0 - 213.0 nmol/L 225.6 (H) Vitamin B12 232 - 1,245 pg/mL 791 MMA 79 - 376 nmol/L 206 Vitamin B6, Plasma 20.0 - 125.0 nmol/L 445.8 (H) Skin biopsy 02/18/2021: IMPRESSION: There is a reduction of the epidermal fiber densities at the distal leg. This would be consistent with a mild distal small fiber sensory neuropathy. IMPRESSION: Mr. Keyana Levine is a pleasant 51 year old man with a relatively unremarkable PMHx following up ([facility] 2021) RE: persistent/progressive numbness and paresthesia in feet > hands (> D5 B/L). Neurologic exam disclosed findings most consistent with a small fiber predominant neuropathy (with reduced sensation to pinprick and temperature in the bilateral lower extremities). There was a positive Tinel's sign at both elbows with reduction to pinprick sensation noted in the UE left 5th digit specifically. Strength and reflexes were notably intact and symmetric throughout. Discussed our impression that there are likely 2 separate processes which are leading to his current complaints: 1) A small fiber neuropathy leading to numbness affecting the toes in both feet. 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 Interval work-up included skin biopsy which confirmed (mild) small fiber neuropathy, with polyneuropathy lab work only notable for markedly elevated vitamin B6 as you suspected (likely secondary to extraneous intake from supplements/energy drinks over the past ~10+ years). Thankfully, there has been some symptoms abatement with the avoidance of extraneous B6 intake (and ergonomic measures) since [facility]. ? PLAN/RECOMMENDATIONS: - The impression above as well as the plan as outlined below were extensively discussed with the (more content not included)...[facility]06-23-2021 NoteProcedure (NENMMN) KEYANA LEVINE ([id number]) 1970 M Date Time Provider Department 02/18/21 1:45 PM SKIN BIOPSY NEFLMN During your visit today, we recorded the following information about you: Keisha Wellington APRN.[facility] 02/18/2021 2:11 PM Signed Skin Biopsy Procedure Note Skin Biopsy Accession Number: [id number] Biopsy Date: 02/18/2021 Referring physician: Fernanda Mclaughlin Sign in Pt ID verified with patient. Yes, by name and date. Is patient allergic to lidocaine, epinephrine, or bandage adhesive: No Is patient on anticoagulant medicine or blood thinners: No Does patient have a history of surgery on legs or feet: No Procedure verified with the patient: Yes, left leg biopsies, 2 sites. History 51 year old male with symptoms of numbness in hands and feet for 4 months is referred for skin biopsy to evaluate for possible small fiber neuropathy. Written aftercare was given and explained: Yes Patient verbally agrees to proceed with the procedure. Sign in completed: Yes Procedure Note Procedure confirmed with provider and manager client support. Yes, left leg 2 skin biopsies. The procedure was discussed with the patient, including the risks, benefits, instruments and personnel involved in this procedure. All of the patient?s questions were answered. Informed consent discussed and signed: Yes Audible time-out documented: Yes Procedure Start Time:1405 Procedure: After the patient was placed in a lateral position the following biopsy sites were identified: left distal leg and left distal thigh. These sites were cleansed with Chloroprep and injected with 0.5cc 1% Lidocaine. Two skin biopsies were obtained using a 3mm biopsy punch and removed with the forceps and surgical blade technique. Bleeding was minimal and hemostasis was obtained by pressure. Sterile dressing was applied to each biopsy site. Audible sign out completed: All specimens labeled, no equipment issues. Procedure End Time: 1410 Patient tolerated procedure well, without complications. Patient was discharged home. Specimens were labeled and sent to [facility] Cut[facility]. Procedure was performed by: Keisha Wellington APRN.[facility] Assistance in supply/equipment preparation performed by: Clarke Mascorro MA Sign out is complete. Referring Provider: FERNANDA MCLAUGHLIN [[id number]] Allergies As of Date: 02/18/2021 Noted Allergy Reaction AMOXICILLIN 2021 2 - Rash Date Reviewed: 02/18/2021 Reviewed by: Keisha Wellington APRN.[facility] - Fully Assessed Primary Visit Diagnosis:Small fiber neuropathy [G62.9] Prescriptions as of 03/06/2021 - SYNTHROID 137 mcg tablet Take 1 tablet by mouth once daily. - Cholecalciferol, Vitamin D3, 50 mcg (2,000 unit) cap Take 1 capsule by mouth once daily. Problem List As Of Date: 02/18/2021 (None) Encounter Status:Closed by KEISHA WELLINGTON on 02/18/21[facility]21 NoteHNO ID: [id number] Author: Keisha Wellington APRN.[facility] Service: ? Author Type: Nurse Practitioner Type: Progress Notes Filed: 02/18/2021 2:11 PM Note Text: Skin Biopsy Procedure Note Skin Biopsy Accession Number: [id number] Biopsy Date: 02/18/2021 Referring physician: Fernanda Mclaughlin Sign in Pt ID verified with patient. Yes, by name and date. Is patient allergic to lidocaine, epinephrine, or bandage adhesive: No Is patient on anticoagulant medicine or blood thinners: No Does patient have a history of surgery on legs or feet: No Procedure verified with the patient: Yes, left leg biopsies, 2 sites. History 51 year old male with symptoms of numbness in hands and feet for 4 months is referred for skin biopsy to evaluate for possible small fiber neuropathy. Written aftercare was given and explained: Yes Patient verbally agrees to proceed with the procedure. Sign in completed: Yes Procedure Note Procedure confirmed with provider and manager client support. Yes, left leg 2 skin biopsies. The procedure was discussed with the patient, including the risks, benefits, instruments and personnel involved in this procedure. All of the patient?s questions were answered. Informed consent discussed and signed: Yes Audible time-out documented: Yes Procedure Start Time:1405 Procedure: After the patient was placed in a lateral position the following biopsy sites were identified: left distal leg and left distal thigh. These sites were cleansed with Chloroprep and injected with 0.5cc 1% Lidocaine. Two skin biopsies were obtained using a 3mm biopsy punch and removed with the forceps and surgical blade technique. Bleeding was minimal and hemostasis was obtained by pressure. Sterile dressing was applied to each biopsy site. Audible sign out completed: All specimens labeled, no equipment issues. Procedure End Time: 1410 Patient tolerated procedure well, without complications. Patient was discharged home. Specimens were labeled and sent to [facility] Cut[facility]erve Laboratory. Procedure was performed by: Keisha Wellington APRN.[facility] Assistance in supply/equipment preparation performed by: Clarke Mascorro MA Sign out is complete.[facility]06-17-2021 NoteHNO ID: [id number] Author: Fernanda Mclaughlin MD Service: ? Author Type: Physician Type: Progress Notes Filed: 02/22/2021 6:10 PM Note Text: [facility] New Patient Visit Note Consultation requested by Darwin Pond MD for an opinion regarding numbness affecting hands and feet. My final recommendations will be communicated back to the requesting physician by way of shared Medical record or letter to requesting physician via [place] mail. History of Present Illness: Mr. Levine is a pleasant 51 year old right-handed male with a history of hypothyroidism (Ap's autoimmune), vitamin D deficiency, chronic intermittent low back pain presenting for evaluation of symptoms including numbness of the bilateral 5th digits and well as 5th digits of both feet. August 2019: started having leg twitches described as feeling of something moving intermittently underneath the skin in his legs (proximally and distally). No jerking or visualization of anything twitching/ moving by himself or his spouse, however. He saw his PCP for this issue who thought it might have been related to his thyroid. Patient also recalls that he was drinking 3-4 energy drinks daily at that time. He stopped drinking caffeine, had change in dose of levothyroxine from 150mcg to 137mcg. Twitching then went away in Sep 2019. He notes that he was in his usual state of health between Sep and 6 months ago when he started noticing numbness affecting the lateral aspect of the 5th digits in both feet. He also recalls one night of burning pain localized to this area that kept him awake all night. Within the last couple months he has noticed intermittent numbness affecting both pinky fingers. He reports that in the past year was found to have degenerative disc in his lumbar spine via X-Ray lumbar spine imaging as ordered through his PCP (?L5-S1 level) He reports low back pain X 10 years. No radicular symptoms. Frequency of pain has increased over time. (now once every couple months - lasts a couple days then self-resolves. Had X-ray imaging locally that reportedly showed degenerative disc. He states that he had a bout of PT following an episode of back pain triggered after lifting a heavy trash can in October of 2020. Family: Celiac's on maternal side. Mother with Ap's. No known family history of neuropathy. The patient denies noticing any recent muscle bulk loss. There is no muscle pain, no cramps or muscle twitching. A history suggestive of myotonia/difficulty with muscle relaxation after contraction is not present. There is no clear fatigable weakness- the patient does not believe that weakness is generally worse at the end of the day. The patient is able to brush his hair and teeth without difficulty. He is easily able to button shirts and use zips. There is no apparent hand clumsiness/ dropping of grasped objects. He is able to arise from the seated position without the use of his arms. The patient is able to go up steps in a staircase without difficulty. He does not need the use of an assistive device for gait. Imbalance/unsteadiness is not present. Falls are nonexistent He denies symptoms suggestive of oculobulbar weakness including diplopia, ptosis, dysarthria/dysphonia, impaired mastication, facial weakness/droop. There are no neuromuscular respiratory weakness symptoms. He endorses occasionally choking on food, perhaps once per week usually when rushing or attempting to talk while eating. This has been an issue for a couple years now, not worsening / progressing recently The patient does not report symptoms referable to autonomic dysfunction including impaired sweating, heat or cold intolerance, excessive mucosal dryness, gastroparetic early satiety, postprandial abdominal bloating, constipation, bowel or bladder dyscontrol, or syncope/presyncope/orthostatic intolerance. The patient does not report any other symptoms referrable to neurological focality or neuromuscular deficits. The patient has not noticed any recent skin rashes nor does he report any constitutional symptoms like fever, night sweats, anorexia or unintentional weight loss. PAST MEDICAL HISTORY: Hypothyroidism (Ap's autoimmune), vitamin D deficiency, chronic intermittent low back pain PAST SURGICAL HISTORY: Denies any past surgeries Medications: Current Outpatient Medications Medication Sig - SYNTHROID 137 mcg tablet Take 1 tablet by mouth once daily. - Cholecalciferol, Vitamin D3, 50 mcg (2,000 unit) cap Take 1 capsule by mouth once daily. No current facility-administered medications for this visit. Allergies: See updated allergies documented below. ALLERGIES Allergen Reactions - Amoxicillin Rash Social History Tobacco Use - Smoking status: Never Smoker - Smokeless tobacco: Never Used Substance Use Topics - Alcohol u (more content not included)...[facility] Diagnosis Onset Date Resolution Status Polyneuropathy acute Rhinitis medicamentosa acute Sleep apnea acute Deviated septum acute Rhinitis medicamentosa acute Sleep apnea acute [facility] Work Phone: Evaluation note* Diagnosis Onset Date Resolution Status Rhinitis medicamentosa acute Sleep apnea acute Deviated septum acute Rhinitis medicamentosa acute Sleep apnea acute [facility] Work Phone: Evaluation note* Diagnosis Onset Date Resolution Status Deviated septum acute Rhinitis medicamentosa acute Sleep apnea [facility] Work Phone: Evaluation note* Diagnosis Onset Date Resolution Status Sleep apnea acute [facility] Work Phone: Evaluation note* Diagnosis Onset Date Resolution Status Sleep apnea acute Sleep apnea acute [facility] Work Phone: Evaluation note* Diagnosis Onset Date Resolution Status Sleep apnea chronic Sleep apnea chronic [facility] Work Phone: Evaluation note* Diagnosis Onset Date Resolution Status Sleep apnea chronic [facility] Work Phone: Evaluation noteNo assessment information available [facility] Work Phone: [facility]: Reason for referral (narrative)No reason for referral [facility] Work Phone: Summary Purpose Family History No Family History Records Found Relationship Condition Age at Onset Recorded Date/T crystal grandfather Malignant neoplasm of colon Unknown grandfather Myocardial infarction Unknown mother Disorder of thyroid Unknown Autoimmune disorder Unknown sister Disorder of thyroid Unknown Advance Directives No Advanced Directives Records FoundNo Advanced Directives Records Found Chief Complaint and Reason for Visit Chief Complaint EORDER SP 2 M FU 3 M FU Sleep apnea Reason for Visit Polyneuropathy Rhinitis medicamentosa Sleep apnea Deviated septum Rhinitis medicamentosa Sleep apnea Chief Complaint EORDER SP 2 M FU 3 M FU Sleep apnea CYNTHIA; LM 5/6 Reason for Visit Polyneuropathy Rhinitis medicamentosa Sleep apnea Deviated septum Rhinitis medicamentosa Sleep apnea Chief Complaint 3 M FU Sleep apnea CYNTHIA; LM 5/6 Reason for Visit Rhinitis medicamento sa Sleep apnea Deviated septum Rhinitis medicamentosa Sleep apnea Chief Complaint Sleep apnea CYNTHIA; LM 5/6 PREOP Reason for Visit Deviated septum Rhinitis medicamentosa Sleep apnea Chief Complaint 1 Y FU Reason for Visit Sleep apnea Chief Complaint 1 Y FU SLEEP APNEA w/Oral Appliance Tx Test Result L THUMB PN, DECREASED ROM AT DIP;RX HERE Reason for Visit Sleep apnea Sleep apnea Chief Complaint SLEEP APNEA w/Oral A ppliance Tx Test Result L THUMB PN, DECREASED ROM AT DIP;RX HERE 6 wk FU Reason for Visit Sleep apnea Sleep apnea Chief Complaint 6 wk FU Reason for Visit Sleep apnea Chief Complaint Admit Date EOAugust 06, 2024 4 :06pm Chief Complaint Admit Date 1 Y FU March 22, 2025 1:03 pm Chief Complaint Admit Date 1 Y FU March 22, 2025 1:03 pm high lipid panel March 26, 2025 2:44 pm high lipid panel March 27, 2025 7:23 am Reason for Visit Admit Date Sleep apnea March 22, 2025 1:03 pm Additional Source Comments (unrecognized sect ion and content) No Status Records FoundNo Status Records Found INFORMATION SOURCE (unrecogn ized section and content) DATE CREATED AUTHOR 09/30/2021 [facility] DATE CREATED AUTHOR AUTHOR'S ORGANIZ ATION 04/01/2025 [facility] Care Teams (unrecognized sec tion and content) Team Status: Active Member Role Status Dates Dr. Yunior Rodriguez MD Family Provider Active Dr. Yunior Rodriguez MD Primary Care Provider Activ e Team Status: Inactive Member Role Status Dates Dr. Yunior Rodriguez MD Primary Care Provider, Refe rring Provider Active Dr. Bubba Moreira MD Attending Provider Active Team Status: Inactive Member Role Status Dates Dr. Yunior Rodriguez MD Primary Care Provider, Attending Provider, Referring Provider Active Team Status: Inactive Member Role Status Dates Dr. Yunior Rodriguez MD Primary Care Provider, Refe rring Provider Active Mayela Lomax RESEARCH PROGRAMMER, RESEARCH PROGRAMMER-C Attending Provider Active Team Status: Inactive Member Role Status Dates Dr. Yunior Rodriguez MD Primary Care Provider Activ e Dr. Bubba Moreira MD Attending Provider, Referring Pr ovider Active Team Status: Inactive Member Role Status Dates Dr. Yunior Rodriguez MD Primary Care Provider, Atte nding Provider Active Team Status: Active Member Role Status Dates Dr. Yunior Rodriguez MD Primary Care Provider, Attending Provider, Referring Provider Active Team Status: Inactive Member Role Status Dates Dr. Yunior Rodriguez MD Referring Provider Active Mayela Lomax RESEARCH PROGRAMMER, RESEARCH PROGRAMMER-C Attending Provider Active Team Status: Active Member Role Status Dates Dr. Tee Rodriguez MD Family Provider Active Dr. Tee Rodriguez MD Primary Care Provider Acti ve Team Status: Inactive Member Role Status Dates Dr. Tee Rodriguez MD Primary Care Provider Acti ve Start: August 06, 2024 End: August 06, 2024 Dr. Tee Rodriguez MD Attending Provider Active Start: August 06, 2024 End: August 06, 2024 Dr. Tee Rodriguez MD Referring Provider Active Start: August 06, 2024 End: August 06, 2024 Team Status: Inactive Member Role Status Dates Dr. Tee Rodriguez MD Primary Care Provider Acti ve Start: September 19, 2024 End: September 19, 2024 M[employer]A Ritter Attending Provider Active Start : September 19, 2024 End: September 19, 2024 [place] Ritter Referring Provider Active Start : September 19, 2024 End: September 19, 2024 Team Status: Inactive Member Role Status Dates Dr. Tee Rodriguez MD Primary Care Provider Acti ve Start: November 07, 2024 End: November 07, 2024 [place] Ritter Attending Provider Active Start : November 07, 2024 End: November 07, 2024 [place] Ritter Referring Provider Active Start : November 07, 2024 End: November 07, 2024 Team Status: Active Member Role/Relationship Status Dates Dr. Tee Rodriguez MD Primary Care Provider Acti ve Team Status: Inactive Member Role/Relationship Status Dates Dr. Tee Rodriguez MD Primary Care Provider Acti ve Start: November 07, 2024 End: November 07, 2024 [place] Ritter Attending Provider Active Start : November 07, 2024 End: November 07, 2024 [place] Ritter Referring Provider Active Start : November 07, 2024 End: November 07, 2024 Team Status: Inactive Member Role/Relationship Status Dates Dr. Tee Rodriguez MD Primary Care Provider Acti ve Start: February 28, 2025 End: February 28, 2025 Dr. Tee Rodriguez MD Attending Provider Active Start: February 28, 2025 End: February 28, 2025 Dr. eTe Rodriguez MD Referring Provider Active Start: February 28, 2025 End: February 28, 2025 Team Status: Inactive Member Role/Relationship Status Dates Dr. Tee Rodriguez MD Primary Care Provider Acti ve Start: February 28, 2025 End: February 28, 2025 Dr. Tee Rodriguez MD Attending Provider Active Start: February 28, 2025 End: February 28, 2025 Dr. Tee Rodriguez MD Referring Provider Active Start: February 28, 2025 End: February 28, 2025 Team Status: Inactive Member Role/Relationship Status Dates Dr. Tee Rodriguez MD Primary Care Provider Acti ve Start: March 22, 2025 End: March 22, 2025 Dr. Tee Rodriguez MD Referring Provider Active Start: March 22, 2025 End: March 22, 2025 Mayela Lomax NP, RESEARCH PROGRAMMER-C Attending Provider Active Start: March 22, 2025 End: March 22, 2025 Team Status: Inactive Member Role/Relationship Status Dates Dr. Tee Rodriguez MD Primary Care Provider Acti ve Start: March 25, 2025 End: March 25, 2025 [place]A Ritter Attending Provider Active Start : March 25, 2025 End: March 25, 2025 [place] Ritter Referring Provider Active Start : March 25, 2025 End: March 25, 2025 Team Status: Active Member Role/Relationship Status Dates Dr. Tee Rodriguez MD Primary Care Provider Acti ve Start: March 26, 2025 Dr. Tee Rodriguez MD Attending Provider Active Start: March 26, 2025 Dr. Tee Rodriguez MD Referring Provider Active Start: March 26, 2025 Team Status: Active Member Role/Relationship Status Dates Dr. Tee Rodriguez MD Primary Care Provider Acti ve Start: March 27, 2025 Dr. Tee Rodriugez MD Referring Provider Active Start: March 27, 2025 Dr. Tee Rodriguez MD Other Provider Active Start: March 27, 2025 Dr. Venancio Clements MD Attending Provider Active S tart: March 27, 2025 FOR RECORDS PERTAINING TO PATIENTS WHO ARE OR HAVE BEEN ENROLLED IN A CHEMICAL DEPENDENCY/SUBSTANCEABUSE PROGRAM, SOME INFORMATION MAY BE OMITTED. This clinical summary was aggregated from multiple sources. Caution should be exercised in using it in the provision of clinical care. This summary normalizes information from multiple sources, and as a consequence, information in this document may materially change the coding, format and clinical context of patient data. In addition, data may be omitted in some cases. CLINICAL DECISIONS SHOULD BE BASED ON THE PRIMARY CLINICAL RECORDS. [facility] [employer] [facility]. provides no warranty or guarantee of the accuracy or completeness of information in this document.
--- OUTSIDE RECORDS SUMMARY | 2025-04-04 11:13 | XMS RPT_ITS | CCD ---
Author Organization [facility] Care Team Providers Care Government Relations Analyst Name Role Phone Dossi BRYCECaro Elise Unavailable [...] Dr. Bubba Moreira Attending Provider [facility] Mayela Attending Provider Dr. Yunior Rodriguez Primary Care Provider Dr. Yunior Rodriguez Referring Provider Dr. Yunior Rodriguez Referring Provider [facility] Mayela Attending Provider [phone] Dr. Tee Rodriguez MD Primary Care Provider Dr. Tee Rodriguez MD Attending Provider [phone] Dr. Tee Rodriguez MD Referring Provider Karen Torres Attending Provider Juan Antonio PA, Karen Referring Provider Jennifer MENCHACA, Dr. Oliveira Primary Care Provider Karen Torres Attending Provider Juan Antonio PA, Karen Referring Provider Jennifer MENCHACA, Dr. Oliveira Attending Provider [phone] Jennifer MENCHACA, Dr. Oliveira Referring Provider [phone] Jennifer MENCHACA, Dr. Oliveira Primary Care Provider [facility] WORK[facility]-C, Mayela Attending Provider Juan Antonio LOZANO, Karen [...] (2 sources) AMOXICILLAN drug allergy 06-28-2016 Rash [facility]ic Work Phone: (15 sources) Amoxicillin Drug Allergy 10-08-2021 Rash [facility] (1 source) Amoxicillin Drug Allergy 03-22-2025 [facility] Repository Medications Current Medications Medication Drug Class(es) [...] Facility Coronary Angiography CTon Coronary Angiography CT [facility] Imaging Services [address] [place] [address] 03/27/25 0723 MR#: [id number] Acct: [id number] Name: ROGERGONZALESMARIIA RASHAWN Rep #: [id number] : 1970 55 From: Venancio Clements MD [...] MD; Dr. Venancio Clements MD Signed Normal [facility] Limited Chest CT Cardiac Onl yon 03-26-[address] Cardiac Only [facility] Imaging Services [address] [place] [id number] Cardiac Only MR#: [id number] Acct: [id number] Name: MARIIA LEVINE Rep #: [id number] : 1970 M 55 From: Nirmal small MD PCP: Dr. Tee Rodriguez MD Status: REG CLI Study: Limited Chest CT Cardiac Only Date of Exam: Exam# [id number] Ordering Dr: Tee Rodriguez PROCEDURE: LIMITED CHEST [...] IMPRESSION: No coronary artery calcification. Reading Location: [id number] CC: Dr. Tee Rodriguez MD Financial Agent: Signed Normal [facility] Anion gap in Serum or Plasma Ordered By: Karen Romano on 03-25-2025 Anion gap [Moles/Vol] 10 mmol/L 5-15 [facility] BUN/creatinine ratioOrdered By: Karen Romano on 03-25-2025 Urea nitrogen/Creatinine [Mass ratio] 13.4 mg/mg 10-20 [facility] Bilirubin, totalOrdered By: Karen Romano on 03-25-2025 Bilirubin [Mass/Vol] 0.51 mg/dL 0.00-1.30 [facility] Carbon dioxide, total [Moles /volume] in Central venous bloodOrdered By: Karen Romano on 03-25-2025 CO2 [Moles/Vol] 27.6 mmol/L 21.0-32.0 [facility] Chloride assayOrdered By: Rafy Romano on 03-25-2025 Chloride [Moles/Vol] 103 mmol/L 98-108 [facility] Comprehensive Metabolic Prof ilon 03-25-2025 Albumin [Mass/Vol] 4.6 g/dL Normal 3.5-5.0 [facility] Comment on above: Performed By: #### L 506.0400, L500.4100, L500.4050, L501.9910, L501.9520 #### [facility] [address] [place], [address] Albumin/Globulin [Mass ratio] 1.6 {ratio} Normal 0.9-2.4 [facility] Comment on above: Performed By: #### L 506.0400, L500.4100, L500.4050, L501.9910, L501.9520 #### [facility] [address] [place], [address] ALK PHOS 72 U/L Normal 40-129 [facility] Comment on above: Performed By: #### L 506.0400, L500.4100, L500.4050, L501.9910, L501.9520 #### [facility] [address] [place], [address] ALT [Catalytic activity/Vol] 25 U/L Normal <=46 [facility] Comment on above: Performed By: #### L 506.0400, L500.4100, L500.4050, L501.9910, L501.9520 #### [facility] [address] [place], [address] AST [Catalytic activity/Vol] 31 U/L Normal <=37 [facility] Comment on above: Performed By: #### L 506.0400, L500.4100, L500.4050, L501.9910, L501.9520 #### [facility] [address] [place], [address] Bilirubin [Mass/Vol] 0.51 mg/dL Normal 0.00-1.30 [facility] Comment on above: Performed By: #### L 506.0400, L500.4100, L500.4050, L501.9910, L501.9520 #### [facility] [address] [place], [address] BUN/CRE 13.4 RATIO Normal 10-20 [facility] Comment on above: Performed By: #### L 506.0400, L500.4100, L500.4050, L501.9910, L501.9520 #### [facility] [address] [place], [address] Calcium [Mass/Vol] 9.7 mg/dL Normal 7.6-11.0 [facility] Comment on above: Performed By: #### L 506.0400, L500.4100, L500.4050, L501.9910, L501.9520 #### [facility] [address] [place], [address] Chloride [Moles/Vol] 103 mmol/L Normal 98-108 [facility] Comment on above: Performed By: #### L 506.0400, L500.4100, L500.4050, L501.9910, L501.9520 #### [facility] [address] [place], [address] CO2 [Moles/Vol] 27.6 mmol/L Normal 21.0-32.0 [facility] Comment on above: Performed By: #### L 506.0400, L500.4100, L500.4050, L501.9910, L501.9520 #### [facility] [address] [place], [address] Creatinine [Mass/Vol] 0.92 mg/dL Normal 0.70-1.20 [facility] Comment on above: Performed By: #### L 506.0400, L500.4100, L500.4050, L501.9910, L501.9520 #### [facility] [address] [place], [address] GAP 10 Normal 5-15 [facility] Comment on above: Performed By: #### L 506.0400, L500.4100, L500.4050, L501.9910, L501.9520 #### [facility] [address] [place], [address] GFR/1.73 sq M.predicted among non-blacks MDRD (S/P/Bld) [Vol rate/Area] 99 mL/min/{1.73_m2} Normal >60 [facility] Comment on above: Result Comment: mL/m in/1.73m2 CKD-EPI Creatinine Equation (2020) Performed By: #### L 506.0400, L500.4100, L500.4050, L501.9910, L501.9520 #### [facility] [address] [place], [address] Globulin (S) [Mass/Vol] 2.9 g/dL Normal 2.2-4.2 [facility] Comment on above: Performed By: #### L 506.0400, L500.4100, L500.4050, L501.9910, L501.9520 #### [facility] [address] [place], [address] Glucose [Mass/Vol] 93 mg/dL Normal 70-99 [facility] Comment on above: Performed By: #### L 506.0400, L500.4100, L500.4050, L501.9910, L501.9520 #### [facility] [address] [place], [address] Potassium [Moles/Vol] 4.4 mmol/L Normal 3.3-5.1 [facility] Comment on above: Performed By: #### L 506.0400, L500.4100, L500.4050, L501.9910, L501.9520 #### [facility] [address] [place], [address] Sodium [Moles/Vol] 140 mmol/L Normal 133-145 [facility] Comment on above: Performed By: #### L 506.0400, L500.4100, L500.4050, L501.9910, L501.9520 #### [facility] [address] [place], [address] T PROT 7.5 g/dL Normal 5.9-8.4 [facility] Comment on above: Performed By: #### L 506.0400, L500.4100, L500.4050, L501.9910, L501.9520 #### [facility] [address] [place], [address] Urea nitrogen [Mass/Vol] 12 mg/dL Normal 4-19 [facility] Comment on above: Performed By: #### L 506.0400, L500.4100, L500.4050, L501.9910, L501.9520 #### [facility] [address] [place], [address] Glomerular filtration rate ( GFR) estimation/1.73 sq m using serum, plasma, or whole bOrdered By: Karen Romano on 03-25-2025 GFR/1.73 sq M.predicted among non-blacks MDRD (S/P/Bld) [Vol rate/Area] 99 mL/min/{1.73_m2} >60 [facility] Comment on above: mL/min/1.73m2 CKD-EP I Creatinine Equation (2020) Laboratory - Chemistry and C hemistry - challengeOrdered By: Karen Romano on 03-25-2025 AST [Catalytic activity/Vol] 31 U/L <38 [facility] Potassium measurement (mass/ volume)Ordered By: Karen Romano on 03-25-2025 Potassium (Unsp spec) [Mass/Vol] 4.4 mmol/L 3.3-5.1 [facility] Serum creatinine measurement (mass/volume)Ordered By: Karen Romano on 03-25-2025 Creatinine [Mass/Vol] 0.92 mg/dL 0.70-1.20 [facility] Serum globulin measurementOr dered By: Karen Romano on 03-25-2025 Globulin (S) [Mass/Vol] 2.9 g/dL 2.2-4.2 [facility] Serum glucose measurement (m ass/volume)Ordered By: Karen Romano on 03-25-2025 Glucose [Mass/Vol] 93 mg/dL 70-99 [facility] Serum or plasma alanine mccracken otransferase (ALT) measurementOrdered By: Karen Romano on 03-25-2025 ALT [Catalytic activity/Vol] 25 U/L <47 [facility] Serum or plasma albumin beatriz urement (mass/volume)Ordered By: Karen Romano on 03-25-2025 Albumin [Mass/Vol] 4.6 g/dL 3.5-5.0 [facility] Serum or plasma albumin/glob ulin mass ratioOrdered By: Karen Romano on 03-25-2025 Albumin/Globulin [Mass ratio] 1.6 {ratio} 0.9-2.4 [facility] Serum or plasma alkaline naya sphatase measurementOrdered By: Karen Romano on 03-25-2025 ALP [Catalytic activity/Vol] 72 U/L 40-129 [facility] Serum or plasma calcium beatriz urement (mass/volume)Ordered By: Karen Romano on 03-25-2025 Calcium [Mass/Vol] 9.7 mg/dL 7.6-11.0 [facility] Serum or plasma urea nitroge n measurement (mass/volume)Ordered By: Karen Romano on 03-25-2025 Urea nitrogen [Mass/Vol] 12 mg/dL 4-19 [facility] Sodium levelOrdered By: Karen Romano on 03-25-2025 Sodium [Moles/Vol] 140 mmol/L 133-145 [facility] TSH DL <= 0.005 mIU/L QnOrde red By: Karen Romano on 03-25-2025 TSH Qn 4.650 uIU/mL High 0.300-4.200 [facility] Thyroid Stim Hormone (TSH)on 03-25-2025 TSH 4.650 uIU/mL High 0.300-4.200 [facility] Comment on above: Performed By: #### L 506.2830, L500.6750, L500.4050, L501.9910, L501.9520 #### [facility] [address] [place], [address] Total proteinOrdered By: Oliver Romano on 03-25-2025 Protein [Mass/Vol] 7.5 g/dL 5.9-8.4 [facility] Pulmonary Visit Reporton Pulmonary Visit Report [facility] [place] [address] [place] [address] OFFICE VISIT Date of Service: 03/22/25 MR#: [id number] Acct: [id number] Name: MARIIA LEVINE Rep #: [id number] : 1970 Provider: NICOLASA Lomax Age/Sex: 55/M Location: [facility].PMW Status: Signed Assessment and Plan Assessment and [...] Additional Comments: This note was generated with BlogBus dictation software. It may contain incorrect words, [...] Chief Complaint: BA, ST, fatigue, chest congestion Heel Gouger Required: No DME Vendor: [employer] Accompanied by: [...] regular rat (more content not included)... Normal [facility] Anion gap in Serum or Plasma Ordered By: Tee Rodriguez on 02-28-2025 Anion gap [Moles/Vol] 11 mmol/L 5-15 [facility] BUN/creatinine ratioOrdered By: Tee Rodriguez on 02-28-2025 Urea nitrogen/Creatinine [Mass ratio] 13.1 mg/mg 10-20 [facility] Bilirubin, totalOrdered By: Tee Rodriguez on 02-28-2025 Bilirubin [Mass/Vol] 0.50 mg/dL 0.00-1.30 [facility] CBC-Complete Blood Cnt No Di ffon 02-28-2025 Erythrocyte distribution width (RBC) [Ratio] 12.3 % Normal 11.6-14.6 [facility] Comment on above: Order Comment: PER I NTERFAUTE COMMENT-GLU Order Date: 02/28/25 Order Info: 0786-1 - CMP Order Info: [id number] - LIPID Order Info: 3016-3 - TSH Order Info: 2857-1 - PSA Order Info: 3024-7 - T4F Performed By: #### L 506.0400, L500.4100, L500.4050, L501.9910, L501.9520 #### [facility] [place], [address] Hematocrit (Bld) [Volume fraction] 46.5 % Normal 40-54 [facility] Comment on above: Order Comment: PER I NTERALLEN COMMENT-GLU Order Date: 02/28/25 Order Info: 785- - CMP Order Info: [id number] - LIPID Order Info: 3015-10 - TSH Order Info: 2856-08 - PSA Order Info: 7 - T4F Performed By: #### L 506.0400, L500.4100, L500.4050, L501.9910, L501.9520 #### [facility] [address] [place], [address] Hemoglobin (Bld) [Mass/Vol] 15.4 g/dL Normal 13.0-16.5 [facility] Comment on above: Order Comment: PER I NTERFAUTE COMMENT-GLU Order Date: 02/28/25 Order Info: 785-08 - CMP Order Info: - LIPID Order Info: 3015-10 - TSH Order Info: 2856-08 - PSA Order Info: 7 - T4F Performed By: #### L 506.0400, L500.4100, L500.4050, L501.9910, L501.9520 #### [facility] [address] [place], [address] MCH (RBC) [Entitic mass] 30.6 pg Normal 27.0-32.0 [facility] Comment on above: Order Comment: PER I NTERALLEN COMMENT-GLU Order Date: 02/28/25 Order Info: 785-08 - CMP Order Info: - LIPID Order Info: 3015-10 - TSH Order Info: 2856-08 - PSA Order Info: 3027 - T4F Performed By: #### L 506.0400, L500.4100, L500.4050, L501.9910, L501.9520 #### [facility] [address] [place], [address] MCHC (RBC) [Mass/Vol] 33.1 g/dL Normal 32-36 [facility] Comment on above: Order Comment: PER Noman RUSSO COMMENT-GLU Order Date: 02/28/25 Order Info: 785- - CMP Order Info: - LIPID Order Info: 3015-10 - TSH Order Info: 1 - PSA Order Info: 3024-7 - T4F Performed By: #### L 506.0400, L500.4100, L500.4050, L501.9910, L501.9520 #### [facility] [address] [place], [address] MCV (RBC) [Entitic vol] 92.3 fL Normal 80-94 [facility] Comment on above: Order Comment: CHAITANYA RUSSO COMMENT-GLU Order Date: 02/28/25 Order Info: 785-08 - CMP Order Info: - LIPID Order Info: 3015-10 - TSH Order Info: 2856-08 - PSA Order Info: 3024-7 - T4F Performed By: #### L 506.0400, L500.4100, L500.4050, L501.9910, L501.9520 #### [facility] [address] [place], [address] Platelet mean volume (Bld) [Entitic vol] 9.9 fL Normal 6.2-12.0 [facility] Comment on above: Order Comment: CHAITANYA RUSSO COMMENT-GLU Order Date: 02/28/25 Order Info: 785-08 - CMP Order Info: - LIPID Order Info: 3015-10 - TSH Order Info: 1 - PSA Order Info: 3024-7 - T4F Performed By: #### L 506.0400, L500.4100, L500.4050, L501.9910, L501.9520 #### [facility] [address] [place], [address] Platelets (Bld) [#/Vol] 379 10*3/uL Normal 150-450 [facility] Comment on above: Order Comment: PER I HOLLYERALLEN COMMENT-GLU Order Date: 02/28/25 Order Info: 785-08 - CMP Order Info: - LIPID Order Info: 3 - TSH Order Info: 1 - PSA Order Info: 3024-7 - T4F Performed By: #### L 506.0400, L500.4100, L500.4050, L501.9910, L501.9520 #### [facility] [address] [place], [address] RBC (Bld) [#/Vol] 5.04 10*6/uL Normal 4.6-6.2 [facility] Comment on above: Order Comment: PER I HOLLYERALLEN COMMENT-GLU Order Date: 02/28/25 Order Info: 785-08 - CMP Order Info: - LIPID Order Info: 3015-10 - TSH Order Info: 2856-08 - PSA Order Info: 3024-7 - T4F Performed By: #### L 506.0400, L500.4100, L500.4050, L501.9910, L501.9520 #### [facility] [address] [place], [address] RDW SD 41.6 fl Normal 35.1-43.9 [facility] Comment on above: Order Comment: PER I HOLLYERALLEN COMMENT-GLU Order Date: 02/28/25 Order Info: 785-08 - CMP Order Info: - LIPID Order Info: 3 - TSH Order Info: 1 - PSA Order Info: 3024-7 - T4F Performed By: #### L 506.0400, L500.4100, L500.4050, L501.9910, L501.9520 #### [facility] [address] [place], [address] WBC (Bld) [#/Vol] 5.2 10*3/uL Normal 4.4-11.0 [facility] Comment on above: Order Comment: PER I NTERFACE COMMENT-GLU Order Date: 02/28/25 Order Info: 0786 - CMP Order Info: 30532-0 - LIPID Order Info: 3015-10 - TSH Order Info: 2856-08 - PSA Order Info: 7 - T4F Performed By: #### L 506.0400, L500.4100, L500.4050, L501.9910, L501.9520 #### [facility] [address] [place], [address] Calculated very low density lipoprotein (VLDL) cholesterol measurementOrdered By: Tee Rodriguez on 02-28-2025 Calculated very low density lipoprotein (VLDL) cholesterol measurement 22 mg/dL 5-40 [facility] Carbon dioxide, total [Moles /volume] in Central venous bloodOrdered By: Tee Rodriguez on 02-28-2025 CO2 [Moles/Vol] 24.9 mmol/L 21.0-32.0 [facility] Chloride assayOrdered By: Dar Rodriguez on 02-28-2025 Chloride [Moles/Vol] 104 mmol/L 98-108 [facility] Comprehensive Metabolic Prof ilon 02-28-2025 Albumin [Mass/Vol] 4.5 g/dL Normal 3.5-5.0 [facility] Comment on above: Order Comment: CHAITANYA RUSSO COMMENT-GLU Order Date: 02/28/25 Order Info: 0786- - CMP Order Info: 04423-5 - LIPID Order Info: 3015-10 - TSH Order Info: 2856-08 - PSA Order Info: 3024-02 - T4F Performed By: #### L 506.0400, L500.4100, L500.4050, L501.9910, L501.9520 #### [facility] [address] [place], [address] Albumin/Globulin [Mass ratio] 1.4 {ratio} Normal 0.9-2.4 [facility] Comment on above: Order Comment: PER Noman BARRERAERALLEN COMMENT-GLU Order Date: 02/28/25 Order Info: 07 - CMP Order Info: - LIPID Order Info: 3015-10 - TSH Order Info: 2856-08 - PSA Order Info: 7 - T4F Performed By: #### L 506.0400, L500.4100, L500.4050, L501.9910, L501.9520 #### [facility] [address] [place], [address] ALK PHOS 72 U/L Normal 40-129 [facility] Comment on above: Order Comment: PER I HOLLYERALLEN COMMENT-GLU Order Date: 02/28/25 Order Info: 785-08 - CMP Order Info: - LIPID Order Info: 3015-10 - TSH Order Info: 2856-08 - PSA Order Info: 7 - T4F Performed By: #### L 506.0400, L500.4100, L500.4050, L501.9910, L501.9520 #### [facility] [address] [place], [address] ALT [Catalytic activity/Vol] 20 U/L Normal <=46 [facility] Comment on above: Order Comment: PER Noman RUSSO COMMENT-GLU Order Date: 02/28/25 Order Info: 785-08 - CMP Order Info: - LIPID Order Info: 3015-10 - TSH Order Info: 2856-08 - PSA Order Info: 7 - T4F Performed By: #### L 506.0400, L500.4100, L500.4050, L501.9910, L501.9520 #### [facility] [address] [place], [address] AST [Catalytic activity/Vol] 24 U/L Normal <=37 [facility] Comment on above: Order Comment: PER Noman BARRERAERALLEN COMMENT-GLU Order Date: 02/28/25 Order Info: 785-08 - CMP Order Info: - LIPID Order Info: 3015-10 - TSH Order Info: 2856-08 - PSA Order Info: 3024-7 - T4F Performed By: #### L 506.0400, L500.4100, L500.4050, L501.9910, L501.9520 #### [facility] [address] [place], [place], [address] Bilirubin [Mass/Vol] 0.50 mg/dL Normal 0.00-1.30 [facility] Comment on above: Order Comment: PER I HOLLYERALLEN COMMENT-GLU Order Date: 02/28/25 Order Info: 785-1 - CMP Order Info: - LIPID Order Info: 3 - TSH Order Info: 2856-08 - PSA Order Info: 7 - T4F Performed By: #### L 506.0400, L500.4100, L500.4050, L501.9910, L501.9520 #### [facility] [address] [place], [place], [address] BUN/CRE 13.1 RATIO Normal 10-20 [facility] Comment on above: Order Comment: PER I HOLLYERALLEN COMMENT-GLU Order Date: 02/28/25 Order Info: 785-08 - CMP Order Info: - LIPID Order Info: 3015-10 - TSH Order Info: 2856-08 - PSA Order Info: 7 - T4F Performed By: #### L 506.0400, L500.4100, L500.4050, L501.9910, L501.9520 #### [facility] [address] [place], [place], [address] Calcium [Mass/Vol] 9.5 mg/dL Normal 7.6-11.0 [facility] Comment on above: Order Comment: PER I HOLLYERALLEN COMMENT-GLU Order Date: 02/28/25 Order Info: 785-08 - CMP Order Info: 69642-1 - LIPID Order Info: 3 - TSH Order Info: 2856-08 - PSA Order Info: 30247 - T4F Performed By: #### L 506.0400, L500.4100, L500.4050, L501.9910, L501.9520 #### [facility] [address] [place], [address] Chloride [Moles/Vol] 104 mmol/L Normal 98-108 [facility] Comment on above: Order Comment: PER I HOLLYERALLEN COMMENT-GLU Order Date: 02/28/25 Order Info: 785-1 - CMP Order Info: 08064-1 - LIPID Order Info: 301-3 - TSH Order Info: 28502-26 - PSA Order Info: 3024-7 - T4F Performed By: #### L 506.0400, L500.4100, L500.4050, L501.9910, L501.9520 #### [facility] [address] [place], [place], [address] [phone] CO2 [Moles/Vol] 24.9 mmol/L Normal 21.0-32.0 [facility] Comment on above: Order Comment: PER Noman RUSSO COMMENT-GLU Order Date: 02/28/25 Order Info: 785-08 - CMP Order Info: 42302-5 - LIPID Order Info: 3 - TSH Order Info: 2856-08 - PSA Order Info: 3024-7 - T4F Performed By: #### L 506.0400, L500.4100, L500.4050, L501.9910, L501.9520 #### [facility] [address] [place], [place], [phone] Creatinine [Mass/Vol] 0.88 mg/dL Normal 0.70-1.20 [facility] Comment on above: Order Comment: PER I NTERALLEN COMMENT-GLU Order Date: 02/28/25 Order Info: 785- - CMP Order Info: 49125-5 - LIPID Order Info: 3 - TSH Order Info: 28571 - PSA Order Info: 3024-7 - T4F Performed By: #### L 506.0400, L500.4100, L500.4050, L501.9910, L501.9520 #### [facility] [address] [place], [place], [address] GAP 11 Normal 5-15 [facility] Comment on above: Order Comment: CHAITANYA RUSSO COMMENT-GLU Order Date: 02/28/25 Order Info: 785-08 - CMP Order Info: - LIPID Order Info: 3015-10 - TSH Order Info: 2856-08 - PSA Order Info: 3024-02 - T4F Performed By: #### L 506.0400, L500.4100, L500.4050, L501.9910, L501.9520 #### [facility] [address] [place], [address] GFR/1.73 sq M.predicted among non-blacks MDRD (S/P/Bld) [Vol rate/Area] 103 mL/min/{1.73_m2} Normal >60 [facility] Comment on above: Order Comment: CHAITANYA RUSSO COMMENT-GLU Order Date: 02/28/25 Order Info: 785-08 - CMP Order Info: - LIPID Order Info: 3015-10 - TSH Order Info: 2856-08 - PSA Order Info: 3024-02 - T4F Result Comment: mL/m in/1.73m2 CKD-EPI Creatinine Equation (2020) Performed By: #### L 506.0400, L500.4100, L500.4050, L501.9910, L501.9520 #### [facility] [address] [place], [place], [address] Globulin (S) [Mass/Vol] 3.1 g/dL Normal 2.2-4.2 [facility] Comment on above: Order Comment: CHAITANYA RUSSO COMMENT-GLU Order Date: 02/28/25 Order Info: 785-08 - CMP Order Info: - LIPID Order Info: 3015-10 - TSH Order Info: 2856-08 - PSA Order Info: 3024-02 - T4F Performed By: #### L 506.0400, L500.4100, L500.4050, L501.9910, L501.9520 #### [facility] [address] [place], [address] Glucose [Mass/Vol] 95 mg/dL Normal 70-99 [facility] Comment on above: Order Comment: PER I HOLLYERALLEN COMMENT-GLU Order Date: 02/28/25 Order Info: 785-1 - CMP Order Info: 26284-8 - LIPID Order Info: 3015-3 - TSH Order Info: 2856-08 - PSA Order Info: 3024-7 - T4F Performed By: #### L 506.0400, L500.4100, L500.4050, L501.9910, L501.9520 #### [facility] [address] [place], [address] Potassium [Moles/Vol] 4.4 mmol/L Normal 3.3-5.1 [facility] Comment on above: Order Comment: PER Noman RUSSO COMMENT-GLU Order Date: 02/28/25 Order Info: [id number] - CMP Order Info: - LIPID Order Info: 3 - TSH Order Info: [id number] - PSA Order Info: 3024-7 - T4F Performed By: #### L 506.0400, L500.4100, L500.4050, L501.9910, L501.9520 #### [facility] [address] [place], [address] Sodium [Moles/Vol] 140 mmol/L Normal 133-145 [facility] Comment on above: Order Comment: PER Noman BARRERAERALLEN COMMENT-GLU Order Date: 02/28/25 Order Info: [id number] - CMP Order Info: [id number] - LIPID Order Info: 3 - TSH Order Info: 2851 - PSA Order Info: 3024-7 - T4F Performed By: #### L 506.0400, L500.4100, L500.4050, L501.9910, L501.9520 #### [facility] [address] [place], [place], [id number] T PROT 7.6 g/dL Normal 5.9-8.4 [facility] Comment on above: Order Comment: PER Noman BARRERAERALLEN COMMENT-GLU Order Date: 02/28/25 Order Info: [id number] - CMP Order Info: [id number] - LIPID Order Info: 3 - TSH Order Info: [id number] - PSA Order Info: 3023-7 - T4F Performed By: #### L 506.0400, L500.4100, L500.4050, L501.9910, L501.9520 #### [facility] [address] [place], [address] Urea nitrogen [Mass/Vol] 12 mg/dL Normal 4-19 [facility] Comment on above: Order Comment: CHAITANYA RUSSO COMMENT-GLU Order Date: 02/28/25 Order Info: [id number] - CMP Order Info: [id number] - LIPID Order Info: [id number] - TSH Order Info: [id number] - PSA Order Info: 7 - T4F Performed By: #### L 506.0400, L500.4100, L500.4050, L501.9910, L501.9520 #### [facility] [address] [place], [place], [id number] Erythrocyte distribution wid th ratioOrdered By: Tee Rodriguez on 02-28-2025 Erythrocyte distribution width (RBC) [Ratio] 12.3 % 11.6-14.6 [facility] Erythrocyte distribution wid th standard deviationOrdered By: Tee Rodriguez on 02-28-2025 Erythrocyte distribution width (RBC) [Ratio] 41.6 fl 35.1-43.9 [facility] Glomerular filtration rate ( GFR) estimation/1.73 sq m using serum, plasma, or whole bOrdered By: Tee Rodriguez on 02-28-2025 GFR/1.73 sq M.predicted among non-blacks MDRD (S/P/Bld) [Vol rate/Area] 103 mL/min/{1.73_m2} >60 [facility] Comment on above: mL/min/1.73m2 CKD-EP I Creatinine Equation (2020) Hematocrit Auto (Bld) [Volum e fraction]Ordered By: Tee Rodriguez on 02-28-2025 Hematocrit (Bld) [Volume fraction] 46.5 % 40-54 [facility] Hemoglobin measurementOrdere d By: Tee Rodriguez on 02-28-2025 Hemoglobin (Bld) [Mass/Vol] 15.4 g/dL 13.0-16.5 [facility] LDL calc ser/plasOrdered By: Tee Rodriguez on 02-28-2025 Cholesterol in LDL [Mass/Vol] 149 mg/dL [facility] Comment on above: Ftokculhje=903-740 m g/dL & Higher Jrnq=850 mg/dL or greater Laboratory - Chemistry and C hemistry - challengeOrdered By: Tee Rodriguez on 02-28-2025 AST [Catalytic activity/Vol] 24 U/L <38 [facility] Lipid Profileon 02-28-2025 CHOL:HDL 4.61 Normal [facility] Comment on above: Order Comment: CHAITANYA RUSSO COMMENT-GLU Order Date: 02/28/25 Order Info: [id number] - CMP Order Info: [id number] - LIPID Order Info: [id number] - TSH Order Info: [id number] - PSA Order Info: 302-7 - T4F Performed By: #### L 506.0400, L500.4100, L500.4050, L501.9910, L501.9520 #### [facility] [address] [place] [address], [id number] Cholesterol [Mass/Vol] 218 mg/dL High <=200 [facility] Comment on above: Order Comment: PER I NTERFACE COMMENT-GLU Order Date: 02/28/25 Order Info: [id number] - CMP Order Info: [id number] - LIPID Order Info: 3013 - TSH Order Info: 2851 - PSA Order Info: 3023-7 - T4F Result Comment: Chol esterol level, Desirable <200 mg/dL Borderline high cholesterol 200-239 mg/dL High cholesterol >=240 mg/dL Recommendations of the NCEP Adult Treatment Panel for the following risk-cutoff thresholds for the [place] population. Performed By: #### L 506.0400, L500.4100, L500.4050, L501.9910, L501.9520 #### [facility] [address] [place], [address] Cholesterol in HDL [Mass/Vol] 47 mg/dL Normal [facility] Comment on above: Order Comment: PER Noman [...] L 506.0400, L500.4100, L500.4050, L501.9910, L501.9520 #### [facility] [address] [place], [address] Cholesterol in LDL [Mass/Vol] 149 mg/dL Normal [facility] Comment on above: Order Comment: CHAITANYA RUSSO COMMENT-GLU Order Date: 02/28/25 Order Info: 0786 - CMP Order Info: - LIPID Order Info: 3 - TSH Order Info: [id number] - PSA Order Info: 3024-02 T4F Result Comment: Bord baumfl=915-247 mg/dL Higher Kjlx=202 mg/dL or greater Performed By: #### L 506.0400, L500.4100, L500.4050, L501.9910, L501.9520 #### [facility] [address] [place], [address] Cholesterol in VLDL [Mass/Vol] 22 mg/dL Normal 5-40 [facility] Comment on above: Order Comment: CHAITANYA RUSSO COMMENT-GLU Order Date: 02/28/25 Order Info: [id number] - CMP Order Info: - LIPID Order Info: [id number] - TSH Order Info: [id number] - PSA Order Info: 7 - T4F Performed By: #### L 506.0400, L500.4100, L500.4050, L501.9910, L501.9520 #### [facility] [address] [place], [address] Triglyceride [Mass/Vol] 108 mg/dL Normal [facility] Comment on above: Order Comment: CHAITANYA RUSSO [...] L 506.0400, L500.4100, L500.4050, L501.9910, L501.9520 #### [facility] [address] [place], [place], [id number] MCV (mean corpuscular volume ) determinationOrdered By: Tee Rodriguez on 02-28-2025 MCV (RBC) [Entitic vol] 92.3 fL 80-94 [facility] Mean corpuscular hemoglobin (MCH) determinationOrdered By: Tee Rodriguez on 02-28-2025 MCH (RBC) [Entitic mass] 30.6 pg 27.0-32.0 [facility] Mean corpuscular hemoglobin concentration (MCHC) determinationOrdered By: Tee Rodriguez on 02-28-2025 MCHC (RBC) [Mass/Vol] 33.1 g/dL 32-36 [facility] Mean platelet volume determi nationOrdered By: Tee Rodriguez on 02-28-2025 Platelet mean volume (Bld) [Entitic vol] 9.9 fL 6.2-12.0 [facility] PSA,Total - Annual Screenon 02-28-2025 PSA,TOT SCREEN 0.49 ng/mL Normal 0.02-4.00 [facility] Comment on above: Order Comment: PER I NTERFACE COMMENT-GLU Order Date: 02/28/25 Order Info: [id number] - CMP Order Info: [id number] - LIPID Order Info: 3016-3 - TSH [...] L 506.0400, L500.4100, L500.4050, L501.9910, L501.9520 #### [facility] [address] [place], [address] Platelet countOrdered By: Dar Rodriguez on 02-28-2025 Platelets (Bld) [#/Vol] 379 10*3/uL 150-450 [facility] Potassium measurement (mass/ volume)Ordered By: Tee Rodriguez on 02-28-2025 Potassium (Unsp spec) [Mass/Vol] 4.4 mmol/L 3.3-5.1 [facility] RBC Auto (Bld) [#/Vol]Ordere d By: Tee Rodriguez on 02-28-2025 RBC (Bld) [#/Vol] 5.04 10*6/uL 4.6-6.2 [facility] Screening total cholesterol/ high density lipoprotein (HDL) cholesterol ratioOrdered By: Tee Rodriguez on 02-28-2025 Cholesterol.total/Mary sterol in HDL [Mass ratio] 4.61 {ratio} [facility] Serum creatinine measurement (mass/volume)Ordered By: Tee Rodriguez on 02-28-2025 Creatinine [Mass/Vol] 0.88 mg/dL 0.70-1.20 [facility] Serum globulin measurementOr dered By: Tee Rodriguez on 02-28-2025 Globulin (S) [Mass/Vol] 3.1 g/dL 2.2-4.2 [facility] Serum glucose measurement (m ass/volume)Ordered By: Tee Rodriguez on 02-28-2025 Glucose [Mass/Vol] 95 mg/dL 70-99 [facility] Serum or plasma alanine mccracken otransferase (ALT) measurementOrdered By: Tee Rodriguez on 02-28-2025 ALT [Catalytic activity/Vol] 20 U/L <47 [facility] Serum or plasma albumin beatriz urement (mass/volume)Ordered By: Tee Rodriguez on 02-28-2025 Albumin [Mass/Vol] 4.5 g/dL 3.5-5.0 [facility] Serum or plasma albumin/glob ulin mass ratioOrdered By: Tee Rodriguez on 02-28-2025 Albumin/Globulin [Mass ratio] 1.4 {ratio} 0.9-2.4 [facility] Serum or plasma alkaline naya sphatase measurementOrdered By: Tee Rodriguez on 02-28-2025 ALP [Catalytic activity/Vol] 72 U/L 40-129 [facility] Serum or plasma calcium beatriz urement (mass/volume)Ordered By: Tee Rodriguez on 02-28-2025 Calcium [Mass/Vol] 9.5 mg/dL 7.6-11.0 [facility] Serum or plasma cholesterol in HDL measurement (mass/volume)Ordered By: Tee Rodriguez on 02-28-2025 Cholesterol in HDL [Mass/Vol] 47 mg/dL >40 [facility] Comment on above: National Cholesterol Education Program (NCEP) guidelines:<40 mg/dL: Low HDL-cholesterol (major risk factor for CHD)>= 60 mg/dL: High HDL-cholesterol (negative risk factor for CHD)HDL-cholesterol is affected by a number of factors, e.g. smoking, exercise, hormones, sex and age. Serum or plasma cholesterol measurement (mass/volume)Ordered By: Tee Rodriguez on 02-28-2025 Cholesterol [Mass/Vol] 218 mg/dL High <201 [facility] Comment on above: Cholesterol level, D esirable <200 mg/dLBorderline high cholesterol 200-239 mg/dLHigh cholesterol >=240 mg/dLRecommendations of the NCEP Adult Treatment Panel for the following risk-cutoff thresholds for the [place] population. Serum or plasma urea nitroge n measurement (mass/volume)Ordered By: Tee Rodriguez on 02-28-2025 Urea nitrogen [Mass/Vol] 12 mg/dL 4-19 [facility] Sodium levelOrdered By: Jose G Rodriugez on 02-28-2025 Sodium [Moles/Vol] 140 mmol/L 133-145 [facility] T4 Free Directon 02-28-2025 T4 FREE DIRECT 1.30 ng/dL Normal 0.76-1.46 [facility] Comment on above: Order Comment: CHAITANYA RUSSO COMMENT-GLU Order Date: 02/28/25 Order Info: [id number] - CMP Order Info: [id number] - LIPID Order Info: [id number] - TSH Order Info: [id number] - PSA Order Info: 3024-7 - T4F Performed By: #### L 506.0400, L500.4100, L500.4050, L501.9910, L501.9520 #### [facility] [place], [address] T4 freeOrdered By: Danny Rodriguez on 02-28-2025 Free T4 [Mass/Vol] 1.30 ng/dL 0.76-1.46 [facility] TSH DL <= 0.005 mIU/L QnOrde red By: Tee Rodriguez on 02-28-2025 TSH Qn 1.960 uIU/mL 0.300-4.200 [facility] Thyroid Stim Hormone (TSH)on 02-28-2025 TSH 1.960 uIU/mL Normal 0.300-4.200 [facility] Comment on above: Order Comment: CHAITANYA RUSSO COMMENT-GLU Order Date: 02/28/25 Order Info: 0786 - CMP Order Info: [id number] - LIPID Order Info: [id number] - TSH Order Info: [id number] - PSA Order Info: 3024-02 - T4F Performed By: #### L 506.0400, L500.4100, L500.4050, L501.9910, L501.9520 #### [facility] [address] [place], [address] Total proteinOrdered By: Maricruz Rodriguez on 02-28-2025 Protein [Mass/Vol] 7.6 g/dL 5.9-8.4 [facility] Triglycerides measurementOrd ered By: Tee Rodriguez on 02-28-2025 Triglyceride [Mass/Vol] 108 mg/dL <199 [facility] Comment on above: The drugs N-Acetylcy steine and Metamizole may falsely depress this assay. Normal range: <150 mg/dLBorderline High: 150-199 mg/dLHigh: 200-499 mg/dLVery High: >500 mg/dL Vitamin D,25 Hydroxyon 02-28 Vitamin D 25-OH 35.2 ng/mL Normal 30-100 [facility] Comment on above: Order Comment: CHAITANYA RUSSO COMMENT-GLU Order Date: 02/28/25 Order Info: 07 - CMP Order Info: [id number] - LIPID Order Info: [id number] - TSH Order Info: [id number] - PSA Order Info: [id number] - T4F Result Comment: Isabel min D Status Deficiency: <20 ng/mL (50nmol/L) Insufficiency: 20-30 ng/mL (50-75 nmol/L) Sufficiency: 30-100 ng/mL (75-250 nmol/L) Toxicity: >100 ng/mL (>250 nmol/L) Performed By: #### L 506.1001 #### [facility] [address] [place], [address] White blood cell (WBC) count Ordered By: Tee Rodriguez on 02-28-2025 WBC (Bld) [#/Vol] 5.2 10*3/uL 4.4-11.0 [facility] TSH DL <= 0.005 mIU/L QnOrde red By: Karen Romano on 11-07-2024 Thyroid Stimulating Hormone (TSH) 2.440 uIU/mL 0.300-4.200 [facility] TSH Qn 2.440 uIU/mL 0.300-4.200 [facility] Thyroid Stim Hormone (TSH)on 11-07-2024 TSH 2.440 uIU/mL Normal 0.300-4.200 [facility] Comment on above: Performed By: #### L 501.9520 #### [facility] [address] [place], [address] TSH QnOrdered By: Karen weaver on 09-19-2024 Thyroid Stimulating Hormone (TSH) 1.640 uIU/mL 0.358-3.740 [facility] Thyroid Stim Hormone (TSH)on 09-19-2024 TSH 1.640 uIU/mL Normal 0.358-3.740 [facility] Comment on above: Performed By: #### L 506.0400, L500.4100, L500.4050, L501.9910, L501.9520 #### [facility] [address] [place], [place], [address] Direct serum free thyroxine (FT4) measurementOrdered By: Tee Rodriguez on 08-06-2024 Free T4 [Mass/Vol] 0.98 ng/dL 0.76-1.46 [facility] Free T3on 08-06-2024 Free T3 [Mass/Vol] 2.4 pg/mL Normal 2.18-3.98 [facility] Comment on above: Order Comment: CHAITANYA RUSSO COMMENT-GLU Order Date: 02/28/25 Order Info: [id number] - CMP Order Info: [id number] - LIPID Order Info: [id number] - TSH Order Info: [id number] - PSA Order Info: 3024-7 - T4F Performed By: #### L 506.0400, L500.4100, L500.4050, L501.9910, L501.9520 #### [facility] [address] [place], [place], [address] Free R4Yzmpvjv By: Danny Rodriguez on 08-06-2024 Free Triiodothyronine (T3) pg/dL 2.4 pg/mL 2.18-3.98 [facility] Serum or plasma thyroxine (T 4) measurement (mass/volume)Ordered By: Tee Rodriguez on 08-06-2024 T4 [Mass/Vol] 9.6 ug/dL 4.5-12.1 [facility] T4 Free Directon 08-06-2024 T4 FREE DIRECT 0.98 ng/dL Normal 0.76-1.46 [facility] Comment on above: Order Comment: CHAITANYA RUSSO COMMENT-GLU Order Date: 02/28/25 Order Info: [id number] - CMP Order Info: [id number] - LIPID Order Info: [id number] - TSH Order Info: [id number] - PSA Order Info: 7 - T4F Performed By: #### L 506.0400, L500.4100, L500.4050, L501.9910, L501.9520 #### [facility] [address] [place], [place], [id number] T4 Total, Thyroxinon 024 T4 [Mass/Vol] 9.6 ug/dL Normal 4.5-12.1 [facility] Comment on above: Order Comment: CHAITANYA RUSSO COMMENT-GLU Order Date: 02/28/25 Order Info: [id number] - CMP Order Info: [id number] - LIPID Order Info: [id number] - TSH Order Info: 1 - PSA Order Info: 3024-7 - T4F Performed By: #### L 506.0400, L500.4100, L500.4050, L501.9910, L501.9520 #### [facility] [address] [place], [address] TSH QnOrdered By: Yunior Rodriguez on 08-06-2024 Thyroid Stimulating Hormone (TSH) 0.617 uIU/mL 0.358-3.740 [facility] Thyroid Stim Hormone (TSH)on 08-06-2024 TSH 0.617 uIU/mL Normal 0.358-3.740 [facility] Comment on above: Order Comment: PER Noman BARRERAERALLEN COMMENT-GLU Order Date: 02/28/25 Order Info: [id number]- - CMP Order Info: - LIPID Order Info: 3 - TSH Order Info: [id number] - PSA Order Info: 3024-7 - T4F Performed By: #### L 506.0400, L500.4100, L500.4050, L501.9910, L501.9520 #### [facility] [address] [facility] [place], [place], [id number] T4 Free Directon 07-10-2024 T4 FREE DIRECT 1.16 ng/dL Normal 0.76-1.46 [facility] Comment on above: Order Comment: PER Noman RUSSO COMMENT-GLU Order Date: 02/28/25 Order Info: [id number] - CMP Order Info: - LIPID Order Info: 3 - TSH Order Info: [id number] - PSA Order Info: 3024-7 - T4F Performed By: #### L 506.0400, L500.4100, L500.4050, L501.9910, L501.9520 #### [facility] [address] [facility] [place], [place], [id number] Thyroid Stim Hormone (TSH)on 07-10-2024 TSH 0.195 uIU/mL Low 0.358-3.740 [facility] Comment on above: Order Comment: PER Noman RUSSO COMMENT-GLU Order Date: 02/28/25 Order Info: [id number] - CMP Order Info: - LIPID Order Info: [id number] - TSH Order Info: [id number] - PSA Order Info: 3024-7 - T4F Performed By: #### L 506.0400, L500.4100, L500.4050, L501.9910, L501.9520 #### [facility] [address] [place], [address] Laboratory - Chemistry and C hemistry - challengeOrdered By: Yunior Rodriguez on 06-27-2023 Free T4 [Mass/Vol] 1.31 ng/dL 0.76-1.46 [facility] No Panel InformationOrdered By: Yunior Rodriguez on 06-27-2023 Free Triiodothyronine (T3) pg/dL 3.1 pg/mL 2.18-3.98 [facility] Thyroid Stimulating Hormone (TSH) 0.60 uIU/mL 0.358-3.74 [facility] Absolute lymphocyte countOrd ered By: Yunior Rodriguez on 04-07-2023 Lymphocytes Auto (Unsp spec) [#/Vol] 2.33 10*3/uL 0.83-4.51 [facility] Basophil percentageOrdered B y: Yunior Rodriguez on 04-07-2023 Basophils/100 WBC (Bld) 0.8 % 0-1 [facility] Bilirubin [Mass/Vol] 0.50 mg/dL 0.20-1.00 [facility] Comment on above: For patients on eltr ombopag therapy, use of Dimension Vanderbilt TBIL is not recommended. Chloride [Moles/Vol] 106 mmol/L 98-107 [facility] Eosinophils/100 WBC (Bld) 3.0 % 0-5 [facility] Glucose [Mass/Vol] 95 mg/dL 74-106 [facility] Neutrophils (Bld) [#/Vol] 3.6 10*3/uL 2.0-7.7 [facility] Neutrophils/100 WBC (Bld) 53.2 % 47-70 [facility] Potassium [Moles/Vol] 3.8 mmol/L 3.5-5.1 [facility] Protein [Mass/Vol] 7.7 g/dL 6.4-8.2 [facility] Sodium [Moles/Vol] 140 mmol/L 136-145 [facility] Testosterone [Mass/Vol] 285.14 ng/dL [facility] Comment on above: CENTRAL 90% REFERENC E RANGES MALE AGE <50 197.44 - 669.58 ng/dL MALE AGE > or = 50 187.72 - 684.19 ng/dL FEMALE AGE <50 8.38 - 35.01 ng/dL FEMALE AGE > or = 50 <7.00 - 35.92 ng/dL Effective as of 03/24/21 WBC (Bld) [#/Vol] 6.7 10*3/uL 4.4-11.0 [facility] Blood erythrocytes count (nu mber/volume)Ordered By: Yunior Rodriguez on 04-07-2023 RBC (Bld) [#/Vol] 4.76 10*6/uL 4.6-6.2 [facility] Blood hemoglobin measurement (mass/volume)Ordered By: Yunior Rodriguez on 04-07-2023 Hemoglobin (Bld) [Mass/Vol] 14.6 g/dL 13.0-16.5 [facility] Blood lymphocytes/100 leukoc ytesOrdered By: Yunior Rodriguez on 04-07-2023 Lymphocytes/100 WBC (Bld) 35.0 % 19-41 [facility] Blood monocytes/100 leukocyt esOrdered By: Yunior Rodriguez on 04-07-2023 Monocytes/100 WBC (Bld) 7.7 % 0-10 [facility] Blood platelet mean volumeOr dered By: Yunior Rodriguez on 04-07-2023 Platelet mean volume (Bld) [Entitic vol] 10.3 fL 6.2-12.0 [facility] Determination of erythrocyte mean corpuscular volume (MCV)Ordered By: Yunior Rodriguez on 04-07-2023 MCV (RBC) [Entitic vol] 94.1 fL 80-94 [facility] Erythrocyte sedimentation ra teOrdered By: Yunior Rodriguez on 04-07-2023 ESR (Bld) [Velocity] 7 mm/h 0-20 [facility] Hematocrit Auto (Bld) [Volum e fraction]Ordered By: Yunior Rodriguez on 04-07-2023 Hematocrit (Bld) [Volume fraction] 44.8 % 40-54 [facility] Iron measurement (mass/mass) Ordered By: Yunior Rodriguez on 08-10-2023 Iron (Unsp spec) [Mass/Mass] 93 ug/dL 65-175 [facility] Laboratory - Chemistry and C hemistry - challengeOrdered By: Yunior Rodriguez on 04-07-2023 ALP [Catalytic activity/Vol] 62 U/L 45-117 [facility] ALT [Catalytic activity/Vol] 30 U/L 16-61 [facility] CO2 [Moles/Vol] 27.0 mmol/L 21.0-32.0 [facility] Cobalamin (Vitamin B12) [Mass/Vol] 742 pg/mL 211-911 [facility] Globulin (S) [Mass/Vol] 3.8 g/dL 2.2-4.2 [facility] Urea nitrogen/Creatinine [Mass ratio] 15.7 mg/mg 10-20 [facility] Laboratory - Hematology and Cell countsOrdered By: Yunior Rodriguez on 04-07-2023 Erythrocyte distribution width (RBC) [Entitic vol] 43.5 fL 35.1-43.9 [facility] Erythrocyte distribution width (RBC) [Ratio] 12.4 % 11.6-14.6 [facility] Immature granulocytes/100 WBC (Bld) 0.300 % 0.0-0.9 [facility] Comment on above: IG% - Immature Granu locytes (promyelocytes, myelocytes and metamyelocytes) > 1% indicates that a LEFT SHIFT is Present. MCH (RBC) [Entitic mass] 30.7 pg 27.0-32.0 [facility] Nucleated RBC/100 WBC (Bld) [Ratio] 0 % 0-5 [facility] MCHC Auto (RBC) [Mass/Vol]Or dered By: Yunior Rodriguez on 04-07-2023 MCHC (RBC) [Mass/Vol] 32.6 g/dL 32-36 [facility] No Panel InformationOrdered By: Yunior Rodriguez on 04-07-2023 Anti-Nuclear Antibody Screen Negative Negative [facility] Comment on above: Performed at: [address] [id number] Director: Isaac Rubin PhD, Phone: [phone] Estimated GFR (MDRD) Amer 106 mL/min >60 [facility] Comment on above: GFR Calc Estimated GFR (MDRD) Non-Af Amer 88 mL/min >60 [facility] Comment on above: Non- GFR Calc Vitamin D 25-Hydroxy 40.4 ng/mL [facility] Comment on above: Vitamin D 25(OH) Sta tus Range Deficiency <20 ng/mL (50nmol/L) Insufficiency 20 - 30 ng/mL (50 - 75 nmol/L) Sufficiency 30 - 100 ng/mL (75 - 250 nmol/L) Toxicity >100 ng/mL (>250 nmol/L) Platelets bldOrdered By: Maricruz mannmazin Jennifer on 04-07-2023 Platelets (Bld) [#/Vol] 326 10*3/uL 150-450 [facility] Serum or plasma C reactive p rotein measurement (mass/volume)Ordered By: Yunior Rodriguez on 04-07-2023 CRP [Mass/Vol] mg/L 0.0-3.0 [facility] Comment on above: C-Reactive Protein ( CRP) provides useful information for thediagnosis, therapy and monitoring of inflammatory processesand associated diseases. For the evaluation of Relative Riskfor Cardiovascular Disease, a High Sensitivity CRP (HSCRP)should be ordered. Serum or plasma albumin beatriz urement (mass/volume)Ordered By: Yunior Rodriguez on 04-07-2023 Albumin [Mass/Vol] 3.9 g/dL 3.2-5.0 [facility] Serum or plasma albumin/glob ulin mass ratioOrdered By: Yunior Rodriguez on 04-07-2023 Albumin/Globulin [Mass ratio] 1.0 {ratio} 0.9-2.4 [facility] Serum or plasma calcium beatriz urement (mass/volume)Ordered By: Yunior Rodriguez on 04-07-2023 Calcium [Mass/Vol] 8.8 mg/dL 8.5-10.1 [facility] Serum or plasma creatinine m easurement (mass/volume)Ordered By: Yunior Rodriguez on 04-07-2023 Creatinine [Mass/Vol] 0.96 mg/dL 0.70-1.30 [facility] Comment on above: The validity of the calculated GFR & GFRAA in patients over 70 years has not been determined. Clinical correlation is essential. Serum or plasma ferritin tamara surement (mass/volume)Ordered By: Yunior Rodriguez on 04-07-2023 Ferritin [Mass/Vol] 86 ng/mL 26-388 [facility] Serum or plasma thyroperoxid ase antibody assay (units/volume)Ordered By: Yunior Rodriguez on 04-07-2023 TPO Ab Qn 24 [IU]/mL 0-34 [facility] Comment on above: Performed at: [place] [id number] Director: Isaac Rubin PhD, Phone: [phone] Serum or plasma urea nitroge n measurement (mass/volume)Ordered By: Yunior Rodriguez on 04-07-2023 Urea nitrogen [Mass/Vol] 15 mg/dL 7-18 [facility] Serum or plasma uric acid me asurement (mass/volume)Ordered By: Yunior Rodriguez on 04-07-2023 Urate [Mass/Vol] 6.0 mg/dL 3.5-7.2 [facility] Comment on above: The drugs N-Acetylcy steine and Metamizole may falsely depress this assay. Serum rheumatoid factor dete ctionOrdered By: Yunior Rodriguez on 04-07-2023 Rheumatoid factor Ql (S) < 10.0 IU/mL <15 [facility] Thin prep Papanicolaou smear with manual screeningOrdered By: Yunior Rodriguez on 04-07-2023 Thin prep Papanicolaou smear with manual screening 21 U/L 15-37 [facility] Thin prep Papanicolaou smear with manual screening 7 5-15 [facility] Thin prep Papanicolaou smear with manual screening Negative Negative [facility] Comment on above: Lyme antibodies not detected. [...] 03-30-2023 Free T4 [Mass/Vol] 0.96 ng/dL 0.76-1.46 [facility] No Panel InformationOrdered By: Yunior Rodriguez on 03-30-2023 Free Triiodothyronine (T3) pg/dL 2.3 pg/mL 2.18-3.98 [facility] Thyroid Stimulating Hormone (TSH) 21.30 uIU/mL 0.358-3.74 [facility] Laboratory - Chemistry and C hemistry - challengeOrdered By: Yunior Rodriguez on 01-21-2023 Free T4 [Mass/Vol] 0.71 ng/dL 0.76-1.46 [facility] No Panel InformationOrdered By: Yunior Rodriguez on 01-21-2023 Free Triiodothyronine (T3) pg/dL 2.0 pg/mL 2.18-3.98 [facility] Thyroid Stimulating Hormone (TSH) 34.20 uIU/mL 0.358-3.74 [facility] Basophil percentageOrdered B y: Dr. Rodriguez on 12-03-2022 Chloride [Moles/Vol] 107 mmol/L 98-107 [facility] Cholesterol [Mass/Vol] 226 mg/dL <200 [facility] Comment on above: <200 mg/dL Desirable 200-240 mg/dL Borderline >240 mg/dL High Risk Glucose [Mass/Vol] 90 mg/dL 74-106 [facility] Potassium [Moles/Vol] 3.9 mmol/L 3.5-5.1 [facility] Sodium [Moles/Vol] 140 mmol/L 136-145 [facility] Triglyceride [Mass/Vol] 185 mg/dL <199 [facility] Comment on above: The drugs N-Acetylcy steine and Metamizole may falsely depress this assay.Serum Triglycerides Reference Interval Normal <150 mg/dL Borderline high 150 - 199 mg/dL High 200 - 499 mg/dL Very High > or = 500 mg/dL Laboratory - Chemistry and C hemistry - challengeOrdered By: Dr. Rodriguez on 12-03-2022 CO2 [Moles/Vol] 28.0 mmol/L 21.0-32.0 [facility] Free T4 [Mass/Vol] 1.08 ng/dL 0.76-1.46 [facility] Urea nitrogen/Creatinine [Mass ratio] 19.8 mg/mg 10-20 [facility] No Panel InformationOrdered By: Dr. Rodriguez on 12-03-2022 Estimated GFR (MDRD) Amer 130 mL/min >60 [facility] Comment on above: GFR Calc Estimated GFR (MDRD) Non-Af Amer 107 mL/min >60 [facility] Comment on above: Non- GFR Calc Free Triiodothyronine (T3) pg/dL 2.7 pg/mL 2.18-3.98 [facility] Prostate Specific Antigen Screen 0.47 ng/mL 0.00-4.00 [facility] Comment on above: This test was perfor med using the TPSA assay method for [employer] [employer] chemistry system. Values obtained with differentassay methods cannot be used interchangably.When changing PSA assays in the course of monitoring apatient, additional sequential testing should be carriedout to confirm baseline values. Thyroid Stimulating Hormone (TSH) 1.95 uIU/mL 0.358-3.74 [facility] Serum or plasma calcium beatriz urement (mass/volume)Ordered By: Dr. Rodriguez on 12-03-2022 Calcium [Mass/Vol] 9.2 mg/dL 8.5-10.1 [facility] Serum or plasma cholesterol in HDL measurement (mass/volume)Ordered By: Dr. Rodriguez on 12-03-2022 Cholesterol in HDL [Mass/Vol] 47 mg/dL >40 [facility] Comment on above: The drugs N-Acetylcy steine and Metamizole may falsely depress this assay. Reference Range HDL <40 mg/dL Low HDL Cholesterol HDL >or= 60 mg/dL High HDL Cholesterol Serum or plasma cholesterol in VLDL measurement (mass/volume)Ordered By: Dr. Rodriguez on 12-03-2022 Cholesterol in VLDL [Mass/Vol] 37 mg/dL 5-40 [facility] Serum or plasma creatinine m easurement (mass/volume)Ordered By: Dr. Rodriguez on 12-03-2022 Creatinine [Mass/Vol] 0.81 mg/dL 0.70-1.30 [facility] Comment on above: The validity of the calculated GFR & GFRAA in patients over 70 years has not been determined. Clinical correlation is essential. Serum or plasma low density lipoprotein (LDL) cholesterol measurement (mass/volume)Ordered By: Dr. Rodriguez on 12-03-2022 Cholesterol in LDL [Mass/Vol] 142 mg/dL 0-130 [facility] Serum or plasma urea nitroge n measurement (mass/volume)Ordered By: Dr. Rodriguez on 12-03-2022 Urea nitrogen [Mass/Vol] 16 mg/dL 7-18 [facility] Thin prep Papanicolaou smear with manual screeningOrdered By: Dr. Rodriguez on 12-03-2022 Thin prep Papanicolaou smear with manual screening 5 5-15 [facility] Basophil percentageon 2021 Chloride [Moles/Vol] 104 mmol/L 98-107 [facility] Work Phone: Glucose [Mass/Vol] 86 mg/dL 74-106 [facility] Work Phone: Potassium [Moles/Vol] 4.0 mmol/L 3.5-5.1 [facility] Work Phone: Sodium [Moles/Vol] 139 mmol/L 136-145 [facility] Work Phone: WBC (Bld) [#/Vol] 5.8 10*3/uL 4.4-11.0 [facility] Work Phone: Blood erythrocytes count (nu mber/volume)on 02-05-2022 RBC (Bld) [#/Vol] 4.75 10*6/uL 4.6-6.2 [facility] Work Phone: Blood hemoglobin measurement (mass/volume)on 02-05-2022 Hemoglobin (Bld) [Mass/Vol] 14.7 g/dL 13.0-16.5 [facility] Work Phone: Blood platelet mean volumeon 02-05-2022 Platelet mean volume (Bld) [Entitic vol] 9.6 fL 6.2-12.0 [facility] Work Phone: Determination of erythrocyte mean corpuscular volume (MCV)on 02-05-2022 MCV (RBC) [Entitic vol] 92.4 fL 80-94 [facility] Work Phone: Hematocrit Auto (Bld) [Volum e fraction]on 02-05-2022 Hematocrit (Bld) [Volume fraction] 43.9 % 40-54 [facility] Work Phone: Laboratory - Chemistry and C hemistry - challengeon 02-05-2022 CO2 [Moles/Vol] 31.0 mmol/L 21.0-32.0 [facility] Work Phone: Free T4 [Mass/Vol] 1.05 ng/dL 0.76-1.46 [facility] Work Phone: Magnesium [Mass/Vol] 1.9 mg/dL 1.6-2.[address] [facility] [address] [facility] Work Phone: Urea nitrogen/Creatinine [Mass ratio] 16.5 mg/mg 10-20 [facility] Work Phone: Laboratory - Hematology and Cell countson 02-05-2022 Erythrocyte distribution width (RBC) [Entitic vol] 43.4 fL 35.1-43.9 [facility] Work Phone: Erythrocyte distribution width (RBC) [Ratio] 12.7 % 11.6-14.6 [facility] Work Phone: MCH (RBC) [Entitic mass] 30.9 pg 27.0-32.0 [facility] Work Phone: MCHC Auto (RBC) [Mass/Vol]on 02-05-2022 MCHC (RBC) [Mass/Vol] 33.5 g/dL 32-36 [facility] Work Phone: No Panel Informationon 02-05 Estimated GFR (MDRD) Amer 114 mL/min >60 [facility] Work Phone: Comment on above: GFR Calc Estimated GFR (MDRD) Non-Af Amer 94 mL/min >60 [facility] Work Phone: Comment on above: Non- GFR Calc Thyroid Stimulating Hormone (TSH) 1.27 uIU/mL 0.358-3.74 [facility] Work Phone: Platelets bldon 02-05-2022 Platelets (Bld) [#/Vol] 315 10*3/uL 150-450 [facility] Work Phone: Serum or plasma calcium beatriz urement (mass/volume)on 02-05-2022 Calcium [Mass/Vol] 9.4 mg/dL 8.5-10.1 [facility] Work Phone: Serum or plasma creatinine m easurement (mass/volume)on 02-05-2022 Creatinine [Mass/Vol] 0.91 mg/dL 0.70-1.30 [facility] Work Phone: Comment on above: The validity of the calculated GFR & GFRAA in patients over 70 years has not been determined. Clinical correlation is essential. Serum or plasma urea nitroge n measurement (mass/volume)on 02-05-2022 Urea nitrogen [Mass/Vol] 15 mg/dL 7-18 [facility] Work Phone: Thin prep Papanicolaou smear with manual screeningon 02-05-2022 Thin prep Papanicolaou smear with manual screening 4 5-15 [facility] Work Phone: Culture, urineon 01-04-2022 Bacteria identified Cx Nom (U) Culture exhibits no growth. [facility] Work Phone: Laboratory - Chemistry and C hemistry - challengeon 01-04-2022 Free T4 [Mass/Vol] 1.13 ng/dL 0.76-1.46 [facility] Work Phone: No Panel Informationon 01-04 Prostate Specific Antigen Screen 0.40 ng/mL 0.00-4.00 [facility] Work Phone: Comment on above: This test was perfor med using the TPSA assay method for [facility]. Values obtained with differentassay methods cannot be used interchangably.When changing PSA assays in the course of monitoring apatient, additional sequential testing should be carriedout to confirm baseline values. Thyroid Stimulating Hormone (TSH) 0.94 uIU/mL 0.358-3.74 [facility] Work Phone: Culture, urineon 12-28-2021 Bacteria identified Cx Nom (U) Culture exhibits no growth. [facility] Work Phone: Basophil percentageon 2021 Chloride [Moles/Vol] 104 mmol/L 98-107 [facility] Work Phone: Cholesterol [Mass/Vol] 154 mg/dL <200 [facility] Work Phone: Comment on above: <200 mg/dL Desirable 200-240 mg/dL Borderline >240 mg/dL High Risk Glucose [Mass/Vol] 81 mg/dL 74-106 [facility] Work Phone: Potassium [Moles/Vol] 3.9 mmol/L 3.5-5.1 [facility] Work Phone: Sodium [Moles/Vol] 140 mmol/L 136-145 [facility] Work Phone: Triglyceride [Mass/Vol] 53 mg/dL [facility] Work Phone: Comment on above: The drugs N-Acetylcy steine and Metamizole may falsely depress this assay.Serum Triglycerides Reference Interval Normal <150 mg/dL Borderline high 150 - 199 mg/dL High 200 - 499 mg/dL Very High > or = 500 mg/dL Laboratory - Chemistry and C hemistry - challengeon 09-19-2021 CO2 [Moles/Vol] 29.0 mmol/L 21.0-32.0 [facility] Work Phone: Free T4 [Mass/Vol] 1.47 ng/dL 0.76-1.46 [facility] Work Phone: Urea nitrogen/Creatinine [Mass ratio] 15.1 mg/mg 10-20 [facility] Work Phone: No Panel Informationon 09-19 Estimated GFR (MDRD) Amer 121 mL/min >60 [facility] Work Phone: Comment on above: GFR Calc Estimated GFR (MDRD) Non-Af Amer 100 mL/min >60 [facility] Work Phone: Comment on above: Non- GFR Calc Free Triiodothyronine (T3) pg/dL 2.7 pg/mL 2.18-3.98 [facility] Work Phone: Thyroid Stimulating Hormone (TSH) 0.53 uIU/mL 0.358-3.74 [facility] Work Phone: Vitamin D 25-Hydroxy 41.3 ng/mL [facility] Work Phone: Comment on above: Vitamin D 25(OH) Sta tus Range Deficiency <20 ng/mL (50nmol/L) Insufficiency 20 - 30 ng/mL (50 - 75 nmol/L) Sufficiency 30 - 100 ng/mL (75 - 250 nmol/L) Toxicity >100 ng/mL (>250 nmol/L) Serum or plasma calcium beatriz urement (mass/volume)on 09-19-2021 Calcium [Mass/Vol] 9.3 mg/dL 8.5-10.1 [facility] Work Phone: Serum or plasma cholesterol in HDL measurement (mass/volume)on 09-19-2021 Cholesterol in HDL [Mass/Vol] 53 mg/dL [facility] Work Phone: Comment on above: The drugs N-Acetylcy steine and Metamizole may falsely depress this assay. Reference Range HDL <40 mg/dL Low HDL Cholesterol HDL >or= 60 mg/dL High HDL Cholesterol Serum or plasma cholesterol in VLDL measurement (mass/volume)on 09-19-2021 Cholesterol in VLDL [Mass/Vol] 11 mg/dL 5-40 [facility] Work Phone: Serum or plasma creatinine m easurement (mass/volume)on 09-19-2021 Creatinine [Mass/Vol] 0.86 mg/dL 0.70-1.30 [facility] Work Phone: Comment on above: The validity of the calculated GFR & GFRAA in patients over 70 years has not been determined. Clinical correlation is essential. Serum or plasma low density lipoprotein (LDL) cholesterol measurement (mass/volume)on 09-19-2021 Cholesterol in LDL [Mass/Vol] 90 mg/dL 0-130 [facility] Work Phone: Serum or plasma urea nitroge n measurement (mass/volume)on 09-19-2021 Urea nitrogen [Mass/Vol] 13 mg/dL 7-18 [facility] Work Phone: Thin prep Papanicolaou smear with manual screeningon 09-19-2021 Thin prep Papanicolaou smear with manual screening 7 5-15 [facility] Work Phone: CNOVon 2021 CNOV Office Visit (NENMMN ) KEYANA LVEINE ([id number]) 1970 M Date Time Provider Department 02/12/21 1:00 PM FERNANDA MCLAUGHLIN NENMMN During your visit today, we recorded the following information about you: Pulse Blood pressure Weight Height 80/minute 124/90 108 kg 1.93 m Fernanda Mclaughlin MD 02/22/2021 6:10 PM Signed [facility] New Patient Visit Note Consultation [...] medications fo (more content not included)... Normal [facility] Celiac Scr w Reflexon 2020 IgA [Mass/Vol] 306 mg/dL Normal 70-400 [facility] Comment on above: Performed By: #### H BA1C, IFESC, MMA, B12, KLFRS, CELSCR, EVIT, B1WB, HREMOP #### [facility] [address] [address] #### VITB6 #### [facility] [address] [place], [place] [id number] Interpretation No serologic evidenc e of celiac disease. Normal No serologic evidence of celiac disease. [facility] Comment on above: Performed By: #### H BA1C, IFESC, MMA, B12, KLFRS, CELSCR, EVIT, B1WB, HREMOP #### [facility] [address] [address] #### VITB6 #### [facility] [address] [place] [address] Transglutaminase IgA 14 Units Normal <20 [facility] Comment on above: Result Comment: Nega tive : < 20 Units Weak Positive : 20 - 30 Units Moderate Pos to Strong Pos: >30 Units The following results were obtained with the Sqrrl QUANTA Lite h-tTG IgA KATELYN. h-tTG IgA values obtained with different manufacturers' assay methods may not be used interchangeably. The magnitude of the reported IgA levels cannot be correlated to an endpoint titer. Performed By: #### H BA1C, IFESC, MMA, B12, KLFRS, CELSCR, EVIT, B1WB, HREMOP #### [place] [phone] #### VITB6 #### [address] [address] Hemoglobin A1con 2021 Glucose [Mass/Vol] 114 mg/dL Normal [facility] Comment on above: Result Comment: eAG: (Estimated average glucose) is a calculated value from HgbA1c and is account retention representative of the average blood glucose level in the last 2-3 month period. Performed By: #### H BA1C, IFESC, MMA, B12, KLFRS, CELSCR, EVIT, B1WB, HREMOP #### [place] [phone] #### VITB6 #### [address] [address] HbA1c (Bld) [Mass fraction] 5.6 % Normal 4.3-5.6 [facility] Comment on above: Result Comment: Amer [place] Diabetes Association guidelines indicate that patients with HgbA1c in the range 5.7-6.4% are at increased risk for development of diabetes, and intervention by lifestyle modification may be beneficial. HgbA1c greater or equal to 6.5% is considered diagnostic of diabetes. Performed By: #### H BA1C, IFESC, MMA, B12, KLFRS, CELSCR, EVIT, B1WB, HREMOP #### [place] [address] #### VITB6 #### [facility] [address] [place] [address] Hepatitis Remote Panelon HBsAg Negative Normal Negative [facility] Comment on above: Performed By: #### H BA1C, IFESC, MMA, B12, KLFRS, CELSCR, EVIT, B1WB, HREMOP #### [place] [phone] #### VITB6 #### [facility] [place] [phone] Hep B Core Ab,Total Negative Normal Negative [facility] Comment on above: Performed By: #### H BA1C, IFESC, MMA, B12, KLFRS, CELSCR, EVIT, B1WB, HREMOP #### [place] [phone] #### VITB6 #### [facility] [place] [phone] Hepatitis C Ab IA Negative Normal Negative [facility] Comment on above: Performed By: #### H BA1C, IFESC, MMA, B12, KLFRS, CELSCR, EVIT, B1WB, HREMOP #### [place] [phone] #### VITB6 #### [facility], Located Within [facility] [address] [phone] HepB Surface Ab,Qual Positive Critically abnormal Negative [facility] Comment on above: Result Comment: Thes e results are consistent with previous exposure and/or immunity to the hepatitis B virus antigen. Performed By: #### H BA1C, IFESC, MMA, B12, KLFRS, CELSCR, EVIT, B1WB, HREMOP #### [place] [phone] #### VITB6 #### [address] [address] AYLA Screen, Serumon 02-13-20 21 MPA Result No M protein is identified. Normal No M protein is identified. [facility] Comment on above: Performed By: #### H BA1C, IFESC, MMA, B12, KLFRS, CELSCR, EVIT, B1WB, HREMOP #### [place] [phone] #### VITB6 #### [address] [address] Staff Review Reviewed by Sam Harding MD PhD ([id number]) Normal [facility] Comment on above: Performed By: #### H BA1C, IFESC, MMA, B12, KLFRS, CELSCR, EVIT, B1WB, HREMOP #### [place] [phone] #### VITB6 #### [address] [address] El Adobe/Cuellar,Free,Seron 2020 K/L Ratio, Serum 0.99 Normal 0.26-1.65 [facility] Comment on above: Performed By: #### H BA1C, IFESC, MMA, B12, KLFRS, CELSCR, EVIT, B1WB, HREMOP #### [place] [phone] #### VITB6 #### [address] [address] [place] Adobe, Free, Serum 13.5 mg/L Normal 3.30-19.40 [facility] Comment on above: Result Comment: Test performed by an immunoturbidimetric assay on Reach.lyte instrument from [facility]. Immunoglobulin free light chain assay results should be interpreted in conjunction with other tests and in correlation with clinical picture. Performed By: #### H BA1C, IFESC, MMA, B12, KLFRS, CELSCR, EVIT, B1WB, HREMOP #### [facility] [address] [address] #### VITB6 #### [facility] [address] [place] [address] Lambda, Free, Serum 13.7 mg/L Normal 5.7-26.3 [facility] Comment on above: Result Comment: Test performed by an immunoturbidimetric assay on Figure 8 Surgicallite instrument from [facility]. Immunoglobulin free light chain assay results should be interpreted in conjunction with other tests and in correlation with clinical picture. Performed By: #### H BA1C, IFESC, MMA, B12, KLFRS, CELSCR, EVIT, B1WB, HREMOP #### [facility] [address] [address] #### VITB6 #### [facility] [address] [place] [address] Methylmalonic Acidon 021 Methylmalonic Acid 206 nmol/L Normal 79-376 [facility] Comment on above: Result Comment: This test was developed and its performance characteristics determined by [facility]'s Earle Kang [facility] [place] ([facility]). It has not been cleared or approved by the FDA. [facility] is regulated under CLIA as qualified to perform high complexity testing. This test is used for clinical purposes. It should not be regarded as investigational or for research. Performed By: #### H BA1C, IFESC, MMA, B12, KLFRS, CELSCR, EVIT, B1WB, HREMOP ####[facility] [place] [facility] [id number] [place], [place] [phone]#### VITB6 ####[facility] [id number] [place], [place] [phone] Vitamin B1, Whole Blon 02-12 Vitamin B1 (TDP), WB 225.6 nmol/L High 84.0-213.0 [facility] Comment on above: Result Comment: This assay measures the concentration of thiamine diphosphate (TDP), the primary active form of vitamin B1. Approximately 90 percent of vitamin B1 present in whole blood is TDP. Thiamine and thiamine monophosphate, which comprise the remaining 10 percent, are not measured. This test was developed and its performance characteristics determined by [facility] [place] [facility]'s Earle Lau [facility] [place] ([facility]). It has not been cleared or approved by the FDA. [facility] is regulated under CLIA as qualified to perform high complexity testing. This test is used for clinical purposes. It should not be regarded as investigational or for research. Performed By: #### H BA1C, IFESC, MMA, B12, KLFRS, CELSCR, EVIT, B1WB, HREMOP #### [place] [phone] #### VITB6 #### [address] [address] Vitamin B12on 2021 Cobalamin (Vitamin B12) [Mass/Vol] 791 pg/mL Normal 232-1245 [facility] Comment on above: Performed By: #### H BA1C, IFESC, MMA, B12, KLFRS, CELSCR, EVIT, B1WB, HREMOP #### [place] [phone] #### VITB6 #### [address] [address] Vitamin B6 Plasmaon 02-13-20 21 Vitamin B6 Plasma 445.8 nmol/L High 20.0-125.0 [facility] Comment on above: Result Comment: (NOT E) INTERPRETIVE INFORMATION: Vitamin B6 (Pyridoxal 5-Phosphate) Pyridoxal 5'-phosphate measured in a specimen collected following an 8-hour or overnight fast accurately indicates vitamin B6 nutritional status. Non-fasting specimen concentration reflects recent vitamin intake. This test was developed and its performance characteristics determined by [employer]. It has not been cleared or approved by the [place] Food and Drug Administration. This test was performed in a CLIA certified laboratory and is intended for clinical purposes. Performed By: [facility] [address] [place] [address] Application Operations Engineer: Zhanna Mcnair MD Performed By: #### H BA1C, IFESC, MMA, B12, KLFRS, CELSCR, EVIT, B1WB, HREMOP ####[facility] [id number] [place], [place] [phone]#### VITB6 ####[facility] [id number] [place], [place] [phone] Vitamin Felix 2021 Vitamin E-alpha 12.1 mg/L Normal 6.0-23.0 [facility] Comment on above: Performed By: #### H BA1C, IFESC, MMA, B12, KLFRS, CELSCR, EVIT, B1WB, HREMOP #### [facility] [address] [id number] #### VITB6 #### [address] [address] Vitamin E-gamma 1.5 mg/L Normal 0.3-3.2 [facility] Comment on above: Result Comment: This test was developed and its performance characteristics determined by [facility]'s Earle Jorge Luis [facility]ology [facility] [place] ( [facility]). It has not been cleared or approved by the FDA. [facility] is regulated under CLIA as qualified to perform high complexity testing. This test is used for clinical purposes. It should not be regarded as investigational or for research. Performed By: #### H BA1C, IFESC, MMA, B12, KLFRS, CELSCR, EVIT, B1WB, HREMOP #### [facility] [address] [address] #### VITB6 #### [facility] [address] [place] [address] Office Visit: Spine Visit- R sided low back liliana non 03-28-2017 Documentation of current medications (procedure) Done Invalid Interpretation Code [facility] Work Phone: Protein mass conc Done [facility] Work Phone: Office Visit: Spine Visiton 06-28-2016 Tobacco smoking status NHIS Never [facility] Work Phone: Tobacco smoking status NHIS Never smoker [facility] Work Phone: Tobacco use [facility] Never smoker Invalid Interpretation Code [facility] Work Phone: Culture, urine Bacteria identified Cx Nom (U) Culture exhibits no growth. [facility] Work Phone: Vital Signs Date Time Vital Sign Value Performing Clinician Faci lity 03-22-2025 09:07-0400 Body mass index (BMI) [Ratio] 29.4 kg/m2 Dr. Tee Rodriguez MD Work Phone: [facility] 03-22-2025 09:07-0400 Body temperature 97.6 [degF] Dr. Tee Rodriguez MD Work Phone: [facility] 03-22-2025 09:07-0400 Body weight 109.[address] Tee Rodriguez MD Work Phone: [facility] 03-22-2025 09:07-0400 Diastolic blood pressure 78 mm[Hg] Dr. Tee Rodriguez MD Work Phone: [facility] 03-22-2025 09:07-0400 Heart rate 78 /min Dr. Tee Rodriguez MD Work Phone: [facility] 03-22-2025 09:07-0400 Respiratory rate 18 /min Dr. Tee Rodriguez MD Work Phone: [facility] 03-22-2025 09:07-0400 SaO2% (BldA) [Mass fraction] 95 % Dr. Tee Rodriguez MD Work Phone: [facility] 03-22-2025 09:07-0400 Systolic blood pressure 110 mm[Hg] Dr. Tee Rodriguez MD Work Phone: [facility] 03-17-2023 07:51-0400 Body height 193.[address] Yunior Rodriguez Work Phone: [phone] [place] [address] 03-17-2023 07:51-0400 Body mass index (BMI) [Ratio] 27 kg/m2 Dr. Yunior Rodriguez Work Phone: [phone] [place] [address] 03-17-2023 07:51-0400 Body temperature 97.5 [degF] Dr. Yunior Rodriguez Work Phone: [phone] [place] [address] 03-17-2023 07:51-0400 Body weight 100.[address] Yunior Rodriguez Work Phone: [phone] [place] [address] 03-17-2023 07:51-0400 Diastolic blood pressure 83 mm[Hg] Dr. Yunior Rodriguez Work Phone: [phone] [place] [address] 03-17-2023 07:51-0400 Heart rate 70 /min Dr. Yunior Rodriguez Work Phone: [phone] [place] [address] 03-17-2023 07:51-0400 Respiratory rate 18 /min Dr. Yunior Rodriguez Work Phone: 3(296)[phone] [place] [address] 03-17-2023 07:51-0400 SaO2% (BldA) [Mass fraction] 98 % Dr. Yunior Rodriguez Work Phone: [phone] [place] [address] 03-17-2023 07:51-0400 Systolic blood pressure 117 mm[Hg] Dr. Yunior Rodriguez Work Phone: [phone] [place] [address] 02-04-2023 09:26-0400 Body height 193.[address] Yunior Rodriguez Work Phone: 8([phone] [place] [address] 02-04-2023 09:26-0400 Body mass index (BMI) [Ratio] 27.3 kg/m2 Dr. Yunior Rodriguez Work Phone: 8(209)[phone] [place] [address] 02-04-2023 09:26-0400 Body temperature 98.4 [degF] Dr. Yunior Rodriguez Work Phone: [facility] 02-04-2023 09:26-0400 Body weight 102.[address] Yunior Rodriguez Work Phone: [facility] 02-04-2023 09:26-0400 Diastolic blood pressure 80 mm[Hg] Dr. Yunior Rodriguez Work Phone: [facility] 02-04-2023 09:26-0400 Heart rate 69 /min Dr. Yunior Rodriguez Work Phone: [facility] 02-04-2023 09:26-0400 Respiratory rate 18 /min Dr. Yunior Rodriguez Work Phone: [facility] 02-04-2023 09:26-0400 SaO2% (BldA) [Mass fraction] 96 % Dr. Yunior Rodriguez Work Phone: [facility] 02-04-2023 09:26-0400 Systolic blood pressure 122 mm[Hg] Dr. Yunior Rodriguez Work Phone: [facility] 11-24-2022 10:47-0400 Body height 193.[address] Yunior Rodriguez Work Phone: [facility] 11-24-2022 10:40-0400 Body mass index (BMI) [Ratio] 27.2 kg/m2 Dr. Yunior Rodriguez Work Phone: [facility] 11-24-2022 10:40-0400 Body temperature 97.6 [degF] Dr. Yunior Rodriguez Work Phone: [facility] 11-24-2022 10:40-0400 Body weight 101.[address] Yunior Rodriguez Work Phone: [facility] 11-24-2022 10:40-0400 Diastolic blood pressure 87 mm[Hg] Dr. Yunior Rodriguez Work Phone: [facility] 11-24-2022 10:40-0400 Heart rate 80 /min Dr. Yunior Rodriguez Work Phone: [facility] 11-24-2022 10:40-0400 Respiratory rate 18 /min Dr. Yunior Rodriguez Work Phone: [facility] 11-24-2022 10:40-0400 SaO2% (BldA) [Mass fraction] 98 % Dr. Yunior Rodriguez Work Phone: [facility] 11-24-2022 10:40-0400 Systolic blood pressure 133 mm[Hg] Dr. Yunior Rodriguez Work Phone: [facility] 11-20-2021 14:13-0400 Body height 193.[address] Yunior Rodriguez Work Phone: [facility] Work Phone: 11-20-2021 14:13-0400 Body mass index (BMI) [Ratio] 25.7 kg/m2 Dr. Yunior Rodriguez Work Phone: [facility] Work Phone: 11-20-2021 14:13-0400 Body temperature 97.7 [degF] Dr. Yunior Rodriguez Work Phone: [facility] Work Phone: 11-20-2021 14:13-0400 Body weight 95.[address] Yunior Rodriguez Work Phone: [facility] Work Phone: 11-20-2021 14:13-0400 Diastolic blood pressure 79 mm[Hg] Dr. Yunior Rodriguez Work Phone: [facility] Work Phone: 11-20-2021 14:13-0400 Heart rate 65 /min Dr. Yunior Rodriguez Work Phone: [facility] Work Phone: 11-20-2021 14:13-0400 Respiratory rate 18 /min Dr. Yunior Rodriguez Work Phone: [facility] Work Phone: 11-20-2021 14:13-0400 SaO2% (BldA) [Mass fraction] 97 % Dr. Yunior Rodriguez Work Phone: [facility] Work Phone: 11-20-2021 14:13-0400 Systolic blood pressure 108 mm[Hg] Dr. Yunior Rodriguez Work Phone: [facility] Work Phone: 11-20-2021 14:13-0400 Body height 193.[address] Yunior Rodriguez Work Phone: [facility] Work Phone: 11-20-2021 14:13-0400 Body mass index (BMI) [Ratio] 25.7 kg/m2 Dr. Yunior Rodriguez Work Phone: [facility] Work Phone: 11-20-2021 14:13-0400 Body temperature 97.7 [degF] Dr. Yunior Rodriguez Work Phone: [facility] Work Phone: 11-20-2021 14:13-0400 Body weight 95.[address] Yunior Rodriguez Work Phone: [facility] Work Phone: 11-20-2021 14:13-0400 Diastolic blood pressure 79 mm[Hg] Dr. Yunior Rodriguez Work Phone: [facility] Work Phone: 11-20-2021 14:13-0400 Heart rate 65 /min Dr. Yunior Rodrigeuz Work Phone: [facility] Work Phone: 11-20-2021 14:13-0400 Respiratory rate 18 /min Dr. Yunior Rodriguez Work Phone: [facility] Work Phone: 11-20-2021 14:13-0400 SaO2% (BldA) [Mass fraction] 97 % Dr. Yunior Rodriguez Work Phone: [facility] Work Phone: 11-20-2021 14:13-0400 Systolic blood pressure 108 mm[Hg] Dr. Yunior Rodriguez Work Phone: [facility] Work Phone: 10-20-2021 12:54-0500 Body mass index (BMI) [Ratio] 26.2 kg/m2 Dr. Yunior Rodriguez Work Phone: [facility] Work Phone: 10-20-2021 12:54-0500 Body temperature 97.3 [degF] Dr. Yunior Rodriguez Work Phone: [facility] Work Phone: 10-20-2021 12:54-0500 Body weight 97.[address] Yunior Rodriguez Work Phone: [facility] Work Phone: 10-20-2021 12:54-0500 Diastolic blood pressure 81 mm[Hg] Dr. Yunior Rodriguez Work Phone: [facility] Work Phone: 10-20-2021 12:54-0500 Heart rate 76 /min Dr. Yunior Rodriguez Work Phone: [facility] Work Phone: 10-20-2021 12:54-0500 Respiratory rate 16 /min Dr. Yunior Rodriguez Work Phone: [facility] Work Phone: 10-20-2021 12:54-0500 SaO2% (BldA) [Mass fraction] 98 % Dr. Yunior Rodriguez Work Phone: [facility] Work Phone: 10-20-2021 12:54-0500 Systolic blood pressure 113 mm[Hg] Dr. Yunior Rodriguez Work Phone: [facility] Work Phone: 10-08-2021 14:04-0500 Diastolic blood pressure 86 mm[Hg] Dr. Yunior Rodriguez Work Phone: [facility] Work Phone: 10-08-2021 14:04-0500 Heart rate 84 /min Dr. Yunior Rodriguez Work Phone: [facility] Work Phone: 10-08-2021 14:04-0500 SaO2% (BldA) [Mass fraction] 95 % Dr. Yunior Rodriguez Work Phone: [facility] Work Phone: 10-08-2021 14:04-0500 Systolic blood pressure 128 mm[Hg] Dr. Yunior Rodriguez Work Phone: [facility] Work Phone: 10-08-2019 14:09-0500 Body mass index (BMI) [Ratio] 27.2 kg/m2 Dr. Yunior Rodriguez Work Phone: [facility] Work Phone: 06-28-2016 16:24-0400 BMI (Body Mass Index) 28.74 kg/m2 Caroaron Snider DC [facility] Work Phone: 06-28-2016 16:24-0400 BP Diastolic 45 mm[Hg] Caro Dossi DC [facility] Work Phone: 06-28-2016 16:24-0400 BP Systolic 125 mm[Hg] Caro Dossi DC [facility] Work Phone: 06-28-2016 16:24-0400 Weight 104.33 kg Caro Dossi DC [facility] Work Phone: 06-28-2016 16:19-0400 Height 190.5 cm Caro Dossi DC [facility] Work Phone: Encounters Encounter Date Encounter Type Care Provider Facility Start: 03-27-2025 ambulatory Tee Young lity:[facility] Start: 03-27-2025 Non-patient / Non-visit Dr. Venancio Clements MD -[facility] Start: 03-26-[address] Tee Rodriguez MD -[facility] Work Phone: Start: 03-26-2025 ambulatory Tee Young lity:[facility] Start: 03-25-2025 End: 03-25-[address] Tee Rodriguez MD Work Phone: -[facility] Start: 03-25-2025 End: 03-25-2025 Patient encounter procedure Karen LOZANO -[facility] Work Phone: Start: 03-25-2025 End: 03-25-2025 ambulatory Karen Romano Facility:[facility] Start: 03-22-2025 End: 03-22-2025 Patient encounter procedure Mayela BALDWIN -[facility] Work Phone: Start: 03-22-2025 End: 03-22-[address] Tee Rodriguez MD Work Phone: -[facility] Start: 02-28-2025 End: 02-28-[address] Tee Rodriguez MD Work Phone: -[facility] [place] Start: 02-28-2025 End: 02-28-[address] Tee Rodriguez MD -[facility] [place] Work Phone: Start: 02-28-2025 End: 02-28-2025 ambulatory Tee Rodriguez Facility:[facility] Start: 11-07-2024 End: 11-07-[address] Tee Rodriguez MD Work Phone: [facility] Work Phone: Start: 11-07-2024 End: 11-07-2024 Patient encounter procedure Karen LOZANO -[facility], [place] Work Phone: Start: 11-07-2024 End: 11-07-2024 ambulatory Karen Romano Facility:[facility] Start: 09-19-2024 End: 09-19-2024 Patient encounter procedure Kaern Romano [place] -[facility] Work Phone: Start: 09-19-2024 End: 09-19-2024 ambulatory Karen Romano Facility:[facility] Start: 08-06-2024 End: 08-06-[address] Tee Rodriguez MD -[facility] Work Phone: Start: 08-06-2024 End: 08-06-2024 ambulatory Tee Rodriguez Facility:[facility] Start: 07-10-2024 End: 07-10-2024 ambulatory Tee Rodriguez Facility:[facility] Start: 06-27-2023 End: 06-27-[address] Yunior Rodriguez Work Phone: [facility] Work Phone: Start: 06-27-2023 End: 06-27-[address] Yunior Rodriguez Work Phone: [facility] Start: 04-07-2023 End: 04-07-[address] Yunior Rodriguez Work Phone: [facility] Work Phone: Start: 04-07-2023 End: 04-07-[address] Yunior Rodriguez Work Phone: [facility] Start: 03-30-2023 End: 03-30-[address] Yunior Rodriguez Work Phone: [facility] Work Phone: Start: 03-30-2023 End: 03-30-[address] Yunior Rodriguez Work Phone: [facility] Start: 03-17-2023 End: 03-17-[address] [facility] Work Phone: Start: 02-09-[address] Mayco Rodriguez Work Phone: [facility]-Occupational Therapy Work Phone: Start: 02-04-2023 End: 02-04-[address] [facility] Work Phone: Start: 01-21-2023 End: 01-21-[address] Yunior Rodriguez Work Phone: [facility] Work Phone: Start: 01-21-2023 End: 01-21-[address] Yunior Rodriguez Work Phone: [facility] Start: 01-11-2023 End: 01-11-[address] Yunior Rodriguez Work Phone: [facility]-Sleep Lab Work Phone: Start: 12-03-2022 End: 12-03-[address] Yunior Rodriguez Work Phone: [facility] Work Phone: Start: 12-03-2022 End: 12-03-[address] Yunior Rodriguez Work Phone: [facility] Start: 11-24-2022 End: 11-24-[address] [facility] Start: 03-04-2022 End: 03-04-[address] Yunior Rodriguez Work Phone: [facility]-Pulmonary Services/Neurology Start: 02-05-2022 End: 02-05-[address] Yunior Rodriguez Work Phone: [facility]-Laboratory Start: 01-05-2022 End: 01-05-[address] Yunior Rodriguez Work Phone: [facility]-Sleep Lab Start: 01-04-2022 End: 01-04-[address] [facility] [place] Start: 12-28-2021 End: 12-28-[address] [facility] Start: 11-20-2021 End: 11-20-[address] [facility] Start: 10-20-2021 End: 10-20-[address] [facility] Start: 10-08-2021 End: 10-08-[address] Yunior Rodriguez Work Phone: [facility] Neurology Start: 09-30-2021 End: 09-30-[address] Yunior Rodriguez Work Phone: [facility]-Massage Therapy, [facility] Start: 09-19-2021 End: 09-19-[address] Yunior Rodriguez Work Phone: [facility]-Laboratory Procedures Date Procedure Procedure Detail Performing Clinician [...] Activity Detail Author Start: 11-20-2021 Patient referral [facility] Work Phone: Start: 03-28-2017 End: 03-28-2017 Appointment [facility] Work Phone: Patient referral [facility] Work Phone: Polysomn[facility] Payers Date Payer Category Payer Self-pay 0 2024 Self-pay [id number] 2013 Unknown [id number] Unknown [id number] 2.16.8 [id number] Unknown [id number] 2.16.8 [id number] Unknown [id number] 2.16.8 [id number] Unknown [id number] 2.16.8 [id number] Unknown [id number] 2.16.8 [id number] Unknown [id number] 2.16.8 [id number] Unknown [id number] 2.16.8 [id number] Unknown [id number] 2.16.8 [id number] Unknown [id number] 2.16.8 [id number] Social History Date Type Detail Facility Start: 11-20-2021 End: 03-17-2023 Tobacco smoking status NHIS Unknown if ever smoked [facility] Start: 1970 Sex Assigned At Male [facility] Start: 12-01-2023 Tobacco smoking stat us MEIS Never smoked tobacco (finding) [facility] Start: 11-16-2024 Sex Male (finding) [facility] Goals Date Patient Goal Desired Activity /State Clinical Notes 2021 to 03-22-2025 Note Date & Type Note Facility 03-22-2025 Evaluation note Diagnosis Onset Date Resolution Sleep apnea chronic March 22 1:03pm [facility] Work Phone: 1([phone]) 925-160110-22-2021 NoteHNO ID: [id number] Author: Fernanda Mclaughlin MD Service: ? Author Type: Physician Type: Progress Notes Filed: 06/21/2021 3:56 PM Note Text: ESTABLISHED PATIENT DISTANCE HEALTH VISIT (COVID-19 pandemic-related contingency encounter format)- Encounter completed via virtual visit (audio and video) using [employer]-based Zoom software* *(special provision to allow the use of this under the current pandemic circumstances per [place] Department of Health and Human Services- https://www.[facility].gov/sites/default/files/xtxknulcuc-ziqb-704.pdf) Provider location during distance health encounter: [facility]/S[facility] Patient location during distance health [...] disease. No serologic evidence of celiac disease. El Adobe Free, Serum 3.30 - 19.40 mg/L 13.5 Lambda Free, Serum 5.7 - 26.3 mg/L 13.7 K/L Ratio, Serum 0.26 - 1.65 0.99 Vitamin E-alpha 6.0 - 23.0 mg/L 12.1 Vitamin E-gamma 0.3 - 3.2 mg/L 1.5 MPA Result No M protein is identified. No M protein is identified. Staff Review (RUST) Reviewed by Bibiana Harding MD PhD ([id number]) Hemoglobin A1C 4.3 - 5.6 % 5.6 [...] with a relatively unremarkable PMHx following up ([facility] 2021) RE: persistent/progressive numbness and paresthesia in [...] extraneous B6 intake (and ergonomic measures) since [facility]. ? PLAN/RECOMMENDATIONS: - The impression above as well as the plan as outlined below were extensively discussed with the (more content not included)...[facility]06-23-2021 NoteProcedure (NENMMN) KEYANA LEVINE ([id number]) 1970 M Date Time Provider Department 02/18/21 1:45 PM SKIN BIOPSY NEINMN During your visit today, we recorded the following information about you: Keisha Wellington APRN.[facility] 02/18/2021 2:11 PM Signed Skin Biopsy Procedure Note Skin Biopsy Accession Number: [id number] Biopsy Date: 02/18/2021 Referring physician: Fernanda Mclaughlin [...] Procedure Note Procedure confirmed with provider and bilingual patient support caseworker. Yes, left leg 2 skin biopsies. The [...] home. Specimens were labeled and sent to [facility] Cutaneous Nerve Laboratory. Procedure was performed by: Keisha Wellington APRN.MECHANICAL PROCESS ENGINEER Assistance in supply/equipment preparation performed by: Clarke Mascorro MA Sign out is complete. Referring Provider: FERNANDA MCLAUGHLIN [[id number]] Allergies As of Date: 02/18/2021 Noted Allergy Reaction AMOXICILLIN 2021 2 - Rash Date Reviewed: 02/18/2021 Reviewed by: Keisha Wellington APRN.MECHANICAL PROCESS ENGINEER - Fully Assessed Primary Visit Diagnosis:Small fiber neuropathy [G62.9] Prescriptions as of 03/06/2021 - SYNTHROID 137 mcg tablet Take 1 tablet by mouth once daily. - Cholecalciferol, Vitamin D3, 50 mcg (2,000 unit) cap Take 1 capsule by mouth once daily. Problem List As Of Date: 02/18/2021 (None) Encounter Status:Closed by KEISHA WELLINGTON on 02/18/21[facility]06-23-2021 NoteHNO ID: [id number] Author: Keisha Wellington APRN.MECHANICAL PROCESS ENGINEER Service: ? Author Type: Nurse Practitioner Type: Progress Notes Filed: 02/18/2021 2:11 PM Note Text: Skin Biopsy Procedure Note Skin Biopsy Accession Number: [id number] Biopsy Date: 02/18/2021 Referring physician: Fernanda Mclaughlin [...] Procedure Note Procedure confirmed with provider and bilingual patient support caseworker. Yes, left leg 2 skin biopsies. The [...] home. Specimens were labeled and sent to [facility] Cutaneous Nerve Laboratory. Procedure was performed by: Keisha Wellington APRN.MECHANICAL PROCESS ENGINEER Assistance in supply/equipment preparation performed by: Clarke Mascorro MA Sign out is complete.[facility]06-17-2021 NoteHNO ID: [id number] Author: Fernanda Mclaughlin MD Service: ? Author Type: Physician Type: Progress Notes Filed: 02/22/2021 6:10 PM Note Text: [facility] New Patient Visit Note Consultation [...] Topics - Alcohol u (more content not included)...[facility] Diagnosis Onset Date Resolution Status Polyneuropathy acute Rhinitis medicamentosa acute Sleep apnea acute Deviated septum acute Rhinitis medicamentosa acute Sleep apnea acute [facility] Work Phone: Evaluation note* Diagnosis Onset Date Resolution Status Rhinitis medicamentosa acute Sleep apnea acute Deviated septum acute Rhinitis medicamentosa acute Sleep apnea acute [facility] Work Phone: Evaluation note* Diagnosis Onset Date Resolution Status Deviated septum acute Rhinitis medicamentosa acute Sleep apnea [facility] Work Phone: Evaluation note* Diagnosis Onset Date Resolution Status Sleep apnea acute [facility] Work Phone: Evaluation note* Diagnosis Onset Date Resolution Status Sleep apnea acute Sleep apnea acute [facility] Work Phone: Evaluation note* Diagnosis Onset Date Resolution Status Sleep apnea chronic Sleep apnea chronic [facility] Work Phone: Evaluation note* Diagnosis Onset Date Resolution Status Sleep apnea chronic [facility] Work Phone: Evaluation noteNo assessment information available [facility] Work Phone: [facility] Work Phone: Reason for referral (narrative)No reason for referral information availableA[facility]c [facility] Work Phone: Summary Purpose Family History No [...] section and content) DATE CREATED AUTHOR 09/30/2021 [facility] DATE CREATED AUTHOR AUTHOR'S ORGANIZ ATION 04/01/2025 [facility] Care Teams (unrecognized sec tion [...] Provider, Refe rring Provider Active Mayela Lomax HOSPITAL FOOD SERVICE WORKER, HOSPITAL FOOD SERVICE WORKER-C Attending Provider Active Team Status: Inactive Member [...] Rodriguez MD Referring Provider Active Mayela Lomax HOSPITAL FOOD SERVICE WORKER, HOSPITAL FOOD SERVICE WORKER-C Attending Provider Active Team Status: Active Member [...] End: March 22, 2025 Mayela Lomax NP, HOSPITAL FOOD SERVICE WORKER-C Attending Provider Active Start: March 22, 2025 [...] ve Start: March 27, 2025 Dr. Tee Rodriguez MD Referring Provider Active Start: March 27, [...] BE BASED ON THE PRIMARY CLINICAL RECORDS. [facility] [employer] [facility]. provides no warranty or guarantee of the accuracy or completeness of information in this document.
[2025-04-04 12:26] LABS: Hematocrit 45.5 % (40-54); Hemoglobin 15.1 g/dL (13.0-16.5); Immature Granulocytes Count 0.020 X10^3/uL (0.0-0.0); Mean Corp Hgb Conc 33.2 g/dL (32-36); Mean Corpuscular Volume 92.3 fL (80-94); Mean Platelet Vol. 10.0 fl (6.2-12.0); NRBC Flagged by Analyzer 0 % (0-5); Platelet Count 348 K/mm3 (150-450); RBC Distribution Width CV 12.4 % (11.6-14.6); RBC Distribution Width SD 42.1 fl (35.1-43.9); Red Blood Count 4.93 M/mm3 (4.6-6.2); White Blood Count 5.5 K/mm3 (4.4-11.0)
[2025-04-04 13:03] LABS: CRP < 3.00 mg/L (0.0-3.0)
[2025-04-05 18:08] LABS: Immunoglobulin A 350 mg/dL (90-386)
== END | disposition home or self-care (01) ==
LOC: MTLAB 09:39
PROVIDERS: PCP Family Medicine; Referring Provider Family Medicine; Visit Provider Family Medicine
DX: R10.9 Unspecified abdominal pain (principal)
CPT/HCPCS: 36415; 74019; 82784; 83516; 85025; 85652; 86140; 86255

== ENCOUNTER → 2025-07-16 | Outpatient (CLI) | payer OTHER, SELFPAY ==
--- OUTSIDE RECORDS SUMMARY | 2025-07-16 19:11 | XMS RPT_ITS | CCD ---
Author Organization [facility] Care Team Providers Care Professional Engineer Name Role Phone Dossi Caro WU Unavailable Dr. Yunior Rodriguez Primary Care Provider [phone] Dr. Yunior Rodriguez Referring Provider Dr. Jamel Guzman Attending Provider Dr. Bubba Moreira Attending Provider [phone] Dami TEXTILE COLORIST FORMULATOR, TEXTILE COLORIST FORMULATOR-C Mayela Attending Provider Dr. Yunior Rodriguez Primary Care Provider [phone] Dr. Yunior Rodriguez Referring Provider Dr. Yunior Rodriguez Primary Care Provider [phone] Dr. Yunior Rodriguez Referring Provider Dr. Yunior Rodriguez Primary Care Provider [phone] Dr. Yunior Rodriguez Referring Provider Dr. Bubba Moreira Attending Provider Dami IZQUIERDO, TEXTILE COLORIST FORMULATOR-C Mayela Attending Provider [phone] Dr. Yunior Rodriguez Primary Care Provider Dr. Yunior Rodriguez Referring Provider Dr. Yunior Rodriguez Referring Provider Dami TEXTILE COLORIST FORMULATOR, TEXTILE COLORIST FORMULATOR-C Mayela Attending Provider [phone] Dr. Tee Rodriguez MD Primary Care Provider Dr. Tee Rodriguez MD Attending Provider Jennifer MENCHACA, Dr. Oliveira Referring Provider Juan Antonio PA, Karen Attending Provider Romano PA, Karen Referring Provider [phone] Jennifer MENCHACA, Dr. Oliveira Primary Care Provider Juan Antonio PA, Karen Attending Provider [phone] Juan Antonio PA, Karen Referring Provider [phone] Jennifer MENCHACA, Dr. Oliveiar Attending Provider [phone] Jennifer MENCHACA, Dr. Oliveira Referring Provider Jennifer MENCHACA, Dr. Oliveira Primary Care Provider Dami TEXTILE COLORIST FORMULATOR-C, Mayela Attending Provider Juan Antonio PA, Karen Attending Provider Juan Antonio PA, Karen Referring Provider Jennifer MENCHACA, Dr. Oliveira Other Provider Tyree MENCHACA, Dr. Craft Attending Provider [phone] Mickey Pond Attending Unavailable Ranney, Christopher Primary Care Unavailable Ranney, Christopher Primary Care Unavailable Ranney, Christopher Attending Unavailable Ranney, Christopher Referring Unavailable Romano, Karen Referring Unavailable Ranney, Christopher Primary Care Unavailable Romano, Karen Attending Unavailable Romano, Karen Referring Unavailable Ranney, Christopher Primary Care Unavailable Romano, Karen Attending Unavailable Ranney, Christopher Primary Care Unavailable Ranney, Christopher Attending Unavailable Ranney, Christopher Referring Unavailable Ranney, Christopher Primary Care Unavailable Ranney, Christopher Attending Unavailable Ranney, Christopher Referring Unavailable Ranney, Christopher Primary Care Unavailable Romano, Karen Attending Unavailable Romano, Karen Referring Unavailable Ranney, Christopher Primary Care Unavailable Ranney, Christopher Attending Unavailable Ranney, Christopher Referring Unavailable Ranney, Christopher Primary Care Unavailable Mayela Lomax NP Attending Unavailable Ranney, Christopher Referring Unavailable Ranney, Christopher Primary Care Unavailable Venancio Clements Attending Unavailable Ranney, Christopher Consulting Unavailable Ranney, Christopher Referring Unavailable Allergies Allergy Classification Reported Allergen(s) Allergy Type Date of Onset Reaction(s) Facility (2 sources) AMOXICILLAN drug allergy 06-28-2016 [facility] Work Phone: (17 sources) Amoxicillin Drug Allergy 10-08-2021 [facility] (1 source) Amoxicillin Drug Allergy 03-22-2025 [facility] Repository Medications Current Medications Medication Drug Class(es) Dates Sig (Normalized) Sig (Original) Bilateral wrist splints for carpal tunnel syndrome (17 sources) Start: 07-21-2021 Bilateral wrist splints for carpal tunnel syndrome Active 0 .Route .MEDSUPPLY 2 July 21, 2021 4:47pm As directed Start: 07-21-2021 Bilateral wris t splints for carpal tunnel syndrome Active 0 .Route .MEDSUPPLY 2 July 21, 2021 1:00am bilateral carpal tunnel [...] 4:08pm April 07, 2021 10:54am Oral appliance (17 sources) Start: 07-15-2021 Oral appliance Active 0 [...] propionate 0.05 mg/actuat metered dose nasal spray (17 sources) Corticosteroid, Histamine-1 Receptor Antagonist Start: 11-20-2021 [...] each nostril benzonatate 200 mg oral capsule (20 sources) Non-narcotic Antitussive Start: 09-19-2023 End: 12-01-2023 [...] 10:54am Cholecalciferol (Vitamin D3) 4,000 unit capsule (6 sources) Start: 10-08-2019 End: 04-07-2021 take 1 capsule by mouth once daily Cholecalciferol (Vitamin D3) 4,000 unit capsule Discontinued 4000 U PO DAILY October 08, 2019 1:00am April 07, 2021 10:54am dexamethasone 6 mg oral tablet (11 sources) Corticosteroid Start: 07-08-2022 End: 02-04-2023 take 1 tablet by mouth once daily Dexamethasone 6 mg tablet Discontinued 6 mg PO DAILY 5 July 08, 2022 1:00am February 04, 2023 10:04am flurbiprofen 100 mg oral tablet (17 sources) Nonsteroidal Anti-inflammatory Drug Start: 07-21-2021 End: 02-04-2023 take 1 tablet by mouth three times daily as needed for pain Flurbiprofen 100 mg tablet Discontinued 100 mg PO THREE TIMES A DAY as needed for pain 90 July 21, 2021 1:00am February 04, 2023 10:04am methylPREDNISolone 4 mg oral tablet (6 sources) Corticosteroid Start: 09-19-2023 End: 12-01-2023 take 1 tablet by mouth once Methylprednisolone (Medrol (Bunny)) 4 mg tablets,dose pack Discontinued 0 PO per package directions September 19, 2023 1:00am December 01, 2023 12:57pm PO PER PKG DIR Problems Active Problems Problem Classification Problem Date Documented Da te Episodic/Chronic Abdominal pain (1 source) Unspecified abdominal pain; Translations: [Unspecified abdominal pain] Onset: 04-12-2025 Episodic Disorders of lipid metabolism (2 sources) Mixed hyperlipidemia; Translations: [Mixed hyperlipidemia] Onset: 04-22-2025 Chronic Immunizations and screening for infectious disease (11 sources) Contact with and (suspected) exposure to other viral communicable diseases; Translations: [Contact with or suspected exposure to other viral communicable disease] 11-24-2022 Episodic Malaise and fatigue (17 sources) Fatigue; Translations: [Other fatigue] 07-21-2021 Episodic Other bone disease and musculoskeletal deformities (20 sources) Segmental and somatic dysfunction; Translations: [Segmental and somatic dysfunction of lumbar region] Onset: 06-28-2016 06-28-2016 Episodic Other connective tissue disease (17 sources) Hand pain; Translations: [Pain in right hand] 07-21-2021 Episodic Other nervous system disorders (17 sources) Polyneuropathy; Translations: [Polyneuropathy, unspecified] 04-07-2021 Chronic Other nervous system disorders (4 sources) Polyneuropathy, unspecified; Translations: [Unspecified hereditary and idiopathic peripheral neuropathy] Chronic Other non-traumatic joint disorders (17 sources) Hip pain; Translations: [Pain in left hip] 07-21-2021 Episodic Other screening for suspected conditions (not mental disorders or infectious disease) (1 source) Encounter for screening for diabetes mellitus; Translations: [Encounter for screening for diabetes mellitus] Onset: 03-06-2025 Episodic Other upper respiratory disease (17 sources) Rhinitis medicamentosa; Translations: [Chronic rhinitis] 11-24-2022 Chronic Other upper respiratory disease (11 sources) Chronic rhinitis; Translations: [Chronic rhinitis] Chronic Other upper respiratory disease (17 sources) Deviated nasal septum; Translations: [Deviated nasal septum] 11-24-2022 Episodic Comment on above: Repaired February 2022 Other upper respiratory disease (6 sources) Deviated nasal septum; Translations: [Deviated nasal septum] Episodic Other upper respiratory infections (12 sources) Upper respiratory infection; Translations: [Acute upper respiratory infection, unspecified] 12-01-2023 Episodic Residual codes; unclassified (20 sources) Sleep apnea; Translations: [Sleep apnea, unspecified] 07-16-2021 Chronic Residual codes; unclassified (19 sources) Sleep apnea, unspecified; Translations: [Unspecified sleep apnea] Chronic Thyroid disorders (2 sources) Other specified hypothyroidism; Translations: [Hypothyroidism, unspecified] Onset: 09-07-2024 Chronic Viral infection (17 sources) Disease caused by 2019-nCoV; Translations: [COVID-19] 11-24-2022 Episodic Past or Other Problems Problem Classification Problem Date Documented Da te Episodic/Chronic Other bone disease and musculoskeletal deformities (3 sources) Pelvic somatic dysfunction; Translations: [Segmental and somatic dysfunction] Onset: 06-28-2016 06-28-2016 Episodic Results Test Name Value Interpretation Reference Range [facility] 10 units Normal 0-19 [facility] Comment on above: Order Comment: Order Date: 04/03/25Order Info: 0751-1 - CELAB Result Comment: Nega tive 0 - 19 Weak Positive 20 - 30 Moderate to Strong Positive >30 Performed By: #### L 3410.2350 ####[facility] [address] [place], [place], [id number] ANTIGLIADIN IGG 5 units Normal 0-19 [facility] Comment on above: Order Comment: Order Date: 04/03/25Order Info: 075- - CELAB Result Comment: Nega tive 0 - 19 Weak Positive 20 - 30 Moderate to Strong Positive >30 Performed By: #### L 3410.2350 ####[facility] [address] [place], [place], [id number] ENDOMYSIAL IGA Negative Normal Negative [facility] Comment on above: Order Comment: Order Date: 04/03/25Order Info: 075- - CELAB Performed By: #### L 3410.2350 ####[facility] [address] [place], [place], [id number] IMMUNOGLOB A QN 350 mg/dL Normal 90-386 [facility] Comment on above: Order Comment: Order Date: 04/03/25Order Info: [id number] - CELAB Result Comment: Perf ormed at: - [facility] [id number] Sole Scraper: Isaac Rubin PhD, Phone: [phone] Performed By: #### L 3410.2350 ####[facility] [address] [place], [address] tTG IGA <2 Normal 0-3 [facility] Comment on above: Order Comment: Order Date: 04/03/25Order Info: 0751-1 - CELAB Result Comment: Nega tive 0 - 3 Weak Positive 4 - 10 Positive >10 Tissue Transglutaminase (tTG) has been identified as the endomysial antigen. Studies have demonstr- ated that endomysial IgA antibodies have over 99% specificity for gluten sensitive enteropathy. Performed By: #### L 3410.2350 ####[facility] [address] [place], [place], [address] tTG IGG 3 U/mL Normal 0-5 [facility] Comment on above: Order Comment: Order Date: 04/03/25Order Info: 0751-1 - CELAB Result Comment: Nega tive 0 - 5 Weak Positive 6 - 9 Positive >9 Performed By: #### L 8510.0470 ####[facility] [address] [place], [place], [address] [employer] Decub and/or Erecton 04-04-2025 Abd Inc Decub and/or Erect [facility] Imaging Services [address] [place], [place] [address] [employer] Decub and/or Erect MR#: [id number] Acct: [id number] Name: MARIIA LEVINE Rep #: [id number] : 1970 M 55 From: John Paul de león MD PCP: Dr. Tee Rodriguez MD Status: REG CLI Study: Abd Inc Decub and/or Erect Date of Exam: 04/04 Exam# [id number] Ordering Dr: Tee Rodriguez PROCEDURE: ABD INC DECUB AND/OR ERECT 04/04/2025 REASON FOR EXAM: ABD PAIN TECHNIQUE: ABD INC DECUB AND/OR ERECT COMPARISON: None. FINDINGS: Moderate amount of fecal residue in the large bowels. Normal visualized lung bases. There is an unremarkable bowel gas pattern. There is no demonstrated free abdominal air. Normal visualized liver. Normal visualized spleen. Normal visualized kidneys. The soft tissue structures of the pelvis are unremarkable. Normal visualized osseous structures. RAD/Abd Inc Decub and/or Erect IMPRESSION: Moderate amount of fecal residue in the large bowels. [facility] CC: Dr. Tee Rodriguez MD Starchmaker: Signed Normal [facility] Absolute lymphocyte countOrd ered By: Tee Rodriguez on 04-04-2025 Lymphocytes Auto (Unsp spec) [#/Vol] 1.93 10*3/uL 0.83-4.51 [facility] Absolute neutrophil countOrd ered By: Tee Rodriguez on 04-04-2025 Neutrophils (Bld) [#/Vol] 2.9 10*3/uL 2.0-7.7 [facility] Automated lymphocyte count a s percentage of total leukocytesOrdered By: Tee Rodriguez on 04-04-2025 Lymphocytes/100 WBC Auto (Unsp spec) 35.0 % 19-41 [facility] Basophil percentageOrdered B y: Tee Rodriguez on 04-04-2025 Basophils/100 WBC (Bld) 0.9 % 0-1 [facility] CBC W/Diff, Automatedon Absolute Lymph 1.93 X10 3/uL Normal 0.83-4.51 [facility] Comment on above: Order Comment: Order Date: 04/03/25Order Info: [id number] - CBCDOrder Info: [id number] - SED Performed By: #### L 100.0100, L101.9900, L501.6710 ####[facility] [address] [place], [address] Absolute Neut 2.9 X10 3/uL Normal 2.0-7.7 [facility] Comment on above: Order Comment: Order Date: 04/03/25Order Info: [id number] - CBCDOrder Info: [id number] - SED Performed By: #### L 100.0100, L101.9900, L501.6710 ####[facility] [address] [place], [address] Basophils/100 WBC (Bld) 0.9 % Normal 0-1 [facility] Comment on above: Order Comment: Order Date: 04/03/25Order Info: 0184-1 - CBCDOrder Info: [id number] - SED Performed By: #### L 100.0100, L101.9900, L501.6710 ####[facility] [address] [place], [address] Eosinophils/100 WBC (Bld) 2.4 % Normal 0-5 [facility] Comment on above: Order Comment: Order Date: 04/03/25Order Info: 183- - CBCDOrder Info: [id number] - SED Performed By: #### L 100.0100, L101.9900, L501.6710 ####[facility] [address] [place], [address] Erythrocyte distribution width (RBC) [Ratio] 12.4 % Normal 11.6-14.6 [facility] Comment on above: Order Comment: Order Date: 04/03/25Order Info: 183-08 - CBCDOrder Info: [id number] - SED Performed By: #### L 100.0100, L101.9900, L501.6710 ####[facility] [address] [place], [address] Hematocrit (Bld) [Volume fraction] 45.5 % Normal 40-54 [facility] Comment on above: Order Comment: Order Date: 04/03/25Order Info: 183-08 - CBCDOrder Info: [id number] - SED Performed By: #### L 100.0100, L101.9900, L501.6710 ####[facility] [address] [place], [address] Hemoglobin (Bld) [Mass/Vol] 15.1 g/dL Normal 13.0-16.5 [facility] Comment on above: Order Comment: Order Date: 04/03/25Order Info: 183- - CBCDOrder Info: [id number] - SED Performed By: #### L 100.0100, L101.9900, L501.6710 ####[facility] [address] [place], [address] IG% 0.400 Normal 0.0-0.9 [facility] Comment on above: Order Comment: Order Date: 04/03/25Order Info: 183- - CBCDOrder Info: [id number] - SED Result Comment: IG% - Immature Granulocytes (promyelocytes, myelocytes and metamyelocytes) > 1% indicates that a LEFT SHIFT is Present. Performed By: #### L 100.0100, L101.9900, L501.6710 ####[facility] [address] [place], [address] Lymphocytes/100 WBC (Bld) 35.0 % Normal 19-41 [facility] Comment on above: Order Comment: Order Date: 04/03/25Order Info: 183- - CBCDOrder Info: [id number] - SED Performed By: #### L 100.0100, L101.9900, L501.6710 ####[facility] [address] [place], [address] MCH (RBC) [Entitic mass] 30.6 pg Normal 27.0-32.0 [facility] Comment on above: Order Comment: Order Date: 04/03/25Order Info: 183- - CBCDOrder Info: [id number] - SED Performed By: #### L 100.0100, L101.9900, L501.6710 ####[facility] [address] [place], [address] MCHC (RBC) [Mass/Vol] 33.2 g/dL Normal 32-36 [facility] Comment on above: Order Comment: Order Date: 04/03/25Order Info: 018- - CBCDOrder Info: [id number] - SED Performed By: #### L 100.0100, L101.9900, L501.6710 ####[facility] [address] [place], [address] MCV (RBC) [Entitic vol] 92.3 fL Normal 80-94 [facility] Comment on above: Order Comment: Order Date: 04/03/25Order Info: 018- - CBCDOrder Info: [id number] - SED Performed By: #### L 100.0100, L101.9900, L501.6710 ####[facility] [address] [place], [address] Monocytes/100 WBC (Bld) 8.3 % Normal 0-10 [facility] Comment on above: Order Comment: Order Date: 04/03/25Order Info: 183- - CBCDOrder Info: [id number] - SED Performed By: #### L 100.0100, L101.9900, L501.6710 ####[facility] [address] [place], [address] Neutrophils/100 WBC (Bld) 53.0 % Normal 47-70 [facility] Comment on above: Order Comment: Order Date: 04/03/25Order Info: 183- - CBCDOrder Info: [id number] - SED Performed By: #### L 100.0100, L101.9900, L501.6710 ####[facility] [address] [place], [address] Nucleated RBC (Bld) [#/Vol] 0 10*3/uL Normal 0-5 [facility] Comment on above: Order Comment: Order Date: 04/03/25Order Info: 018- - CBCDOrder Info: [id number] - SED Performed By: #### L 100.0100, L101.9900, L501.6710 ####[facility] [address] [place], [address] Platelet mean volume (Bld) [Entitic vol] 10.0 fL Normal 6.2-12.0 [facility] Comment on above: Order Comment: Order Date: 04/03/25Order Info: 018-1 - CBCDOrder Info: [id number] - SED Performed By: #### L 100.0100, L101.9900, L501.6710 ####[facility] [address] [place], [address] Platelets (Bld) [#/Vol] 348 10*3/uL Normal 150-450 [facility] Comment on above: Order Comment: Order Date: 04/03/25Order Info: 183- - CBCDOrder Info: [id number] - SED Performed By: #### L 100.0100, L101.9900, L501.6710 ####[facility] [address] [place], [address] RBC (Bld) [#/Vol] 4.93 10*6/uL Normal 4.6-6.2 [facility] Comment on above: Order Comment: Order Date: 04/03/25Order Info: 183-08 - CBCDOrder Info: [id number] - SED Performed By: #### L 100.0100, L101.9900, L501.6710 ####[facility] [address] [place], [address] RDW SD 42.1 fl Normal 35.1-43.9 [facility] Comment on above: Order Comment: Order Date: 04/03/25Order Info: 183-08 - CBCDOrder Info: [id number] - SED Performed By: #### L 100.0100, L101.9900, L501.6710 ####[facility] [address] [place], [address] WBC (Bld) [#/Vol] 5.5 10*3/uL Normal 4.4-11.0 [facility] Comment on above: Order Comment: Order Date: 04/03/25Order Info: 183-08 - CBCDOrder Info: [id number] - SED Performed By: #### L 100.0100, L101.9900, L501.6710 ####[facility] [address] [place], [place], [address] CRPon 04-04-2025 C-REACTIVE PROT < 3.00 Normal 0.0-3.0 [facility] Comment on above: Order Comment: Order Date: 04/03/25Order Info: [id number] - CRP Performed By: #### L 100.0100, L101.9900, L501.6710 ####[facility] [address] [place], [place], [address] Eosinophil percentageOrdered By: Tee Rodriguez on 04-04-2025 Eosinophils/100 WBC (Bld) 2.4 % 0-5 [facility] Erythrocyte Sed Rateon 04-04 SED RATE 4 mm/hr Normal 0-20 [facility] Comment on above: Order Comment: Order Date: 04/03/25Order Info: [id number] - CBCDOrder Info: [id number] - SED Performed By: #### L 100.0100, L101.9900, L501.6710 ####[facility] [address] [place], [place], [address] Erythrocyte distribution wid th ratioOrdered By: Tee Rodriguez on 04-04-2025 Erythrocyte distribution width (RBC) [Ratio] 12.4 % 11.6-14.6 [facility] Erythrocyte distribution wid th standard deviationOrdered By: Tee Rodriguez on 04-04-2025 Erythrocyte distribution width (RBC) [Ratio] 42.1 fl 35.1-43.9 [facility] Erythrocyte sedimentation ra teOrdered By: Tee Rodriguez on 04-04-2025 ESR (Bld) [Velocity] 4 mm/h 0-20 [facility] Hematocrit Auto (Bld) [Volum e fraction]Ordered By: Tee Rodriguez on 04-04-2025 Hematocrit (Bld) [Volume fraction] 45.5 % 40-54 [facility] Hemoglobin measurementOrdere d By: Tee Rodriguez on 04-04-2025 Hemoglobin (Bld) [Mass/Vol] 15.1 g/dL 13.0-16.5 [facility] Immature granulocytes/100 WB C Auto (Bld)Ordered By: Tee Rodriguez on 04-04-2025 Immature granulocytes/100 WBC (Bld) 0.400 % 0.0-0.9 [facility] Comment on above: IG% - Immature Granu locytes (promyelocytes, myelocytes and metamyelocytes) > 1% indicates that a LEFT SHIFT is Present. MCV (mean corpuscular volume ) determinationOrdered By: Tee Rodriguez on 04-04-2025 MCV (RBC) [Entitic vol] 92.3 fL 80-94 [facility] Mean corpuscular hemoglobin (MCH) determinationOrdered By: Tee Rodriguez on 04-04-2025 MCH (RBC) [Entitic mass] 30.6 pg 27.0-32.0 [facility] Mean corpuscular hemoglobin concentration (MCHC) determinationOrdered By: Tee Rodriguez on 04-04-2025 MCHC (RBC) [Mass/Vol] 33.2 g/dL 32-36 [facility] Mean platelet volume determi nationOrdered By: Tee Rodriguez on 04-04-2025 Platelet mean volume (Bld) [Entitic vol] 10.0 fL 6.2-12.0 [facility] Monocyte percentageOrdered B y: Tee Rodriguez on 04-04-2025 Monocytes/100 WBC (Bld) 8.3 % 0-10 [facility] Neutrophil percentageOrdered By: Tee Rodriguez on 04-04-2025 Neutrophils/100 WBC (Bld) 53.0 % 47-70 [facility] No Panel InformationOrdered By: Tee Rodriguez on 04-04-2025 Tissue Transglutaminase IgG Ab 3 U/mL 0-5 [facility] Comment on above: Negative 0 - 5 Weak Positive 6 - 9 Positive >9 Nucleated red blood cell per centageOrdered By: Tee Rodriguez on 04-04-2025 Nucleated RBC/100 WBC (Bld) [Ratio] 0 % 0-5 [facility] Platelet countOrdered By: Dar Rodriguez on 04-04-2025 Platelets (Bld) [#/Vol] 348 10*3/uL 150-450 [facility] RBC Auto (Bld) [#/Vol]Ordere d By: Tee Rodriguez on 04-04-2025 RBC (Bld) [#/Vol] 4.93 10*6/uL 4.6-6.2 [facility] Serum or plasma C reactive p rotein measurement (mass/volume)Ordered By: Tee Rodriguez on 04-04-2025 CRP [Mass/Vol] mg/L 0.0-3.0 [facility] Serum tissue transglutaminas e (tTG) IgA antibody assay (units/volume)Ordered By: Tee Rodriguez on 04-04-2025 tTG IgA Qn (S) <2 U/mL 0-3 [facility] Comment on above: Negative 0 - 3 Weak Positive 4 - 10 Positive >10 Tissue Transglutaminase (tTG) has been identified as the endomysial antigen. Studies have demonstr- ated that endomysial IgA antibodies have over 99% specificity for gluten sensitive enteropathy. White blood cell (WBC) count Ordered By: Tee Rodriguez on 04-04-2025 WBC (Bld) [#/Vol] 5.5 10*3/uL 4.4-11.0 [facility] Coronary Angiography CTon Coronary Angiography CT [facility] Imaging Services [address] [place] [address] 03/27/25 0723 MR#: [id number] Acct: [id number] Name: MARIIA LEVINE Rep #: [id number] : 1970 55 From: Venancio Clements MD [...] MD; Dr. Venancio Clements MD Signed Normal [facility] Limited Chest CT Cardiac Onl yon 03-26-[address] Cardiac Only [facility] Imaging Services [address] [place] [address] Cardiac Only MR#: [id number] Acct: [id number] Name: MARIIA LEVINE Rep #: [id number] : 1970 M 55 From: Nirmal small MD PCP: Dr. Tee Rodriguez MD Status: [facility] Study: Limited Chest CT Cardiac Only Date of Exam: Exam# [id number] Ordering Dr: Tee Rodriguez PROCEDURE: LIMITED CHEST [...] IMPRESSION: No coronary artery calcification. Reading Location: [facility] CC: Dr. Tee Rodriguez MD Starchmaker: Signed Normal [facility] Anion gap in Serum or Plasma Ordered By: Karen Romano on 03-25-2025 Anion gap [Moles/Vol] 10 mmol/L 5-15 [facility] BUN/creatinine ratioOrdered By: Karen Romano on 03-25-2025 Urea nitrogen/Creatinine [Mass ratio] 13.4 mg/mg 10-20 [facility] Bilirubin, totalOrdered By: Karen Romano on 03-25-2025 Bilirubin [Mass/Vol] 0.51 mg/dL 0.00-1.30 [facility] Carbon dioxide, total [Moles /volume] in Central venous bloodOrdered By: Karen Romano on 03-25-2025 CO2 [Moles/Vol] 27.6 mmol/L 21.0-32.0 [facility] Chloride assayOrdered By: Rafy Romano on 03-25-2025 Chloride [Moles/Vol] 103 mmol/L 98-108 [facility] Comprehensive Metabolic Prof ilon 03-25-2025 Albumin [Mass/Vol] 4.6 g/dL Normal 3.5-5.0 [facility] Comment on above: Performed By: #### L 500.4050, L501.4806 #### [facility] [address] [place], [address] Albumin/Globulin [Mass ratio] 1.6 {ratio} Normal 0.9-2.4 [facility] Comment on above: Performed By: #### L 500.4050, L501.1520 #### [facility] [address] [place], [address] ALK PHOS 72 U/L Normal 40-129 [facility] Comment on above: Performed By: #### L 500.4050, L501.20 #### [facility] [address] [place], [address] ALT [Catalytic activity/Vol] 25 U/L Normal <=46 [facility] Comment on above: Performed By: #### L 500.4050, L501.9520 #### [facility] [address] [place], [address] AST [Catalytic activity/Vol] 31 U/L Normal <=37 [facility] Comment on above: Performed By: #### L 500.4050, L501.9520 #### [facility] [address] [place], [address] Bilirubin [Mass/Vol] 0.51 mg/dL Normal 0.00-1.30 [facility] Comment on above: Performed By: #### L 500.4050, L5.9519 #### [facility] [address] [place], [address] BUN/CRE 13.4 RATIO Normal 10-20 [facility] Comment on above: Performed By: #### L 500.4050, L501.20 #### [facility] [address] [place], [address] Calcium [Mass/Vol] 9.7 mg/dL Normal 7.6-11.0 [facility] Comment on above: Performed By: #### L 500.4050, L501.9520 #### [facility] [address] [place], [address] Chloride [Moles/Vol] 103 mmol/L Normal 98-108 [facility] Comment on above: Performed By: #### L 500.4050, L501.9520 #### [facility] [address] [place], [address] CO2 [Moles/Vol] 27.6 mmol/L Normal 21.0-32.0 [facility] Comment on above: Performed By: #### L 500.4050, L501.9520 #### [facility] [address] [place], [address] Creatinine [Mass/Vol] 0.92 mg/dL Normal 0.70-1.20 [facility] Comment on above: Performed By: #### L 500.4050, L501.9520 #### [facility] [address] [place], [address] GAP 10 Normal 5-15 [facility] Comment on above: Performed By: #### L 500.4050, L5.9520 #### [facility] [address] [place], [address] GFR/1.73 sq M.predicted among non-blacks MDRD (S/P/Bld) [Vol rate/Area] 99 mL/min/{1.73_m2} Normal >60 [facility] Comment on above: Result Comment: mL/m in/1.73m2 CKD-EPI Creatinine Equation (2020) Performed By: #### L 500.4050, L501.9520 #### [facility] [address] [place], [address] Globulin (S) [Mass/Vol] 2.9 g/dL Normal 2.2-4.2 [facility] Comment on above: Performed By: #### L 500.4050, L501.9520 #### [facility] [address] [place], [address] Glucose [Mass/Vol] 93 mg/dL Normal 70-99 [facility] Comment on above: Performed By: #### L 500.4050, L501.9520 #### [facility] [address] [place], [address] Potassium [Moles/Vol] 4.4 mmol/L Normal 3.3-5.1 [facility] Comment on above: Performed By: #### L 500.4050, L501.9520 #### [facility] [address] [place], [address] Sodium [Moles/Vol] 140 mmol/L Normal 133-145 [facility] Comment on above: Performed By: #### L 500.4050, L501.9520 #### [facility] [address] [place], [address] T PROT 7.5 g/dL Normal 5.9-8.4 [facility] Comment on above: Performed By: #### L 500.4050, L501.9520 #### [facility] [address] [place], [address] Urea nitrogen [Mass/Vol] 12 mg/dL Normal 4-19 [facility] Comment on above: Performed By: #### L 500.4050, L501.9520 #### [facility] [address] [place], [address] Glomerular filtration rate ( GFR) estimation/1.73 sq m using serum, plasma, or whole bOrdered By: Karen Romano on 03-25-2025 GFR/1.73 sq M.predicted among non-blacks MDRD (S/P/Bld) [Vol rate/Area] 99 mL/min/{1.73_m2} >60 [facility] Comment on above: mL/min/1.73m2 CKD-EP I Creatinine Equation (2020) Laboratory - Chemistry and C hemistry - challengeOrdered By: Karen Romano on 03-25-2025 AST [Catalytic activity/Vol] 31 U/L <38 [facility] Potassium measurement (mass/ volume)Ordered By: Karen Romano on 03-25-2025 Potassium (Unsp spec) [Mass/Vol] 4.4 mmol/L 3.3-5.1 [facility] Serum creatinine measurement (mass/volume)Ordered By: Karen Romano on 03-25-2025 Creatinine [Mass/Vol] 0.92 mg/dL 0.70-1.20 [facility] Serum globulin measurementOr dered By: Karen Romano on 03-25-2025 Globulin (S) [Mass/Vol] 2.9 g/dL 2.2-4.2 [facility] Serum glucose measurement (m ass/volume)Ordered By: Karen Romano on 03-25-2025 Glucose [Mass/Vol] 93 mg/dL 70-99 [facility] Serum or plasma alanine mccracken otransferase (ALT) measurementOrdered By: Karen Romano on 03-25-2025 ALT [Catalytic activity/Vol] 25 U/L <47 [facility] Serum or plasma albumin beatriz urement (mass/volume)Ordered By: Karen Romano on 03-25-2025 Albumin [Mass/Vol] 4.6 g/dL 3.5-5.0 [facility] Serum or plasma albumin/glob ulin mass ratioOrdered By: Karen Romano on 03-25-2025 Albumin/Globulin [Mass ratio] 1.6 {ratio} 0.9-2.4 [facility] Serum or plasma alkaline naya sphatase measurementOrdered By: Karen Romano on 03-25-2025 ALP [Catalytic activity/Vol] 72 U/L 40-129 [facility] Serum or plasma calcium beatriz urement (mass/volume)Ordered By: Karen Romano on 03-25-2025 Calcium [Mass/Vol] 9.7 mg/dL 7.6-11.0 [facility] Serum or plasma urea nitroge n measurement (mass/volume)Ordered By: Karen Romano on 03-25-2025 Urea nitrogen [Mass/Vol] 12 mg/dL 4-19 [facility] Sodium levelOrdered By: Karen Romano on 03-25-2025 Sodium [Moles/Vol] 140 mmol/L 133-145 [facility] TSH DL <= 0.005 mIU/L QnOrde red By: Karen Romano on 03-25-2025 TSH Qn 4.650 uIU/mL High 0.300-4.200 [facility] Thyroid Stim Hormone (TSH)on 03-25-2025 TSH 4.650 uIU/mL High 0.300-4.200 [facility] Comment on above: Performed By: #### L 500.4050, L501.9520 ####[facility] [address] [place], [address] Total proteinOrdered By: Oliver Romano on 03-25-2025 Protein [Mass/Vol] 7.5 g/dL 5.9-8.4 [facility] Pulmonary Visit Reporton Pulmonary Visit Report [facility] [place] [address] [place] [address] OFFICE VISIT Date of Service: 03/22/25 MR#: [id number] Acct: [id number] Name: MARIIA LEVINE Rep #: [id number] : 1970 Provider: NICOLASA Lomax Age/Sex: 55/M [place] [facility] [place] Status: Signed Assessment and Plan Assessment and [...] Additional Comments: This note was generated with Slide dictation software. It may contain incorrect words, [...] Chief Complaint: BA, ST, fatigue, chest congestion [employer] Required: No DME Vendor: [employer] Accompanied by: [...] regular rat (more content not included)... Normal [facility] Anion gap in Serum or Plasma Ordered By: Tee Rodriguez on 02-28-2025 Anion gap [Moles/Vol] 11 mmol/L 5-15 [facility] BUN/creatinine ratioOrdered By: Tee Rodriguez on 02-28-2025 Urea nitrogen/Creatinine [Mass ratio] 13.1 mg/mg 10-20 [facility] Bilirubin, totalOrdered By: Tee Rodriguez on 02-28-2025 Bilirubin [Mass/Vol] 0.50 mg/dL 0.00-1.30 [facility] CBC-Complete Blood Cnt No Di ffon 02-28-2025 Erythrocyte distribution width (RBC) [Ratio] 12.3 % Normal 11.6-14.6 [facility] Comment on above: Order Comment: Order Date: 02/28/25Order Info: [id number] - CBC Performed By: #### L 100.0500 ####[facility] [address] [place], [place], [address] Hematocrit (Bld) [Volume fraction] 46.5 % Normal 40-54 [facility] Comment on above: Order Comment: Order Date: 02/28/25Order Info: [id number] - CBC Performed By: #### L 100.0500 ####[facility] [address] [place], [address] Hemoglobin (Bld) [Mass/Vol] 15.4 g/dL Normal 13.0-16.5 [facility] Comment on above: Order Comment: Order Date: 02/28/25Order Info: [id number] - CBC Performed By: #### L 100.0500 ####[facility] [address] [place], [address] MCH (RBC) [Entitic mass] 30.6 pg Normal 27.0-32.0 [facility] Comment on above: Order Comment: Order Date: 02/28/25Order Info: [id number] - CBC Performed By: #### L 100.0500 ####[facility] [address] [place], [address] MCHC (RBC) [Mass/Vol] 33.1 g/dL Normal 32-36 [facility] Comment on above: Order Comment: Order Date: 02/28/25Order Info: [id number] - CBC Performed By: #### L 100.0500 ####[facility] [address] [place], [address] MCV (RBC) [Entitic vol] 92.3 fL Normal 80-94 [facility] Comment on above: Order Comment: Order Date: 02/28/25Order Info: [id number] - CBC Performed By: #### L 100.0500 ####[facility] [address] [place], [address] Platelet mean volume (Bld) [Entitic vol] 9.9 fL Normal 6.2-12.0 [facility] Comment on above: Order Comment: Order Date: 02/28/25Order Info: [id number] - CBC Performed By: #### L 100.0500 ####[facility] [address] [place], [address] Platelets (Bld) [#/Vol] 379 10*3/uL Normal 150-450 [facility] Comment on above: Order Comment: Order Date: 02/28/25Order Info: [id number] - CBC Performed By: #### L 100.0500 ####[facility] [address] [place], [address] RBC (Bld) [#/Vol] 5.04 10*6/uL Normal 4.6-6.2 [facility] Comment on above: Order Comment: Order Date: 02/28/25Order Info: [id number] - CBC Performed By: #### L 100.0500 ####[facility] [address] [place], [address] RDW SD 41.6 fl Normal 35.1-43.9 [facility] Comment on above: Order Comment: Order Date: 02/28/25Order Info: [id number] - CBC Performed By: #### L 100.0500 ####[facility] [address] [place], [address] WBC (Bld) [#/Vol] 5.2 10*3/uL Normal 4.4-11.0 [facility] Comment on above: Order Comment: Order Date: 02/28/25Order Info: [id number] - CBC Performed By: #### L 100.0500 ####[facility] [address] [place], [address] Calculated very low density lipoprotein (VLDL) cholesterol measurementOrdered By: Tee Rodriguez on 02-28-2025 Calculated very low density lipoprotein (VLDL) cholesterol measurement 22 mg/dL 5-40 [facility] Carbon dioxide, total [Moles /volume] in Central venous bloodOrdered By: Tee Rodriguez on 02-28-2025 CO2 [Moles/Vol] 24.9 mmol/L 21.0-32.0 [facility] Chloride assayOrdered By: Dar Rodriguez on 02-28-2025 Chloride [Moles/Vol] 104 mmol/L 98-108 [facility] Comprehensive Metabolic Prof ilon 02-28-2025 Albumin [Mass/Vol] 4.5 g/dL Normal 3.5-5.0 [facility] Comment on above: Order Comment: PER Noman RUSSO COMMENT-GLU Order Date: 02/28/25 Order Info: 785-1 - CMP Order Info: [id number] - LIPID Order Info: 3 - TSH Order Info: [id number] - PSA Order Info: 3024-7 - T4F Performed By: #### L 501.9520, L506.0400, L500.4100, L500.4050, L501.9910 #### [facility] [address] [place], [address] Albumin/Globulin [Mass ratio] 1.4 {ratio} Normal 0.9-2.4 [facility] Comment on above: Order Comment: CHAITANYA RUSSO COMMENT-GLU Order Date: 02/28/25 Order Info: [id number] - CMP Order Info: - LIPID Order Info: [id number] - TSH Order Info: [id number] - PSA Order Info: 7 - T4F Performed By: #### L 501.9520, L506.0400, L500.4100, L500.4050, L501.9910 #### [facility] [address] [place], [address] ALK PHOS 72 U/L Normal 40-129 [facility] Comment on above: Order Comment: PER Noman RUSSO COMMENT-GLU Order Date: 02/28/25 Order Info: [id number] - CMP Order Info: - LIPID Order Info: 3 - TSH Order Info: [id number] - PSA Order Info: 3024-7 - T4F Performed By: #### L 501.9520, L506.0400, L500.4100, L500.4050, L501.9910 #### [facility] [address] [place], [address] ALT [Catalytic activity/Vol] 20 U/L Normal <=46 [facility] Comment on above: Order Comment: PER Noman RUSSO COMMENT-GLU Order Date: 02/28/25 Order Info: 785-08 - CMP Order Info: - LIPID Order Info: [id number] - TSH Order Info: 2856-08 - PSA Order Info: 302-7 - T4F Performed By: #### L 501.9520, L506.0400, L500.4100, L500.4050, L501.9910 #### [facility] [address] [place], [address] AST [Catalytic activity/Vol] 24 U/L Normal <=37 [facility] Comment on above: Order Comment: PER Noman RUSSO COMMENT-GLU Order Date: 02/28/25 Order Info: 785-08 - CMP Order Info: - LIPID Order Info: [id number] - TSH Order Info: [id number] - PSA Order Info: 3023-7 - T4F Performed By: #### L 501.9520, L506.0400, L500.4100, L500.4050, L501.9910 #### [facility] [address] [place], [place], [address] Bilirubin [Mass/Vol] 0.50 mg/dL Normal 0.00-1.30 [facility] Comment on above: Order Comment: PER Noman RUSSO COMMENT-GLU Order Date: 02/28/25 Order Info: 785-08 - CMP Order Info: - LIPID Order Info: [id number] - TSH Order Info: [id number] - PSA Order Info: 3023-7 - T4F Performed By: #### L 501.9520, L506.0400, L500.4100, L500.4050, L501.9910 #### [facility] [address] [place], [address] BUN/CRE 13.1 RATIO Normal 10-20 [facility] Comment on above: Order Comment: PER Noman RUSSO COMMENT-GLU Order Date: 02/28/25 Order Info: 785-08 - CMP Order Info: - LIPID Order Info: [id number] - TSH Order Info: 2856-08 - PSA Order Info: 7 - T4F Performed By: #### L 501.9520, L506.0400, L500.4100, L500.4050, L501.9910 #### [facility] [address] [place], [address] Calcium [Mass/Vol] 9.5 mg/dL Normal 7.6-11.0 [facility] Comment on above: Order Comment: PER I NTERFACE COMMENT-GLU Order Date: 02/28/25 Order Info: 785-08 - CMP Order Info: - LIPID Order Info: [id number] - TSH Order Info: 2856-08 - PSA Order Info: 3027 - T4F Performed By: #### L 501.9520, L506.0400, L500.4100, L500.4050, L501.9910 #### [facility] [address] [place], [address] Chloride [Moles/Vol] 104 mmol/L Normal 98-108 [facility] Comment on above: Order Comment: PER I NTERALLEN COMMENT-GLU Order Date: 02/28/25 Order Info: 785-08 - CMP Order Info: - LIPID Order Info: [id number] - TSH Order Info: [id number] - PSA Order Info: 7 - T4F Performed By: #### L 501.9520, L506.0400, L500.4100, L500.4050, L501.9910 #### [facility] [address] [place], [address] CO2 [Moles/Vol] 24.9 mmol/L Normal 21.0-32.0 [facility] Comment on above: Order Comment: PER I NTERFACE COMMENT-GLU Order Date: 02/28/25 Order Info: 785-08 - CMP Order Info: - LIPID Order Info: 3 - TSH Order Info: [id number] - PSA Order Info: 3023-7 - T4F Performed By: #### L 501.9520, L506.0400, L500.4100, L500.4050, L501.9910 #### [facility] [address] [place], [place], [address] Creatinine [Mass/Vol] 0.88 mg/dL Normal 0.70-1.20 [facility] Comment on above: Order Comment: PER I NTERFACE COMMENT-GLU Order Date: 02/28/25 Order Info: 785- - CMP Order Info: - LIPID Order Info: [id number] - TSH Order Info: 2856-08 - PSA Order Info: 7 - T4F Performed By: #### L 501.9520, L506.0400, L500.4100, L500.4050, L501.9910 #### [facility] [address] [place], [place], [address] GAP 11 Normal 5-15 [facility] Comment on above: Order Comment: PER I NTERFACE COMMENT-GLU Order Date: 02/28/25 Order Info: 785-08 - CMP Order Info: - LIPID Order Info: [id number] - TSH Order Info: 2856-08 - PSA Order Info: 3023-7 - T4F Performed By: #### L 501.9520, L506.0400, L500.4100, L500.4050, L501.9910 #### [facility] [address] [place], [place], [address] GFR/1.73 sq M.predicted among non-blacks MDRD (S/P/Bld) [Vol rate/Area] 103 mL/min/{1.73_m2} Normal >60 [facility] Comment on above: Order Comment: PER I NTERFACE COMMENT-GLU Order Date: 02/28/25 Order Info: 1 - CMP Order Info: - LIPID Order Info: 3015-10 - TSH Order Info: 2856-08 - PSA Order Info: 3024-7 - T4F Result Comment: mL/m in/1.73m2 CKD-EPI Creatinine Equation (2020) Performed By: #### L 501.9520, L506.0400, L500.4100, L500.4050, L501.9910 #### [facility] [address] [place], [address] Globulin (S) [Mass/Vol] 3.1 g/dL Normal 2.2-4.2 [facility] Comment on above: Order Comment: PER I NTERALLEN COMMENT-GLU Order Date: 02/28/25 Order Info: 785-08 - CMP Order Info: - LIPID Order Info: 3015-10 - TSH Order Info: 2856-08 - PSA Order Info: 3024-02 - T4F Performed By: #### L 501.9520, L506.0400, L500.4100, L500.4050, L501.9910 #### [facility] [address] [place], [address] Glucose [Mass/Vol] 95 mg/dL Normal 70-99 [facility] Comment on above: Order Comment: PER I HOLLYERALLEN COMMENT-GLU Order Date: 02/28/25 Order Info: 785-08 - CMP Order Info: - LIPID Order Info: [id number] - TSH Order Info: 2856-08 - PSA Order Info: 3024-02 - T4F Performed By: #### L 501.9520, L506.0400, L500.4100, L500.4050, L501.9910 #### [facility] [address] [place], [address] Potassium [Moles/Vol] 4.4 mmol/L Normal 3.3-5.1 [facility] Comment on above: Order Comment: PER I HOLLYERALLEN COMMENT-GLU Order Date: 02/28/25 Order Info: 785-08 - CMP Order Info: [id number] - LIPID Order Info: 3015-10 - TSH Order Info: 2856-08 - PSA Order Info: 3024-7 - T4F Performed By: #### L 501.9520, L506.0400, L500.4100, L500.4050, L501.9910 #### [facility] [address] [place], [address] Sodium [Moles/Vol] 140 mmol/L Normal 133-145 [facility] Comment on above: Order Comment: PER I NTERFACE COMMENT-GLU Order Date: 02/28/25 Order Info: 785- - CMP Order Info: [id number] - LIPID Order Info: 3 - TSH Order Info: 2856-08 - PSA Order Info: 3024-7 - T4F Performed By: #### L 501.9520, L506.0400, L500.4100, L500.4050, L501.9910 #### [facility] [address] [place], [address] T PROT 7.6 g/dL Normal 5.9-8.4 [facility] Comment on above: Order Comment: PER I NTERFACE COMMENT-GLU Order Date: 02/28/25 Order Info: 785-08 - CMP Order Info: - LIPID Order Info: [id number] - TSH Order Info: 2856-08 - PSA Order Info: 3024-7 - T4F Performed By: #### L 501.9520, L506.0400, L500.4100, L500.4050, L501.9910 #### [facility] [address] [place], [address] Urea nitrogen [Mass/Vol] 12 mg/dL Normal 4-19 [facility] Comment on above: Order Comment: PER I NTERFACE COMMENT-GLU Order Date: 02/28/25 Order Info: 785-1 - CMP Order Info: [id number] - LIPID Order Info: 3 - TSH Order Info: [id number] - PSA Order Info: 3024-7 - T4F Performed By: #### L 501.9520, L506.0400, L500.4100, L500.4050, L501.9910 #### [facility] [place], [address] Erythrocyte distribution wid th ratioOrdered By: Tee Rodriguez on 02-28-2025 Erythrocyte distribution width (RBC) [Ratio] 12.3 % 11.6-14.6 [facility] Erythrocyte distribution wid th standard deviationOrdered By: Tee Rodriguez on 02-28-2025 Erythrocyte distribution width (RBC) [Ratio] 41.6 fl 35.1-43.9 [facility] Glomerular filtration rate ( GFR) estimation/1.73 sq m using serum, plasma, or whole bOrdered By: Tee Rodriguez on 02-28-2025 GFR/1.73 sq M.predicted among non-blacks MDRD (S/P/Bld) [Vol rate/Area] 103 mL/min/{1.73_m2} >60 [facility] Comment on above: mL/min/1.73m2 CKD-EP I Creatinine Equation (2020) Hematocrit Auto (Bld) [Volum e fraction]Ordered By: Tee Rodriguez on 02-28-2025 Hematocrit (Bld) [Volume fraction] 46.5 % 40-54 [facility] Hemoglobin measurementOrdere d By: Tee Rodriguez on 02-28-2025 Hemoglobin (Bld) [Mass/Vol] 15.4 g/dL 13.0-16.5 [facility] LDL calc ser/plasOrdered By: Tee Rodriguez on 02-28-2025 Cholesterol in LDL [Mass/Vol] 149 mg/dL [facility] Comment on above: Fnohorqekv=741-674 m g/dL & Higher Uiuz=202 mg/dL or greater Laboratory - Chemistry and C hemistry - challengeOrdered By: Tee Rodriguez on 02-28-2025 AST [Catalytic activity/Vol] 24 U/L <38 [facility] Lipid Profileon 02-28-2025 CHOL:HDL 4.61 Normal [facility] Comment on above: Order Comment: PER I NTERFACE COMMENT-GLU Order Date: 02/28/25 Order Info: 0786-1 - CMP Order Info: - LIPID Order Info: [id number] - TSH Order Info: 2856-08 - PSA Order Info: 3024-02 T4 Performed By: #### L 501.9520, L506.0400, L500.4100, L500.4050, L501.9910 #### [facility] [address] [place], [place], [id number] ([address]) Cholesterol [Mass/Vol] 218 mg/dL High <=200 [facility] Comment on above: Order Comment: PER I HOLLYERALLEN COMMENT-GLU Order Date: 02/28/25 Order Info: 785-08 - CMP Order Info: - LIPID Order Info: 3015-10 - TSH Order Info: 2856-08 - PSA Order Info: 3024-02 T4F Result Comment: Chol esterol level, Desirable <200 mg/dL Borderline high cholesterol 200-239 mg/dL High cholesterol >=240 mg/dL Recommendations of the NCEP Adult Treatment Panel for the following risk-cutoff thresholds for the [place] population. Performed By: #### L 501.9520, L506.0400, L500.4100, L500.4050, L501.9910 #### [facility] [address] [facility] [place], [place], [address] Cholesterol in HDL [Mass/Vol] 47 mg/dL Normal [facility] Comment on above: Order Comment: PER Noman [...] sex and age. Performed By: #### L 501.9520, L506.0400, L500.4100, L500.4050, L501.9910 #### [facility] [address] [place], [address] Cholesterol in LDL [Mass/Vol] 149 mg/dL Normal [facility] Comment on above: Order Comment: PER Noman BARRERAERALLEN COMMENT-GLU Order Date: 02/28/25 Order Info: 785- - CMP Order Info: - LIPID Order Info: [id number] - TSH Order Info: 2856-08 - PSA Order Info: 7 - T4F Result Comment: Bord tqrspn=526-562 mg/dL Higher Yamb=927 mg/dL or greater Performed By: #### L 501.9520, L506.0400, L500.4100, L500.4050, L501.9910 #### [facility] [address] [place], [address] Cholesterol in VLDL [Mass/Vol] 22 mg/dL Normal 5-40 [facility] Comment on above: Order Comment: PER Noman RUSSO COMMENT-GLU Order Date: 02/28/25 Order Info: 785-08 - CMP Order Info: - LIPID Order Info: 3015-10 - TSH Order Info: 2856-08 - PSA Order Info: 3024-02 - T4F Performed By: #### L 501.9520, L506.0400, L500.4100, L500.4050, L501.9910 #### [facility] [address] [place], [address] Triglyceride [Mass/Vol] 108 mg/dL Normal [facility] Comment on above: Order Comment: PER [...] High: >500 mg/dL Performed By: #### L [id number], L506.0400, L500.4100, L500.4050, L501.9910 #### [facility] [address] [place], [address] MCV (mean corpuscular volume ) determinationOrdered By: Tee Rodriguez on 02-28-2025 MCV (RBC) [Entitic vol] 92.3 fL 80-94 [facility] Mean corpuscular hemoglobin (MCH) determinationOrdered By: Tee Rodriguez on 02-28-2025 MCH (RBC) [Entitic mass] 30.6 pg 27.0-32.0 [facility] Mean corpuscular hemoglobin concentration (MCHC) determinationOrdered By: Tee Rodriguez on 02-28-2025 MCHC (RBC) [Mass/Vol] 33.1 g/dL 32-36 [facility] Mean platelet volume determi nationOrdered By: Tee Rodriguez on 02-28-2025 Platelet mean volume (Bld) [Entitic vol] 9.9 fL 6.2-12.0 [facility] PSA,Total - Annual Screenon 02-28-2025 PSA,TOT SCREEN 0.49 ng/mL Normal 0.02-4.00 [facility] Comment on above: Order Comment: PER I NTERFACE COMMENT-GLU Order Date: 02/28/25 Order Info: [id number] - CMP Order Info: [id number] - LIPID Order Info: 3016-3 - TSH [...] confirm baseline values. Performed By: #### L [id number], L506.0400, L500.4100, L500.4050, L501.9910 #### [facility] [address] [place], [address] Platelet countOrdered By: Dar Rodriguez on 02-28-2025 Platelets (Bld) [#/Vol] 379 10*3/uL 150-450 [facility] Potassium measurement (mass/ volume)Ordered By: Tee Rodriguez on 02-28-2025 Potassium (Unsp spec) [Mass/Vol] 4.4 mmol/L 3.3-5.1 [facility] RBC Auto (Bld) [#/Vol]Ordere d By: Tee Rodriguez on 02-28-2025 RBC (Bld) [#/Vol] 5.04 10*6/uL 4.6-6.2 [facility] Screening total cholesterol/ high density lipoprotein (HDL) cholesterol ratioOrdered By: Tee Rodriguez on 02-28-2025 Cholesterol.total/Mary sterol in HDL [Mass ratio] 4.61 {ratio} [facility] Serum creatinine measurement (mass/volume)Ordered By: Tee Rodriguez on 02-28-2025 Creatinine [Mass/Vol] 0.88 mg/dL 0.70-1.20 [facility] Serum globulin measurementOr dered By: Tee Rodriguez on 02-28-2025 Globulin (S) [Mass/Vol] 3.1 g/dL 2.2-4.2 [facility] Serum glucose measurement (m ass/volume)Ordered By: Tee Rodriguez on 02-28-2025 Glucose [Mass/Vol] 95 mg/dL 70-99 [facility] Serum or plasma alanine mccracken otransferase (ALT) measurementOrdered By: Tee Rodriguez on 02-28-2025 ALT [Catalytic activity/Vol] 20 U/L <47 [facility] Serum or plasma albumin beatriz urement (mass/volume)Ordered By: Tee Rodriguez on 02-28-2025 Albumin [Mass/Vol] 4.5 g/dL 3.5-5.0 [facility] Serum or plasma albumin/glob ulin mass ratioOrdered By: Tee Rodriguez on 02-28-2025 Albumin/Globulin [Mass ratio] 1.4 {ratio} 0.9-2.4 [facility] Serum or plasma alkaline naya sphatase measurementOrdered By: Tee Rodriguez on 02-28-2025 ALP [Catalytic activity/Vol] 72 U/L 40-129 [facility] Serum or plasma calcium beatriz urement (mass/volume)Ordered By: Tee Rodriguez on 02-28-2025 Calcium [Mass/Vol] 9.5 mg/dL 7.6-11.0 [facility] Serum or plasma cholesterol in HDL measurement (mass/volume)Ordered By: Tee Rodriguez on 02-28-2025 Cholesterol in HDL [Mass/Vol] 47 mg/dL >40 [facility] Comment on above: National Cholesterol Education Program (NCEP) guidelines:<40 mg/dL: Low HDL-cholesterol (major risk factor for CHD)>= 60 mg/dL: High HDL-cholesterol (negative risk factor for CHD)HDL-cholesterol is affected by a number of factors, e.g. smoking, exercise, hormones, sex and age. Serum or plasma cholesterol measurement (mass/volume)Ordered By: Tee Rodriguez on 02-28-2025 Cholesterol [Mass/Vol] 218 mg/dL High <201 [facility] Comment on above: Cholesterol level, D esirable <200 mg/dLBorderline high cholesterol 200-239 mg/dLHigh cholesterol >=240 mg/dLRecommendations of the NCEP Adult Treatment Panel for the following risk-cutoff thresholds for the [place] population. Serum or plasma urea nitroge n measurement (mass/volume)Ordered By: Tee Rodriguez on 02-28-2025 Urea nitrogen [Mass/Vol] 12 mg/dL 4-19 [facility] Sodium levelOrdered By: Jose G Rodriguez on 02-28-2025 Sodium [Moles/Vol] 140 mmol/L 133-145 [facility] T4 Free Directon 02-28-2025 T4 FREE DIRECT 1.30 ng/dL Normal 0.76-1.46 [facility] Comment on above: Order Comment: CHAITANYA RUSSO COMMENT-GLU Order Date: 02/28/25 Order Info: [id number] - CMP Order Info: [id number] - LIPID Order Info: [id number] - TSH Order Info: [id number] - PSA Order Info: 3024-7 - T4F Performed By: #### L [id number], L506.0400, L500.4100, L500.4050, L501.9910 #### [facility] [address] [place], [place], [id number] T4 freeOrdered By: Danny Rodriguez on 02-28-2025 Free T4 [Mass/Vol] 1.30 ng/dL 0.76-1.46 [facility] TSH DL <= 0.005 mIU/L QnOrde red By: Tee Rodriguez on 02-28-2025 TSH Qn 1.960 uIU/mL 0.300-4.200 [facility] Thyroid Stim Hormone (TSH)on 02-28-2025 TSH 1.960 uIU/mL Normal 0.300-4.200 [facility] Comment on above: Order Comment: PER I NTERFAUTE COMMENT-GLU Order Date: 02/28/25 Order Info: [id number] - CMP Order Info: [id number] - LIPID Order Info: [id number] - TSH Order Info: [id number] - PSA Order Info: 3024-7 - T4F Performed By: #### L [id number], L506.0400, L500.4100, L500.4050, L501.9910 #### [facility] [address] [place], [place], [id number] Total proteinOrdered By: Maricruz Rodriguez on 02-28-2025 Protein [Mass/Vol] 7.6 g/dL 5.9-8.4 [facility] Triglycerides measurementOrd ered By: Tee Rodriguez on 02-28-2025 Triglyceride [Mass/Vol] 108 mg/dL <199 [facility] Comment on above: The drugs N-Acetylcy steine and Metamizole may falsely depress this assay. Normal range: <150 mg/dLBorderline High: 150-199 mg/dLHigh: 200-499 mg/dLVery High: >500 mg/dL Vitamin D,25 Hydroxyon 02-28 Vitamin D 25-OH 35.2 ng/mL Normal 30-100 [facility] Comment on above: Order Comment: CHAITANYA RUSSO COMMENT-GLUOrder Date: 02/28/25Order Info: [id number] - CMPOrder Info: [id number] - LIPIDOrder Info: [id number] - TSHOrder Info: [id number] - PSAOrder Info: 3024-7 - T4F Result Comment: Isabel min D Status Deficiency: <20 ng/mL (50nmol/L) Insufficiency: 20-30 ng/mL (50-75 nmol/L) Sufficiency: 30-100 ng/mL (75-250 nmol/L) Toxicity: >100 ng/mL (>250 nmol/L) Performed By: #### L 506.1001 ####[facility] [address] [facility] [place], [place], [address] White blood cell (WBC) count Ordered By: Tee Rodriguez on 02-28-2025 WBC (Bld) [#/Vol] 5.2 10*3/uL 4.4-11.0 [facility] TSH DL <= 0.005 mIU/L QnOrde red By: Karen Romano on 11-07-2024 Thyroid Stimulating Hormone (TSH) 2.440 uIU/mL 0.300-4.200 [facility] TSH Qn 2.440 uIU/mL 0.300-4.200 [facility] Thyroid Stim Hormone (TSH)on 11-07-2024 TSH 2.440 uIU/mL Normal 0.300-4.200 [facility] Comment on above: Performed By: #### L 501.9520 #### [facility] [address] [place], [place], [address] TSH QnOrdered By: Karen weaver on 09-19-2024 Thyroid Stimulating Hormone (TSH) 1.640 uIU/mL 0.358-3.740 [facility] Thyroid Stim Hormone (TSH)on 09-19-2024 TSH 1.640 uIU/mL Normal 0.358-3.740 [facility] Comment on above: Performed By: #### L 501.9520 ####[facility] [address] [place], [address] Direct serum free thyroxine (FT4) measurementOrdered By: Tee Rodriguez on 08-06-2024 Free T4 [Mass/Vol] 0.98 ng/dL 0.76-1.46 [facility] Free T3on 08-06-2024 Free T3 [Mass/Vol] 2.4 pg/mL Normal 2.18-3.98 [facility] Comment on above: Order Comment: Order Date: 08/06/24Order Info: [id number] - F6CAmwtg Info: 3025-2 - M4Dygnt Info: 301-3 - TSHOrder Info: 3027 - T4F Performed By: #### L [id number], L506.0400, L501.19649, L501.9310 ####[facility] [address] [place], [place], [address] Free Q8Wayusdx By: Danny Rodriguez on 08-06-2024 Free Triiodothyronine (T3) pg/dL 2.4 pg/mL 2.18-3.98 [facility] Serum or plasma thyroxine (T 4) measurement (mass/volume)Ordered By: Tee Rodriguez on 08-06-2024 T4 [Mass/Vol] 9.6 ug/dL 4.5-12.1 [facility] T4 Free Directon 08-06-2024 T4 FREE DIRECT 0.98 ng/dL Normal 0.76-1.46 [facility] Comment on above: Order Comment: Order Date: 08/06/24Order Info: [id number] - P3USwnno Info: 2 - C6Odstn Info: [id number] - TSHOrder Info: 3027 - T4F Performed By: #### L [id number], L506.0400, L501.61925, L501.9310 ####[facility] [address] [place], [address] T4 Total, Thyroxinon 024 T4 [Mass/Vol] 9.6 ug/dL Normal 4.5-12.1 [facility] Comment on above: Order Comment: Order Date: 08/06/24Order Info: 3051-0 - G7ICoowd Info: 3026-2 - L7Ynlgh Info: 3016-3 - TSHOrder Info: 302-7 - T4F Performed By: #### L [id number], L506.0400, L501.94720, L501.9310 ####[facility] [address] [place], [address] TSH QnOrdered By: Yunior Rodriguez on 08-06-2024 Thyroid Stimulating Hormone (TSH) 0.617 uIU/mL 0.358-3.740 [facility] Thyroid Stim Hormone (TSH)on 08-06-2024 TSH 0.617 uIU/mL Normal 0.358-3.740 [facility] Comment on above: Order Comment: Order Date: 08/06/24Order Info: 3051-0 - J1FFpjxq Info: 3026-2 - R6Vshlb Info: 3015-3 - TSHOrder Info: 7 - T4F Performed By: #### L [id number], L506.0400, L501.61215, L501.9310 ####[facility] [address] [place], [address] T4 Free Directon 07-10-2024 T4 FREE DIRECT 1.16 ng/dL Normal 0.76-1.46 [facility] Comment on above: Order Comment: Order Date: 07/06/24Order Info: [id number] - TSHInterface Comments:hypothyroid symptomsOrder Info: 3024-7 - C8Ayrffxzjtrpw symptoms Performed By: #### L 501.9520, L506.0400 ####[facility] [address] [place], [address] Thyroid Stim Hormone (TSH)on 07-10-2024 TSH 0.195 uIU/mL Low 0.358-3.740 [facility] Comment on above: Order Comment: Order Date: 07/06/24Order Info: [id number] - TSHInterface Comments:hypothyroid symptomsOrder Info: 3024-7 - Y9Ujevsflacvzr symptoms Performed By: #### L 501.9520, L506.0400 ####[facility] [address] [place], [address] Laboratory - Chemistry and C hemistry - challengeOrdered By: Yunior Rodriguez on 06-27-2023 Free T4 [Mass/Vol] 1.31 ng/dL 0.76-1.46 [facility] No Panel InformationOrdered By: Yunior Rodriguez on 06-27-2023 Free Triiodothyronine (T3) pg/dL 3.1 pg/mL 2.18-3.98 [facility] Thyroid Stimulating Hormone (TSH) 0.60 uIU/mL 0.358-3.74 [facility] Absolute lymphocyte countOrd ered By: Yunior Rodriguez on 04-07-2023 Lymphocytes Auto (Unsp spec) [#/Vol] 2.33 10*3/uL 0.83-4.51 [facility] Basophil percentageOrdered B y: Yunior Rodriguez on 04-07-2023 Basophils/100 WBC (Bld) 0.8 % 0-1 [facility] Bilirubin [Mass/Vol] 0.50 mg/dL 0.20-1.00 [facility] Comment on above: For patients on eltr ombopag therapy, use of Dimension [place] TBIL is not recommended. Chloride [Moles/Vol] 106 mmol/L 98-107 [facility] Eosinophils/100 WBC (Bld) 3.0 % 0-5 [facility] Glucose [Mass/Vol] 95 mg/dL 74-106 [facility] Neutrophils (Bld) [#/Vol] 3.6 10*3/uL 2.0-7.7 [facility] Neutrophils/100 WBC (Bld) 53.2 % 47-70 [facility] Potassium [Moles/Vol] 3.8 mmol/L 3.5-5.1 [facility] Protein [Mass/Vol] 7.7 g/dL 6.4-8.2 [facility] Sodium [Moles/Vol] 140 mmol/L 136-145 [facility] Testosterone [Mass/Vol] 285.14 ng/dL [facility] Comment on above: CENTRAL 90% REFERENC E RANGES MALE AGE <50 197.44 - 669.58 ng/dL MALE AGE > or = 50 187.72 - 684.19 ng/dL FEMALE AGE <50 8.38 - 35.01 ng/dL FEMALE AGE > or = 50 <7.00 - 35.92 ng/dL Effective as of 03/24/21 WBC (Bld) [#/Vol] 6.7 10*3/uL 4.4-11.0 [facility] Blood erythrocytes count (nu mber/volume)Ordered By: Yunior Rodriguez on 04-07-2023 RBC (Bld) [#/Vol] 4.76 10*6/uL 4.6-6.2 [facility] Blood hemoglobin measurement (mass/volume)Ordered By: Yunior Rodriguez on 04-07-2023 Hemoglobin (Bld) [Mass/Vol] 14.6 g/dL 13.0-16.5 [facility] Blood lymphocytes/100 leukoc ytesOrdered By: Yunior Rodriguez on 04-07-2023 Lymphocytes/100 WBC (Bld) 35.0 % 19-41 [facility] Blood monocytes/100 leukocyt esOrdered By: Yunior Rodriguez on 04-07-2023 Monocytes/100 WBC (Bld) 7.7 % 0-10 [facility] Blood platelet mean volumeOr dered By: Yunior Rodriguez on 04-07-2023 Platelet mean volume (Bld) [Entitic vol] 10.3 fL 6.2-12.0 [facility] Determination of erythrocyte mean corpuscular volume (MCV)Ordered By: Yunior Rodriguez on 04-07-2023 MCV (RBC) [Entitic vol] 94.1 fL 80-94 [facility] Erythrocyte sedimentation ra teOrdered By: Yunior Rodriguez on 04-07-2023 ESR (Bld) [Velocity] 7 mm/h 0-20 [facility] Hematocrit Auto (Bld) [Volum e fraction]Ordered By: Yunior Rodriguez on 04-07-2023 Hematocrit (Bld) [Volume fraction] 44.8 % 40-54 [facility] Iron measurement (mass/mass) Ordered By: Yunior Rodriguez on 04-07-2023 Iron (Unsp spec) [Mass/Mass] 93 ug/dL 65-175 [facility] Laboratory - Chemistry and C hemistry - challengeOrdered By: Yunior Rodriguez on 04-07-2023 ALP [Catalytic activity/Vol] 62 U/L 45-117 [facility] ALT [Catalytic activity/Vol] 30 U/L 16-61 [facility] CO2 [Moles/Vol] 27.0 mmol/L 21.0-32.0 [facility] Cobalamin (Vitamin B12) [Mass/Vol] 742 pg/mL 211-911 [facility] Globulin (S) [Mass/Vol] 3.8 g/dL 2.2-4.2 [facility] Urea nitrogen/Creatinine [Mass ratio] 15.7 mg/mg 10-20 [facility] - Hematology and Cell countsOrdered By: Yunior Rodriguez on 04-07-2023 Erythrocyte distribution width (RBC) [Entitic vol] 43.5 fL 35.1-43.9 [facility] Erythrocyte distribution width (RBC) [Ratio] 12.4 % 11.6-14.6 [facility] Immature granulocytes/100 WBC (Bld) 0.300 % 0.0-0.9 [facility] Comment on above: IG% - Immature Granu locytes (promyelocytes, myelocytes and metamyelocytes) > 1% indicates that a LEFT SHIFT is Present. MCH (RBC) [Entitic mass] 30.7 pg 27.0-32.0 [facility] Nucleated RBC/100 WBC (Bld) [Ratio] 0 % 0-5 [facility] MCHC Auto (RBC) [Mass/Vol]Or dered By: Yunior Rodriguez on 04-07-2023 MCHC (RBC) [Mass/Vol] 32.6 g/dL 32-36 [facility] No Panel InformationOrdered By: Yunior Rodriguez on 04-07-2023 Anti-Nuclear Antibody Screen Negative Negative [facility] Comment on above: Performed at: [address] [id number] Director: Isaac Rubin PhD, Phone: [phone] Estimated GFR (MDRD) Amer 106 mL/min >60 [facility] Comment on above: GFR Calc Estimated GFR (MDRD) Non-Af Amer 88 mL/min >60 [facility] Comment on above: Non- GFR Calc Vitamin D 25-Hydroxy 40.4 ng/mL [facility] Comment on above: Vitamin D 25(OH) Sta tus Range Deficiency <20 ng/mL (50nmol/L) Insufficiency 20 - 30 ng/mL (50 - 75 nmol/L) Sufficiency 30 - 100 ng/mL (75 - 250 nmol/L) Toxicity >100 ng/mL (>250 nmol/L) Platelets bldOrdered By: Maricruz Rodriguez on 04-07-2023 Platelets (Bld) [#/Vol] 326 10*3/uL 150-450 [facility] Serum or plasma C reactive p rotein measurement (mass/volume)Ordered By: Yunior Rodriguez on 04-07-2023 CRP [Mass/Vol] mg/L 0.0-3.0 [facility] Comment on above: C-Reactive Protein ( CRP) provides useful information for thediagnosis, therapy and monitoring of inflammatory processesand associated diseases. For the evaluation of Relative Riskfor Cardiovascular Disease, a High Sensitivity CRP (HSCRP)should be ordered. Serum or plasma albumin beatriz urement (mass/volume)Ordered By: Yunior Rodriguez on 04-07-2023 Albumin [Mass/Vol] 3.9 g/dL 3.2-5.0 [facility] Serum or plasma albumin/glob ulin mass ratioOrdered By: Yunior Rodriguez on 04-07-2023 Albumin/Globulin [Mass ratio] 1.0 {ratio} 0.9-2.4 [facility] Serum or plasma calcium beatriz urement (mass/volume)Ordered By: Yunior Rodriguez on 04-07-2023 Calcium [Mass/Vol] 8.8 mg/dL 8.5-10.1 [facility] Serum or plasma creatinine m easurement (mass/volume)Ordered By: Yunior Rodriguez on 04-07-2023 Creatinine [Mass/Vol] 0.96 mg/dL 0.70-1.30 [facility] Comment on above: The validity of the calculated GFR & GFRAA in patients over 70 years has not been determined. Clinical correlation is essential. Serum or plasma ferritin tamara surement (mass/volume)Ordered By: Yunior Rodriguez on 04-07-2023 Ferritin [Mass/Vol] 86 ng/mL 26-388 [facility] Serum or plasma thyroperoxid ase antibody assay (units/volume)Ordered By: Yunior Rodriguez on 04-07-2023 TPO Ab Qn 24 [IU]/mL 0-34 [facility] Comment on above: Performed at: [facility] [employer] [address] [id number] Director: Isaac Rubin PhD, Phone: [phone] Serum or plasma urea nitroge n measurement (mass/volume)Ordered By: Yunior Rodriguez on 04-07-2023 Urea nitrogen [Mass/Vol] 15 mg/dL 7-18 [facility] Serum or plasma uric acid me asurement (mass/volume)Ordered By: Yunior Rodriguez on 04-07-2023 Urate [Mass/Vol] 6.0 mg/dL 3.5-7.2 [facility] Comment on above: The drugs N-Acetylcy steine and Metamizole may falsely depress this assay. Serum rheumatoid factor dete ctionOrdered By: Yunior Rodriguez on 04-07-2023 Rheumatoid factor Ql (S) < 10.0 IU/mL <15 [facility] Thin prep Papanicolaou smear with manual screeningOrdered By: Yunior Rodriguez on 04-07-2023 Thin prep Papanicolaou smear with manual screening 21 U/L 15-37 [facility] Thin prep Papanicolaou smear with manual screening 7 5-15 [facility] Thin prep Papanicolaou smear with manual screening Negative Negative [facility] Comment on above: Lyme antibodies not detected. [...] 03-30-2023 Free T4 [Mass/Vol] 0.96 ng/dL 0.76-1.46 [facility] No Panel InformationOrdered By: Yunior Rodriguez on 03-30-2023 Free Triiodothyronine (T3) pg/dL 2.3 pg/mL 2.18-3.98 [facility] Thyroid Stimulating Hormone (TSH) 21.30 uIU/mL 0.358-3.74 [facility] Laboratory - Chemistry and C hemistry - challengeOrdered By: Yunior Rodriguez on 01-21-2023 Free T4 [Mass/Vol] 0.71 ng/dL 0.76-1.46 [facility] No Panel InformationOrdered By: Yunior Rodriguez on 01-21-2023 Free Triiodothyronine (T3) pg/dL 2.0 pg/mL 2.18-3.98 [facility] Thyroid Stimulating Hormone (TSH) 34.20 uIU/mL 0.358-3.74 [facility] Basophil percentageOrdered B y: Dr. Rodriguez on 12-03-2022 Chloride [Moles/Vol] 107 mmol/L 98-107 [facility] Cholesterol [Mass/Vol] 226 mg/dL <200 [facility] Comment on above: <200 mg/dL Desirable 200-240 mg/dL Borderline >240 mg/dL High Risk Glucose [Mass/Vol] 90 mg/dL 74-106 [facility] Potassium [Moles/Vol] 3.9 mmol/L 3.5-5.1 [facility] Sodium [Moles/Vol] 140 mmol/L 136-145 [facility] Triglyceride [Mass/Vol] 185 mg/dL <199 [facility] Comment on above: The drugs N-Acetylcy steine and Metamizole may falsely depress this assay.Serum Triglycerides Reference Interval Normal <150 mg/dL Borderline high 150 - 199 mg/dL High 200 - 499 mg/dL Very High > or = 500 mg/dL Laboratory - Chemistry and C hemistry - challengeOrdered By: Dr. Rodriguez on 12-03-2022 CO2 [Moles/Vol] 28.0 mmol/L 21.0-32.0 [facility] Free T4 [Mass/Vol] 1.08 ng/dL 0.76-1.46 [facility] Urea nitrogen/Creatinine [Mass ratio] 19.8 mg/mg 10-20 [facility] No Panel InformationOrdered By: Dr. Rodriguez on 12-03-2022 Estimated GFR (MDRD) Amer 130 mL/min >60 [facility] Comment on above: GFR Calc Estimated GFR (MDRD) Non-Af Amer 107 mL/min >60 [facility] Comment on above: Non- GFR Calc Free Triiodothyronine (T3) pg/dL 2.7 pg/mL 2.18-3.98 [facility] Prostate Specific Antigen Screen 0.47 ng/mL 0.00-4.00 [facility] Comment on above: This test was perfor med using the TPSA assay method for State chemistry system. Values obtained with differentassay methods cannot be used interchangably.When changing PSA assays in the course of monitoring apatient, additional sequential testing should be carriedout to confirm baseline values. Thyroid Stimulating Hormone (TSH) 1.95 uIU/mL 0.358-3.74 [facility] Serum or plasma calcium beatriz urement (mass/volume)Ordered By: Dr. Rodriguez on 12-03-2022 Calcium [Mass/Vol] 9.2 mg/dL 8.5-10.1 [facility] Serum or plasma cholesterol in HDL measurement (mass/volume)Ordered By: Dr. Rodriguez on 12-03-2022 Cholesterol in HDL [Mass/Vol] 47 mg/dL >40 [facility] Comment on above: The drugs N-Acetylcy steine and Metamizole may falsely depress this assay. Reference Range HDL <40 mg/dL Low HDL Cholesterol HDL >or= 60 mg/dL High HDL Cholesterol Serum or plasma cholesterol in VLDL measurement (mass/volume)Ordered By: Dr. Rodriguez on 12-03-2022 Cholesterol in VLDL [Mass/Vol] 37 mg/dL 5-40 [facility] Serum or plasma creatinine m easurement (mass/volume)Ordered By: Dr. Rodriguez on 12-03-2022 Creatinine [Mass/Vol] 0.81 mg/dL 0.70-1.30 [facility] Comment on above: The validity of the calculated GFR & GFRAA in patients over 70 years has not been determined. Clinical correlation is essential. Serum or plasma low density lipoprotein (LDL) cholesterol measurement (mass/volume)Ordered By: Dr. Rodriguez on 12-03-2022 Cholesterol in LDL [Mass/Vol] 142 mg/dL 0-130 [facility] Serum or plasma urea nitroge n measurement (mass/volume)Ordered By: Dr. Rodriguez on 12-03-2022 Urea nitrogen [Mass/Vol] 16 mg/dL 7-18 [facility] Thin prep Papanicolaou smear with manual screeningOrdered By: Dr. Rodriguez on 12-03-2022 Thin prep Papanicolaou smear with manual screening 5 5-15 [facility] Basophil percentageon 2021 Chloride [Moles/Vol] 104 mmol/L 98-107 [facility] Work Phone: Glucose [Mass/Vol] 86 mg/dL 74-106 [facility] Work Phone: Potassium [Moles/Vol] 4.0 mmol/L 3.5-5.1 [facility] Work Phone: Sodium [Moles/Vol] 139 mmol/L 136-145 [facility] Work Phone: WBC (Bld) [#/Vol] 5.8 10*3/uL 4.4-11.0 [facility] Work Phone: Blood erythrocytes count (nu mber/volume)on 02-05-2022 RBC (Bld) [#/Vol] 4.75 10*6/uL 4.6-6.2 [facility] Work Phone: Blood hemoglobin measurement (mass/volume)on 02-05-2022 Hemoglobin (Bld) [Mass/Vol] 14.7 g/dL 13.0-16.5 [facility] Work Phone: Blood platelet mean volumeon 02-05-2022 Platelet mean volume (Bld) [Entitic vol] 9.6 fL 6.2-12.0 [facility] Work Phone: Determination of erythrocyte mean corpuscular volume (MCV)on 02-05-2022 MCV (RBC) [Entitic vol] 92.4 fL 80-94 [facility] Work Phone: Hematocrit Auto (Bld) [Volum e fraction]on 02-05-2022 Hematocrit (Bld) [Volume fraction] 43.9 % 40-54 [facility] Work Phone: Laboratory - Chemistry and C hemistry - challengeon 02-05-2022 CO2 [Moles/Vol] 31.0 mmol/L 21.0-32.0 [facility] Work Phone: Free T4 [Mass/Vol] 1.05 ng/dL 0.76-1.46 [facility] Work Phone: Magnesium [Mass/Vol] 1.9 mg/dL 1.6-2.6 [facility] Work Phone: Urea nitrogen/Creatinine [Mass ratio] 16.5 mg/mg 10-20 [facility] Work Phone: Laboratory - Hematology and Cell countson 02-05-2022 Erythrocyte distribution width (RBC) [Entitic vol] 43.4 fL 35.1-43.9 [facility] Work Phone: Erythrocyte distribution width (RBC) [Ratio] 12.7 % 11.6-14.6 [facility] Work Phone: MCH (RBC) [Entitic mass] 30.9 pg 27.0-32.0 [facility] Work Phone: MCHC Auto (RBC) [Mass/Vol]on 02-05-2022 MCHC (RBC) [Mass/Vol] 33.5 g/dL 32-36 [facility] Work Phone: No Panel Informationon 02-05 Estimated GFR (MDRD) Amer 114 mL/min >60 [facility] Work Phone: Comment on above: GFR Calc Estimated GFR (MDRD) Non-Af Amer 94 mL/min >60 [facility] Work Phone: Comment on above: Non- GFR Calc Thyroid Stimulating Hormone (TSH) 1.27 uIU/mL 0.358-3.74 [facility] Work Phone: Platelets bldon 02-05-2022 Platelets (Bld) [#/Vol] 315 10*3/uL 150-450 [facility] Work Phone: Serum or plasma calcium beatriz urement (mass/volume)on 02-05-2022 Calcium [Mass/Vol] 9.4 mg/dL 8.5-10.1 [facility] Work Phone: Serum or plasma creatinine m easurement (mass/volume)on 02-05-2022 Creatinine [Mass/Vol] 0.91 mg/dL 0.70-1.30 [facility] Work Phone: Comment on above: The validity of the calculated GFR & GFRAA in patients over 70 years has not been determined. Clinical correlation is essential. Serum or plasma urea nitroge n measurement (mass/volume)on 02-05-2022 Urea nitrogen [Mass/Vol] 15 mg/dL 7-18 [facility] Work Phone: Thin prep Papanicolaou smear with manual screeningon 02-05-2022 Thin prep Papanicolaou smear with manual screening 4 5-15 [facility] Work Phone: Culture, urineon 01-04-2022 Bacteria identified Cx Nom (U) Culture exhibits no growth. [facility] Work Phone: Laboratory - Chemistry and C hemistry - challengeon 01-04-2022 Free T4 [Mass/Vol] 1.13 ng/dL 0.76-1.46 [facility] Work Phone: No Panel Informationon 01-04 Prostate Specific Antigen Screen 0.40 ng/mL 0.00-4.00 [facility] Work Phone: Comment on above: This test was perfor med using the TPSA assay method [facility] the[facility]. Values obtained with differentassay methods cannot be used interchangably.When changing PSA assays in the course of monitoring apatient, additional sequential testing should be carriedout to confirm baseline values. Thyroid Stimulating Hormone (TSH) 0.94 uIU/mL 0.358-3.74 [facility] Work Phone: Culture, urineon 12-28-2021 Bacteria identified Cx Nom (U) Culture exhibits no growth. [facility] Work Phone: Basophil percentageon 2021 Chloride [Moles/Vol] 104 mmol/L 98-[address] [facility] [address] [facility] Work Phone: Cholesterol [Mass/Vol] 154 mg/dL <200 [facility] Work Phone: Comment on above: <200 mg/dL Desirable 200-240 mg/dL Borderline >240 mg/dL High Risk Glucose [Mass/Vol] 81 mg/dL 74-106 [facility] Work Phone: Potassium [Moles/Vol] 3.9 mmol/L 3.5-5.1 [facility] Work Phone: Sodium [Moles/Vol] 140 mmol/L 136-145 [facility] Work Phone: Triglyceride [Mass/Vol] 53 mg/dL [facility] Work Phone: Comment on above: The drugs N-Acetylcy steine and Metamizole may falsely depress this assay.Serum Triglycerides Reference Interval Normal <150 mg/dL Borderline high 150 - 199 mg/dL High 200 - 499 mg/dL Very High > or = 500 mg/dL Laboratory - Chemistry and C hemistry - challengeon 09-19-2021 CO2 [Moles/Vol] 29.0 mmol/L 21.0-32.0 [facility] Work Phone: Free T4 [Mass/Vol] 1.47 ng/dL 0.76-1.46 [facility] Work Phone: Urea nitrogen/Creatinine [Mass ratio] 15.1 mg/mg 10-20 [facility] Work Phone: No Panel Informationon 09-19 Estimated GFR (MDRD) Amer 121 mL/min >60 [facility] Work Phone: Comment on above: GFR Calc Estimated GFR (MDRD) Non-Af Amer 100 mL/min >60 [facility] Work Phone: Comment on above: Non- GFR Calc Free Triiodothyronine (T3) pg/dL 2.7 pg/mL 2.18-3.98 [facility] Work Phone: Thyroid Stimulating Hormone (TSH) 0.53 uIU/mL 0.358-3.74 [facility] Work Phone: Vitamin D 25-Hydroxy 41.3 ng/mL [facility] Work Phone: Comment on above: Vitamin D 25(OH) Sta tus Range Deficiency <20 ng/mL (50nmol/L) Insufficiency 20 - 30 ng/mL (50 - 75 nmol/L) Sufficiency 30 - 100 ng/mL (75 - 250 nmol/L) Toxicity >100 ng/mL (>250 nmol/L) Serum or plasma calcium beatriz urement (mass/volume)on 09-19-2021 Calcium [Mass/Vol] 9.3 mg/dL 8.5-10.1 [facility] Work Phone: Serum or plasma cholesterol in HDL measurement (mass/volume)on 09-19-2021 Cholesterol in HDL [Mass/Vol] 53 mg/dL [facility] Work Phone: Comment on above: The drugs N-Acetylcy steine and Metamizole may falsely depress this assay. Reference Range HDL <40 mg/dL Low HDL Cholesterol HDL >or= 60 mg/dL High HDL Cholesterol Serum or plasma cholesterol in VLDL measurement (mass/volume)on 09-19-2021 Cholesterol in VLDL [Mass/Vol] 11 mg/dL 5-40 [facility] Work Phone: Serum or plasma creatinine m easurement (mass/volume)on 09-19-2021 Creatinine [Mass/Vol] 0.86 mg/dL 0.70-1.30 [facility] Work Phone: Comment on above: The validity of the calculated GFR & GFRAA in patients over 70 years has not been determined. Clinical correlation is essential. Serum or plasma low density lipoprotein (LDL) cholesterol measurement (mass/volume)on 09-19-2021 Cholesterol in LDL [Mass/Vol] 90 mg/dL 0-130 [facility] Work Phone: Serum or plasma urea nitroge n measurement (mass/volume)on 09-19-2021 Urea nitrogen [Mass/Vol] 13 mg/dL 7-18 [facility] Work Phone: Thin prep Papanicolaou smear with manual screeningon 09-19-2021 Thin prep Papanicolaou smear with manual screening 7 5-15 [facility] Work Phone: CNOVon 2021 CNOV Office Visit (NENMMN ) KEYANA LEVINE ([id number]) 1970 M Date Time Provider Department 02/12/21 1:00 PM FERNANDA MCLAUGHLIN During your visit today, we recorded the following information about you: Pulse Blood pressure Weight Height 80/minute 124/90 108 kg 1.93 m Fernanda Mclaughlin MD 02/22/2021 6:10 PM Signed [facility] New Patient Visit Note Consultation [...] medications fo (more content not included)... Normal [facility] Celiac Scr w Reflexon 2020 IgA [Mass/Vol] 306 mg/dL Normal 70-400 [facility] Comment on above: Performed By: #### H BA1C, IFESC, MMA, B12, KLFRS, CELSCR, EVIT, B1WB, HREMOP #### [facility] [address] [place] [address] #### VITB6 #### [facility] [address] [place] [address] Interpretation No serologic evidenc e of celiac disease. Normal No serologic evidence of celiac disease. [facility] Comment on above: Performed By: #### H BA1C, IFESC, MMA, B12, KLFRS, CELSCR, EVIT, B1WB, HREMOP #### [facility] [address] [place] [address] #### VITB6 #### [facility] [address] [address] Transglutaminase IgA 14 Units Normal <20 [facility] Comment on above: Result Comment: Nega tive : < 20 Units Weak Positive : 20 - 30 Units Moderate Pos to Strong Pos: >30 Units The following results were obtained with the [employer] QUANTA Lite h-tTG IgA KATELYN. h-tTG IgA values obtained with different manufacturers' assay methods may not be used interchangeably. The magnitude of the reported IgA levels cannot be correlated to an endpoint titer. Performed By: #### H BA1C, IFESC, MMA, B12, KLFRS, CELSCR, EVIT, B1WB, HREMOP #### [place] [address] #### VITB6 #### [address] [address] Hemoglobin A1con 2021 Glucose [Mass/Vol] 114 mg/dL Normal [facility] Comment on above: Result Comment: eAG: (Estimated average glucose) is a calculated value from HgbA1c and is assisted sales representative of the average blood glucose level in the last 2-3 month period. Performed By: #### H BA1C, IFESC, MMA, B12, KLFRS, CELSCR, EVIT, B1WB, HREMOP #### [place] [address] #### VITB6 #### [address] [address] HbA1c (Bld) [Mass fraction] 5.6 % Normal 4.3-5.6 [facility] Comment on above: Result Comment: Amer [place] Diabetes Association guidelines indicate that patients with HgbA1c in the range 5.7-6.4% are at increased risk for development of diabetes, and intervention by lifestyle modification may be beneficial. HgbA1c greater or equal to 6.5% is considered diagnostic of diabetes. Performed By: #### H BA1C, IFESC, MMA, B12, KLFRS, CELSCR, EVIT, B1WB, HREMOP #### [place] [phone] #### VITB6 #### [facility] [address] [place] [phone] Hepatitis Remote Panelon HBsAg Negative Normal Negative [facility] Comment on above: Performed By: #### H BA1C, IFESC, MMA, B12, KLFRS, CELSCR, EVIT, B1WB, HREMOP #### [place] [phone] #### VITB6 #### [facility] [address] [place] [phone] Hep B Core Ab,Total Negative Normal Negative [facility] Comment on above: Performed By: #### H BA1C, IFESC, MMA, B12, KLFRS, CELSCR, EVIT, B1WB, HREMOP #### [place] [phone] #### VITB6 #### [facility] [address] [place] [phone] Hepatitis C Ab IA Negative Normal Negative [facility] Comment on above: Performed By: #### H BA1C, IFESC, MMA, B12, KLFRS, CELSCR, EVIT, B1WB, HREMOP #### [place] [phone] #### VITB6 #### [facility] [address] [place] [phone] HepB Surface Ab,Qual Positive Critically abnormal Negative [facility] Comment on above: Result Comment: Thes e results are consistent with previous exposure and/or immunity to the hepatitis B virus antigen. Performed By: #### H BA1C, IFESC, MMA, B12, KLFRS, CELSCR, EVIT, B1WB, HREMOP #### [place] [phone] #### VITB6 #### [address] [address] AYLA Screen, Serumon 02-13-20 21 MPA Result No M protein is identified. Normal No M protein is identified. [facility] Comment on above: Performed By: #### H BA1C, IFESC, MMA, B12, KLFRS, CELSCR, EVIT, B1WB, HREMOP #### [place] [phone] #### VITB6 #### [address] [address] Staff Review Reviewed by Sam Harding MD PhD ([id number]) Normal [facility] Comment on above: Performed By: #### H BA1C, IFESC, MMA, B12, KLFRS, CELSCR, EVIT, B1WB, HREMOP #### [place] [phone] #### VITB6 #### [address] [address] [place]/Cuellar,Free,Seron 2020 K/L Ratio, Serum 0.99 Normal 0.26-1.65 [facility] [place] [facility] Comment on above: Performed By: #### H BA1C, IFESC, MMA, B12, KLFRS, CELSCR, EVIT, B1WB, HREMOP #### [place] [phone] #### VITB6 #### [address] [address] [place], Free, Serum 13.5 mg/L Normal 3.30-19.40 [facility] Comment on above: Result Comment: Test performed by an immunoturbidimetric assay on [employer] instrument from [facility]. Immunoglobulin free light chain assay results should be interpreted in conjunction with other tests and in correlation with clinical picture. Performed By: #### H BA1C, IFESC, MMA, B12, KLFRS, CELSCR, EVIT, B1WB, HREMOP #### [facility] [address] [place] [address] #### VITB6 #### [facility] [address] [place] [address] Lambda, Free, Serum 13.7 mg/L Normal 5.7-26.3 [facility] Comment on above: Result Comment: Test performed by an immunoturbidimetric assay on [employer] instrument from [facility]. Immunoglobulin free light chain assay results should be interpreted in conjunction with other tests and in correlation with clinical picture. Performed By: #### H BA1C, IFESC, MMA, B12, KLFRS, CELSCR, EVIT, B1WB, HREMOP #### [place] [id number] [place] [phone] #### VITB6 #### [facility] [address] [address] Methylmalonic Acidon 021 Methylmalonic Acid 206 nmol/L Normal 79-376 [facility] Comment on above: Result Comment: This test was developed and its performance characteristics determined by [facility]'s [facility] [place] ([facility]). It has not been cleared or approved by the FDA. [facility] is regulated under CLIA as qualified to perform high complexity testing. This test is used for clinical purposes. It should not be regarded as investigational or for research. Performed By: #### H BA1C, IFESC, MMA, B12, KLFRS, CELSCR, EVIT, B1WB, HREMOP ####[facility] [place], [place] [phone]#### VITB6 ####[facility] [address] [place], [place] [phone] Vitamin B1, Whole Blon 02-12 Vitamin B1 (TDP), WB 225.6 nmol/L High 84.0-213.0 [facility] Comment on above: Result Comment: This assay measures the concentration of thiamine diphosphate (TDP), the primary active form of vitamin B1. Approximately 90 percent of vitamin B1 present in whole blood is TDP. Thiamine and thiamine monophosphate, which comprise the remaining 10 percent, are not measured. This test was developed and its performance characteristics determined by [facility] [place] ([facility]). It has not been cleared or approved by the FDA. [facility] is regulated under CLIA as qualified to perform high complexity testing. This test is used for clinical purposes. It should not be regarded as investigational or for research. Performed By: #### H BA1C, IFESC, MMA, B12, KLFRS, CELSCR, EVIT, B1WB, HREMOP #### [place] [address] #### VITB6 #### [facility] [address] [place] [address] Vitamin B12on 2021 Cobalamin (Vitamin B12) [Mass/Vol] 791 pg/mL Normal 232-1245 [facility] Comment on above: Performed By: #### H BA1C, IFESC, MMA, B12, KLFRS, CELSCR, EVIT, B1WB, HREMOP #### [place] [address] #### VITB6 #### [facility] [address] [place] [address] Vitamin B6 Plasmaon 02-13-20 21 Vitamin B6 Plasma 445.8 nmol/L High 20.0-125.0 [facility] Comment on above: Result Comment: (NOT E) INTERPRETIVE INFORMATION: Vitamin B6 (Pyridoxal 5-Phosphate) Pyridoxal 5'-phosphate measured in a specimen collected following an 8-hour or overnight fast accurately indicates vitamin B6 nutritional status. Non-fasting specimen concentration reflects recent vitamin intake. This test was developed and its performance characteristics determined by [employer]. It has not been cleared or approved by the US Food and Drug Administration. This test was performed in a CLIA certified laboratory and is intended for clinical purposes. Performed By: [email or web address] [address] [place] [address] Chief Librarian Work With Blind: Zhanna Mcnair MD Performed By: #### H BA1C, IFESC, MMA, B12, KLFRS, CELSCR, EVIT, B1WB, HREMOP ####[facility] [place], [place] [phone]#### VITB6 ####[address] [phone] Vitamin Felix 2021 Vitamin E-alpha 12.1 mg/L Normal 6.0-23.0 [facility] Comment on above: Performed By: #### H BA1C, IFESC, MMA, B12, KLFRS, CELSCR, EVIT, B1WB, HREMOP #### [facility] [address] [place], [place] [address] #### VITB6 #### [address] [address] Vitamin E-gamma 1.5 mg/L Normal 0.3-3.2 [facility] Comment on above: Result Comment: This test was developed and its performance characteristics determined by [facility] Earle Kang [facility] [place] ([facility]). It has not been cleared or approved by the FDA. [facility] is regulated under CLIA as qualified to perform high complexity testing. This test is used for clinical purposes. It should not be regarded as investigational or for research. Performed By: #### H BA1C, IFESC, MMA, B12, KLFRS, CELSCR, EVIT, B1WB, HREMOP #### [facility] [address] [place], [place] [address] #### VITB6 #### [address] [address] Office Visit: Spine Visit- R sided low back liliana non 03-28-2017 Documentation of current medications (procedure) Done Invalid Interpretation Code [facility] Work Phone: Protein mass conc Done [facility] Work Phone: Office Visit: Spine Visiton 06-28-2016 Tobacco smoking status NHIS Never [facility] Work Phone: Tobacco smoking status NHIS Never smoker [facility] Work Phone: Tobacco use [facility] Never smoker Invalid Interpretation Code [facility] Work Phone: Culture, urine Bacteria identified Cx Nom (U) Culture exhibits no growth. [facility] Work Phone: Vital Signs Date Time Vital Sign Value Performing Clinician Hector hanson 03-22-2025 09:07-0400 Body mass index (BMI) [Ratio] 29.4 kg/m2 Dr. Tee Rodriguez MD Work Phone: [facility] 03-22-2025 09:07-0400 Body temperature 97.6 [degF] Dr. Tee Rodriguez MD Work Phone: [facility] 03-22-2025 09:07-0400 Body weight 109.[address] Tee Rodriguez MD Work Phone: [facility] 03-22-2025 09:07-0400 Diastolic blood pressure 78 mm[Hg] Dr. Tee Rodriguez MD Work Phone: [facility] 03-22-2025 09:07-0400 Heart rate 78 /min Dr. Tee Rodriguez MD Work Phone: [facility] 03-22-2025 09:07-0400 Respiratory rate 18 /min Dr. Tee Rodriguez MD Work Phone: [facility] 03-22-2025 09:07-0400 SaO2% (BldA) [Mass fraction] 95 % Dr. Tee Rodriguez MD Work Phone: [facility] 03-22-2025 09:07-0400 Systolic blood pressure 110 mm[Hg] Dr. Tee Rodriguez MD Work Phone: [facility] 03-17-2023 07:51-0400 Body height 193.[address] Yunior Rodriguez Work Phone: [facility] 03-17-2023 07:51-0400 Body mass index (BMI) [Ratio] 27 kg/m2 Dr. Yunior Rodriguez Work Phone: [facility] 03-17-2023 07:51-0400 Body temperature 97.5 [degF] Dr. Yunior Rodriguez Work Phone: [facility] 03-17-2023 07:51-0400 Body weight 100.[address] Yunior Rodriguez Work Phone: [facility] 03-17-2023 07:51-0400 Diastolic blood pressure 83 mm[Hg] Dr. Yunior Rodriguez Work Phone: [facility] 03-17-2023 07:51-0400 Heart rate 70 /min Dr. Yunior Rodriguez Work Phone: [facility] 03-17-2023 07:51-0400 Respiratory rate 18 /min Dr. Yunior Rodriguez Work Phone: [facility] 03-17-2023 07:51-0400 SaO2% (BldA) [Mass fraction] 98 % Dr. Yunior Rodriguez Work Phone: [facility] 03-17-2023 07:51-0400 Systolic blood pressure 117 mm[Hg] Dr. Yunior Rodriguez Work Phone: [facility] 02-04-2023 09:26-0400 Body height 193.[address] Yunior Rodriguez Work Phone: [facility] 02-04-2023 09:26-0400 Body mass index (BMI) [Ratio] 27.3 kg/m2 Dr. Yunior Rodriguez Work Phone: [facility] 02-04-2023 09:26-0400 Body temperature 98.4 [degF] Dr. Yunior Rodriguez Work Phone: [facility] 02-04-2023 09:26-0400 Body weight 102.[address] Yunior Rodriguez Work Phone: [facility] 02-04-2023 09:26-0400 Diastolic blood pressure 80 mm[Hg] Dr. Yunior Rodriguez Work Phone: [facility] 02-04-2023 09:26-0400 Heart rate 69 /min Dr. Yunior Rodriguez Work Phone: [phone] [address] 02-04-2023 09:26-0400 Respiratory rate 18 /min Dr. Yunior Rodriguez Work Phone: [facility] 02-04-2023 09:26-0400 SaO2% (BldA) [Mass fraction] 96 % Dr. Yunior Rodriguez Work Phone: [facility] 02-04-2023 09:26-0400 Systolic blood pressure 122 mm[Hg] Dr. Yunior Rodriguez Work Phone: [phone] [address] 11-24-2022 10:47-0400 Body height 193.[address] Yunior Rodriguez Work Phone: [phone])[phone] [place] [address] 11-24-2022 10:40-0400 Body mass index (BMI) [Ratio] 27.2 kg/m2 Dr. Yunior Rodriguez Work Phone: [facility] 11-24-2022 10:40-0400 Body temperature 97.6 [degF] Dr. Yunior Rodriguez Work Phone: 5(958)[phone] [place] [address] 11-24-2022 10:40-0400 Body weight 101.[address] Yunior Rodriguez Work Phone: 2(418)[phone] [place] [address] 11-24-2022 10:40-0400 Diastolic blood pressure 87 mm[Hg] Dr. Yunior Rodriguez Work Phone: 3(367)[phone] [place] [address] 11-24-2022 10:40-0400 Heart rate 80 /min Dr. Yunior Rodriguez Work Phone: [facility] 11-24-2022 10:40-0400 Respiratory rate 18 /min Dr. Yunior Rodriguez Work Phone: [facility] 11-24-2022 10:40-0400 SaO2% (BldA) [Mass fraction] 98 % Dr. Yunior Rodriguez Work Phone: [facility] 11-24-2022 10:40-0400 Systolic blood pressure 133 mm[Hg] Dr. Yunior Rodriguez Work Phone: [facility] 11-20-2021 14:13-0400 Body height 193.[address] Yunior Rodriguez Work Phone: [facility] Work Phone: 11-20-2021 14:13-0400 Body mass index (BMI) [Ratio] 25.7 kg/m2 Dr. Yunior Rodriguez Work Phone: [facility] Work Phone: 11-20-2021 14:13-0400 Body temperature 97.7 [degF] Dr. Yunior Rodriguez Work Phone: [facility] Work Phone: 11-20-2021 14:13-0400 Body weight 95.[address] Yunior Rodriguez Work Phone: [facility] Work Phone: 11-20-2021 14:13-0400 Diastolic blood pressure 79 mm[Hg] Dr. Yunior Rodriguez Work Phone: [facility] Work Phone: 11-20-2021 14:13-0400 Heart rate 65 /min Dr. Yunior Rodriguez Work Phone: [facility] Work Phone: 11-20-2021 14:13-0400 Respiratory rate 18 /min Dr. Yunior Rodriguez Work Phone: [facility] Work Phone: 11-20-2021 14:13-0400 SaO2% (BldA) [Mass fraction] 97 % Dr. Yunior Rodriguez Work Phone: [facility] Work Phone: 11-20-2021 14:13-0400 Systolic blood pressure 108 mm[Hg] Dr. Yunior Rodriguez Work Phone: [facility] Work Phone: 11-20-2021 14:13-0400 Body height 193.[address] Yunior Rodriguez Work Phone: [facility] Work Phone: 11-20-2021 14:13-0400 Body mass index (BMI) [Ratio] 25.7 kg/m2 Dr. Yunior Rodriguez Work Phone: [facility] Work Phone: 11-20-2021 14:13-0400 Body temperature 97.7 [degF] Dr. Yunior Rodriguez Work Phone: [facility] Work Phone: 11-20-2021 14:13-0400 Body weight 95.[address] Yunior Rodriguez Work Phone: [facility] Work Phone: 11-20-2021 14:13-0400 Diastolic blood pressure 79 mm[Hg] Dr. Yunior Rodriguez Work Phone: [facility] Work Phone: 11-20-2021 14:13-0400 Heart rate 65 /min Dr. Yunior Rodriguez Work Phone: [facility] Work Phone: 11-20-2021 14:13-0400 Respiratory rate 18 /min Dr. Yunior Rodriguez Work Phone: [facility] Work Phone: 11-20-2021 14:13-0400 SaO2% (BldA) [Mass fraction] 97 % Dr. Yunior Rodriguez Work Phone: [facility] Work Phone: 11-20-2021 14:13-0400 Systolic blood pressure 108 mm[Hg] Dr. Yunior Rodriguez Work Phone: [facility] Work Phone: 10-20-2021 12:54-0500 Body mass index (BMI) [Ratio] 26.2 kg/m2 Dr. Yunior Rodriguez Work Phone: [facility] Work Phone: 10-20-2021 12:54-0500 Body temperature 97.3 [degF] Dr. Yunior Rodriguez Work Phone: [facility] Work Phone: 10-20-2021 12:54-0500 Body weight 97.[address] Yunior Rodriguez Work Phone: [facility] Work Phone: 10-20-2021 12:54-0500 Diastolic blood pressure 81 mm[Hg] Dr. Yunior Rodriguez Work Phone: [facility] Work Phone: 10-20-2021 12:54-0500 Heart rate 76 /min Dr. Yunior Rodriguez Work Phone: [facility] Work Phone: 10-20-2021 12:54-0500 Respiratory rate 16 /min Dr. Yunior Rodriguez Work Phone: [facility] Work Phone: 10-20-2021 12:54-0500 SaO2% (BldA) [Mass fraction] 98 % Dr. Yunior Rodriguez Work Phone: [facility] Work Phone: 10-20-2021 12:54-0500 Systolic blood pressure 113 mm[Hg] Dr. Yunior Rodriguez Work Phone: [facility] Work Phone: 10-08-2021 14:04-0500 Diastolic blood pressure 86 mm[Hg] Dr. Yunior Rodriguez Work Phone: [facility] Work Phone: 10-08-2021 14:04-0500 Heart rate 84 /min Dr. Yunior Rodriguez Work Phone: [facility] Work Phone: 10-08-2021 14:04-0500 SaO2% (BldA) [Mass fraction] 95 % Dr. Yunior Rodriguez Work Phone: [facility] Work Phone: 10-08-2021 14:04-0500 Systolic blood pressure 128 mm[Hg] Dr. Yunior Rodriguez Work Phone: [facility] Work Phone: 10-08-2019 14:09-0500 Body mass index (BMI) [Ratio] 27.2 kg/m2 Dr. Yunior Rodriguez Work Phone: [facility] Work Phone: 06-28-2016 16:24-0400 BMI (Body Mass Index) 28.74 kg/m2 Caro Snider DC [facility] Work Phone: 06-28-2016 16:24-0400 BP Diastolic 45 mm[Hg] Caro Dossi DC [facility] Work Phone: 06-28-2016 16:24-0400 BP Systolic 125 mm[Hg] Caro Dossi DC [facility] Work Phone: 06-28-2016 16:24-0400 Weight 104.33 kg Caro Dossi DC [facility] Work Phone: 06-28-2016 16:19-0400 Height 190.5 cm Caro Snider DC [facility] Work Phone: Encounters Encounter Date Encounter Type Care Provider Facility Start: 04-04-2025 End: 04-04-[address] Tee Rodriguez MD Work Phone: -[facility] Start: 04-04-2025 End: 04-04-[address] Tee Rodriguez MD -[facility] Work Phone: Start: 04-04-2025 End: 04-04-2025 ambulatory Tee Rodriguez Facility:[facility] Start: 03-27-2025 ambulatory Tee Rodriguez Faci lity:[facility] Start: 03-27-2025 Non-patient / Non-visit Dr. Venancio Clements MD -[facility] Start: 03-26-2025 End: 03-26-[address] Tee Rodriguez MD Work Phone: -Cat [facility] Start: 03-26-2025 End: 03-26-[address] Tee Rodriguez MD -Cat Scan [facility] Work Phone: Start: 03-25-2025 End: 03-26-[address] Tee Rodriguez MD Work Phone: -[facility] Start: 03-25-2025 End: 03-25-2025 Patient encounter procedure Karen LOZANO -[facility] Work Phone: Start: 03-25-2025 End: 03-25-2025 ambulatory Tee Rodriguez Facility:[facility] Start: 03-22-2025 End: 03-22-2025 Patient encounter procedure Mayela BALDWIN -[facility] Work Phone: Start: 03-22-2025 End: 03-22-[address] Tee Rodriguez MD Work Phone: -[facility] Start: 02-28-2025 End: 02-28-[address] Tee Rodriguez MD Work Phone: -[facility] [place] Start: 02-28-2025 End: 02-28-[address] Tee Rodriguez MD -[facility] [place] Work Phone: Start: 02-28-2025 End: 02-28-2025 ambulatory Tee Rodriguez Facility:[facility] Start: 11-07-2024 End: 11-07-[address] Tee Rodriguez MD Work Phone: [facility] Work Phone: Start: 11-07-2024 End: 11-07-2024 Patient encounter procedure Karen LOZANO -[facility] [place] Work Phone: Start: 11-07-2024 End: 11-07-2024 ambulatory Karen Romano Facility:[facility] Start: 09-19-2024 End: 09-19-2024 Patient encounter procedure Karen LOZANO -[facility] [place] Work Phone: Start: 09-19-2024 End: 09-19-2024 ambulatory Karen Romano Facility:[facility] Start: 08-06-2024 End: 08-06-[address] Tee Rodriguez MD -[facility] Work Phone: Start: 08-06-2024 End: 08-06-2024 ambulatory Tee Rodriguez Facility:[facility] Start: 07-10-2024 End: 07-10-2024 ambulatory Mickey Pond Facility:[facility] Start: 06-27-2023 End: 06-27-[address] Yunior Rodriguez Work Phone: [facility] Work Phone: Start: 06-27-2023 End: 06-27-[address] Yunior Rodriguez Work Phone: [facility] Start: 04-07-2023 End: 04-07-[address] Yunior Rodriguez Work Phone: [facility] Work Phone: Start: 04-07-2023 End: 04-07-[address] Yunior Rodriguez Work Phone: [facility] Start: 03-30-2023 End: 03-30-[address] Yunior Rodriguez Work Phone: [facility] Work Phone: Start: 03-30-2023 End: 03-30-[address] Yunior Rodriguez Work Phone: [facility] Start: 03-17-2023 End: 03-17-[address] [facility] Work Phone: Start: 02-09-[address] Mayco Rodriguez Work Phone: [facility]-Occupational Therapy Work Phone: Start: 02-04-2023 End: 02-04-[address] [facility] Work Phone: Start: 01-21-2023 End: 01-21-[address] Yunior Rodriguez Work Phone: [facility] Work Phone: Start: 01-21-2023 End: 01-21-[address] Yunior Rodriguez Work Phone: [facility] Start: 01-11-2023 End: 01-11-[address] Yunior Rodriguez Work Phone: [facility]-Sleep Lab Work Phone: Start: 12-03-2022 End: 12-03-[address] Yunior Rodriguez Work Phone: [facility] Work Phone: Start: 12-03-2022 End: 12-03-[address] Yunior Rodriguez Work Phone: [facility] Start: 11-24-2022 End: 11-24-[address] [facility] Start: 03-04-2022 End: 03-04-[address] [facility]unior Rodriguez [facility] Start: 02-05-2022 End: 02-05-[address] [facility]unior Rodriguez [facility] Start: 01-05-2022 End: 01-05-[address] Yunior Rodriguez [facility] Start: 01-04-2022 End: 01-04-[address] Yunior Rodriguez Work Phone: [facility] Start: 12-28-2021 End: 12-28-[address] Yunior Rodriguez [facility] Start: 11-20-2021 End: 11-20-[address] Yunior Rodriguez [facility] Start: 10-20-2021 End: 10-20-[address] Yunior Rodriguez [facility] Start: 10-08-2021 End: 10-08-[address] Yunior Rodriguez Work Phone: [facility] Start: 09-30-2021 End: 09-30-[address] Yunior Rodriguez Work Phone: [facility]-Massage Therapy, [facility] Start: 09-19-2021 End: 09-19-[address] Yunior Rodriguez Work Phone: [facility]-Laboratory Procedures Date Procedure Procedure Detail Performing Clinician Start: 04-04-2025 Endomys[address] antibody IgA level Dr. Tee Rodriguez MD Work Phone: Start: 04-04-2025 Gliadin antibody, Ig A measurement Dr. Tee Rodriguez MD Work Phone: Comment on above: Negative 0 - 19 Weak Positive 20 - 30 Moderate to Strong Positive >30 Start: 04-04-2025 Gliadin antibody, Ig G measurement Dr. Tee Rodriguez MD Work Phone: Comment on above: Negative 0 - 19 Weak Positive 20 - 30 Moderate to Strong Positive >30 Start: 04-04-2025 Measurement of immunoglobulin A in serum specimen Dr. Tee Rodriguez MD Work Phone: Comment on above: Performed at: [address] Director: Isaac Rubin PhD, Phone: [phone] Start: 04-04-2025 Plain X-ray abdomen Dr. Tee Rodriguez MD Work Phone: Start: 03-26-2025 CT angiography of co ronary arteries Dr. Tee Rodriguez MD Work Phone: [...] 03-28-2017 Chiropract manj 1-2 regions Caro Olivares Simon i DC Work Phone: Start: 03-28-2017 End: 03-28-2017 Mechanical traction therapy Caro Olivares Simon i DC Work Phone: Start: 06-28-2016 End: 06-28-2016 Chiropract manj 1-2 regions Caro Olivares Simon i DC Work Phone: Urine culture Dr. Yunior Rodriguez Work Phone: Plan of Treatment Date Care Activity Detail Author Start: 11-20-2021 Patient referral [facility] Work Phone: Start: 03-28-2017 End: 03-28-2017 Appointment [facility] Work Phone: Patient referral [facility] Work Phone: Polysomnography [facility] Payers Date Payer Category Payer Self-pay 0 2024 Self-pay [id number] 2013 Unknown [id number] Unknown [id number] 2.16.8 [id number] Unknown [id number] 2.16.8 [id number] Unknown [id number] 2.16.8 [id number] Unknown [id number] 2.16.8 [id number] Unknown [id number] 2.16.8 [id number] Unknown [id number] 2.16.8 [id number] Unknown [id number] 2.16.8 [id number] Unknown [id number] 2.16.8 [id number] Unknown [id number] 2.16.8 [id number] Unknown [id number] 2.16.8 [id number] Social History Date Type Detail Facility Start: 11-20-2021 End: 03-17-2023 Tobacco smoking status NHIS Unknown if ever smoked [facility] Start: 1970 Sex Assigned At Male [facility] Start: 12-01-2023 Tobacco smoking stat us NHIS Never smoked tobacco (finding) [facility] Start: 11-16-2024 Sex Male (finding) [facility] Goals Date Patient Goal Desired Activity /State Clinical Notes 2021 to 04-05-2025 Note Date & Type Note Facility 04-05-2025 Radiology Diagnostic study note [facility] Imaging Services [address] [place], [place] [address] Abd Inc Decub and/or Erect MR#: [id number] Acct: [id number] Name: MARIIA LEVINE Rep #: [id number] : 1970 M 55 From: Frank Ward MD PCP: Dr. Tee Rodriguez MD Status: REG CLI Study:Abd Inc Decub and/or Erect Date of Exam : 04/04/25 Exam# [id number] Ordering Dr: Pascual Rodriguez MD PROCEDURE: ABD INC DECUB AND/OR ERECT 04/04/2025 REASON FOR EXAM: ABD PAIN TECHNIQUE: ABD INC DECUB AND/OR ERECT COMPARISON: None. FINDINGS: Moderate amount of fecal residue in the large bowels. Normal visualized lung bases. There is an unremarkable bowel gas pattern. There is no demonstrated free abdominal air. Normal visualized liver. Normal visualized spleen. Normal visualized kidneys. The soft tissue structures of the pelvis are unremarkable. Normal visualized osseous structures. RAD/Abd Inc Decub and/or Erect IMPRESSION: Moderate amount of fecal residue in the large bowels. Reading [facility] CC: Dr. Tee Rodriguez MD ~ Starchmaker: Signed [facility] 03-27-2025 Radiology Diagnostic study note [facility] Imaging Services [address] [place] [id number] 03/27/25 0723 MR#: [id number] Acct: [id number] Name: MARIIA LEVINE Rep #:[id number] : 1970 55 From: Venancio Clements MD PCP: Dr. Tee Rodriguez MD Status :REG CLI Y Location: CT Calcium Scoring Date [...] No atherosclerotic plaquing noted 03/27/25 0724 Date __ _ Venancio Clements MD Cosigner Signature (if applicable): Date ___ CC: Dr. Tee Rodriguez MD; Dr. Venancio Clements MD ~ Signed [facility] Work Phone: 03-26-2025 Radiology Diagnostic study note [facility] Imaging Services [address] [place] [id number] Cardiac Only MR#: [id number] Acct: [id number] Name: MARIIA LEVINE Rep #: [id number] : 1970 M 55 From: Luís Almanzar MD PCP: Dr. Tee Rodriguez MD Status: [facility] CLI Study:Limited Chest CT Cardiac Only Date of E xam: 03/26/25 Exam# [id number] Ordering Dr: Pascual Rodriguez MD PROCEDURE: LIMITED CHEST CT CARDIAC ONLY 03/26/2025 [...] IMPRESSION: No coronary artery calcification. Reading Location: [id number] CC: Dr. Tee Rodriguez MD ~ Starchmaker: Signed [facility] 03-22-2025 Evaluation note Diagnosis Onset Date Resolution Sleep apnea chronic March 22 1:03pm [facility] Work Phone: [phone] 119-202310-22-2021 NoteHNO ID: [id number] Author: Fernanda Mclaughlin MD Service: ? Author Type: Physician Type: Progress Notes Filed: 06/21/2021 3:56 PM Note Text: ESTABLISHED PATIENT DISTANCE HEALTH VISIT (COVID-19 pandemic-related contingency encounter format)- Encounter completed via virtual visit (audio and video) using The Web Collaboration Network-based Zoom software* *(special provision to allow the use of this under the current pandemic circumstances per [place] Department of Health and Human Services- [email or web address]/sites/default/files/enqgxcsfnw-xvqg-299.pdf) Provider location during distance health encounter: [facility]/0 Patient location during distance health encounter: Home [...] disease. No serologic evidence of celiac disease. [place] Free, Serum 3.30 - 19.40 mg/L 13.5 Lambda Free, Serum 5.7 - 26.3 mg/L 13.7 K/L Ratio, Serum 0.26 - 1.65 0.99 Vitamin E-alpha 6.0 - 23.0 mg/L 12.1 Vitamin E-gamma 0.3 - 3.2 mg/L 1.5 MPA Result No M protein is identified. No M protein is identified. Staff Review (MPA) Reviewed by Bibiana Harding MD PhD ([id number]) Hemoglobin A1C 4.3 - 5.6 % 5.6 [...] with a relatively unremarkable PMHx following up (LCV 2021) RE: persistent/progressive numbness and paresthesia in [...] extraneous B6 intake (and ergonomic measures) since [facility]. ? PLAN/RECOMMENDATIONS: - The impression above as well as the plan as outlined below were extensively discussed with the (more content not included)...[facility] NoteProcedure (NENMMN) KEYANA LEVINE ([id number]) 1970 M Date Time Provider Department 02/18/21 1:45 PM SKIN BIOPSY NEPAMN During your visit today, we recorded the following information about you: Keisha Wellington APRN.ELECTRONIC GAMING DEVICE SUPERVISOR 02/18/2021 2:11 PM Signed Skin Biopsy Procedure Note Skin Biopsy Accession Number: [id number] Biopsy Date: 02/18/2021 Referring physician: Fernanda Mclaughlin [...] Procedure Note Procedure confirmed with provider and computer systems support specialist. Yes, left leg 2 skin biopsies. The [...] home. Specimens were labeled and sent to [facility]. Procedure was performed by: Keisha Wellington APRN.ELECTRONIC GAMING DEVICE SUPERVISOR Assistance in supply/equipment preparation performed by: Clarke Mascorro MA Sign out is complete. Referring Provider: FERNANDA MCLAUGHLIN [[id number]] Allergies As of Date: 02/18/2021 Noted Allergy Reaction AMOXICILLIN 2021 2 - Rash Date Reviewed: 02/18/2021 Reviewed by: Keisha Wellington APRN.ELECTRONIC GAMING DEVICE SUPERVISOR - Fully Assessed Primary Visit Diagnosis:Small fiber neuropathy [G62.9] Prescriptions as of 03/06/2021 - SYNTHROID 137 mcg tablet Take 1 tablet by mouth once daily. - Cholecalciferol, Vitamin D3, 50 mcg (2,000 unit) cap Take 1 capsule by mouth once daily. Problem List As Of Date: 02/18/2021 (None) Encounter Status:Closed by KEISHA WELLINGTON on 02/18/21[facility] NoteHNO ID: [id number] Author: Keisha Wellington APRN.ELECTRONIC GAMING DEVICE SUPERVISOR Service: ? Author Type: Nurse Practitioner Type: Progress Notes Filed: 02/18/2021 2:11 PM Note Text: Skin Biopsy Procedure Note Skin Biopsy Accession Number: [id number] Biopsy Date: 02/18/2021 Referring physician: Fernanda Mclaughlin [...] Procedure Note Procedure confirmed with provider and computer systems support specialist. Yes, left leg 2 skin biopsies. The [...] home. Specimens were labeled and sent to [facility]. Procedure was performed by: Keisha Wellington APRN.ELECTRONIC GAMING DEVICE SUPERVISOR Assistance in supply/equipment preparation performed by: Clarke Mascorro MA Sign out is complete.[facility]2021 NoteHNO ID: [id number] Author: Fernanda Mclaughlin MD Service: ? Author Type: Physician Type: Progress Notes Filed: 02/22/2021 6:10 PM Note Text: [facility] New Patient Visit Note Consultation [...] Topics - Alcohol u (more content not included)...[facility] Diagnosis Onset Date Resolution Status Polyneuropathy acute Rhinitis medicamentosa acute Sleep apnea acute Deviated septum acute Rhinitis medicamentosa acute Sleep apnea acute [facility] Work Phone: Evaluation note* Diagnosis Onset Date Resolution Status Rhinitis medicamentosa acute Sleep apnea acute Deviated septum acute Rhinitis medicamentosa acute Sleep apnea acute [facility] Work Phone: Evaluation note* Diagnosis Onset Date Resolution Status Deviated septum acute Rhinitis medicamentosa acute Sleep apnea acute [facility] Work Phone: Evaluation note* Diagnosis Onset Date Resolution Status Sleep apnea acute [facility] Work Phone: Evaluation note* Diagnosis Onset Date Resolution Status Sleep apnea acute Sleep apnea acute [facility] Work Phone: Evaluation note* Diagnosis Onset Date Resolution Status Sleep apnea chronic Sleep apnea chronic [facility] Work Phone: Evaluation note* Diagnosis Onset Date Resolution Status Sleep apnea chronic [facility] Work Phone: Evaluation noteNo assessment information available [facility] Work Phone[facility] Work Phone: Reason for referral (narrative)No reason for referral information available[facility] Work Phone: Summary Purpose Family History No [...] Visit Sleep apnea Chief Complaint Admit Date EORDER August 06, 2024 4 :06pm Chief Complaint Admit Date 1 Y FU March 22, 2025 1:03 pm Chief Complaint Admit Date 1 Y FU March 22, 2025 1:03 pm high lipid panel March 26, 2025 2:44 pm high lipid panel March 27, 2025 7:23 am Reason for Visit Admit Date Sleep apnea March 22, 2025 1:03 pm Chief Complaint Admit Date 1 Y FU March 22, 2025 1:03 pm high lipid panel March 26, 2025 2:44 pm high lipid panel March 27, 2025 7:23 am LABS/XRAY April 04, 2025 9:3 7am Additional Source Comments (unrecognized sect ion and content) No Status Records FoundNo Status Records Found INFORMATION SOURCE (unrecogn ized section and content) DATE CREATED AUTHOR 09/30/2021 [facility] DATE CREATED AUTHOR AUTHOR'S ORGANIZ ATION 04/23/2025 [facility] Care Teams (unrecognized sec tion and content) [...] Provider, Refe rring Provider Active Mayela Lomax TEXTILE COLORIST FORMULATOR, TEXTILE COLORIST FORMULATOR-C Attending Provider Active Team Status: Inactive Member [...] Rodriguez MD Referring Provider Active Mayela Lomax NP, TEXTILE COLORIST FORMULATOR-C Attending Provider Active Team Status: Active Member [...] End: March 22, 2025 Mayela Lomax NP, TEXTILE COLORIST FORMULATOR-C Attending Provider Active Start: March 22, 2025 [...] Provider Active S tart: March 27, 2025 Team Status: Inactive Member Role/Relationship Status Dates Dr. Tee Rodriguez MD Primary Care Provider Acti ve Start: April 04, 2025 End: April 04, 2025 Dr. Tee Rodriguez MD Attending Provider Active Start: April 04, 2025 End: April 04, 2025 Dr. Tee Rodriguez MD Referring Provider Active Start: April 04, 2025 End: April 04, 2025 Team Status: Inactive Member Role/Relationship Status Dates Dr. Tee Rodriguez MD Primary Care Provider Acti ve Start: March 26, 2025 End: March 26, 2025 Dr. Tee Rodriguez MD Attending Provider Active Start: March 26, 2025 End: March 26, 2025 Dr. Tee Rodriguez MD Referring Provider Active Start: March 26, 2025 End: March 26, 2025 FOR RECORDS PERTAINING TO PATIENTS WHO [...] BE BASED ON THE PRIMARY CLINICAL RECORDS. [facility] [employer] provides no warranty or guarantee of the accuracy or completeness of information in this document.
== END | disposition home or self-care (01) ==
LOC: LAB 14:57
PROVIDERS: PCP Family Medicine; Referring Provider Internal Medicine Endocrinology, Diabetes & Metabolism; Visit Provider Internal Medicine Endocrinology, Diabetes & Metabolism
DX: E03.9 Hypothyroidism, unspecified (principal)
CPT/HCPCS: 36415; 84443